=== PATIENT | female | born 1945 | race Caucasian/White ===

== ENCOUNTER → 2016-10-12 | Outpatient (CLI) | payer MEDICARE ==
[2016-10-12 17:04] LABS: Partial Thromboplastin Time 25.3 sec (22.0-30.0); Prothrombin Time 10.6 sec (9.0-12.0)
[2016-10-12 17:14] LABS: Calcium 9.6 mg/dL (8.4-10.2); Potassium 4.6 mmol/L (3.5-5.1); Total Bilirubin 0.5 mg/dL (0.2-1.3); Total Protein 6.7 g/dL (6.3-8.2)
[2016-10-12 17:15] LABS: Basophils % (A) 1 %; CH 30.8; CHCM 32.5; Eosinophils # (A) 0.1 k/uL (0-0.7); Eosinophils % (A) 1 %; HCT 38.8 % (34.0-46.0); HDW 2.81; Luc # (Auto) 0.23; Luc % (Auto) 4; Lymphocytes # (A) 1.1 k/uL (1.0-4.8); Lymphocytes % (A) 19 %; MCH 29.5 pg (25.0-35.0); MCV 95.2 fL (80.0-100.0); Mean Platelet Volume 7.4; Monocytes # (A) 0.3 k/uL (0-1.0); Monocytes % (A) 6 %; Neutrophils # (A) 3.8 k/uL (1.3-7.7); Neutrophils % (A) 69 %; RBC 4.08 m/uL (3.80-5.40); RDW 13.7 % (11.5-15.5); WBC 5.5 k/uL (3.8-10.6)
== END ==
LOC: LABPAT 16:08
PROVIDERS: ATTEND Orthopaedic Surgery
DX: Z01.812 Encounter for preprocedural laboratory examination (principal)
CPT/HCPCS: 80053; 85025; 85610; 85730; 86850; 86900; 86901; 87070

== ENCOUNTER 2016-10-20 09:54 | Inpatient (IN) | payer MEDICARE ==
[2016-10-12 14:06] VITALS: BMI 38.0
[~2016-10-20 09:54] MED LIST: ACETAMINOPHEN TAB 500 MG TAB PO ONE; DEXAMETHASONE SOD PHOSPHATE 10 MG/ML 1 ML VIAL IV ONE; HYDROmorphone 1 MG/ML 1 ML SYRINGE IVP PRN; LIDOCAINE 1% 20 ML VIAL (10MG/ML) FOR IV START INTRADERMA PRN; MELOXICAM 7.5 MG TAB PO ONE; MIDAZOLAM 2 MG/2 ML VIAL IV PRN; ONDANSETRON 4 MG/2 ML VIAL IVP ONE; SCOPOLAMINE 1.5MG/72HR PATCH TRANSDERM ONE; TRANEXAMIC ACID 1,000 MG in SODIUM CHLORIDE 0.9% 100 ML IVPB ONE; ceFAZolin 2 GM in SODIUM CHLORIDE 0.9% 100 ML IVPB ONE
[2016-10-20] MEDS: LACTATED RINGERS 1,000 ML IV SCH (10:39)
[2016-10-20] MEDS ORDERED: LIDOCAINE 1% 20 ML VIAL (10MG/ML) FOR IV START INTRADERMA ONE (10:40)
[2016-10-20] MEDS ORDERED: SODIUM CHLORIDE 0.9% 100 ML BAG ONE (11:51)
[2016-10-20] MEDS ORDERED: HEPARIN SODIUM,PORCINE 10,000 UNIT/ML 1 ML VIAL ONE (11:51)
[2016-10-20] MEDS ORDERED: fentaNYL (PF) 50 MCG/ML 2 ML AMP ONE (11:51)
[2016-10-20] MEDS ORDERED: PROPOFOL 10 MG/ML 20 ML VIAL IV ONE (11:51)
[2016-10-20] MEDS ORDERED: CLINDAMYCIN 1,800 MG in SODIUM CHLORIDE 0.9% IRRIGATIO 3,000 ML IRRIGATION ONE (11:51)
[2016-10-20] MEDS ORDERED: HYDROmorphone (PF) 1 MG/ML ONE (11:51)
[2016-10-20] MEDS ORDERED: SODIUM CHLORIDE 0.9% IRRIG 1,000 ML BTL IRRIGATION ONE (11:51)
[2016-10-20] MEDS ORDERED: GLYCOPYRROLATE 0.2 MG/ML 2 ML VIAL ONE (11:51)
[2016-10-20] MEDS ORDERED: LIDOCAINE 1% INJ 10MG/ML (20 ML MDV) ONE (11:51)
[2016-10-20] MEDS ORDERED: MIDAZOLAM 2 MG/2 ML VIAL ONE (11:51)
[2016-10-20] MEDS ORDERED: ROCURONIUM BROMIDE 10 MG/ML 10 ML VIAL IV ONE (11:51)
[2016-10-20] MEDS ORDERED: NEOSTIGMINE 1 MG/ML 10 ML VIAL ONE (11:51)
[2016-10-20] MEDS ORDERED: SUCCINYLCHOLINE CHLORIDE 100 MG/5 ML SYR IV ONE (11:51)
[2016-10-20] MEDS ORDERED: TRANEXAMIC ACID 1,000 MG/10 ML VIAL ONE (11:51)
[2016-10-20] MEDS: ROPIVACAINE 246.25 MG, EPINEPHrine 0.5 MG, KETOROLAC 30 MG, cloNIDine HCL/PF 80 MCG, WA... MISCELLANE ONE ×10 (12:30→13:15)
[2016-10-20] MEDS ORDERED: LACTATED RINGERS 1,000 ML IV ONE (13:15)
--- NOTE | 2016-10-20 13:48 | FL ---
Fluoroscopy HISTORY: Post hip arthroplasty 45 seconds fluoroscopy time supplied to the referring clinician. 2 intraoperative C-arm images docum ent the procedure. See dictated report from orthopedic surgery.
--- NOTE | 2016-10-20 13:58 | XR ---
Limited right hip HISTORY: Status post hip replacement 2 views of the right hip document the procedure
[2016-10-20] MEDS ORDERED: HYDROmorphone 1 MG/ML 1 ML SYRINGE IVP PRN ×2 (14:06)
[2016-10-20] MEDS ORDERED: DIAZEPAM 5 MG TAB PO PRN ×2 (14:06)
[2016-10-20] MEDS ORDERED: ONDANSETRON 4 MG/2 ML VIAL IVP PRN (14:06)
[2016-10-20] MEDS ORDERED: NALOXONE 0.4 MG/ML 1 ML VIAL IV PRN (14:06)
[2016-10-20] MEDS ORDERED: HYDROcodone/APAP 5-325MG 1 EACH TAB PO PRN (14:06)
[2016-10-20] MEDS ORDERED: MAGNESIUM HYDROXIDE 2,400 MG/10 ML CUP PO PRN (14:06)
--- NOTE | 2016-10-20 14:42 | XR ---
EXAMINATION TYPE: XR Hip Limited RT DATE OF EXAM ORDERED: 10/20/2016 2:37 PM HISTORY: Status post hip surgery, assess surgical alignment. COMPARISON: None. FINDINGS: The right hip arthroplasty has been performed. Prosthetic elements appear in good position . IMPRESSION: STATUS POST RIGHT HIP ARTHROPLASTY.
--- NOTE | 2016-10-20 15:36 | P.OP ---
Date of Procedure: 10/20/16 Preoperative Diagnosis: Severe osteoarthritis right hip Postoperative Diagnosis: Severe osteoarthritis right hip Procedure(s) Performed: Right total hip arthroplasty with a direct anterior approach Implants: Jacinto and nephew Polarstem size 2 standard Jacinto [employer] Nephew R3, 3 hole acetabular shell, 50 mm Jacinto [employer] Nephew reflection 6.5 mm cancellus screw, 20 mm 2 Jacinto [employer] Nephew R3, XLPE 20 acetabular liner Jacinto & Nephew Oxinium femoral head 32 m, +4 All components were press-fit. The articulation is ceramic on polyethylene. Anesthesia: spinal Surgeon: Mk Stoddard Mortising Machine Operator #1: Scarlet Micehlle Estimated Blood Loss (ml): 125 (62 cc returned with cell saver) Pathology: other (Femoral head) Condition: stable Disposition: PACU Indications for Procedure: After failure of conservative treatment we discussed the surgical and nonsurgical treatment options at length. Patient wishes to proceed with a total hip arthroplasty with a direct anterior approach. Complications specific to this procedure were discussed at length, including but not limited to infection, leg length discrepancy, dislocation, and nerve injury. Patient is aware of all these complications and informed consent was obtained Operative Findings: The operative findings are consistent with severe osteoarthritis of the right hip Description of Procedure: Patient was seen and evaluated in the preoperative area, consent was reviewed, and the surgical site was marked with a skin marker. Patient was then brought to the operating room and given prophylactic antibiotics intravenously. 1 g of Tranexamic acid was also given. A spinal anesthetic was administered by the anesthesia department. A Alvarez catheter was then placed by the nursing staff. The patient was then placed on the [place] table with the bony prominences well- padded. The hip area was then prepped and draped in usual sterile fashion. A universal timeout was then performed, which confirmed the patient's name, surgical site, ALLERGIES, and procedure being performed. Next the incision site was located at 1 cm distal and 1 cm lateral to the anterior superior iliac spine. The skin and subcutaneous tissues were sharply incised. Incision was carefully dissected down to the fascia overlying the tensor fascia georgie muscle. This fascia was then incised in line with the incision. Next, using blunt finger dissection, the tensor fascia georgie muscle was dissected off its investing fascia. The muscle was then carefully retracted laterally with a cobra retractor over the lateral neck of the femur. Next, the circumflex vessels were identified and cauterized using the AquaMantis device. The anterior hip capsule was then exposed. The capsule was then opened and an inverted T fashion. Retention sutures were placed in the inferior arms of the capsule. Cobra retractors were then placed intracapsularly. The proximal femur was then visualized. The femoral neck was then osteotomized appropriate level above the lesser trochanter. Small amount of traction was placed with the [place] table. A small wedge of bone was then removed from the remaining femoral head. Next, using a corkscrew femoral head was easily removed from the acetabulum. On gross visual inspection, the femoral head had complete loss of articular cartilage in multiple periarticular osteophytes. Attention was then turned to the acetabulum. the acetabulum was exposed and any remaining labrum was excised. Sequential reaming of the acetabulum was performed using fluoroscopic guidance. When the appropriate size was reached, a trial was then placed. The position and fit of the trial was checked with fluoroscopy. The trial was then removed. Then, using fluoroscopic guidance, the final implant was impacted at 20 of anteversion and 40 of abduction, and fully seated in the acetabulum. 2 screws were then placed in the acetabulum. Again fluoroscopy was used to check position of the screws. Next, the liner was then impacted, with a 20 elevated liner located in the anterior superior quadrant. Component locking was confirmed. Attention was then directed to the femur. With the aid of the [place] table, the femur was externally rotated to approximately 130, extended, and abducted under the opposite leg. A side hook was then placed under the proximal femur, and the side hook elevator was used to elevate the proximal femur. Retractors were then placed. A capsular release was performed, as well as a release of the conjoined tendon, which afforded excellent visualization of the proximal femur. Next, a box osteotome was used to lateralize the proximal femur. A binder stripper hand was then used to locate the femoral canal. Sequential broaching was then performed with appropriate size which afforded excellent fixation in the proximal femur. A trial was then placed with appropriate head and neck, and the hip was gently reduced with the aid of the [place] table. Fluoroscopy was then used to check position of the components, as well as to ensure equal leg lengths. The hip was then gently dislocated and the trials were then removed. Final implants were then impacted and the hip was again reduced. Final fluoroscopic x-rays confirmed that the components were in anatomic position, as well as equal leg lengths. The hip was also taken through range of motion, and found to be stable. The hip was then copiously irrigated with antibiotic solution with pulsatile lavage. The hip was then irrigated with Irrisept solution. The soft tissues were then injected with a ropivacaine solution, which consisted of 246.25 mg of ropivacaine, 0.5 mg of epinephrine, 30 mg of Toradol, 80 g of clonidine, and 48.45 mL of sterile water, for a total of 100 mL of fluid injected. A second dose of 1 g of Tranexamic acid was also given. the fascia was then closed with 2-0 strata fix suture. The subcutaneous tissue was closed with 3-0 Vicryl. The subcuticular tissue was closed with 3-0 strata fix suture. The skin was then closed with Dermabond tape. The patient was then transferred to the recovery room in stable condition. The financial planning assistant HENNA Calderón was required due to the complexity of surgery , and the need for skilled bakery assistant for positioning, draping, exposure , retraction, and closure of the wound.
[2016-10-20] MEDS: SODIUM CHLORIDE 0.9% 1,000 ML IV SCH ×2 (15:39→23:02)
--- NOTE | 2016-10-20 19:43 | P.CONS ---
History of Present Illness - Reason for Consult Consult date: 10/20/16 Medical management Requesting physician: Mk Stoddard - Chief Complaint Right hip arthroplasty - History of Present Illness This is a pleasant 71-year-old lady patient of Dr. Berg. She has underlying history of diabetes mellitus type 2, hypertension, depression, CK D, atrial fibrillation, hyperlipidemia GERD and vitamin D deficiency or shortness 5 this admitted under service of Dr. Stoddard for right hip arthroplasty performed on 10/20/2016. She underwent the right hip arthroplasty without any perioperative complications, Review of Systems Constitutional: Reports as per HPI, Denies anorexia, Denies chills, Denies chronic headaches, Denies chronic pain, Denies daytime sleepiness, Denies fatigue, Denies fever, Denies lethargy, Denies malaise, Denies night sweats, Denies poor appetite, Denies sweats, Denies weakness, Denies weight gain, Denies weight loss Ears, nose, mouth and throat: Reports as per HPI, Denies ant. neck pain, Denies bleeding gums, Denies dental pain, Denies dysphagia, Denies epistaxis, Denies headache, Denies hoarseness, Denies mouth pain, Denies nasal congestion, Denies nasal discharge, Denies neck fullness/pressure, Denies neck lump, Denies nose pain, Denies odynophagia, Denies post-nasal drip, Denies sinus pain, Denies sinus pressure, Denies swelling in mouth, Denies swelling in throat, Denies sore throat, Denies vertigo, Denies voice changes Breasts: Denies as per HPI, Denies breast feeding Cardiovascular: Reports as per HPI, Denies chest pain, Denies claudication, Denies decreased exercise tolerance, Denies dyspnea on exertion, Denies edema, Denies high blood pressure, Denies irregular heart beat, Denies leg edema, Denies lightheadedness, Denies orthopnea, Denies palpitations, Denies paroxysmal nocturnal dyspnea, Denies phlebitis, Denies rapid heart beat, Denies shortness of breath, Denies syncope Respiratory: Reports as per HPI, Denies congestion, Denies cough, Denies cough with sputum, Denies dyspnea, Denies excessive sputum, Denies hemoptysis, Denies home oxygen, Denies pain, Denies pain on inspiration, Denies pleurisy, Denies respiratory infections, Denies sleep apnea, Denies snoring, Denies wheezing Gastrointestinal: Reports as per HPI, Denies abdominal pain, Denies belching, Denies bloating, Denies BRBPR, Denies change in bowel habits, Denies coffee ground emesis, Denies constipation, Denies diarrhea, Denies dyspepsia, Denies early satiety, Denies excessive gas, Denies heartburn, Denies hematemesis, Denies hematochezia, Denies indigestion, Denies jaundice, Denies lactose intolerance, Denies loss of appetite, Denies melena, Denies nausea, Denies vomiting Genitourinary: Reports as per HPI, Denies abnormal vaginal bleeding, Denies decreased libido, Denies difficulty conceiving, Denies difficulty voiding, Denies dysmenorrhea, Denies dyspareunia, Denies dysuria, Denies flank pain, Denies genital sores, Denies hematuria, Denies hot flashes, Denies incomplete emptying, Denies kidney stones, Denies menorrhagia, Denies mixed incontinence, Denies nocturia, Denies pelvic pain, Denies post void dribbling, Denies , Denies prolapse symptoms, Denies stress incontinence, Denies urge incontinence , Denies urgency, Denies urinary frequency, Denies vaginal discharge, Denies vaginal dryness, Denies vaginal itching, Denies vaginal odor Menstruation: Reports as per HPI, Reports postmenopausal, Denies amenorrhea, Denies amenorrhea on BC, Denies currently menstrual, Denies cycle < 21 days, Denies cycle > 35 days, Denies cycle variable, Denies menses 1-7 days, Denies menses 8 or > days, Denies menses variable, Denies period heavy, Denies period light, Denies period normal, Denies period spotting, Denies post hysterectomy, Denies premenarcheal Musculoskeletal: Reports as per HPI, Reports gait dysfunction, Denies arm numbness/tingling, Denies atrophy, Denies fractures, Denies frequent falls, Denies hot joints, Denies leg numbness/tingling, Denies limitation of motion, Denies loss of height, Denies low back pain, Denies morning stiffness, Denies muscle cramps, Denies muscle weakness, Denies myalgias, Denies neck pain, Denies neck stiffness, Denies prior amputations, Denies redness of joints, Denies shooting arm pain, Denies shooting leg pain Integumentary: Reports as per HPI, Denies acne, Denies boils, Denies brittle nails, Denies change in hair/nails, Denies color changes, Denies darkening of skin, Denies depigmentation, Denies dryness, Denies foot/leg ulcers, Denies growths, Denies hirsutism, Denies lesions, Denies onychomycosis, Denies pruritus , Denies rash, Denies sores, Denies striae, Denies unusual bruising, Denies wounds Neurological: Reports as per HPI, Denies aphasia, Denies ataxia, Denies balance difficulties, Denies burning pain, Denies change in mentation, Denies change in smell/taste, Denies change in speech, Denies confusion, Denies convulsions, Denies double vision, Denies gait dysfunction, Denies head injury, Denies headaches, Denies hearing difficulties, Denies lack of coordination, Denies loss of vision, Denies memory loss, Denies migraines, Denies motor disturbance, Denies numbness, Denies paralysis, Denies paresthesias, Denies seizures, Denies sensory deficit, Denies spasticity, Denies syncope, Denies tic, Denies tingling , Denies transient paralysis, Denies tremors, Denies vertigo, Denies weakness, Denies visual changes Psychiatric: Reports as per HPI, Denies anhedonia, Denies anxiety, Denies anxiety attacks, Denies change in appetite, Denies change in libido, Denies change in sleep habits, Denies confusion, Denies depression, Denies difficulty concentrating, Denies disorientation, Denies hallucinations, Denies hopelessness , Denies hypersomnia, Denies insomnia, Denies irritability, Denies memory loss, Denies mood swings, Denies paranoia, Denies sadness/tearfulness, Denies sleep disturbances, Denies suicidal ideation Endocrine: Reports as per HPI, Denies cold intolerance, Denies deepening of the voice, Denies excessive sweating, Denies excessive thirst, Denies fatigue, Denies flushing, Denies heat intolerance, Denies high blood sugars, Denies increase in ring/shoe/hat size, Denies low blood sugars, Denies nocturia, Denies palpitations, Denies polydipsia, Denies polyphagia, Denies polyuria, Denies proptosis, Denies recent glucocorticoid use, Denies thyroid mass, Denies weight change Hematologic/Lymphatic: Reports as per HPI Allergic/Immunologic: Reports as per HPI Past Medical History Past Medical History: Atrial Fibrillation, Cancer, Diabetes Mellitus (Diet- controlled not on any medication), Hypertension, Osteoarthritis (OA), Renal Disease (CK DH3) Additional Past Medical History / Comment(s): hx cervical cancer, hx GOUT, arthritis, "borderline diabetic"-does not watch diet, radiation tx to tonsils as child, has walker and "walking stick" History of Any Multi-Drug Resistant Organisms: None Reported Past Surgical History: Back Surgery, Hysterectomy, Orthopedic Surgery Additional Past Surgical History / Comment(s): APPLE cataracts, rt knee arthroscopy, neck fusion at C4-C5, C5-C6, C6-C7 corpectomy, LEFT CARPAL TUNNEL, cardioversion colonoscopy bilateral tubal ligation Past Anesthesia/Blood Transfusion Reactions: Postoperative Nausea & Vomiting ( PONV) Additional Past Anesthesia/Blood Transfusion Reaction / Comm: "stopped breathing with procedure done by Dr Britton", hard time coming out, told she was "lightweight" Past Psychological History: No Psychological Hx Reported Additional Psychological History / Comment(s): . Smoking Status: Former smoker Past Alcohol Use History: Daily Additional Past Alcohol Use History / Comment(s): STATES Stopped SMOKING 1996, 1PPD SINCE AGE 15 (1960) STATES DRINKS 1-2 BEERS DAILY Past Drug Use History: None Reported - Past Family History Brother(s) Family Medical History: Cancer Additional Family Medical History / Comment(s): colon,lymphoma Father Family Medical History: Pulmonary Embolus Additional Family Medical History / Comment(s): . Mother Family Medical History: Hypertension Daughter(s) Family Medical History: No Reported History Son(s) Family Medical History: No Reported History Medications and Allergies Home Medications Medication Instructions Recorded Confirmed Type Aspirin 81 mg PO DAILY 08/21/14 10/20/16 History Vit A,C & E/Lutein/Minerals 1 tab PO DAILY 08/21/14 10/20/16 History [Ocuvite with Lutein Tablet] Ergocalciferol [Vitamin D2 50,000 unit PO [id number] 09/07/14 10/20/16 History (DRISDOL)] Dexlansoprazole [Dexilant] 60 mg PO DAILY 04/01/16 10/20/16 History Hydrochlorothiazide 25 mg PO DAILY 04/01/16 10/20/16 History [Hydrochlorothiazide] Apixaban [Eliquis] 5 mg PO BID 10/12/16 10/20/16 History Atenolol [Tenormin] 25 mg PO DAILY 10/12/16 10/20/16 History Ibuprofen [Motrin] 400 mg PO Q6HR PRN 10/12/16 10/20/16 History Acetaminophen Tab [Tylenol Tab] 650 mg PO Q6H PRN 10/20/16 10/20/16 History Allergies Allergy/AdvReac Type Severity Reaction Status Date / Time Iodinated Contrast Media - Allergy Rash/Hives Verified 10/12/16 13:49 Oral and [Iodinated Contrast Media - IV Dye] Penicillins Allergy Rash/Hives Verified 10/12/16 13:49 Sulfa (Sulfonamide Allergy Rash/Hives Verified 10/12/16 13:49 Antibiotics) Physical Exam Vitals: Vital Signs Temp Pulse Pulse Pulse Resp BP Pulse Ox 10/20/16 18:00 62 116/70 10/20/16 17:45 65 122/60 10/20/16 17:30 67 123/69 10/20/16 17:15 73 116/69 10/20/16 17:00 56 L 116/69 10/20/16 16:45 62 117/69 10/20/16 16:30 64 117/70 10/20/16 16:15 64 134/74 10/20/16 16:00 97.2 F L 61 64 17 129/72 96 10/20/16 15:30 61 18 129/62 98 10/20/16 15:15 61 18 136/60 97 10/20/16 14:46 69 18 164/72 97 10/20/16 14:30 69 18 169/74 97 10/20/16 14:15 75 18 156/74 96 10/20/16 14:06 98.3 F 89 16 187/79 100 10/20/16 13:00 64 18 151/70 96 10/20/16 10:26 98.3 F 69 18 161/69 99 Intake and Output 10/20/16 10/20/16 10/20/16 06:59 14:59 22:59 Intake Total 1301 800 Output Total 175 50 Balance 1126 750 Intake: IV 1301 800 Output: Urine 50 50 Estimated Blood Loss 125 Other: Voiding Method Indwelling Catheter Weight 88.451 kg Patient Weight 10/21/16 06:59 Weight 88.451 kg - Constitutional General appearance: average body habitus, cooperative, no acute distress - EENT Eyes: anicteric sclerae, PERRLA, dentition normal, normal appearance ENT: hearing grossly normal, NA/AT, normal oropharynx - Neck Neck: no lymphadenopathy, normal ROM, no other, no rigidity, no stridor, no thyromegaly - Respiratory Respiratory: bilateral: CTA, negative: diminished, dullness, rales, rhonchi - Cardiovascular Rhythm: regular Heart sounds: normal: S1, S2 Abnormal Heart Sounds: no systolic murmur, no diastolic murmur, no rub, no S3 Gallop, no S4 Gallop, no click, no other - Gastrointestinal General gastrointestinal: normal bowel sounds, soft - Integumentary Integumentary: normal - Psychiatric Psychiatric: A&O x's 3, appropriate affect, intact judgment & insight Results Labs: Laboratory Results Blood Type A Negative 10/12/16 16:12 Blood Type Recheck No 10/12/16 16:12 Weak D (Du) Positive 10/12/16 16:12 Antibody Screen NEGATIVE 10/12/16 16:12 Spec Expiration Date 10/22/2016 - 231110/12/16 16:12 Assessment and Plan Plan: 1. Right total hip arthroplasty on 10/20/2016, patient would be receiving DVT prophylaxis, incentive spirometry, therapies during this current hospitalization. Patient is currently stable, anticipate discharge to home therapies 2. Diabetes mellitus type 2 not on any oral hypoglycemic agents 3. Benign hypertension, on Tenormin is resumed, hydrochlorothiazide will be restarted in the morning 10/21 4. Vitamin D deficiency on vitamin D to 50,000 units every 2 weeks 5. Paroxysmal atrial fibrillation on Ahlquist 5 mg twice a day this will be restarted on October 21 6. Diabetic polyneuropathy he was started by Dr. Berg on gabapentin during her last visit 09/10/2016 which she did not continue 7. Hyperlipidemia not on any statin 8. CKD III, monitor creat during this admision 8. GERD on maintenance Dexilant 9. DVT prophylaxis on Eliquis which is chronically maintained for her afib Thank you Dr. Stoddard in allowing us to participate in her care. Patient. We are going to follow her with you during this current hospital stay with recommendations on her treatment based on her clinical progress
[2016-10-20] MEDS: HYDROcodone/APAP 5-325MG 1 EACH TAB PO PRN (20:52)
[2016-10-20] MEDS: SENNOSIDES-DOCUSATE SODIUM 1 EACH TAB PO SCH (20:53)
[2016-10-20] MEDS: ceFAZolin 2 GM in SODIUM CHLORIDE 0.9% 100 ML IVPB SCH (20:53)
[2016-10-20] MEDS ORDERED: ENOXAPARIN 30 MG/0.3 ML SYRINGE SQ SCH (21:00)
[2016-10-20] MEDS: HYDROmorphone 1 MG/ML 1 ML SYRINGE IVP PRN (23:15)
[2016-10-21] MEDS: ceFAZolin 2 GM in SODIUM CHLORIDE 0.9% 100 ML IVPB SCH (03:05)
[2016-10-21] MEDS: HYDROmorphone 1 MG/ML 1 ML SYRINGE IVP PRN (05:50)
[2016-10-21] MEDS: LACTATED RINGERS 1,000 ML IV SCH (06:25)
[2016-10-21 07:25] LABS: Calcium 8.5 mg/dL (8.4-10.2); Potassium 4.4 mmol/L (3.5-5.1)
[2016-10-21] MEDS: PANTOPRAZOLE 40 MG TABLET PO SCH (07:27)
[2016-10-21] MEDS: MELOXICAM 7.5 MG TAB PO SCH (07:27)
[2016-10-21 07:40] LABS: Basophils % (A) 0 %; CH 30.4; CHCM 32.2; Eosinophils % (A) 0 %; HCT 32.1 % (34.0-46.0); HDW 2.88; HGB 10.2 gm/dL (11.4-16.0); Hypochromasia Slight; Luc # (Auto) 0.16; Luc % (Auto) 1; Lymphocytes # (A) 0.8 k/uL (1.0-4.8); Lymphocytes % (A) 7 %; MCH 30.2 pg (25.0-35.0); MCHC 31.9 g/dL (31.0-37.0); MCV 94.8 fL (80.0-100.0); Mean Platelet Volume 8.4; Monocytes # (A) 0.6 k/uL (0-1.0); Monocytes % (A) 5 %; Neutrophils # (A) 9.7 k/uL (1.3-7.7); Neutrophils % (A) 86 %; RBC 3.38 m/uL (3.80-5.40); RDW 13.7 % (11.5-15.5); WBC 11.2 k/uL (3.8-10.6); WBC (Perox) 11.47
[2016-10-21] MEDS: APIXABAN 5 MG TAB PO SCH ×2 (08:30→21:34)
[2016-10-21] MEDS: hydrOXYzine PAMOATE 25 MG CAP PO PRN ×3 (08:34→21:35)
[2016-10-21] MEDS: HYDROcodone/APAP 5-325MG 1 EACH TAB PO PRN ×3 (08:34→21:34)
[2016-10-21] MEDS ORDERED: ASPIRIN 81 MG CHEW PO SCH (09:00)
--- NOTE | 2016-10-21 09:23 | P.PN ---
Subjective Principal diagnosis: Status post right total hip arthroplasty This is a 71-year-old female who is status post right total hip arthroplasty. Today's postoperative day #1. The patient is seen and evaluated at bedside with Dr. Mk Stoddard. She felt a pop in her hip this morning. She is really not had any increased pain since that time. Her pain is under fair control. She has no other complaints at this time. Objective - Vital Signs Vital signs: Vital Signs Temp 97.4 F L 10/21/16 07:00 Pulse 61 10/21/16 07:00 Resp 16 10/21/16 07:00 BP 109/53 10/21/16 07:00 Pulse Ox 97 10/21/16 07:00 Intake & Output 10/20/16 10/21/16 10/21/16 18:59 06:59 18:59 Intake Total 2101 1425 Output Total 225 Balance 1876 1425 Weight 88.451 kg Intake: IV 2101 Intake, IV Titration 975 Amount Sodium Chloride 0.9% 1, 875 000 ml @ 70 mls/hr IV . [id number] [facility] Rx#:[id number] ceFAZolin 2 gm In Sodium 100 Chloride 0.9% 100 ml @ 100 mls/hr IVPB Q8H [facility]VIS Rx#:[id number] Oral 450 Output: Urine 100 Estimated Blood Loss 125 Other: Voiding Method Indwelling Catheter Indwelling Catheter - Exam The patient does not appear in acute distress. Alert and orientated 3. Dressing is clean dry and intact. Incision appears fine with no erythema or active drainage. Calf is soft and nontender. Good foot and ankle motion without difficulty. Sensation and circulatory status is intact. - Labs CBC & Chem 7: 10/21/16 06:30 10/21/16 06:30 Labs: Abnormal Lab Results - Last 24 Hours (Table) 10/21/16 10/21/16 Range/Units 06:30 06:30 WBC 11.2 H (3.8-10.6) k/uL RBC 3.38 L (3.80-5.40) m/uL Hgb 10.2 L (11.4-16.0) gm/dL Hct 32.1 L (34.0-46.0) % Neutrophils # 9.7 H (1.3-7.7) k/uL Lymphocytes # 0.8 L (1.0-4.8) k/uL BUN 38 H (7-17) mg/dL Creatinine 1.40 H (0.52-1.04) mg/dL Glucose 118 H (74-99) mg/dL Assessment and Plan (1) Status post right hip replacement Status: Acute (2) Primary osteoarthritis of right hip Status: Acute Plan: Continue with routine postoperative care. Physical therapy and pain control. Anticoagulation as directed by medicine with Chaim. We will obtain an x-ray of her right hip today. Anticipate possible discharge to home with home care tomorrow.
[2016-10-21] MEDS: ATENOLOL 25 MG TAB PO SCH (12:59)
[2016-10-21] MEDS: HYDROCHLOROTHIAZIDE 25 MG TAB PO SCH (12:59)
[2016-10-21] MEDS: VIT A,C & E-LUTEIN-MINERALS 1 EACH TAB PO SCH (13:01)
--- NOTE | 2016-10-21 14:24 | P.PN ---
Subjective This is a pleasant 71-year-old lady patient of Dr. Berg. She has underlying history of diabetes mellitus type 2, hypertension, depression, CK D, atrial fibrillation, hyperlipidemia GERD and vitamin D deficiency or shortness 5 this admitted under service of Dr. Stoddard for right hip arthroplasty performed on 10/20/2016. She underwent the right hip arthroplasty without any perioperative complications, 10/21: Alvarez catheter was removed this morning and patient has not yet voided. Monitor for urinary retention. Pain is currently controlled. She denies any nausea, vomiting, diarrhea. No shortness of breath. Objective - Vital Signs Vital signs: Vital Signs Temp 97.4 F L 10/21/16 07:00 Pulse 62 10/21/16 09:48 Resp 16 10/21/16 08:00 BP 117/54 10/21/16 09:48 Pulse Ox 97 10/21/16 07:00 Intake & Output 10/20/16 10/21/16 10/21/16 18:59 06:59 18:59 Intake Total 2101 1425 240 Output Total 225 350 Balance 1876 1425 -110 Weight 88.451 kg 88.451 kg Intake: IV 2101 Intake, IV Titration 975 Amount Sodium Chloride 0.9% 1, 875 000 ml @ 70 mls/hr IV . [id number] TRAVIS Rx#:[id number] ceFAZolin 2 gm In Sodium 100 Chloride 0.9% 100 ml @ 100 mls/hr IVPB Q8H TRAVIS Rx#:[id number] Oral 450 240 Output: Urine 100 350 Uretheral (Alvarez) 300 Estimated Blood Loss 125 Other: Voiding Method Indwelling Catheter Indwelling Catheter Indwelling Catheter - Exam General appearance: average body habitus, cooperative, no acute distress - EENT Eyes: anicteric sclerae, PERRLA, dentition normal, normal appearance ENT: hearing grossly normal, NA/AT, normal oropharynx - Neck Neck: no lymphadenopathy, normal ROM, no other, no rigidity, no stridor, no thyromegaly - Respiratory Respiratory: bilateral: CTA, negative: diminished, dullness, rales, rhonchi - Cardiovascular Rhythm: regular Heart sounds: normal: S1, S2 Abnormal Heart Sounds: no systolic murmur, no diastolic murmur, no rub, no S3 Gallop, no S4 Gallop, no click, no other - Gastrointestinal General gastrointestinal: normal bowel sounds, soft - Integumentary Integumentary: normal - Psychiatric Psychiatric: A&O x's 3, appropriate affect, intact judgment & insight - Labs CBC & Chem 7: 10/21/16 06:30 10/21/16 06:30 Labs: Abnormal Lab Results - Last 24 Hours (Table) 10/21/16 10/21/16 Range/Units 06:30 06:30 WBC 11.2 H (3.8-10.6) k/uL RBC 3.38 L (3.80-5.40) m/uL Hgb 10.2 L (11.4-16.0) gm/dL Hct 32.1 L (34.0-46.0) % Neutrophils # 9.7 H (1.3-7.7) k/uL Lymphocytes # 0.8 L (1.0-4.8) k/uL BUN 38 H (7-17) mg/dL Creatinine 1.40 H (0.52-1.04) mg/dL Glucose 118 H (74-99) mg/dL Assessment and Plan Plan: 1. Right total hip arthroplasty on 10/20/2016, patient would be receiving DVT prophylaxis, incentive spirometry, therapies during this current hospitalization. Patient is currently stable, anticipate discharge to home therapies. Alvarez discontinued. Monitor for urinary retention. 2. Diabetes mellitus type 2 not on any oral hypoglycemic agents 3. Benign hypertension, on Tenormin is resumed, hydrochlorothiazide will be restarted in the morning 10/21 4. Vitamin D deficiency on vitamin D to 50,000 units every 2 weeks 5. Paroxysmal atrial fibrillation on Ahlquist 5 mg twice a day this will be restarted on October 21 6. Diabetic polyneuropathy he was started by Dr. Berg on gabapentin during her last visit 09/10/2016 which she did not continuebecause she could not tolerate. 7. Hyperlipidemia not on any statin 8. CKD III, monitor creat during this admision 8. GERD on maintenance Dexilant 9. DVT prophylaxis on Eliquis which is chronically maintained for her afib Discharge plan: home with [facility] Impression and plan of care have been directed as dictated by the signing physician. Pamela Hook nurse practitioner acting as scribe for signing physician. Time with Patient: Greater than 30
[2016-10-21 15:35] VITALS: TEMP 97.9
--- NOTE | 2016-10-21 18:09 | XR ---
EXAMINATION TYPE: XR Hip Limited RT DATE OF EXAM: 10/21/2016 5:30 PM COMPARISON: Yesterday HISTORY: Hip replacement TECHNIQUE: 2 views FINDINGS: There is a right total hip prosthesis. Components appear in anatomic position. I see no fra cture. IMPRESSION: Right hip prosthesis without change in position compared to yesterday.
--- NOTE | 2016-10-21 18:50 | PN ---
DATE OF SERVICE: Mrs. Santos is a 71-year-old female who is followed by Dr. Britton. She underwent surgery by Dr. Stoddard yesterday which was right total hip arthroplasty. She is doing well this morning. She denies any symptoms of chest pain. Her breathing has been stable. She denies any dizziness or palpitation. She continues to be at this time on Eliquis 5 mg twice a day, aspirin once a day, Tenormin 25 mg daily, hydrochlorothiazide 25 mg daily. PHYSICAL EXAMINATION: Blood pressure 117/50 with a heart rate in the 60s. LUNGS: Clear. HEART: Regular rate, rhythm. S1, S2. No S3. No rub appreciated. ABDOMEN: Soft, nontender. EXTREMITIES: No edema. IMPRESSION: 1. Status post total hip arthroplasty. 2. Paroxysmal atrial fibrillation; remains in normal sinus rhythm. 3. History of hypertension. RECOMMENDATIONS: From the cardiac standpoint, I will continue on the beta archana. I will obtain an EKG. I will stop her aspirin since she is on the Eliquis.
[2016-10-21] MEDS: SENNOSIDES-DOCUSATE SODIUM 1 EACH TAB PO SCH (21:35)
[2016-10-21] MEDS: SODIUM CHLORIDE 0.9% 1,000 ML IV SCH (21:35)
[2016-10-22 02:28] VITALS: BP 129/60; PULSE 75; RESP 16
[2016-10-22] MEDS: hydrOXYzine PAMOATE 25 MG CAP PO PRN ×2 (04:05→09:41)
[2016-10-22] MEDS: HYDROcodone/APAP 5-325MG 1 EACH TAB PO PRN ×2 (04:05→09:40)
--- NOTE | 2016-10-22 08:44 | P.DS ---
Providers Date of admission: 10/20/16 09:54 Expected date of discharge: 10/22/16 Attending physician: Mk Stoddard Consults: 10/20/16 14:06 Consult Physician Routine Consulting Provider: Roman Berg Reason/Comments: medical management and anticoagulation managment Do you want consulting provider notified?: Yes Primary care physician: Roman Berg - Discharge Diagnosis(es) (1) Primary osteoarthritis of right hip Current Visit: Yes Status: Acute (2) Status post right hip replacement Current Visit: Yes Status: Acute Hospital Course: This is a 71-year-old female with known history of degenerative arthritis of the right hip. The patient presents for evaluation. After discussion and consideration patient elects to proceed with total hip arthroplasty. The patient is seen preoperatively by her primary care physician and cleared for surgery. Patient is admitted to [facility] on for total right hip arthroplasty. The procedures performed without complication or sequelae. The patient is doing well postoperatively. Labs and vital signs are stable on day of discharge. On day of discharge patient's hip incision is healing well. There is minimal erythema. There is no drainage noted at this time. There is minimal soft tissue swelling to the hip and thigh. Patient has full foot and ankle motion without difficulty or pain. Neurovascular status to the right lower extremity is intact. Patient is discharged to home with homecare in good condition. Pertinent Studies: Laboratory Tests 10/21/16 06:30 WBC 11.2 H RBC 3.38 L Hgb 10.2 L Hct 32.1 L Patient Condition at Discharge: Stable Plan - Discharge Summary New Discharge Prescriptions: Hydrocodone/Acetaminophen [Joice 5-325] 1 - 2 each PO Q6HR PRN #90 tab PRN Reason: Pain Sennosides-Docusate Sodium [Senokot-S] 2 tab PO DAILY #60 tablet Discharge Medication List Aspirin 81 mg PO DAILY 08/21/14 [History] Vit A,C & E/Lutein/Minerals [Ocuvite with Lutein Tablet] 1 tab PO DAILY [History] Ergocalciferol [Vitamin D2 (DRISDOL)] 50,000 unit PO [id number] 09/07/14 [History] Dexlansoprazole [Dexilant] 60 mg PO DAILY 04/01/16 [History] Hydrochlorothiazide [Hydrochlorothiazide] 25 mg PO DAILY 04/01/16 [History] Apixaban [Eliquis] 5 mg PO BID 10/12/16 [History] Atenolol [Tenormin] 25 mg PO DAILY 10/12/16 [History] Ibuprofen [Motrin] 400 mg PO Q6HR PRN 10/12/16 [History] Acetaminophen Tab [Tylenol Tab] 650 mg PO Q6H PRN 10/20/16 [History] Hydrocodone/Acetaminophen [Joice 5-325] 1 - 2 each PO Q6HR PRN #90 tab 10/21/16 [Rx] Sennosides-Docusate Sodium [Senokot-S] 2 tab PO DAILY #60 tablet 10/21/16 [Rx] Follow up Appointment(s)/Referral(s): Roman Berg MD [Primary Care Provider] - 1 Week [facility], [NON-STAFF] - 1 Week Mk Stoddard DO [Doctor of Osteopathic Medicine] - 2 Weeks Activity/Diet/Wound Care/Special Instructions: Weightbearing as tolerated with walker Anticoagulation per medicine with Eliquis Daily dressing changes Keep incision clean and dry Call [facility] with questions or concerns [phone] Discharge Disposition: HOME WITH HOME HEALTH SERVICES
[2016-10-22] MEDS: ATENOLOL 25 MG TAB PO SCH (09:42)
[2016-10-22] MEDS: PANTOPRAZOLE 40 MG TABLET PO SCH (09:42)
[2016-10-22] MEDS: MELOXICAM 7.5 MG TAB PO SCH (09:42)
[2016-10-22] MEDS: HYDROCHLOROTHIAZIDE 25 MG TAB PO SCH (09:43)
[2016-10-22] MEDS: VIT A,C & E-LUTEIN-MINERALS 1 EACH TAB PO SCH (09:43)
[2016-10-22] MEDS: APIXABAN 5 MG TAB PO SCH (09:43)
[2016-10-22] MEDS: SODIUM CHLORIDE 0.9% 1,000 ML IV SCH (09:43)
[2016-10-22 10:02] LABS: Calcium 8.7 mg/dL (8.4-10.2); Potassium 4.3 mmol/L (3.5-5.1)
--- NOTE | 2016-10-22 13:29 | PN ---
Ms. Santos is a 71-year-old female who underwent right total hip arthroplasty. No pain. No dizziness. No palpitation. She denies any nausea. She continues to be on Eliquis 5 mg twice a day, Tenormin 25 mg ( ), hydrochlorothiazide 25 mg daily. PHYSICAL EXAMINATION: Blood pressure 129/60 with the heart rate in the 70s. LUNGS: Clear. HEART: Regular rate and rhythm. S1 and S2, no S3, no rub. ABDOMEN: Soft, nontender. EXTREMITIES: No edema. Lab data revealed BUN and creatinine 41 and 1.12. Potassium 4.3. Her EKG revealed sinus mechanism. IMPRESSION: 1. Status post right total hip arthroplasty. 2. Hypertension. 3. Paroxysmal atrial fibrillation, remains in normal sinus rhythm. RECOMMENDATIONS: From the cardiac standpoint, she is stable. I would expect she should be able to be discharged home today and follow up as an outpatient with Dr. Britton as scheduled.
--- NOTE | 2016-10-22 14:01 | P.PN ---
Subjective This is a pleasant 71-year-old lady patient of Dr. Berg. She has underlying history of diabetes mellitus type 2, hypertension, depression, CK D, atrial fibrillation, hyperlipidemia GERD and vitamin D deficiency or shortness 5 this admitted under service of Dr. Stoddard for right hip arthroplasty performed on 10/20/2016. She underwent the right hip arthroplasty without any perioperative complications, 10/21: Alvarez catheter was removed this morning and patient has not yet voided. Monitor for urinary retention. Pain is currently controlled. She denies any nausea, vomiting, diarrhea. No shortness of breath. 10/22: Patient is scheduled for discharge home today. She has no new, occasions. Pain is controlled. Objective - Vital Signs Vital signs: Vital Signs Temp 97.9 F 10/22/16 01:10 Pulse 75 10/22/16 01:10 Resp 16 10/22/16 01:10 BP 129/60 10/22/16 01:10 Pulse Ox 92 L 10/22/16 01:10 Intake & Output 10/21/16 10/22/16 10/22/16 18:59 06:59 18:59 Intake Total 1540 600 Output Total 850 Balance 690 600 Weight 88.451 kg Intake: IV 400 Sodium Chloride 0.9% 1, 300 000 ml @ 70 mls/hr IV . [id number] TRAVIS Rx#:[id number] ceFAZolin 2 gm In Sodium 100 Chloride 0.9% 100 ml @ 100 mls/hr IVPB Q8H TRAVIS Rx#:[id number] Oral 1140 600 Output: Urine 850 Uretheral (Alvarez) 300 Other: Voiding Method Indwelling Catheter Toilet # Voids 1 1 - Exam General appearance: average body habitus, cooperative, no acute distress - EENT Eyes: anicteric sclerae, PERRLA, dentition normal, normal appearance ENT: hearing grossly normal, NA/AT, normal oropharynx - Neck Neck: no lymphadenopathy, normal ROM, no other, no rigidity, no stridor, no thyromegaly - Respiratory Respiratory: bilateral: CTA, negative: diminished, dullness, rales, rhonchi - Cardiovascular Rhythm: regular Heart sounds: normal: S1, S2 Abnormal Heart Sounds: no systolic murmur, no diastolic murmur, no rub, no S3 Gallop, no S4 Gallop, no click, no other - Gastrointestinal General gastrointestinal: normal bowel sounds, soft - Integumentary Integumentary: normal - Psychiatric Psychiatric: A&O x's 3, appropriate affect, intact judgment & insight - Labs CBC & Chem 7: 10/21/16 06:30 10/22/16 07:49 Labs: Abnormal Lab Results - Last 24 Hours (Table) 10/22/16 Range/Units 07:49 BUN 41 H (7-17) mg/dL Creatinine 1.12 H (0.52-1.04) mg/dL Glucose 101 H (74-99) mg/dL Assessment and Plan Plan: 1. Right total hip arthroplasty on 10/20/2016, patient would be receiving DVT prophylaxis, incentive spirometry, therapies during this current hospitalization. Patient is currently stable, anticipate discharge to home therapies. 2. Diabetes mellitus type 2 not on any oral hypoglycemic agents 3. Benign hypertension, on Tenormin is resumed, hydrochlorothiazide will be restarted in the morning 10/21 4. Vitamin D deficiency on vitamin D to 50,000 units every 2 weeks 5. Paroxysmal atrial fibrillation on Ahlquist 5 mg twice a day this will be restarted on October 21 6. Diabetic polyneuropathy he was started by Dr. Berg on gabapentin during her last visit 09/10/2016 which she did not continuebecause she could not tolerate. 7. Hyperlipidemia not on any statin 8. CKD III, monitor creat during this admision 8. GERD on maintenance Dexilant 9. DVT prophylaxis on Eliquis which is chronically maintained for her afib Discharge plan: home with [facility] Impression and plan of care have been directed as dictated by the signing physician. Pamela Hook nurse practitioner acting as scribe for signing physician. Time with Patient: Greater than 30
[2016-10-28] MEDS ORDERED: ERGOCALCIFEROL 50,000 UNIT CAP PO SCH (09:00)
== END 2016-10-22 14:34 | disposition home or self-care (01) | DRG 470 ==
LOC: 2ORMAIN 09:54 → 3SUR 14:42
PROVIDERS: ADMIT Orthopaedic Surgery; ATTEND Orthopaedic Surgery
PROC: 0SR904A Replacement of Right Hip Joint with Ceramic on Polyethylene Synthetic Substitute, Uncemented, Open Approach (ICD-10-PCS; principal; 2016-10-20 11:55)
DX: M16.11 Unilateral primary osteoarthritis, right hip (principal); E11.22 Type 2 diabetes mellitus with diabetic chronic kidney disease; I48.0 Paroxysmal atrial fibrillation; E78.5 Hyperlipidemia, unspecified; I12.9 Hypertensive chronic kidney disease with stage 1 through stage 4 chronic kidney disease, or unspecified chronic kidney disease; E55.9 Vitamin D deficiency, unspecified; K21.9 Gastro-esophageal reflux disease without esophagitis; M10.00 Idiopathic gout, unspecified site; N18.3 Chronic kidney disease, stage 3 (moderate); Z79.01 Long term (current) use of anticoagulants; Z79.82 Long term (current) use of aspirin; Z79.899 Other long term (current) drug therapy; Z82.49 Family history of ischemic heart disease and other diseases of the circulatory system; Z85.41 Personal history of malignant neoplasm of cervix uteri; Z87.891 Personal history of nicotine dependence; Z98.1 Arthrodesis status; Z88.0 Allergy status to penicillin; Z88.2 Allergy status to sulfonamides; Z91.041 Radiographic dye allergy status
CPT/HCPCS: 73501; 80048; 85025; 86850; 86891; 86900; 86901; 88300; 88305; 88311; 93005

== ENCOUNTER 2017-02-10 07:17 | Emergency (ER) | payer MEDICARE ==
[2017-02-10] MEDS ORDERED: SODIUM CHLORIDE 0.9% 1,000 ML IV STA (07:23)
--- NOTE | 2017-02-10 07:29 | ED ---
Arrhythmia/Palpitations HPI - General Chief Complaint: Arrhythmia/Palpitations Stated Complaint: heart racing Time Seen by Provider: 02/10/17 07:22 Source: patient, RN notes reviewed Mode of arrival: wheelchair Limitations: no limitations - History of Present Illness Initial Comments: This is a 71-year-old female with a history of atrial fibrillation hypertension diabetes renal disease cervical cancer no history of thyroid disease how her who states her heart racing all night. She states is been going fast she has been experiencing palpitations no chest pain however no shortness of breath no cough or phlegm production fevers chills or sweats. She states she did just recently see her full service supervisor and had had a heart monitor on but does not know what the data showed. She normally is not in A. fib all the time. He apparently has been controlled with medication. She voices no other complaints this time other than feeling anxious. MD Complaint: rapid heart beat, "heart racing" - Related Data Home Medications Medication Instructions Recorded Confirmed Aspirin 81 mg PO DAILY 08/21/14 02/10/17 Vits A,C,E/Lutein/Minerals 1 tab PO DAILY 08/21/14 02/10/17 [Ocuvite with Lutein Tablet] Ergocalciferol [Vitamin D2 50,000 unit PO [id number] 09/07/14 02/10/17 (DRISDOL)] Dexlansoprazole [Dexilant] 60 mg PO DAILY 04/01/16 02/10/17 Hydrochlorothiazide 25 mg PO DAILY 04/01/16 02/10/17 [Hydrochlorothiazide] Apixaban [Eliquis] 5 mg PO BID 10/12/16 02/10/17 Atenolol [Tenormin] 25 mg PO DAILY 10/12/16 02/10/17 Acetaminophen Tab [Tylenol Tab] 650 mg PO Q6H PRN 10/20/16 02/10/17 Allergies Allergy/AdvReac Type Severity Reaction Status Date / Time Iodinated Contrast Media - Allergy Rash/Hives Verified 02/10/17 07:58 Oral and [Iodinated Contrast Media - IV Dye] Penicillins Allergy Rash/Hives Verified 02/10/17 07:58 Sulfa (Sulfonamide Allergy Rash/Hives Verified 02/10/17 07:58 Antibiotics) Review of Systems ROS Statement: Those systems with pertinent positive or pertinent negative responses have been documented in the HPI. ROS Other: All systems not noted in ROS Statement are negative. Past Medical History Past Medical History: Atrial Fibrillation, Cancer, Diabetes Mellitus, Hypertension, Osteoarthritis (OA), Renal Disease Additional Past Medical History / Comment(s): hx cervical cancer, hx GOUT, arthritis, "borderline diabetic"-does not watch diet, radiation tx to tonsils as child, has walker and "walking stick" History of Any Multi-Drug Resistant Organisms: None Reported Past Surgical History: Back Surgery, Hysterectomy, Orthopedic Surgery Additional Past Surgical History / Comment(s): APPLE cataracts, rt knee arthroscopy, neck fusion at C4-C5, C5-C6, C6-C7 corpectomy, LEFT CARPAL TUNNEL, cardioversion colonoscopy bilateral tubal ligation Past Anesthesia/Blood Transfusion Reactions: Postoperative Nausea & Vomiting ( PONV) Additional Past Anesthesia/Blood Transfusion Reaction / Comment(s): "stopped breathing with procedure done by Dr Britton", hard time coming out, told she was "lightweight" Past Psychological History: No Psychological Hx Reported Smoking Status: Former smoker Past Alcohol Use History: Daily Past Drug Use History: None Reported - Past Family History Brother(s) Family Medical History: Cancer Additional Family Medical History / Comment(s): colon,lymphoma Father Family Medical History: Pulmonary Embolus Additional Family Medical History / Comment(s): . Mother Family Medical History: Hypertension Daughter(s) Family Medical History: No Reported History Son(s) Family Medical History: No Reported History General Exam - General Exam Comments Initial Comments: This is a well-developed well-nourished awake alert oriented 3 female Limitations: no limitations General appearance: alert, anxious Head exam: Present: atraumatic, normocephalic, normal inspection Eye exam: Present: normal appearance, PERRL, EOMI. Absent: scleral icterus, conjunctival injection, periorbital swelling ENT exam: Present: normal exam, mucous membranes moist Neck exam: Present: normal inspection. Absent: tenderness, meningismus, lymphadenopathy Respiratory exam: Present: normal lung sounds bilaterally. Absent: respiratory distress, wheezes, rales, rhonchi, stridor Cardiovascular Exam: Present: regular rate, normal rhythm, normal heart sounds. Absent: systolic murmur, diastolic murmur, rubs, gallop, clicks GI/Abdominal exam: Present: soft, normal bowel sounds. Absent: distended, tenderness, guarding, rebound, rigid Extremities exam: Present: normal inspection, full ROM, normal capillary refill. Absent: tenderness, pedal edema, joint swelling, calf tenderness Back exam: Present: normal inspection Neurological exam: Present: alert, oriented X3, CN II-XII intact Psychiatric exam: Present: normal affect, normal mood Skin exam: Present: warm, dry, intact, normal color. Absent: rash Course Vital Signs 02/10/17 02/10/17 02/10/17 07:19 07:38 08:07 Temperature 98.5 F Pulse Rate 68 61 Pulse Rate [ 65 Customer Account Coordinator ] Respiratory 17 16 Rate Blood Pressure 181/74 119/58 O2 Sat by Pulse 97 96 Oximetry EKG Findings - EKG Results: EKG: interpreted by ANGELA, sinus rhythm (Sinus rhythm a rate of 65. Interval 174 QRS of 88 QT/QTC of 390/[address]-T wave changes are seen.) Medical Decision Making - Medical Decision Making I did discuss findings with the patient and her family. Patient be discharged she's been asymptomatic since her arrival she is to follow-up with Dr. harrell. She does demonstrate evidence of renal insufficiency which is known to her. She will call Dr. Britton's office this afternoon. - Lab Data Result diagrams: 02/10/17 07:35 02/10/17 07:35 Lab Results 02/10/17 02/10/17 02/10/17 Range/Units 07:35 07:35 07:35 WBC 6.3 (3.8-10.6) k/uL RBC 4.10 (3.80-5.40) m/uL Hgb 11.7 (11.4-16.0) gm/dL Hct 34.3 (34.0-46.0) % MCV 83.7 (80.0-100.0) fL MCH 28.4 (25.0-35.0) pg MCHC 34.0 (31.0-37.0) g/dL RDW 15.5 (11.5-15.5) % Plt Count 236 (150-450) k/uL Neutrophils % 65 % Lymphocytes % 22 % Monocytes % 7 % Eosinophils % 2 % Basophils % 1 % Neutrophils # 4.1 (1.3-7.7) k/uL Lymphocytes # 1.4 (1.0-4.8) k/uL Monocytes # 0.4 (0-1.0) k/uL Eosinophils # 0.1 (0-0.7) k/uL Basophils # 0.0 (0-0.2) k/uL PT (9.0-12.0) sec INR (<1.1) APTT (22.0-30.0) sec Sodium 140 (137-145) mmol/L Potassium 4.5 (3.5-5.1) mmol/L Chloride 106 (98-107) mmol/L Carbon Dioxide 24 (22-30) mmol/L Anion Gap 10 mmol/L BUN 37 H (7-17) mg/dL Creatinine 1.19 H (0.52-1.04) mg/dL Est GFR (MDRD) Af Amer 54 (>60 ml/min/1.73 sqM) Est GFR (MDRD) Non-Af 45 (>60 ml/min/1.73 sqM) Glucose 114 H (74-99) mg/dL Calcium 9.2 (8.4-10.2) mg/dL Magnesium 1.9 (1.6-2.3) mg/dL Total Bilirubin 0.4 (0.2-1.3) mg/dL AST 23 (14-36) U/L ALT 27 (9-52) U/L Alkaline Phosphatase 56 (38-126) U/L Total Creatine Kinase 39 (30-135) U/L CK-MB (CK-2) 1.1 (0.0-2.4) ng/mL CK-MB (CK-2) Rel Index 2.8 Troponin I <0.012 (0.000-0.034) ng/mL Total Protein 6.6 (6.3-8.2) g/dL Albumin 3.8 (3.5-5.0) g/dL TSH 2.640 (0.465-4.680) mIU/L 02/10/17 Range/Units 07:35 WBC (3.8-10.6) k/uL RBC (3.80-5.40) m/uL Hgb (11.4-16.0) gm/dL Hct (34.0-46.0) % MCV (80.0-100.0) fL MCH (25.0-35.0) pg MCHC (31.0-37.0) g/dL RDW (11.5-15.5) % Plt Count (150-450) k/uL Neutrophils % % Lymphocytes % % Monocytes % % Eosinophils % % Basophils % % Neutrophils # (1.3-7.7) k/uL Lymphocytes # (1.0-4.8) k/uL Monocytes # (0-1.0) k/uL Eosinophils # (0-0.7) k/uL Basophils # (0-0.2) k/uL PT 10.2 (9.0-12.0) sec INR 1.0 (<1.1) APTT 24.6 (22.0-30.0) sec Sodium (137-145) mmol/L Potassium (3.5-5.1) mmol/L Chloride (98-107) mmol/L Carbon Dioxide (22-30) mmol/L Anion Gap mmol/L BUN (7-17) mg/dL Creatinine (0.52-1.04) mg/dL Est GFR (MDRD) Af Amer (>60 ml/min/1.73 sqM) Est GFR (MDRD) Non-Af (>60 ml/min/1.73 sqM) Glucose (74-99) mg/dL Calcium (8.4-10.2) mg/dL Magnesium (1.6-2.3) mg/dL Total Bilirubin (0.2-1.3) mg/dL AST (14-36) U/L ALT (9-52) U/L Alkaline Phosphatase (38-126) U/L Total Creatine Kinase (30-135) U/L CK-MB (CK-2) (0.0-2.4) ng/mL CK-MB (CK-2) Rel Index Troponin I (0.000-0.034) ng/mL Total Protein (6.3-8.2) g/dL Albumin (3.5-5.0) g/dL TSH (0.465-4.680) mIU/L - Radiology Data Radiology results: report reviewed (I did review the imaging and reports no acute findings.), image reviewed Disposition Clinical Impression: Palpitations, History of atrial fibrillation Disposition: HOME SELF-CARE Condition: Good Instructions: Palpitations (ED) Referrals: Roman Berg MD [Primary Care Provider] - 1-2 days Darien Britton MD [STAFF PHYSICIAN] - 1-2 days
[2017-02-10 07:53] LABS: Basophils % (A) 1 %; CH 27.3; CHCM 32.8; Eosinophils # (A) 0.1 k/uL (0-0.7); Eosinophils % (A) 2 %; HCT 34.3 % (34.0-46.0); HDW 2.83; HGB 11.7 gm/dL (11.4-16.0); Luc # (Auto) 0.22; Luc % (Auto) 3; Lymphocytes # (A) 1.4 k/uL (1.0-4.8); Lymphocytes % (A) 22 %; MCH 28.4 pg (25.0-35.0); MCV 83.7 fL (80.0-100.0); Mean Platelet Volume 7.3; Monocytes # (A) 0.4 k/uL (0-1.0); Monocytes % (A) 7 %; Neutrophils # (A) 4.1 k/uL (1.3-7.7); Neutrophils % (A) 65 %; RDW 15.5 % (11.5-15.5); WBC 6.3 k/uL (3.8-10.6); WBC (Perox) 5.96
[2017-02-10 08:00] LABS: Partial Thromboplastin Time 24.6 sec (22.0-30.0); Prothrombin Time 10.2 sec (9.0-12.0)
[2017-02-10 08:04] LABS: Calcium 9.2 mg/dL (8.4-10.2); Magnesium 1.9 mg/dL (1.6-2.3); Potassium 4.5 mmol/L (3.5-5.1); Total Bilirubin 0.4 mg/dL (0.2-1.3); Total Protein 6.6 g/dL (6.3-8.2)
--- NOTE | 2017-02-10 08:09 | XR ---
EXAMINATION TYPE: XR chest 2V DATE OF EXAM: 02/10/2017 COMPARISON: Prior chest x-ray 09/15/2014 HISTORY: Dysrhythmia TECHNIQUE: Frontal and lateral views of the chest are obtained. FINDINGS: There is no focal air space opacity, pleural effusion, or pneumothorax seen. The cardiac silhouette size is within normal limits. There are overlying cardiac leads. Postop change noted to th e cervical spine. Prominent lung volume may be indicative of underlying COPD. The osseous structures are intact. IMPRESSION: No acute cardiopulmonary process.
[2017-02-10 08:18] LABS: Creatine Kinase 39 U/L (30-135)
[2017-02-10 08:30] LABS: Creatine Kinase MB 1.1 ng/mL (0.0-2.4); Troponin I <0.012 ng/mL (0.000-0.034)
[2017-02-10 08:58] VITALS: BP 126/56; PULSE 60; RESP 18; TEMP 98.3
== END 2017-02-10 08:59 | disposition home or self-care (01) ==
LOC: EC 07:17
DX: R00.2 Palpitations (principal); I48.91 Unspecified atrial fibrillation; I10 Essential (primary) hypertension; M19.90 Unspecified osteoarthritis, unspecified site; M10.9 Gout, unspecified; Z87.891 Personal history of nicotine dependence; Z79.01 Long term (current) use of anticoagulants; Z79.82 Long term (current) use of aspirin; Z79.899 Other long term (current) drug therapy; Z88.0 Allergy status to penicillin; Z88.2 Allergy status to sulfonamides; Z91.041 Radiographic dye allergy status; Z85.41 Personal history of malignant neoplasm of cervix uteri; Z90.710 Acquired absence of both cervix and uterus
CPT/HCPCS: 36415; 71020; 80053; 82550; 82553; 83735; 84443; 84484; 85025; 85610; 85730; 93005; 96360; 99285

== ENCOUNTER 2018-08-05 14:40 | Inpatient (IN) | payer MEDICARE ==
--- NOTE | 2018-08-05 15:14 | ED ---
General Adult HPI - General Chief complaint: Chest Pain Stated complaint: Chest pain, heart racing Time Seen by Provider: 08/05/18 14:45 Source: patient, RN notes reviewed Mode of arrival: wheelchair Limitations: no limitations - History of Present Illness Initial comments: This is a 72-year-old female presents emergency department stating she has a history of atrial fibrillation. Patient states the last day she's been having palpitations and some episodes of chest pain. Patient states yesterday she was walking up the stairs from the basement and she had significant chest pain and shortness of breath per patient states anytime she has a chest pain is associated with shortness of breath and it does seem to radiate into her face. Patient denies any recent fever chills or cough. Patient denies any abdominal pain patient denies nausea vomiting diarrhea. Patient denies any leg swelling or calf tenderness. Patient denies any lightheadedness dizziness or syncopal episode. - Related Data Home Medications Medication Instructions Recorded Confirmed Aspirin 81 mg PO DAILY 08/21/14 08/05/18 Vits A,C,E/Lutein/Minerals 1 tab PO DAILY 08/21/14 08/05/18 [Ocuvite with Lutein Tablet] Ergocalciferol [Vitamin D2 50,000 unit PO [id number] 09/07/14 08/05/18 (DRISDOL)] Dexlansoprazole [Dexilant] 60 mg PO DAILY 04/01/16 08/05/18 Hydrochlorothiazide 25 mg PO DAILY 04/01/16 08/05/18 Apixaban [Eliquis] 5 mg PO BID 10/12/16 08/05/18 Atenolol [Tenormin] 25 mg PO BID 10/12/16 08/05/18 Allergies Allergy/AdvReac Type Severity Reaction Status Date / Time Iodinated Contrast- Oral and Allergy Rash/Hives Verified 08/05/18 16:12 IV Dye [Iodinated Contrast Media - IV Dye] Penicillins Allergy Rash/Hives Verified 08/05/18 16:12 Sulfa (Sulfonamide Allergy Rash/Hives Verified 08/05/18 16:12 Antibiotics) Review of Systems ROS Statement: Those systems with pertinent positive or pertinent negative responses have been documented in the HPI. ROS Other: All systems not noted in ROS Statement are negative. Past Medical History Past Medical History: Atrial Fibrillation, Cancer, Diabetes Mellitus, Hypertension, Osteoarthritis (OA), Renal Disease Additional Past Medical History / Comment(s): hx cervical cancer, hx GOUT, arthritis, "borderline diabetic"-does not watch diet, radiation tx to tonsils as child, has walker and "walking stick", colitis History of Any Multi-Drug Resistant Organisms: None Reported Past Surgical History: Back Surgery, Hysterectomy, Joint Replacement, Orthopedic Surgery Additional Past Surgical History / Comment(s): APPLE cataracts, rt knee arthroscopy, neck fusion at C4-C5, C5-C6, C6-C7 corpectomy, LEFT CARPAL TUNNEL, cardioversion colonoscopy bilateral tubal ligation, right hip replacement Past Anesthesia/Blood Transfusion Reactions: Postoperative Nausea & Vomiting ( PONV) Additional Past Anesthesia/Blood Transfusion Reaction / Comment(s): "stopped breathing with procedure done by Dr Britton", hard time coming out, told she was "lightweight" Past Psychological History: No Psychological Hx Reported Smoking Status: Former smoker Past Alcohol Use History: Daily Past Drug Use History: None Reported - Past Family History Brother(s) Family Medical History: Cancer Additional Family Medical History / Comment(s): colon,lymphoma Father Family Medical History: Pulmonary Embolus Additional Family Medical History / Comment(s): . Mother Family Medical History: Hypertension Daughter(s) Family Medical History: No Reported History Son(s) Family Medical History: No Reported History General Exam - General Exam Comments Initial Comments: GENERAL: Patient is well-developed and well-nourished. Patient is nontoxic and well- hydrated and is in mild distress. ENT: Neck is soft and supple. No significant lymphadenopathy is noted. Oropharynx is clear. Moist mucous membranes. Neck has full range of motion without eliciting any pain. EYES: The sclera were anicteric and conjunctiva were pink and moist. Extraocular movements were intact and pupils were equal round and reactive to light. Eyelids were unremarkable. PULMONARY: Unlabored respirations. Good breath sounds bilaterally. No audible rales rhonchi or wheezing was noted. CARDIOVASCULAR: Patient has no regular rate and rhythm ABDOMEN: Soft and nontender with normal bowel sounds. No palpable organomegaly was noted. There is no palpable pulsatile mass. SKIN: Skin is clear with no lesions or rashes and otherwise unremarkable. NEUROLOGIC: Patient is alert and oriented x3. Cranial nerves II through XII are grossly intact. Motor and sensory are also intact. Normal speech, volume and content. Symmetrical smile. MUSCULOSKELETAL: Normal extremities with adequate strength and full range of motion. No lower extremity swelling or edema. No calf tenderness. LYMPHATICS: No significant lymphadenopathy is noted PSYCHIATRIC: Normal psychiatric evaluation. Limitations: no limitations Course Vital Signs 08/05/18 08/05/18 14:42 15:42 Temperature 97.8 F Pulse Rate 62 90 Respiratory 16 18 Rate Blood Pressure 152/76 141/59 O2 Sat by Pulse 98 98 Oximetry Medical Decision Making - Medical Decision Making EKG shows atrial fibrillation with rapid ventricular response at 102 bpm QRS is 82 QT interval 328 QTC is 427. EKG shows no ST segment elevation or depression Chest x-ray shows no acute abnormality. I spoke with Dr. Badillo he agreed to admit the patient admitted the patient I did not start heparin because the patient's or gallops. Patient will however be diagnosed with unstable angina. I will consult cardiology - Lab Data Result diagrams: 08/05/18 15:25 08/05/18 15:25 Lab Results 08/05/18 08/05/18 08/05/18 Range/Units 15:25 15:25 15:25 WBC 5.2 (3.8-10.6) k/uL RBC 4.58 (3.80-5.40) m/uL Hgb 11.9 (11.4-16.0) gm/dL Hct 38.8 (34.0-46.0) % MCV 84.7 (80.0-100.0) fL MCH 26.0 (25.0-35.0) pg MCHC 30.7 L (31.0-37.0) g/dL RDW 16.1 H (11.5-15.5) % Plt Count 247 (150-450) k/uL PT (9.0-12.0) sec INR (<1.2) APTT (22.0-30.0) sec D-Dimer (<0.60) mg/L FEU Sodium 141 (137-145) mmol/L Potassium 5.0 (3.5-5.1) mmol/L Chloride 106 (98-107) mmol/L Carbon Dioxide 25 (22-30) mmol/L Anion Gap 10 mmol/L BUN 39 H (7-17) mg/dL Creatinine 1.11 H (0.52-1.04) mg/dL Est GFR (CKD-EPI)AfAm 58 (>60 ml/min/1.73 sqM) Est GFR (CKD-EPI)NonAf 50 (>60 ml/min/1.73 sqM) Glucose 142 H (74-99) mg/dL Calcium 9.1 (8.4-10.2) mg/dL Magnesium 2.2 (1.6-2.3) mg/dL Total Bilirubin 0.4 (0.2-1.3) mg/dL AST 27 (14-36) U/L ALT 35 (9-52) U/L Alkaline Phosphatase 40 (38-126) U/L Total Creatine Kinase 44 (30-135) U/L CK-MB (CK-2) 1.0 (0.0-2.4) ng/mL CK-MB (CK-2) Rel Index 2.3 Troponin I <0.012 (0.000-0.034) ng/mL Total Protein 6.5 (6.3-8.2) g/dL Albumin 3.7 (3.5-5.0) g/dL 08/05/18 Range/Units 15:25 WBC (3.8-10.6) k/uL RBC (3.80-5.40) m/uL Hgb (11.4-16.0) gm/dL Hct (34.0-46.0) % MCV (80.0-100.0) fL MCH (25.0-35.0) pg MCHC (31.0-37.0) g/dL RDW (11.5-15.5) % Plt Count (150-450) k/uL PT 10.2 (9.0-12.0) sec INR 0.9 (<1.2) APTT 24.7 (22.0-30.0) sec D-Dimer 0.31 (<0.60) mg/L FEU Sodium (137-145) mmol/L Potassium (3.5-5.1) mmol/L Chloride (98-107) mmol/L Carbon Dioxide (22-30) mmol/L Anion Gap mmol/L BUN (7-17) mg/dL Creatinine (0.52-1.04) mg/dL Est GFR (CKD-EPI)AfAm (>60 ml/min/1.73 sqM) Est GFR (CKD-EPI)NonAf (>60 ml/min/1.73 sqM) Glucose (74-99) mg/dL Calcium (8.4-10.2) mg/dL Magnesium (1.6-2.3) mg/dL Total Bilirubin (0.2-1.3) mg/dL AST (14-36) U/L ALT (9-52) U/L Alkaline Phosphatase (38-126) U/L Total Creatine Kinase (30-135) U/L CK-MB (CK-2) (0.0-2.4) ng/mL CK-MB (CK-2) Rel Index Troponin I (0.000-0.034) ng/mL Total Protein (6.3-8.2) g/dL Albumin (3.5-5.0) g/dL Disposition Clinical Impression: Unstable angina pectoris Disposition: ADMITTED IP TO THIS HOSP Referrals: Roman Berg MD [Primary Care Provider] - 1-2 days Time of Disposition: 16:33
[2018-08-05] MEDS ORDERED: ASPIRIN 81 MG PO STA (15:15)
[2018-08-05] MEDS ORDERED: NITROGLYCERIN OINT 1 INCH/GM PACKET TOPICAL STA (15:15)
--- NOTE | 2018-08-05 16:01 | XR ---
EXAMINATION TYPE: XR chest 2V DATE OF EXAM: 08/05/2018 COMPARISON: 02/10/2017 HISTORY: Shortness of breath TECHNIQUE: Frontal and lateral views of the chest are obtained. FINDINGS: Scattered senescent parenchymal changes noted. Hyperinflation compatible with COPD. No evidence for infiltrate. No evidence for atelectasis. Heart size is stable. Mediastinal structures are stable and grossly unremarkable. No evidence for hilar prominence. Degenerative changes dorsal spine. IMPRESSION: 1. No evidence for acute pulmonary disease.
[2018-08-05 16:05] LABS: D-Dimer 0.31 mg/L FEU (<0.60); INR 0.9 (<1.2); Partial Thromboplastin Time 24.7 sec (22.0-30.0); Prothrombin Time 10.2 sec (9.0-12.0)
[2018-08-05 16:07] LABS: Anisocytosis Slight; HCT 38.8 % (34.0-46.0); HGB 11.9 gm/dL (11.4-16.0); Hypochromasia Moderate; MCHC 30.7 g/dL (31.0-37.0); MCV 84.7 fL (80.0-100.0); Mean Platelet Volume 6.9; Platelet Count 247 k/uL (150-450); RBC 4.58 m/uL (3.80-5.40); RDW 16.1 % (11.5-15.5); WBC 5.2 k/uL (3.8-10.6)
[2018-08-05 16:09] LABS: Albumin 3.7 g/dL (3.5-5.0); Calcium 9.1 mg/dL (8.4-10.2); Magnesium 2.2 mg/dL (1.6-2.3); Total Bilirubin 0.4 mg/dL (0.2-1.3); Total Protein 6.5 g/dL (6.3-8.2)
[2018-08-05 16:13] LABS: Creatine Kinase 44 U/L (30-135)
[2018-08-05 16:29] LABS: Troponin I <0.012 ng/mL (0.000-0.034)
[2018-08-05] MEDS ORDERED: NITROGLYCERIN SL TABS 0.4 MG TAB SUBLINGUAL PRN (16:33)
[2018-08-05 16:46] LABS: Lymphocytes # (M) 1.51 k/uL (1.0-4.8); Monocytes # (M) 0.52 k/uL (0-1.0); Neutrophils # (M) 3.07 k/uL (1.3-7.7); Neutrophils % (M) 59 %; Nucleated Red Blood Cells 0 /100 WBC (0-0); Polychromasia Present; Total Cells Counted 100
[2018-08-05 16:47] LABS: Large Platelets Present
[2018-08-05 17:53] VITALS: RESP 18
[2018-08-05] MEDS: DILTIAZEM 50 MG in SODIUM CHLORIDE 0.9% 40 ML IV SCH (20:41)
[2018-08-05] MEDS: NITROGLYCERIN OINT 1 INCH/GM PACKET TOPICAL SCH ×2 (20:48→22:44)
[2018-08-05] MEDS: ATENOLOL 25 MG TAB PO SCH (20:50)
[2018-08-05] MEDS: APIXABAN 5 MG TAB PO SCH (20:50)
[2018-08-05 22:54] LABS: Creatine Kinase MB 1.2 ng/mL (0.0-2.4); Troponin I 0.014 ng/mL (0.000-0.034)
[2018-08-05 23:25] LABS: Cholesterol 163 mg/dL (<200); HDL Cholesterol 26 mg/dL (40-60); LDL Cholesterol,Calculated 94 mg/dL (0-99); Triglycerides 216 mg/dL (<150)
[2018-08-06 04:37] LABS: Creatine Kinase 49 U/L (30-135)
[2018-08-06 04:50] LABS: Creatine Kinase MB 1.3 ng/mL (0.0-2.4); Troponin I <0.012 ng/mL (0.000-0.034)
[2018-08-06] MEDS: DILTIAZEM 50 MG in SODIUM CHLORIDE 0.9% 40 ML IV SCH (05:31)
[2018-08-06] MEDS: NITROGLYCERIN OINT 1 INCH/GM PACKET TOPICAL SCH ×2 (05:31→08:49)
[2018-08-06] MEDS ORDERED: PANTOPRAZOLE 40 MG TABLET PO SCH (07:30)
--- NOTE | 2018-08-06 08:40 | P.CRDCN ---
History of Present Illness Consult date: 08/06/18 Requesting physician: Kole Badillo Consult reason: atrial fibrillation Chief complaint: Chest discomfort, palpitations History of present illness: This is a 72-year-old female who follows regularly with Dr. Britton in the office. She has a known history of chronic atrial fibrillation, hypertension, hyperlipidemia, chronic kidney disease, history of nicotine dependence in the past. He presents to the hospital on this occasion with symptoms of chest discomfort with associated palpitations. According to the patient, she knows when she goes into atrial fibrillation with rapid rate because she can feel it. Since Wednesday of this week off and on she has noticed herself to go in A. fib and last a little longer than what she normally does. Subsequently, she states that she gets the chest discomfort at that time she is in A. fib however when the rate comes down she does not have any chest discomfort. Patient states that she has recently seen Dr. Britton in the office in May, she had an echo performed at that time. EKG on arrival here shows atrial fibrillation with moderately rapid ventricular response. Chest x- ray does not reveal any evidence for acute pulmonary disease. Blood pressure 136/70 with a heart rate in the 90s, 97% on room air. White blood cell count 5.2, hemoglobin 11.9, platelet count 247. D-dimer 0.31. Sodium 141, potassium 5.0, BUN 39, creatinine 1.1. Troponins are 0.012, 0.014, 0.012. Cholesterol 163, LDL 94, HDL 26 and triglycerides 216. At the time of my examination this morning, patient feels well, she is on a Cardizem drip at 5 mg per hour. Denies any chest discomfort and breathing overall is stable. 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 in am History of Any Multi-Drug Resistant Organisms: None Reported Past Surgical History: Hysterectomy, Joint Replacement, Orthopedic Surgery Additional Past Surgical History / Comment(s): APPLE cataracts, rt knee arthroscopy, neck fusion at C4-C5, C5-C6, C6-C7 corpectomy, apple CARPAL TUNNEL, cardioversion colonoscopy bilateral tubal ligation, right hip replacement, rt hand cyst removed Past Anesthesia/Blood Transfusion Reactions: Postoperative Nausea & Vomiting ( PONV) Additional Past Anesthesia/Blood Transfusion Reaction / Comment(s): "stopped breathing with procedure done by Dr Britton", hard time coming out, told she was "lightweight" Smoking Status: Former smoker - Past Family History Brother(s) Family Medical History: Cancer Additional Family Medical History / Comment(s): colon,lymphoma Father Family Medical History: Pulmonary Embolus Additional Family Medical History / Comment(s): . Mother Family Medical History: Hypertension Daughter(s) Family Medical History: No Reported History Son(s) Family Medical History: No Reported History Medications and Allergies Home Medications Medication Instructions Recorded Confirmed Type Aspirin 81 mg PO DAILY 08/21/14 08/05/18 History Vits A,C,E/Lutein/Minerals 1 tab PO DAILY 08/21/14 08/05/18 History [Ocuvite with Lutein Tablet] Ergocalciferol [Vitamin D2 50,000 unit PO [id number] 09/07/14 08/05/18 History (LUCAS)] Dexlansoprazole [Dexilant] 60 mg PO DAILY 04/01/16 08/05/18 History Hydrochlorothiazide 25 mg PO DAILY 04/01/16 08/05/18 History Apixaban [Eliquis] 5 mg PO BID 10/12/16 08/05/18 History Atenolol [Tenormin] 25 mg PO BID 10/12/16 08/05/18 History Allergies Allergy/AdvReac Type Severity Reaction Status Date / Time Iodinated Contrast- Oral and Allergy Rash/Hives Verified 08/05/18 16:12 IV Dye [Iodinated Contrast Media - IV Dye] Penicillins Allergy Rash/Hives Verified 08/05/18 16:12 Sulfa (Sulfonamide Allergy Rash/Hives Verified 08/05/18 16:12 Antibiotics) Physical Exam Vitals: Vital Signs Temp Pulse Pulse Resp BP BP Pulse Ox 08/06/18 03:50 98 F 95 18 136/75 97 08/05/18 23:08 83 18 132/79 98 08/05/18 17:53 98 08/05/18 17:15 98.2 F 75 18 158/73 98 08/05/18 17:07 98.4 F 86 16 133/54 99 08/05/18 16:40 105 H 16 111/64 100 08/05/18 15:42 90 18 141/59 98 08/05/18 14:42 97.8 F 62 16 152/76 98 Intake and Output 08/05/18 08/06/18 08/06/18 22:59 06:59 14:59 Intake Total 84.167 Balance 84.167 Intake: IV 40 Diltiazem 50 mg In Sodium 40 Chloride 0.9% 40 ml @ 5 MG/HR 5 mls/hr IV .Q10H [facility] Rx#:[id number] Intake, IV Titration 44.167 Amount Diltiazem 50 mg In Sodium 44.167 Chloride 0.9% 40 ml @ 5 MG/HR 5 mls/hr IV .Q10H [facility] Rx#:[id number] Other: Voiding Method Toilet # Voids 1 Weight 87.2 kg 86.6 kg PHYSICAL EXAMINATION: GENERAL: 72-year-old female in no acute distress at the time of my examination HEENT: Head is atraumatic, normocephalic. Pupils equal, round. Sclera anicteric. Conjunctiva are clear. Mucous membranes of the mouth are moist. Neck is supple. There is no elevated jugular venous pressure. No carotid bruit is heard. HEART EXAMINATION: Heart S1 and S2 irregularly irregular CHEST EXAMINATION: Lungs are clear to auscultation and precussion. No chest wall tenderness is noted on palpation or with deep breathing. ABDOMEN: Soft, nontender. Bowel sounds are heard. No organomegaly noted. EXTREMITIES: 2+ peripheral pulses with no evidence of peripheral edema and no calf tenderness noted. NEUROLOGIC patient is awake, alert and oriented 3 . . Results 08/05/18 15:25 08/05/18 15:25 Cardiac Enzymes 08/05/18 08/05/18 08/05/18 Range/Units 15:25 15:25 21:39 AST 27 (14-36) U/L CK-MB (CK-2) 1.0 1.2 (0.0-2.4) ng/mL Troponin I <0.012 0.014 (0.000-0.034) ng/mL 08/06/18 Range/Units 03:35 AST (14-36) U/L CK-MB (CK-2) 1.3 (0.0-2.4) ng/mL Troponin I <0.012 (0.000-0.034) ng/mL Coagulation 08/05/18 Range/Units 15:25 PT 10.2 (9.0-12.0) sec APTT 24.7 (22.0-30.0) sec Lipids 08/05/18 Range/Units 15:25 Triglycerides 216 H (<150) mg/dL Cholesterol 163 (<200) mg/dL HDL Cholesterol 26 L (40-60) mg/dL CBC 08/05/18 Range/Units 15:25 WBC 5.2 (3.8-10.6) k/uL RBC 4.58 (3.80-5.40) m/uL Hgb 11.9 (11.4-16.0) gm/dL Hct 38.8 (34.0-46.0) % Plt Count 247 (150-450) k/uL Comprehensive Metabolic Panel 08/05/18 Range/Units 15:25 Sodium 141 (137-145) mmol/L Potassium 5.0 (3.5-5.1) mmol/L Chloride 106 (98-107) mmol/L Carbon Dioxide 25 (22-30) mmol/L BUN 39 H (7-17) mg/dL Creatinine 1.11 H (0.52-1.04) mg/dL Glucose 142 H (74-99) mg/dL Calcium 9.1 (8.4-10.2) mg/dL AST 27 (14-36) U/L ALT 35 (9-52) U/L Alkaline Phosphatase 40 (38-126) U/L Total Protein 6.5 (6.3-8.2) g/dL Albumin 3.7 (3.5-5.0) g/dL Current Medications Generic Name Dose Route Start Last Admin Trade Name Freq PRN Reason Stop Dose Admin Apixaban 5 mg 08/05/18 21:00 08/05/18 20:50 Eliquis PO 5 mg BID [facility] Administration Aspirin 81 mg 08/06/18 09:00 Aspirin PO DAILY [facility] Atenolol 25 mg 08/05/18 21:00 08/05/18 20:50 Tenormin PO 25 mg BID [facility] Administration Ergocalciferol 50,000 unit 08/15/18 12:00 Vitamin D2 PO [id number] [facility] Hydrochlorothiazide 25 mg 08/06/18 09:00 Hydrodiuril PO DAILY [facility] Diltiazem HCl 50 mg/ Sodium 50 mls @ 5 mls/hr 08/05/18 19:00 08/06/18 05:31 Chloride IV 5 mg/hr .Q10H [facility] 5 mls/hr Administration 5 MG/HR Multivitamins/Minerals 1 each 08/06/18 12:00 Ivite PO 1200 [facility] Nitroglycerin 1 inch 08/05/18 19:00 08/06/18 05:31 Nitro-Bid Oint TOPICAL 1 inch Q6HR [facility] Administration Nitroglycerin 0.4 mg 08/05/18 16:33 Nitrostat SUBLINGUAL Q5M PRN Chest Pain Pantoprazole Sodium 40 mg 08/06/18 07:30 08/06/18 05:31 Protonix PO 40 mg [id number] [facility] Administration Intake and Output 08/05/18 08/06/18 08/06/18 22:59 06:59 14:59 Intake Total 84.167 Balance 84.167 Intake: IV 40 Diltiazem 50 mg In Sodium 40 Chloride 0.9% 40 ml @ 5 MG/HR 5 mls/hr IV .Q10H [facility] Rx#:[id number] Intake, IV Titration 44.167 Amount Diltiazem 50 mg In Sodium 44.167 Chloride 0.9% 40 ml @ 5 MG/HR 5 mls/hr IV .Q10H [facility] Rx#:[id number] Other: Voiding Method Toilet # Voids 1 Weight 87.2 kg 86.6 kg 08/05/18 15:25 08/05/18 15:25 EKG Interpretations (text) EKG shows atrial fibrillation with a moderately rapid ventricular response. Assessment and Plan Plan: Assessment and plan #1 chest discomfort with associated palpitations, evidence of atrial fibrillation with rapid ventricular response. Troponins 0.012, 0.014, 0.012. EKG showed A. fib with moderately rapid ventricular response #2 chronic kidney disease #3 hypertension #4 hyperlipidemia Plan We will obtain the echocardiogram with Doppler study which was performed in the office in May. Continue Eliquis 5 mg twice a day, discontinue Nitropaste, increase atenolol to 50 mg twice a day and discontinue the IV Cardizem drip. Further recommendations to follow. DNP note has been reviewed, I agree with a documented findings and plan of care. Patient was seen and examined.
[2018-08-06 08:49] VITALS: TEMP 98.2
[2018-08-06] MEDS: APIXABAN 5 MG TAB PO SCH (08:50)
[2018-08-06] MEDS: ATENOLOL 25 MG TAB PO SCH (08:50)
[2018-08-06] MEDS ORDERED: ASPIRIN 81 MG PO SCH (09:00)
[2018-08-06] MEDS ORDERED: ASPIRIN 325 MG TAB PO SCH (09:00)
[2018-08-06] MEDS ORDERED: HYDROCHLOROTHIAZIDE 25 MG TAB PO SCH (09:00)
[2018-08-06] MEDS ORDERED: NADOLOL 20 MG TAB PO SCH (09:30)
--- NOTE | 2018-08-06 11:22 | P.HPIM ---
History of Present Illness H&P Date: 08/06/18 Chief Complaint: heart racing HISTORY AND PHYSICAL AND DISCHARGE SUMMARY: This is a 72-year-old female patient of Dr. Berg with a past medical history significant for hypertension and hypertensive cardiovascular disease with left ventricular hypertrophy, chronic atrial fibrillation on eliquis, hyperlipidemia, chronic kidney disease stage II, history of uterine cancer status post total abdominal hysterectomy and bilateral salpingo-oophorectomy in 2009, severe cervical spinal stenosis status post anterior cervical discectomy with interbody fusion at C6 7 and C5 corpectomy. Patient gives history that Wednesday she noticed that her heart was racing and she developed left-sided chest pain that ended up going away. All her symptoms resolved and on she was feeling much better but yesterday the symptoms returned and she wasn't not feeling well at all. On this episode of heart racing she did not feel any chest pain. She had a little shortness of breath. She denies any cold symptoms. She was recently started on metformin which she has stopped taking due to GI symptoms but she denies any other recent medication changes. She did miss a dose of atenolol yesterday evening. Patient came into [facility] emergency center for evaluation reaches found to be in A. fib with RVR and low 100s and was started on Cardizem drip. Pulse ox 98% on room air, blood pressure 152/76. Patient's been afebrile. BUN 39 creatinine 1.11, blood sugar 142. Troponin negative on 3 draws. Triglycerides 216, cholesterol 163, LDL 94, HDL 26. TSH 2.570. Chest x -ray showed no acute pulmonary disease. Patient was admitted to the selective care unit and cardiology consult requested. Patient does relate that she drinks a least a couple beers per day but has not had any since Wednesday. Discussed with patient that alcohol intake is a risk factor for A. fib and she should avoid or cut back alcohol intake. Patient has been seen by cardiology and IV Cardizem drip has been discontinued and Tenormin discontinued and patient changed to nadolol. Patient has been cleared from cardiology for discharge home. Patient will be discharged home today in stable condition. According to cardiology, patient had an echocardiogram done in May that showed normal left ventricular systolic function. Discharge Medication List Aspirin 81 mg PO DAILY 08/21/14 [History] Vits A,C,E/Lutein/Minerals [Ocuvite with Lutein Tablet] 1 tab PO DAILY 08/21/14 [History] Ergocalciferol [Vitamin D2 (DRISDOL)] 50,000 unit PO [id number] 09/07/14 [History] Dexlansoprazole [Dexilant] 60 mg PO DAILY 04/01/16 [History] Hydrochlorothiazide 25 mg PO DAILY 04/01/16 [History] Apixaban [Eliquis] 5 mg PO BID 10/12/16 [History] Nadolol [Corgard] 20 mg PO BID #60 tab 08/06/18 [Rx] Review of Systems All systems: negative Constitutional: Reports fatigue, Denies chills, Denies fever, Denies lethargy, Denies malaise, Denies poor appetite, Denies weakness, Denies weight loss Eyes: denies blurred vision, denies pain Ears, nose, mouth and throat: Denies headache, Denies sore throat, Denies vertigo Cardiovascular: Reports chest pain, Reports dyspnea on exertion, Reports palpitations, Reports rapid heart beat, Reports shortness of breath, Denies edema, Denies leg edema, Denies lightheadedness, Denies paroxysmal nocturnal dyspnea, Denies syncope Respiratory: Denies cough, Denies cough with sputum, Denies dyspnea, Denies excessive sputum, Denies hemoptysis, Denies home oxygen, Denies wheezing Gastrointestinal: Denies abdominal pain, Denies diarrhea, Denies loss of appetite, Denies melena, Denies nausea, Denies vomiting Genitourinary: Denies dysuria, Denies hematuria Musculoskeletal: Denies frequent falls, Denies gait dysfunction, Denies myalgias Integumentary: Denies pruritus, Denies rash, Denies wounds Neurological: Denies balance difficulties, Denies change in mentation, Denies confusion, Denies gait dysfunction, Denies numbness, Denies seizures, Denies weakness Psychiatric: Denies anxiety, Denies depression Endocrine: Denies fatigue, Denies weight change Past Medical History Past Medical History: Atrial Fibrillation, Cancer, Diabetes Mellitus, Hypertension, Osteoarthritis (OA), Renal Disease Additional Past Medical History / Comment(s): hx cervical cancer(sx and radiation), hx GOUT, arthritis, "borderline diabetic"-diet controlled.radiation tx to tonsils as child, has cane when out walking, colitis, macular degeneration both eyes.had a pne vaccine but not sure of date,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 in am History of Any Multi-Drug Resistant Organisms: None Reported Past Surgical History: Hysterectomy, Joint Replacement, Orthopedic Surgery Additional Past Surgical History / Comment(s): APPLE cataracts, rt knee arthroscopy, neck fusion at C4-C5, C5-C6, C6-C7 corpectomy, apple CARPAL TUNNEL, cardioversion colonoscopy bilateral tubal ligation, right hip replacement, rt hand cyst removed Past Anesthesia/Blood Transfusion Reactions: Postoperative Nausea & Vomiting ( PONV) Additional Past Anesthesia/Blood Transfusion Reaction / Comment(s): "stopped breathing with procedure done by Dr Britton", hard time coming out, told she was "lightweight" Smoking Status: Former smoker Additional Past Alcohol Use History / Comment(s): Patient was a smoker started at age 15 for 51 years and quit in 1996 and 1 pack per day. Patient also relates that she drinks a couple beers per day but his had none since Wednesday. - Past Family History Brother(s) Family Medical History: Cancer Additional Family Medical History / Comment(s): Patient has a total of 5 brothers. One from colon cancer, one is alive at age 67 with lymphoma. 3 brothers have no major medical problems. Father Family Medical History: Pulmonary Embolus Additional Family Medical History / Comment(s): Father in his 80s from coronary artery disease with history of pulmonary embolus. Mother Family Medical History: Hypertension Additional Family Medical History / Comment(s): Mother at age 93 from dementia with history of hypertension. Daughter(s) Family Medical History: No Reported History Additional Family Medical History / Comment(s): Patient has one daughter with no major medical problems. Son(s) Family Medical History: No Reported History Additional Family Medical History / Comment(s): Patient has 2 sons and one has history of atrial fibrillation and one has history of stent. Medications and Allergies Home Medications Medication Instructions Recorded Confirmed Type Aspirin 81 mg PO DAILY 08/21/14 08/05/18 History Vits A,C,E/Lutein/Minerals 1 tab PO DAILY 08/21/14 08/05/18 History [Ocuvite with Lutein Tablet] Ergocalciferol [Vitamin D2 50,000 unit PO [id number] 09/07/14 08/05/18 History (DRISDOL)] Dexlansoprazole [Dexilant] 60 mg PO DAILY 04/01/16 08/05/18 History Hydrochlorothiazide 25 mg PO DAILY 04/01/16 08/05/18 History Apixaban [Eliquis] 5 mg PO BID 10/12/16 08/05/18 History Nadolol [Corgard] 20 mg PO BID #60 tab 08/06/18 Rx Allergies Allergy/AdvReac Type Severity Reaction Status Date / Time Iodinated Contrast- Oral and Allergy Rash/Hives Verified 08/05/18 16:12 IV Dye [Iodinated Contrast Media - IV Dye] Penicillins Allergy Rash/Hives Verified 08/05/18 16:12 Sulfa (Sulfonamide Allergy Rash/Hives Verified 08/05/18 16:12 Antibiotics) Physical Exam Vitals: Vital Signs Temp Pulse Pulse Resp BP BP Pulse Ox 08/06/18 03:50 98 F 95 18 136/75 97 08/05/18 23:08 83 18 132/79 98 08/05/18 17:53 98 08/05/18 17:15 98.2 F 75 18 158/73 98 08/05/18 17:07 98.4 F 86 16 133/54 99 08/05/18 16:40 105 H 16 111/64 100 08/05/18 15:42 90 18 141/59 98 08/05/18 14:42 97.8 F 62 16 152/76 98 Intake and Output 08/05/18 08/06/18 08/06/18 22:59 06:59 14:59 Intake Total 84.167 Balance 84.167 Intake: IV 40 Diltiazem 50 mg In Sodium 40 Chloride 0.9% 40 ml @ 5 MG/HR 5 mls/hr IV .Q10H TRAVIS Rx#:[id number] Intake, IV Titration 44.167 Amount Diltiazem 50 mg In Sodium 44.167 Chloride 0.9% 40 ml @ 5 MG/HR 5 mls/hr IV .Q10H TRAVIS Rx#:[id number] Other: Voiding Method Toilet # Voids 1 Weight 87.2 kg 86.6 kg Gen: This is a 72-year-old female. She is sitting up in bed and appears to be comfortable and in no acute distress. HEENT: Head is atraumatic, normocephalic. Pupils equal, round. Sclerae is anicteric. NECK: Supple. No JVD. No lymphadenopathy. No thyromegaly. LUNGS: Clear to auscultation. No wheezes or rhonchi. No intercostal retractions. HEART: Irregularly irregular. No murmur. ABDOMEN: Soft. Bowel sounds are present. No masses. No tenderness. EXTREMITIES: No pedal edema. No calf tenderness. Dorsalis pedis +2 bilaterally. NEUROLOGICAL: Patient is awake, alert and oriented x3. Cranial nerves 2 through 12 are grossly intact. Results CBC & Chem 7: 08/05/18 15:25 08/05/18 15:25 Labs: Abnormal Lab Results - Last 24 Hours (Table) 08/05/18 08/05/18 08/05/18 Range/Units 15:25 15:25 15:25 MCHC 30.7 L (31.0-37.0) g/dL RDW 16.1 H (11.5-15.5) % BUN 39 H (7-17) mg/dL Creatinine 1.11 H (0.52-1.04) mg/dL Glucose 142 H (74-99) mg/dL Triglycerides 216 H (<150) mg/dL HDL Cholesterol 26 L (40-60) mg/dL Thrombosis Risk Factor Assmnt - Choose All That Apply Any of the Below Risk Factors Present?: Yes Each Factor Represents 1 point: Obesity (BMI >25) Other Risk Factors: Yes Each Risk Factor Represents 2 Points: Age 61-74 years Other congenital or acquired thrombophilia - If yes, enter type in comment: No Thrombosis Risk Factor Assessment Total Risk Factor Score: 3 Thrombosis Risk Factor Assessment Level: Moderate Risk Assessment and Plan Plan: 1. Atrial fibrillation with rapid ventricular response. 2. Chronic atrial fibrillation. 3. Hypertension. 4. Hyperlipidemia. 5. Diabetes mellitus type 2. 6. Chronic kidney disease stage II. 7. Vitamin D deficiency. 8. GERD. Patient will be admitted to the hospital for a minimum of 1 night stay. Discharge plan: Home Impression and plan of care have been directed as dictated by the signing physician. Pamela Hook nurse practitioner acting as scribe for signing physician.
[2018-08-06 11:57] VITALS: BP 114/55; PULSE 76
[2018-08-06] MEDS ORDERED: VIT A,C & E-LUTEIN-MINERALS 1 EACH TAB PO SCH (12:00)
[2018-08-15] MEDS ORDERED: ERGOCALCIFEROL 50,000 UNIT CAP PO SCH (12:00)
== END 2018-08-06 15:04 | disposition home or self-care (01) | DRG 310 ==
LOC: EC 14:40 → 1SOBS 16:34 → 3SCARD 20:30 → OBSVTOIN 08-06 08:18
PROVIDERS: ADMIT Internal Medicine; ATTEND Internal Medicine
DX: I48.2 Chronic atrial fibrillation (principal); E11.22 Type 2 diabetes mellitus with diabetic chronic kidney disease; I13.10 Hypertensive heart and chronic kidney disease without heart failure, with stage 1 through stage 4 chronic kidney disease, or unspecified chronic kidney disease; R07.9 Chest pain, unspecified; E55.9 Vitamin D deficiency, unspecified; E78.5 Hyperlipidemia, unspecified; K21.9 Gastro-esophageal reflux disease without esophagitis; N18.2 Chronic kidney disease, stage 2 (mild); M10.9 Gout, unspecified; M19.90 Unspecified osteoarthritis, unspecified site; Z85.41 Personal history of malignant neoplasm of cervix uteri; Z85.42 Personal history of malignant neoplasm of other parts of uterus; Z79.01 Long term (current) use of anticoagulants; Z79.82 Long term (current) use of aspirin; Z79.899 Other long term (current) drug therapy; Z98.1 Arthrodesis status; Z88.0 Allergy status to penicillin; Z88.2 Allergy status to sulfonamides; Z91.041 Radiographic dye allergy status; Z96.641 Presence of right artificial hip joint; Z90.710 Acquired absence of both cervix and uterus; Z87.891 Personal history of nicotine dependence; Z90.79 Acquired absence of other genital organ(s); Z90.722 Acquired absence of ovaries, bilateral; Z98.42 Cataract extraction status, left eye; Z98.41 Cataract extraction status, right eye; Z96.1 Presence of intraocular lens; Z82.49 Family history of ischemic heart disease and other diseases of the circulatory system; Z80.7 Family history of other malignant neoplasms of lymphoid, hematopoietic and related tissues; Z80.0 Family history of malignant neoplasm of digestive organs
CPT/HCPCS: 36415; 71046; 80053; 80061; 82550; 82553; 83735; 84443; 84484; 85025; 85379; 85610; 85730; 93005; 99285

== ENCOUNTER → 2018-10-18 | Outpatient (CLI) | payer MEDICARE ==
[2018-10-18 17:18] LABS: Anion Gap 9.5 mmol/L (4.00-12.00); Calcium 8.9 mg/dL (8.7-10.3); Carbon Dioxide 27.5 mmol/L (21.6-31.8); Potassium 4.3 mmol/L (3.5-5.5)
== END | disposition home or self-care (01) ==
LOC: LABWHC1 08:35
PROVIDERS: ATTEND Internal Medicine Clinical Cardiac Electrophysiology
DX: E87.5 Hyperkalemia (principal); I10 Essential (primary) hypertension
CPT/HCPCS: 36415; 80048

== ENCOUNTER → 2018-11-23 | Outpatient (CLI) | payer MEDICARE ==
[2018-11-23 17:18] LABS: Anisocytosis Slight; HCT 39.6 % (34.0-46.0); HGB 12.2 gm/dL (11.4-16.0); Hypochromasia Marked; MCH 24.8 pg (25.0-35.0); MCHC 30.9 g/dL (31.0-37.0); MCV 80.2 fL (80.0-100.0); Mean Platelet Volume 7.9; Microcytosis Slight; Platelet Count 234 k/uL (150-450); RBC 4.94 m/uL (3.80-5.40); RDW 18.2 % (11.5-15.5); WBC 6.5 k/uL (3.8-10.6)
[2018-11-23 17:22] LABS: Magnesium 1.9 mg/dL (1.6-2.3); Potassium 4.8 mmol/L (3.5-5.1)
== END | disposition home or self-care (01) ==
LOC: LABPAT 16:41
PROVIDERS: ATTEND Internal Medicine Clinical Cardiac Electrophysiology
DX: Z01.812 Encounter for preprocedural laboratory examination (principal); I48.0 Paroxysmal atrial fibrillation; I49.5 Sick sinus syndrome
CPT/HCPCS: 36415; 80051; 82565; 82947; 83735; 84520; 85027

== ENCOUNTER 2018-11-29 12:48 | Inpatient (IN) | payer MEDICARE ==
[2018-11-29] MEDS: SODIUM CHLORIDE 0.9% 1,000 ML IV SCH (13:25)
[2018-11-29] MEDS ORDERED: HEPARIN SODIUM 1,000 UN/ML (10ML VL) ONE (15:28)
[2018-11-29] MEDS ORDERED: HEPARIN SODIUM,PORCINE 10,000 UNIT/ML 1 ML VIAL ONE (16:35)
[2018-11-29] MEDS ORDERED: SUCCINYLCHOLINE CHLORIDE 100 MG/5 ML SYR IV ONE (16:35)
[2018-11-29] MEDS ORDERED: ONDANSETRON 4 MG/2 ML VIAL ONE (16:35)
[2018-11-29] MEDS ORDERED: PHENYLEPHRINE-0.9% NACL SYG 1 MG/10 ML SYRINGE ONE (16:35)
[2018-11-29] MEDS ORDERED: DEXAMETHASONE SOD PHOS (MDV) 100 MG/10 ML VIAL ONE (16:35)
[2018-11-29] MEDS ORDERED: MIDAZOLAM 2 MG/2 ML VIAL ONE (16:35)
[2018-11-29] MEDS ORDERED: PROTAMINE SULFATE 10 MG/ML 5 ML VIAL IV ONE (16:35)
[2018-11-29] MEDS ORDERED: fentaNYL (PF) 50 MCG/ML 2 ML AMP ONE (16:35)
[2018-11-29] MEDS ORDERED: PROPOFOL 10 MG/ML 20 ML VIAL IV ONE (16:35)
[2018-11-29] MEDS ORDERED: LIDOCAINE 1% INJ 10MG/ML (20 ML MDV) ONE ×2 (16:35→16:48)
[2018-11-29] MEDS ORDERED: LIDOCAINE 1% INJ 10MG/ML (20 ML MDV) SQ ONE (17:17)
[2018-11-29] MEDS ORDERED: diphenhydrAMINE 50 MG/ML 1 ML VIAL ONE (17:20)
[2018-11-29] MEDS ORDERED: diphenhydrAMINE 50 MG/ML 1 ML VIAL IVP ONE (17:20)
[2018-11-29] MEDS ORDERED: HEPARIN SOD,PORK IN 0.45% NACL 25,000 UNIT in 0.45% NACL 1 250ML.BAG IV ONE (17:28)
[2018-11-29 18:13] LABS: Glucose,Whole Blood 123 mg/dL (75-99)
[2018-11-29] MEDS ORDERED: IV FLUID CONTINUATION 1,000 ML IV ONE (19:36)
[2018-11-29] MEDS ORDERED: ACETAMINOPHEN TAB 325 MG TAB PO PRN (19:39)
[2018-11-29] MEDS ORDERED: HYDROcodone/APAP 5-325MG 1 EACH TAB PO PRN (19:39)
--- NOTE | 2018-11-29 19:46 | P.PCN ---
Preoperative Diagnosis: Diagnosis Paroxysmal Atrial fibrillation, symptomatic, refractory to therapy Result Successful pulmonary vein isolation of all veins using cryo-ablation Complete entrance block in 3 veins confirmed Antrum of the right inferior pulmonary vein was active post ablation despite excellent balloon occlusion No evidence for phrenic nerve injury Esophageal deflection YES Electrical cardioversion with a synchronized shock across the chest YES Procedure details Patient was brought to the EP lab in a fasting state. Written informed consent was obtained prior to the procedure. Procedure performed under general anesthesia After initial muscle relaxant use, muscle relaxants were not given thereafter in order to assess phrenic nerve during procedure. Patient prepped and draped as per protocol Full cryo-set up with standard preparation of the cryoablation tools done. Femoral Venous access obtained on the right and left groins Venous and arterial Sheaths placed. Diagnostic catheters for the high right atrium, phrenic nerve stimulation and pacing, His bundle, RV and coronary sinus placed Intracardiac echo catheter placed. Long sheath placed in the right atrium Left and right transseptal catheterization performed under intracardiac echo guidance. Intravenous heparin with aCT above 300 Later, catheter positioning and balloon positioning in the left atrium, under intracardiac echo guidance Diagnostic EP study with Coronary sinus recording Baseline measurements Sinus cycle length 117, SD interval 174, QRS 91, QT 425 AH 93, HV 45 Atrial pacing performed from the high right atrium and the coronary sinus RV pacing Transseptal catheterization performed RA pressure 16/11/13 LA pressure 26/7/17 Transseptal catheterization performed with standard sheath. The cryoablation sheath was then placed with an over the wire exchange without any acute complications. All 4 pulmonary veins were isolated in the following sequence: Left superior followed by left inferior followed by right superior followed by right inferior The cryo-ablation balloon was placed at the os of each vein 1.5 mL of IV dye was injected to confirm an occluded vein Goal during cryoablation was to achieve complete occlusion of the pulmonary vein, achieve -30 degrees C at 30 seconds and achieve -40 degrees C at 60 seconds and a time to effect of less than 60-90 seconds, . If not the balloon was repositioned to obtain this result After completion of Cryoblation with durations from 180-240 seconds, entrance block was confirmed with the Attain circular catheter in a roving fashion around the antrum of the pulmonary veins Phrenic nerve pacing was performed from the SVC, right innominate vein area and diaphragm voltage was monitored. Diaphragmatic contractions were also monitored manually for strength of contraction. Parameter goals for each cryo freeze Complete occlusion of the appropriate vein -30 degrees C by 30 seconds -40 degrees C by 60 seconds Minimum between minus 40-55 degrees C Thaw time greater than 10 seconds Balloon visualized by intracardiac echo The esophagus was intubated. Esophageal Temperature monitoring with a CIRCA catheter formed. Esophageal deflection for hypothermia of the esophagus below 30 degrees C Left superior pulmonary vein Complete isolation, entrance block Left inferior pulmonary vein Complete isolation, entrance block Right superior pulmonary vein, during phrenic nerve pacing Complete isolation, entrance block Right inferior pulmonary vein, during phrenic nerve pacing Antrum of the right inferior pulmonary vein was still active despite excellent occlusion 8.5 minutes of Cryoblation At the end of the procedure the Achieve catheter was once again used to check for entrance block Phrenic nerve stimulation was performed to confirm diaphragmatic stimulation the end of the procedure Cine fluoroscopy was performed at the very end of the procedure to confirm movement of both diaphragms with inspiration and expiration 360 J biphasic shock was used to perform electrical cardioversion to sinus rhythm At the end of the procedure the patient was extubated Heparin was reversed Venous sheaths were removed and hemostasis assured Procedures performed (PVI - CRYO Ablation) Diagnostic EP study CS pacing and recording Left and right transseptal catheterization Catheter the mapping of the tachycardia (NOT 3D mapping) Intracardiac echocardiography Pulmonary vein isolation with transseptal and comprehensive EPS, 97602 Electrical cardioversion with a synchronized shock across the chest 16602
--- NOTE | 2018-11-29 19:50 | P.PRLE ---
RE: Amna Santos Dear Imad Mrs. rodriguez underwent pulmonary vein isolation for management of atrial fibrillation, paroxysmal She will continue anticoagulation for now and we will assess the response of pulmonary vein isolation over the next months to year to determine future course of action She will continue anticoagulation lifelong Thank you for entrusting me with the care of the patient Warm regards Sincerely Darien Britton
[2018-11-29] MEDS: ACETAMINOPHEN IV (For NPO) 1,000 MG in EMPTY BAG 1 BAG IVPB ONE ×2 (20:45→21:09)
[2018-11-29] MEDS ORDERED: LOSARTAN 25 MG TAB PO SCH (21:00)
[2018-11-29 21:24] VITALS: BMI 36.6
[2018-11-29] MEDS: APIXABAN 5 MG TAB PO SCH (21:36)
[2018-11-29] MEDS: ATORVASTATIN 20 MG TAB PO SCH (21:36)
[2018-11-29] MEDS: LORazepam 1 MG TAB PO PRN (21:51)
[2018-11-30] MEDS: SODIUM CHLORIDE 0.9% 1,000 ML IV SCH ×2 (06:37→08:40)
[2018-11-30 08:13] LABS: Calcium 8.7 mg/dL (8.4-10.2); Potassium 5.5 mmol/L (3.5-5.1)
[2018-11-30] MEDS ORDERED: SODIUM POLYSTYRENE SULFONATE 15 GM/60 ML BOTTLE PO ONE (08:26)
--- NOTE | 2018-11-30 08:31 | P.PN ---
Subjective Patient is resting comfortably in bed. This morning she went to the bathroom and she had bleeding in the right groin There is no hematoma no swelling at this time No pain She has no chest discomfort She maintains sinus rhythm Twelve-lead ECG shows sinus mechanism with ST T changes No shortness of breath no dizziness lightheadedness Yesterday after the procedure she was nauseous but she has no nausea now On examination Afebrile 97.7F, pulse rate in the 50s, normal respirations Blood pressure 121/73 mmHg Heart sounds S1 and S2 normal no murmurs or gallops or rub Breath sounds are clear no rhonchi no crackles Abdomen soft nontender Extremities warm No hematoma in the groins no bruising Impression Paroxysmal atrial fibrillation Dilated left atrium Hypertension Chronic kidney disease Potassium is high 5.5 BUN 42 and creatinine 1.46, elevated from baseline Suggest Normal saline IV fluids 100 mL an hour for 1 L Kayexalate 1 dose Continue observation for another 24 hours and repeat BMP tomorrow Hold HCTZ Hold losartan Oral fluids ad tahmina. Objective - Vital Signs Vital signs: Vital Signs Temp 97.7 F 11/30/18 07:05 Pulse 80 11/30/18 07:05 Resp 18 11/30/18 07:05 BP 121/73 11/30/18 07:05 Pulse Ox 95 11/30/18 07:05 Intake & Output 11/29/18 11/30/18 11/30/18 18:59 06:59 18:59 Intake Total 86 200 Output Total 200 Balance 86 0 Intake: IV 86 200 Output: Urine 200 Other: Voiding Method Indwelling Catheter # Voids 1 - Labs CBC & Chem 7: 11/30/18 07:30 Labs: Abnormal Lab Results - Last 24 Hours (Table) 11/29/18 11/30/18 Range/Units 18:11 07:30 Potassium 5.5 H (3.5-5.1) mmol/L BUN 42 H (7-17) mg/dL Creatinine 1.46 H (0.52-1.04) mg/dL Glucose 139 H (74-99) mg/dL POC Glucose (mg/dL) 123 H (75-99) mg/dL
[2018-11-30] MEDS: ATENOLOL 50 MG TAB PO SCH (08:54)
[2018-11-30] MEDS: APIXABAN 5 MG TAB PO SCH ×2 (08:54→21:04)
[2018-11-30] MEDS ORDERED: HYDROCHLOROTHIAZIDE 25 MG TAB PO SCH (09:00)
[2018-11-30 11:36] LABS: Glucose,Whole Blood 123 mg/dL (75-99)
[2018-11-30] MEDS: INSULIN ASPART (NovoLOG) 100 UNIT/ML VIAL SQ SCH ×3 (11:53→21:04)
--- NOTE | 2018-11-30 14:50 | P.CONS ---
History of Present Illness - Reason for Consult Consult date: 11/30/18 Diabetic management - History of Present Illness This is a 73-year-old female patient of Dr. Berg with a past medical history significant for hypertension and hypertensive cardiovascular disease with left ventricular hypertrophy, paroxysmal atrial fibrillation on eliquis, hyperlipidemia, diabetes mellitus type 2, chronic kidney disease stage II, history of uterine cancer status post total abdominal hysterectomy and bilateral salpingo-oophorectomy in 2009, severe cervical spinal stenosis status post anterior cervical discectomy with interbody fusion at C6 7 and C5 corpectomy. The patient was last seen in the hospital in August at which time she presented with atrial fibrillation with RVR. The patient has been brought into the hospital by Dr. Britton status post EP study and cardiac ablation for sym ptomatic paroxysmal atrial fibrillation. Patient is noted to have high blood sugar readings since August from 125-142. This morning blood sugar was 139. Patient gives history that she has been told that she had borderline diabetes. She has tried metformin on several occasions but due to GI symptoms she was unable to tolerate it. She also states that she has no insurance coverage which also complicates her treatment. Lab work also shows today that she has a BUN 42 and creatinine 1.46. Patient is receiving hydration with plan for discharge tomorrow. Review Of Systems: Constitutional: No fever, no chills, no night sweats. No weight change. No weakness, fatigue or lethargy. No daytime sleepiness. EENT: No headache. No blurred vision or double vision, no loss of vision. No loss of Hearing, no ringing in the ears, no dizziness. No nasal drainage or congestion. No epistaxis. No sore throat. Lungs: No shortness of breath, cough, no sputum production. No wheezing. Cardiovascular: No chest pain, no lower extremity edema. No palpitations. No paroxysmal nocturnal dyspnea. No orthopnea. No lightheadedness or dizziness. No syncopal episodes. Abdominal: No abdominal pain. No nausea, vomiting. No diarrhea. No constipation. No bloody or tarry stools.. No loss of appetite. Genitourinary: No dysuria, increased frequency, urgency. No urinary retention. Musculoskeletal: No myalgias. No muscle weakness, no gait dysfunction, no frequent falls. No back pain. No neck pain. Integumentary: No wounds, no lesions. No rash or pruritus. No unusual bruising. No change in hair or nails. Neurologic: No aphasia. No facial droop. No change in mentation. No head injury. No headache. No paralysis. No paresthesia. Psychiatric: No depression. No anxiety. No mood swings. Endocrine: abnormal blood sugars. No weight change. No excessive sweating or thirst. No cold intolerance. Past Medical History Past Medical History: Atrial Fibrillation, Cancer, Diabetes Mellitus, Hypertension, Osteoarthritis (OA), Renal Disease Additional Past Medical History / Comment(s): hx cervical cancer(sx and radiation), hx GOUT, arthritis, "borderline diabetic"-diet controlled.radiation tx to tonsils as child, has cane when out walking, colitis, macular degeneration both eyes see Dr Britton's h&p History of Any Multi-Drug Resistant Organisms: None Reported Past Surgical History: Hysterectomy, Joint Replacement, Orthopedic Surgery Additional Past Surgical History / Comment(s): APPLE cataracts, rt knee arthroscopy, neck fusion at C4-C5, C5-C6, C6-C7 corpectomy, apple CARPAL TUNNEL, cardioversion colonoscopy bilateral tubal ligation, right hip replacement, rt hand cyst removed, lt trigger finger Past Anesthesia/Blood Transfusion Reactions: Postoperative Nausea & Vomiting (PONV) Additional Past Anesthesia/Blood Transfusion Reaction / Comm: "stopped breathing with procedure done by Dr Britton", hard time coming out, told she was "lightweight" Smoking Status: Former smoker Additional Past Alcohol Use History / Comment(s): Patient was a smoker started at age 15 for 51 years and quit in 1996 and 1 pack per day. Patient also relates that she drinks a couple beers per day but his had none since Wednesday. - Past Family History Brother(s) Family Medical History: Cancer Additional Family Medical History / Comment(s): Patient has a total of 5 brothers. One from colon cancer, one is alive at age 67 with lymphoma. 3 brothers have no major medical problems. Father Family Medical History: Pulmonary Embolus Additional Family Medical History / Comment(s): Father in his 80s from coronary artery disease with history of pulmonary embolus. Mother Family Medical History: Hypertension Additional Family Medical History / Comment(s): Mother at age 93 from dementia with history of hypertension. Daughter(s) Family Medical History: No Reported History Additional Family Medical History / Comment(s): Patient has one daughter with no major medical problems. Son(s) Family Medical History: No Reported History Additional Family Medical History / Comment(s): Patient has 2 sons and one has history of atrial fibrillation and one has history of stent. Medications and Allergies Home Medications Medication Instructions Recorded Confirmed Type Vits A,C,E/Lutein/Minerals 1 tab PO DAILY 08/21/14 11/29/18 History [Ocuvite with Lutein Tablet] Ergocalciferol [Vitamin D2 50,000 unit PO [id number] 09/07/14 11/29/18 History (DRISDOL)] Dexlansoprazole [Dexilant] 60 mg PO DAILY 04/01/16 11/29/18 History Hydrochlorothiazide 50 mg PO DAILY 04/01/16 11/29/18 History Apixaban [Eliquis] 5 mg PO BID 10/12/16 11/29/18 History Atenolol [Tenormin] 50 mg PO DAILY 11/25/18 11/29/18 History Atorvastatin [Lipitor] 20 mg PO HS 11/25/18 11/29/18 History Losartan [Cozaar] 12.5 mg PO HS 11/25/18 11/29/18 History Glimepiride [Amaryl] 1 mg PO DAILY #30 tab 11/30/18 Rx Allergies Allergy/AdvReac Type Severity Reaction Status Date / Time Iodinated Contrast- Oral and Allergy Rash/Hives Verified 11/25/18 13:19 IV Dye [Iodinated Contrast Media - IV Dye] Penicillins Allergy Rash/Hives Verified 11/25/18 13:19 Sulfa (Sulfonamide Allergy Rash/Hives Verified 11/25/18 13:19 Antibiotics) Physical Exam Vitals: Vital Signs Temp Pulse Pulse Resp BP BP Pulse Ox 11/30/18 07:05 97.7 F 80 18 121/73 95 11/30/18 03:53 97.5 F L 54 L 16 116/67 100 11/30/18 02:39 16 11/29/18 23:20 54 L 16 87/46 98 11/29/18 23:07 16 11/29/18 22:50 55 L 16 88/44 98 11/29/18 22:20 56 L 16 97/50 99 11/29/18 22:05 55 L 16 99/49 100 11/29/18 21:50 56 L 16 111/61 100 11/29/18 21:35 56 L 16 112/55 98 11/29/18 21:20 97.7 F 70 16 122/62 100 11/29/18 20:57 71 16 141/65 100 11/29/18 20:42 72 18 140/65 100 11/29/18 20:27 75 18 144/70 100 11/29/18 20:12 97.0 F L 70 20 140/69 96 11/29/18 20:00 16 11/29/18 13:34 98.4 F 71 18 131/65 98 Intake and Output 11/29/18 11/30/18 11/30/18 22:59 06:59 14:59 Intake Total 236 Output Total 200 Balance 36 Intake: IV 236 Output: Urine 200 Other: Voiding Method Indwelling Catheter Indwelling Catheter Toilet # Voids 1 Gen: This is a 73-year-old female. She is sitting up in bed and appea rs to be comfortable and in no acute distress. HEENT: Head is atraumatic, normocephalic. Pupils equal, round. Sclerae is anicteric. NECK: Supple. No JVD. No lymphadenopathy. No thyromegaly. LUNGS: Clear to auscultation. No wheezes or rhonchi. No intercostal retractions. HEART: Regular rate and rhythm. No murmur. ABDOMEN: Soft. Bowel sounds are present. No masses. No tenderness. EXTREMITIES: No pedal edema. No calf tenderness. Dorsalis pedis +2 bilaterally. NEUROLOGICAL: Patient is awake, alert and oriented x3. Cranial nerves 2 through 12 are grossly intact. Results CBC & Chem 7: 11/30/18 07:30 Labs: Abnormal Lab Results - Last 24 Hours (Table) 11/29/18 11/30/18 Range/Units 18:11 07:30 Potassium 5.5 H (3.5-5.1) mmol/L BUN 42 H (7-17) mg/dL Creatinine 1.46 H (0.52-1.04) mg/dL Glucose 139 H (74-99) mg/dL POC Glucose (mg/dL) 123 H (75-99) mg/dL Assessment and Plan Plan: 1. Paroxysmal atrial fibrillation, symptomatic, status post ablation. 2. Diabetes mellitus type 2. Patient will be started on glimepiride 1 mg daily. Patient has been instructed to not take this if she is not eating. Other options are not available to her due to lack of insurance coverage. 3. Hypertension. Continue atenolol 4. Hyperlipidemia. Continue atorvastatin. 5. Chronic kidney disease stage II. 6. Vitamin D deficiency. 7. GERD. 8. Acute kidney injury secondary to dye. Continue IV fluids 100 mL per hour. Discharge plan: Home tomorrow. Impression and plan of care have been directed as dictated by the signing physician. Pamela Hook nurse practitioner acting as scribe for signing physician.
[2018-11-30 16:32] LABS: Glucose,Whole Blood 159 mg/dL (75-99)
[2018-11-30] MEDS: GLIMEPIRIDE 1 MG TAB PO SCH (17:08)
[2018-11-30 19:55] VITALS: RESP 18
[2018-11-30 20:45] LABS: Glucose,Whole Blood 134 mg/dL (75-99)
[2018-11-30] MEDS: ATORVASTATIN 20 MG TAB PO SCH (21:04)
[2018-12-01] MEDS: LORazepam 1 MG TAB PO PRN (02:22)
[2018-12-01 06:41] LABS: Glucose,Whole Blood 78 mg/dL (75-99)
[2018-12-01] MEDS ORDERED: GLIMEPIRIDE 1 MG TAB PO SCH (07:30)
[2018-12-01] MEDS: INSULIN ASPART (NovoLOG) 100 UNIT/ML VIAL SQ SCH ×2 (07:50→13:22)
[2018-12-01] MEDS: APIXABAN 5 MG TAB PO SCH (07:53)
[2018-12-01] MEDS: ATENOLOL 50 MG TAB PO SCH (07:53)
[2018-12-01] MEDS: GLIMEPIRIDE 1 MG TAB PO SCH (07:57)
[2018-12-01 08:31] LABS: Calcium 8.5 mg/dL (8.4-10.2); Potassium 4.4 mmol/L (3.5-5.1)
[2018-12-01 11:34] VITALS: BP 142/81; PULSE 69; TEMP 97.5
[2018-12-01 11:51] LABS: Glucose,Whole Blood 72 mg/dL (75-99)
--- NOTE | 2018-12-01 11:52 | P.PN ---
Subjective Progress Note Date: 12/01/18 This is a 73-year-old female patient of Dr. Berg with a past medical history significant for hypertension and hypertensive cardiovascular disease with left ventricular hypertrophy, paroxysmal atrial fibrillation on eliquis, hyperlipidemia, diabetes mellitus type 2, chronic kidney disease stage II, history of uterine cancer status post total abdominal hysterectomy and bilateral salpingo-oophorectomy in 2009, severe cervical spinal stenosis status post anterior cervical discectomy with interbody fusion at C6 7 and C5 corpectomy. The patient was last seen in the hospital in August at which time she presented with atrial fibrillation with RVR. The patient has been brought into the [facility] by Dr. Britton status post EP study and cardiac ablation for symptomatic paroxysmal atrial fibrillation. Patient is noted to have high blood sugar readings since August from 125-142. This morning blood sugar was 139. Patient gives history that she has been told that she had borderline diabetes. She has tried metformin on several occasions but due to GI symptoms she was unable to tolerate it. She also states that she has no insurance coverage which also complicates her treatment. Lab work also shows today that she has a BUN 42 and creatinine 1.46. Patient is receiving hydration with plan for discharge tomorrow. 12/01: Repeat lab work this morning shows a BUN 46 and creatinine 1.10. Patient's morning blood sugar was 78 and patient was symptomatic. She did eat some food for breakfast and lunch as planned. We will discontinue the glimepiride and patient will follow-up in the office. Patient may be able to obtain samples in the office for newer agents. Unfortunately she does have a problem that she cannot afford any of these new agents due to lack of insurance coverage. P trevaient will not be placed on any medication new for home and will follow-up in the office. If patient's blood sugar is normalized by this afternoon after lunch, patient is cleared from medicine for discharge home. Review Of Systems: Constitutional: No fever, no chills, no night sweats. No weight change. No weakness, fatigue or lethargy. No daytime sleepiness. EENT: No headache. No blurred vision or double vision, no loss of vision. No loss of Hearing, no ringing in the ears, no dizziness. No nasal drainage or congestion. No epistaxis. No sore throat. Lungs: No shortness of breath, cough, no sputum production. No wheezing. Cardiovascular: No chest pain, no lower extremity edema. No palpitations. No paroxysmal nocturnal dyspnea. No orthopnea. No lightheadedness or dizziness. No syncopal episodes. Abdominal: No abdominal pain. No nausea, vomiting. No diarrhea. No consti pation. No bloody or tarry stools.. No loss of appetite. Genitourinary: No dysuria, increased frequency, urgency. No urinary retention. Musculoskeletal: No myalgias. No muscle weakness, no gait dysfunction, no frequent falls. No back pain. No neck pain. Integumentary: No wounds, no lesions. No rash or pruritus. No unusual bruising. No change in hair or nails. Neurologic: No aphasia. No facial droop. No change in mentation. No head injury. No headache. No paralysis. No paresthesia. Psychiatric: No depression. No anxiety. No mood swings. Endocrine: abnormal blood sugars. No weight change. Objective - Vital Signs Vital signs: Vital Signs Temp 97.7 F 12/01/18 07:05 Pulse 75 12/01/18 07:05 Resp 18 12/01/18 07:05 BP 145/71 12/01/18 07:05 Pulse Ox 97 12/01/18 07:05 Intake & Output 11/30/18 12/01/18 12/01/18 18:59 06:59 18:59 Intake Total 1136 800 Balance 1136 800 Intake: IV 800 Sodium Chloride 0.9% 1, 800 000 ml @ 100 mls/hr IV . Q10H [facility] Rx#:[id number] Oral 836 Other 300 Other: Voiding Method Toilet Toilet Toilet # Voids 2 - Exam Gen: This is a 73-year-old female. She is sitting up in chair and appears to be comfortable and in no acute distress. HEENT: Head is atraumatic, normocephalic. Pupils equal, round. Sclerae is anicteric. NECK: Supple. No JVD. No lymphadenopathy. No thyromegaly. LUNGS: Clear to auscultation. No wheezes or rhonchi. No intercostal r etractions. HEART: Regular rate and rhythm. No murmur. ABDOMEN: Soft. Bowel sounds are present. No masses. No tenderness. EXTREMITIES: No pedal edema. No calf tenderness. Dorsalis pedis +2 bilater ally. NEUROLOGICAL: Patient is awake, alert and oriented x3. Cranial nerves 2 through 12 are grossly intact. - Labs CBC & Chem 7: 12/01/18 07:40 Labs: Abnormal Lab Results - Last 24 Hours (Table) 11/30/18 11/30/18 11/30/18 Range/Units 11:34 16:21 20:44 Chloride (98-107) mmol/L BUN (7-17) mg/dL Creatinine (0.52-1.04) mg/dL POC Glucose (mg/dL) 123 H 159 H 134 H (75-99) mg/dL 12/01/18 Range/Units 07:40 Chloride 108 H (98-107) mmol/L BUN 46 H (7-17) mg/dL Creatinine 1.10 H (0.52-1.04) mg/dL POC Glucose (mg/dL) (75-99) mg/dL Assessment and Plan Plan: 1. Paroxysmal atrial fibrillation, symptomatic, status post ablation. 2. Diabetes mellitus type 2 uncontrolled with labile blood sugars. Glimepiride discontinued. Patient will follow-up in the office. 3. Hypertension. Continue atenolol 4. Hyperlipidemia. Continue atorvastatin. 5. Chronic kidney disease stage II. 6. Vitamin D deficiency. 7. GERD. 8. Acute kidney injury secondary to dye. Discharge plan: Home tomorrow. Impression and plan of care have been directed as dictated by the signing physician. Pamela Hook nurse practitioner acting as scribe for signing physician.
[2018-12-01 12:40] LABS: Glucose,Whole Blood 110 mg/dL (75-99)
--- NOTE | 2018-12-01 14:42 | P.DS ---
Providers Date of admission: 12/01/18 08:37 Attending physician: Darien Britton Consults: 11/30/18 08:31 Consult Physician Routine Consulting Provider: Roman Berg Reason/Comments: Diabetes management, please see today Do you want consulting provider notified?: Yes Primary care physician: Roman Berg [facility] Course: Patient is doing well from a cardiac standpoint. No dizziness lightheadedness chest discomfort no groin problems overnight. She received IV fluids. Blood pressure 130/76 movements of mercury pulse rate in the 70s respirations 16-18 afebrile Breath sounds are clear no rhonchi no crackles Heart sounds S1 and S2 are normal no murmurs or gallops or rub Abdomen soft nontender Extremities are warm no edema Impression Cryoablation of the pulmonary veins for management of paroxysmal atrial fibrillation Chronic kidney disease with mild worsening of renal function postprocedure along with mild hyperkalemia Improvement with IV fluids and Kayexalate 1 dose only Sodium 141 potassium 4.4 chloride 108, bicarb 24 BUN 46 and creatinine 1.1 Diabetes medications were adjusted by her primary care physician Suggest discharge home today on home medications without any changes as well as ELIQUIS for follow-up with Dr. Larson in about 2 weeks Patient Condition at Discharge: Stable Plan - Discharge Summary Discharge Rx Participant: Yes New Discharge Prescriptions: Continue RX: Vits A,C,E/Lutein/Minerals [Ocuvite with Lutein Tablet] 1 tab PO DAILY RX: Ergocalciferol [Vitamin D2 (DRISDOL)] 50,000 unit PO [id number] RX: Hydrochlorothiazide 50 mg PO DAILY RX: Dexlansoprazole [Dexilant] 60 mg PO DAILY RX: Apixaban [Eliquis] 5 mg PO BID RX: Losartan [Cozaar] 12.5 mg PO HS RX: Atorvastatin [Lipitor] 20 mg PO HS RX: Atenolol [Tenormin] 50 mg PO DAILY Discharge Medication List RX: Vits A,C,E/Lutein/Minerals [Ocuvite with Lutein Tablet] 1 tab PO DAILY 08/21/14 [History] RX: Ergocalciferol [Vitamin D2 (DRISDOL)] 50,000 unit PO [id number] 09/07/14 [History] RX: Dexlansoprazole [Dexilant] 60 mg PO DAILY 08/31/16 [History] RX: Hydrochlorothiazide 50 mg PO DAILY 04/01/16 [History] RX: Apixaban [Eliquis] 5 mg PO BID 10/12/16 [History] RX: Atenolol [Tenormin] 50 mg PO DAILY 11/25/18 [History] RX: Atorvastatin [Lipitor] 20 mg PO HS 11/25/18 [History] RX: Losartan [Cozaar] 12.5 mg PO HS 11/25/18 [History] Follow up Appointment(s)/Referral(s): Roman Berg MD [Primary Care Provider] - 1 Week Darien Britton MD [STAFF PHYSICIAN] - 2 Weeks (Dr Britton office will call with appointment date and time for groin check. Follow-up Dr. Larson/Leigh Jacinto within) Patient Instructions/Handouts: A-fib (Atrial Fibrillation) (DC), Cardiac Ablation (DC) Activity/Diet/Wound Care/Special Instructions: Post EP study - Ablation instructions 1. Keep access sites dry for 2 days. 2. No heavy lifting or straining for 2 days. 3. Avoid bending the hips repeatedly for 2 days. 4. You may go up and down stairs slowly Call if the following is noted 1. Bleeding, increasing swelling or pain at the access sites. 2. Increasing chest discomfort, especially upon taking a deep breath. 3. Increasing shortness of breath, at rest or with exertion. 4. Undue cough / phlegm 5. Difficulty or pain while swallowing. 6. Pain or change in color in the extremities. 7. Fever, chills, rigors. 8. Increasing headache or neurologic symptoms. 9. Dizziness, fainting, palpitations Discharge Disposition: HOME SELF-CARE
[2018-12-01 18:44] LABS: Hemoglobin A1C 7.1 % (4.0-6.0)
== END 2018-12-01 14:48 | disposition home or self-care (01) | DRG 982 ==
LOC: CATHEP 12:48 → 1SOBS 19:42 → CATHEP 12-01 08:37 → 1SOBS 12-01 08:37
PROVIDERS: ADMIT Internal Medicine Geriatric Medicine; ATTEND Internal Medicine Clinical Cardiac Electrophysiology
PROC: 4A0234Z Measurement of Cardiac Electrical Activity, Percutaneous Approach (ICD-10-PCS; 2018-11-29)
PROC: 02583ZZ Destruction of Conduction Mechanism, Percutaneous Approach (ICD-10-PCS; principal; 2018-11-29 16:35)
PROC: 02K83ZZ Map Conduction Mechanism, Percutaneous Approach (ICD-10-PCS; 2018-11-29 16:35)
PROC: 4A023FZ Measurement of Cardiac Rhythm, Percutaneous Approach (ICD-10-PCS; 2018-11-29 16:35)
DX: E11.65 Type 2 diabetes mellitus with hyperglycemia (principal); N17.8 Other acute kidney failure; E87.5 Hyperkalemia; E11.22 Type 2 diabetes mellitus with diabetic chronic kidney disease; I48.0 Paroxysmal atrial fibrillation; I49.5 Sick sinus syndrome; I13.10 Hypertensive heart and chronic kidney disease without heart failure, with stage 1 through stage 4 chronic kidney disease, or unspecified chronic kidney disease; N18.3 Chronic kidney disease, stage 3 (moderate); I12.9 Hypertensive chronic kidney disease with stage 1 through stage 4 chronic kidney disease, or unspecified chronic kidney disease; F17.210 Nicotine dependence, cigarettes, uncomplicated; E78.00 Pure hypercholesterolemia, unspecified; E78.5 Hyperlipidemia, unspecified; M19.90 Unspecified osteoarthritis, unspecified site; M10.9 Gout, unspecified; K21.9 Gastro-esophageal reflux disease without esophagitis; E55.9 Vitamin D deficiency, unspecified; Z79.899 Other long term (current) drug therapy; Z90.710 Acquired absence of both cervix and uterus; Z85.42 Personal history of malignant neoplasm of other parts of uterus; Z79.01 Long term (current) use of anticoagulants; Z98.1 Arthrodesis status; Z98.42 Cataract extraction status, left eye; Z98.41 Cataract extraction status, right eye; Z85.41 Personal history of malignant neoplasm of cervix uteri; Z88.0 Allergy status to penicillin; Z88.2 Allergy status to sulfonamides; Z91.041 Radiographic dye allergy status; Z82.49 Family history of ischemic heart disease and other diseases of the circulatory system; Z80.7 Family history of other malignant neoplasms of lymphoid, hematopoietic and related tissues; Z80.0 Family history of malignant neoplasm of digestive organs; Z96.641 Presence of right artificial hip joint
CPT/HCPCS: 80048; 83036; 85347; 93609; 93656; 93662

== ENCOUNTER 2018-12-02 01:14 | Emergency (ER) | payer MEDICARE ==
--- NOTE | 2018-12-02 01:20 | ED ---
SOB HPI - General Stated Complaint: JESSICA Time Seen by Provider: 12/02/18 01:16 - History of Present Illness Initial Comments: Amna is a 73 yo female who presents to the emergency department today for evaluation of shortness breath. Patient was admitted to the hospital on Wednesday and underwent cardiac ablation for treatment of atrial fibrillation. Patient was discharged home earlier today. She reports that she was feeling well upon discharge. She reports that once a home she walked up and down the stairs began to feel short of breath and was unable to catch her breath after this which prompted her to call 911 to return the hospital for reevaluation. Patient denies any chest pain or palpitations she denies any diaphoresis lightheadedness. She does report that she has had a minimally productive cough for a few days. She denies any associated fevers, chills, nausea or vomiting. Patient reports resolution of her symptoms upon arrival to the emergency department after receiving a DuoNeb treatment in route to the hospital by EMS. - Related Data Home Medications Medication Instructions Recorded Confirmed Vits A,C,E/Lutein/Minerals 1 tab PO DAILY 08/21/14 12/01/18 [Ocuvite with Lutein Tablet] Ergocalciferol [Vitamin D2 50,000 unit PO [id number] 09/07/14 12/01/18 (DRISDOL)] Dexlansoprazole [Dexilant] 60 mg PO DAILY 04/01/16 12/01/18 Hydrochlorothiazide 50 mg PO DAILY 04/01/16 12/01/18 Apixaban [Eliquis] 5 mg PO BID 10/12/16 12/01/18 Atenolol [Tenormin] 50 mg PO DAILY 11/25/18 12/01/18 Atorvastatin [Lipitor] 20 mg PO HS 11/25/18 12/01/18 Losartan [Cozaar] 12.5 mg PO HS 11/25/18 12/01/18 Allergies Allergy/AdvReac Type Severity Reaction Status Date / Time Iodinated Contrast- Oral and Allergy Rash/Hives Verified 12/02/18 01:26 IV Dye [Iodinated Contrast Media - IV Dye] Penicillins Allergy Rash/Hives Verified 12/02/18 01:26 Sulfa (Sulfonamide Allergy Rash/Hives Verified 12/02/18 01:26 Antibiotics) Review of Systems ROS Statement: Those systems with pertinent positive or pertinent negative responses have been documented in the HPI. ROS Other: All systems not noted in ROS Statement are negative. Past Medical History Past Medical History: Atrial Fibrillation, Cancer, Diabetes Mellitus, Hypertension, Osteoarthritis (OA), Renal Disease Additional Past Medical History / Comment(s): hx cervical cancer(sx and radiation), hx GOUT, arthritis, "borderline diabetic"-diet controlled.radiation tx to tonsils as child, has cane when out walking, colitis, macular degeneration both eyes.had a pne vaccine but not sure of date History of Any Multi-Drug Resistant Organisms: None Reported Past Surgical History: Hysterectomy, Joint Replacement, Orthopedic Surgery Additional Past Surgical History / Comment(s): APPLE cataracts, rt knee arthroscopy, neck fusion at C4-C5, C5-C6, C6-C7 corpectomy, apple CARPAL TUNNEL, cardioversion colonoscopy bilateral tubal ligation, right hip replacement, rt hand cyst removed Past Anesthesia/Blood Transfusion Reactions: Postoperative Nausea & Vomiting (PONV) Additional Past Anesthesia/Blood Transfusion Reaction / Comment(s): "stopped breathing with procedure done by Dr Britton", hard time coming out, told she was "lightweight" Past Alcohol Use History: Daily - Past Family History Brother(s) Family Medical History: Cancer Additional Family Medical History / Comment(s): Patient has a total of 5 brothers. One from colon cancer, one is alive at age 67 with lymphoma. 3 brothers have no major medical problems. Father Family Medical History: Pulmonary Embolus Additional Family Medical History / Comment(s): Father in his 80s from coronary artery disease with history of pulmonary embolus. Mother Family Medical History: Hypertension Additional Family Medical History / Comment(s): Mother at age 93 from dementia with history of hypertension. Daughter(s) Family Medical History: No Reported History Additional Family Medical History / Comment(s): Patient has one daughter with no major medical problems. Son(s) Family Medical History: No Reported History Additional Family Medical History / Comment(s): Patient has 2 sons and one has history of atrial fibrillation and one has history of stent. General Exam - General Exam Comments Initial Comments: Physical Exam GENERAL: Patient is well-developed and well-nourished elderly female Patient is nontoxic and well-hydrated and is in no distress HENT: Normocephalic, Atraumatic. EYES: EOMI PULMONARY: Unlabored respirations. No audible rales rhonchi or wheezing was noted. CARDIOVASCULAR: RRR ABDOMEN: Soft and nontender with normal bowel sounds. SKIN: Skin is clear with no lesions or rashes and otherwise unremarkable. : Deferred NEUROLOGIC: Patient is alert and oriented x3. Moving all extremities spontaneously MUSCULOSKELETAL: Normal extremities with adequate strength and full range of motion. No lower extremity swelling or edema. No calf tenderness. PSYCHIATRIC: Normal psychiatric evaluation. Limitations: no limitations Course Vital Signs 12/02/18 01:22 Temperature 97.8 F Pulse Rate 86 Respiratory 21 Rate Blood Pressure 122/108 O2 Sat by Pulse 98 Oximetry Medical Decision Making - Medical Decision Making The patient was seen and evaluated history is obtained from the patient and review of medical record This is a pleasant 73-year-old female who had an ablation 2 days prior and after walking up some stairs felt short of breath. All symptoms resolved after breathing treatment. On exam patient is unremarkable however given her age and advanced history Will obtain labs and EKG EKG was obtained at 1:24 AM, rate is 72 rhythm is sinus there is normal axis there are normal intervals, ME 172, curious 86, QTC is 438 there is no acute ST elevations or depressions no evidence of acute ischemia or infarction. Some labs were obtained however due to hemolysis not all labs were obtained at initial evaluation. D-dimer is very mildly elevated at 0.88 patient has had elevated d-dimer in the past, in addition troponin was mildly elevated at 0.9 CMP was otherwise unremarkable I discussed with the patient that based on her elevated d-dimer we'll need to perform a pulmonary embolus him study and she'll need to take medications prior due to her history of iodine ALLERGY however patient will like to decline the study as her symptoms have resolved and she is on anticoagulation and does not feel there is any risk of having a blood clot, patient is agreeable to waiting for the remainder of her labs resulted Phlebotomists arrived at bedside to draw additional labs however patient refused I return to speak with the patient. Patient reports she's been asymptomatic since arrival in the emergency department she just wants to go home. The patient has decided to leave against medical advice because her symptoms have resolved The patient has adequate capacity to make medical decisions. The patient refuses further evaluation or hospital admission and wants to be discharged. The risks have been explained to the patient, including worsening illness, chronic pain, permanent disability and . The benefits of workup/admission have also been explained, including the availability and proximity of nurses, physicians, monitoring, diagnostic testing and treatment The patient was able to understand and state the risks and benefits of further workup and hospital admission. The patient the opportunity to ask questions about their medical condition. The patient was treated to the extent that they would allow and knows that they may return for care at any time. - Lab Data Result diagrams: 12/02/18 03:18 Lab Results 12/02/18 12/02/18 12/02/18 Range/Units 02:36 03:00 03:18 PT 10.4 (9.0-12.0) sec INR 1.0 (<1.2) APTT 19.2 L (22.0-30.0) sec D-Dimer 0.88 H (<0.60) mg/L FEU Sodium 139 (137-145) mmol/L Potassium 4.3 (3.5-5.1) mmol/L Chloride 109 H (98-107) mmol/L Carbon Dioxide 23 (22-30) mmol/L Anion Gap 7 mmol/L BUN 38 H (7-17) mg/dL Creatinine 0.91 (0.52-1.04) mg/dL Est GFR (CKD-EPI)AfAm 72 (>60 ml/min/1.73 sqM) Est GFR (CKD-EPI)NonAf 63 (>60 ml/min/1.73 sqM) Glucose 90 (74-99) mg/dL Calcium 8.9 (8.4-10.2) mg/dL Magnesium 2.1 (1.6-2.3) mg/dL Total Bilirubin 0.5 (0.2-1.3) mg/dL AST 29 (14-36) U/L ALT 33 (9-52) U/L Alkaline Phosphatase 46 (38-126) U/L Troponin I 0.965 H* (0.000-0.034) ng/mL Total Protein 6.3 (6.3-8.2) g/dL Albumin 3.7 (3.5-5.0) g/dL Disposition Clinical Impression: Acute dyspnea Disposition: Left Against Medical Advice Condition: Serious Instructions (If sedation given, give patient instructions): Pleural Effusion (ED) Is patient prescribed a controlled substance at d/c from ED?: No Referrals: Roman Berg MD [Primary Care Provider] - 1-2 days
[2018-12-02 01:26] VITALS: TEMP 97.8
--- NOTE | 2018-12-02 03:05 | XR ---
EXAM: XR Chest, 2 Views CLINICAL HISTORY: ITS.REASON XR Reason: Chest Pain TECHNIQUE: Frontal and lateral views of the chest. COMPARISON: 08/05/18 chest x-ray IMPRESSION: Unchanged heart size. Trace right pleural effusion. No consolidation.
[2018-12-02 03:17] LABS: Prothrombin Time 10.4 sec (9.0-12.0)
[2018-12-02 03:23] LABS: D-Dimer 0.88 mg/L FEU (<0.60); Partial Thromboplastin Time 19.2 sec (22.0-30.0)
[2018-12-02 03:49] LABS: Albumin 3.7 g/dL (3.5-5.0); Calcium 8.9 mg/dL (8.4-10.2); Magnesium 2.1 mg/dL (1.6-2.3); Potassium 4.3 mmol/L (3.5-5.1); Total Bilirubin 0.5 mg/dL (0.2-1.3); Total Protein 6.3 g/dL (6.3-8.2)
[2018-12-02 05:38] VITALS: BP 128/71; PULSE 79; RESP 16
== END 2018-12-02 05:15 | disposition left against medical advice (07) ==
LOC: EC 01:14
DX: R06.00 Dyspnea, unspecified (principal); R06.02 Shortness of breath; R05 Cough; Z91.048 Other nonmedicinal substance allergy status; I48.91 Unspecified atrial fibrillation; I10 Essential (primary) hypertension; E11.9 Type 2 diabetes mellitus without complications; M19.90 Unspecified osteoarthritis, unspecified site; Z79.01 Long term (current) use of anticoagulants; Z79.899 Other long term (current) drug therapy; Z88.0 Allergy status to penicillin; Z88.2 Allergy status to sulfonamides; Z91.041 Radiographic dye allergy status; Z96.641 Presence of right artificial hip joint; Z98.1 Arthrodesis status; Z85.41 Personal history of malignant neoplasm of cervix uteri
CPT/HCPCS: 36415; 71046; 80053; 83735; 84484; 85379; 85610; 85730; 99285

== ENCOUNTER 2019-09-20 09:47 | Day surgery (SDC) | payer MEDICARE ==
[2019-09-18 16:25] VITALS: BMI 37.0
[~2019-09-20 09:47] MED LIST changes: -ACETAMINOPHEN TAB 500 MG TAB PO ONE; -DEXAMETHASONE SOD PHOSPHATE 10 MG/ML 1 ML VIAL IV ONE; -HYDROmorphone 1 MG/ML 1 ML SYRINGE IVP PRN; -LIDOCAINE 1% 20 ML VIAL (10MG/ML) FOR IV START INTRADERMA PRN; -MELOXICAM 7.5 MG TAB PO ONE; -MIDAZOLAM 2 MG/2 ML VIAL IV PRN; -ONDANSETRON 4 MG/2 ML VIAL IVP ONE; -SCOPOLAMINE 1.5MG/72HR PATCH TRANSDERM ONE; +SODIUM CHLORIDE 0.9% 1,000 ML IV SCH; -TRANEXAMIC ACID 1,000 MG in SODIUM CHLORIDE 0.9% 100 ML IVPB ONE; -ceFAZolin 2 GM in SODIUM CHLORIDE 0.9% 100 ML IVPB ONE
[2019-09-20 10:24] LABS: Glucose,Whole Blood 106 mg/dL (75-99)
[2019-09-20 10:32] VITALS: TEMP 97.8
[2019-09-20] MEDS ORDERED: SODIUM CHLORIDE 0.9% 500 ML 500 ML IV ONE (10:32)
[2019-09-20] MEDS ORDERED: LIDOCAINE 1% INJ 10MG/ML (20 ML MDV) ONE (10:58)
[2019-09-20] MEDS ORDERED: ePHEDrine SULFATE/0.9% NACL/PF 50 MG/5 ML SYRINGE IV ONE (10:58)
[2019-09-20] MEDS ORDERED: PROPOFOL 10 MG/ML 20 ML VIAL IV ONE (10:58)
[2019-09-20] MEDS ORDERED: BENZOCAINE SPRAY 1 CAN MUCOUS MEM ONE (11:21)
--- NOTE | 2019-09-20 12:08 | ECHOT ---
TRANSESOPHAGEAL ECHOCARDIOGRAM This transesophageal echocardiogram was performed to assess the severity of mitral regurgitation in sinus rhythm. The patient has a history of atrial fibrillation. She was initially cardioverted by Dr. Britton and subsequently transesophageal echocardiogram was performed. FINDINGS: Left ventricular chamber is normal in size. Overall mildly impaired left ventricular systolic function with ejection fraction of 50% to 55%. The left atrium is moderate to severely enlarged. Right atrium is moderately enlarged. There is a thickening of the mitral leaflets noted with poor coaptation of the anterior and posterior mitral leaflet. However, there is no definite evidence of any significant mitral wall prolapse or flail mitral leaflet. There is no evidence of any thrombus or vegetations. Color Doppler study shows evidence of severe mitral regurgitation. The pulmonary diastolic flow is greater than the systolic flow with suggestion of reversal of flow. There is a moderate degree of tricuspid regurgitation noted. Aortic valve morphology is normal. Interatrial septum is intact. There is no evidence of any PFO. FINAL IMPRESSION: 1. There is thickening of the mitral leaflets with poor coaptation of the anterior and posterior mitral leaflet and evidence of severe mitral regurgitation. The jet is predominantly central. There is a second jet between the medial and middle cusp of the scallop of the posterior mitral leaflet. 2. Pulmonary vein flow shows evidence of diastolic flow greater than systolic flow with suggestion of possible reversal of flow. 3. There is a moderate degree of tricuspid regurgitation. 4. Biatrial enlargement is noted. 5. Interatrial septum is intact. 6. There is no evidence of any patent foramen ovale. RECOMMENDATIONS: Consider mitral valve repair. MMODL / IJN: [id number] /
[2019-09-20 12:30] VITALS: RESP 16
--- NOTE | 2019-09-20 12:43 | CE ---
CARDIAC ELECTROPHYSIOLOGY REPORT A 74-year-old female with symptomatic atrial fibrillation and mitral regurgitation brought in for electrical cardioversion and LINDA to evaluate the mitral valve structure and function. Under conscious sedation, successful electrical cardioversion was performed with 360 joule shock. The patient converted to sinus rhythm. Thereafter, Dr. Landis performed a LINDA which showed severe mitral regurgitation which is central with poor coaptation of the leaflets. There are two jets. There was reversal of flow in the left atrial appendage. PLAN: 1. Continue anticoagulation. 2. Consideration for percutaneous mitral valve therapy when intervention. Discussed with the patient's brother. MMODL / IJN: [id number] /
[2019-09-20 12:51] VITALS: BP 112/64
[2019-09-20 13:06] VITALS: PULSE 65
[2019-09-20 13:22] LABS: Potassium 5.5 mmol/L (3.5-5.1)
== END 2019-09-20 13:06 | disposition home or self-care (01) ==
LOC: CATHCVL 09:47
PROVIDERS: ATTEND Internal Medicine Clinical Cardiac Electrophysiology
DX: I08.1 Rheumatic disorders of both mitral and tricuspid valves (principal); I48.19 Other persistent atrial fibrillation; I49.5 Sick sinus syndrome; I12.9 Hypertensive chronic kidney disease with stage 1 through stage 4 chronic kidney disease, or unspecified chronic kidney disease; E11.22 Type 2 diabetes mellitus with diabetic chronic kidney disease; N18.3 Chronic kidney disease, stage 3 (moderate); E78.5 Hyperlipidemia, unspecified; E78.00 Pure hypercholesterolemia, unspecified; K21.9 Gastro-esophageal reflux disease without esophagitis; Z79.01 Long term (current) use of anticoagulants; Z79.899 Other long term (current) drug therapy; Z88.2 Allergy status to sulfonamides; Z88.0 Allergy status to penicillin; Z91.041 Radiographic dye allergy status; Z72.0 Tobacco use; Z82.49 Family history of ischemic heart disease and other diseases of the circulatory system; Z90.710 Acquired absence of both cervix and uterus; Z98.41 Cataract extraction status, right eye; Z98.42 Cataract extraction status, left eye; Z96.641 Presence of right artificial hip joint
CPT/HCPCS: 93312; 93320; 93325; 92960; 80048; 84443; J2001; J2704

== ENCOUNTER → 2019-09-29 | Outpatient (CLI) | payer MEDICARE ==
[2019-09-29 12:34] LABS: Anisocytosis Slight; HCT 41.7 % (34.0-46.0); HGB 12.5 gm/dL (11.4-16.0); Hypochromasia Marked; MCH 25.1 pg (25.0-35.0); MCHC 29.9 g/dL (31.0-37.0); Platelet Count 210 k/uL (150-450); RBC 4.97 m/uL (3.80-5.40); RDW 17.1 % (11.5-15.5); WBC 7.5 k/uL (3.8-10.6)
[2019-09-29 12:43] LABS: Partial Thromboplastin Time 25.3 sec (22.0-30.0); Prothrombin Time 10.4 sec (9.0-12.0)
[2019-09-29 18:25] LABS: African American GFR (CKD) 51.6 (60.0-200.0); Albumin 4.3 g/dL (3.80-4.90); Albumin/Globulin Ratio 2.05 (1.60-3.17); Anion Gap 11.5 mmol/L (4.00-12.00); Calcium 9.3 mg/dL (8.7-10.3); Carbon Dioxide 27.5 mmol/L (21.6-31.8); Globulin 2.1 g/dL (1.6-3.3); Non-African American GFR(CKD) 44.5 (60.0-200.0); Potassium 5.1 mmol/L (3.5-5.5); Total Bilirubin 0.5 mg/dL (0.2-1.2); Total Protein 6.4 g/dL (6.2-8.2)
== END | disposition home or self-care (01) ==
LOC: LABWHC1 11:31
PROVIDERS: ATTEND Student in an Organized Health Care Education/Training Program
DX: R06.02 Shortness of breath (principal)
CPT/HCPCS: 36415; 80053; 83880; 85027; 85610; 85730

== ENCOUNTER → 2020-01-05 | Outpatient (CLI) | payer MEDICARE ==
[2020-01-05 13:55] LABS: Anisocytosis Slight; HCT 39.5 % (34.0-46.0); HGB 12.1 gm/dL (11.4-16.0); Hypochromasia Marked; MCH 26.3 pg (25.0-35.0); MCHC 30.7 g/dL (31.0-37.0); MCV 85.6 fL (80.0-100.0); Mean Platelet Volume 7.9; Platelet Count 164 k/uL (150-450); RBC 4.61 m/uL (3.80-5.40); RDW 17.4 % (11.5-15.5); WBC 4.8 k/uL (3.8-10.6)
[2020-01-05 14:08] LABS: Potassium 4.6 mmol/L (3.5-5.1)
== END | disposition home or self-care (01) ==
LOC: LABWHC1 12:06
PROVIDERS: ATTEND Internal Medicine Cardiovascular Disease
DX: Z01.818 Encounter for other preprocedural examination (principal); I34.0 Nonrheumatic mitral (valve) insufficiency
CPT/HCPCS: 80051; 82565; 84520; 85027; 36415; U0003

== ENCOUNTER 2020-01-09 06:28 | Day surgery (SDC) | payer MEDICARE ==
[2020-01-08 10:21] VITALS: BMI 37.0
[~2020-01-09 06:28] MED LIST changes: +ALPRAZolam 0.25 MG TAB PO PRN; +ALPRAZolam 0.5 MG TAB PO PRN; +ASPIRIN 325 MG TAB PO STA; +ATORVASTATIN 80 MG TAB PO STA; +NITROGLYCERIN SL TABS 0.4 MG TAB SUBLINGUAL PRN; -SODIUM CHLORIDE 0.9% 1,000 ML IV SCH; +SODIUM CHLORIDE 0.9% 1,000 ML in EMPTY BAG 1 BAG IV ONE
[2020-01-09 07:21] LABS: Glucose,Whole Blood 191 mg/dL (75-99)
[2020-01-09] MEDS ORDERED: LIDOCAINE 1% INJ 10MG/ML (20 ML MDV) ONE (11:22)
[2020-01-09] MEDS ORDERED: SODIUM CHLORIDE 0.9% 1,000 ML IV ONE (11:25)
[2020-01-09] MEDS ORDERED: fentaNYL (PF) 50 MCG/ML 2 ML AMP ONE (11:48)
[2020-01-09] MEDS ORDERED: ONDANSETRON 4 MG/2 ML VIAL ONE (11:51)
[2020-01-09] MEDS ORDERED: LIDOCAINE 1% INJ 10MG/ML (20 ML MDV) SQ ONE (11:55)
[2020-01-09] MEDS ORDERED: ONDANSETRON 4 MG/2 ML VIAL IVP ONE (11:55)
[2020-01-09] MEDS ORDERED: MIDAZOLAM 2 MG/2 ML VIAL IV ONE (11:56)
[2020-01-09] MEDS ORDERED: fentaNYL (PF) 50 MCG/ML 2 ML AMP IV ONE (11:56)
[2020-01-09] MEDS ORDERED: IOPAMIDOL-370 125ML BTL INJ ONE (12:22)
[2020-01-09 12:33] LABS: O2 Sat Blood Gas 98.4 %
[2020-01-09 12:34] LABS: O2 Sat Blood Gas 68.4 %
[2020-01-09] MEDS ORDERED: RX INFO: IV CONTRAST WAS GIVEN 1 EACH MISC MISCELLANE PRN (12:36)
[2020-01-09] MEDS ORDERED: SODIUM CHLORIDE 0.9% 1,000 ML IV SCH (12:45)
[2020-01-09 13:59] VITALS: TEMP 97.7
--- NOTE | 2020-01-09 15:25 | LTR ---
DATE OF SERVICE: 01/09/2020 RE: Amna Santos Dear Dr. Berg; I performed right and left heart catheterization on Amna Santos as part of her evaluation for mitral valve repair. Patient has [id number] LAD stenosis. She will need mitral valve repair. Thank you for letting me participate in the care of the pleasant lady. Sincerely, MD SANTO Vicente / SEAN: [phone] /
--- NOTE | 2020-01-09 15:25 | CC ---
CARDIAC CATHETERIZATION REPORT INDICATION: Severe mitral regurgitation. PROCEDURE NOTE: After obtaining informed consent, right and left heart catheterization were performed via the right femoral vein and right femoral artery using standard catheters. Patient tolerated the procedure well without any obvious immediate complications. Patient received moderate conscious sedation. Total sedation time was 31 minutes. A femoral angiogram was performed at the end of the procedure and decision was made for manual hemostasis. FINDINGS: 1. RIGHT HEART CATHETERIZATION: Right heart catheterization was performed via the right femoral vein using a [place] Waylon catheter that was floated into the right heart under fluoroscopic guidance. Pressures, O2 saturations and cardiac output were obtained. The right atrial systolic pressure was 14 mm, mean pressure was 12 mm. RV systolic pressure was 38, diastolic was 2, mean pressure was 9. PA systolic was 41, diastolic was 25 with a mean PA pressure of 28 mm. Pulmonary capillary wedge pressure was 20 by thermodilution technique. The cardiac output was 3.9 L. At the time of this dictation, the saturation run and the cardiac output by Debora method were pending.. 2. LEFT HEART CATHETERIZATION FINDINGS: 3. HEMODYNAMICS: Left ventricular end-diastolic pressure is 12-14 mm, there is no significant gradient across the aortic valve. 4. LEFT VENTRICULOGRAM: Left ventriculogram is not performed #3. 5. ANGIOGRAPHIC DATA: LEFT MAIN CORONARY ARTERY: Left main coronary artery is a normal-sized vessel and is free of stenosis. Divides into left anterior descending coronary artery and circumflex coronary artery. LAD shows a moderate area of stenosis in the midportion. Diagonal branches are free of significant disease. Circumflex coronary artery and its branches are free of significant disease. Right coronary artery is a large dominant vessel that shows mild nonobstructive disease. CONCLUSION: 1. Moderate stenosis involving the LAD. 2. Right heart catheterization consistent above. PLAN: Patient will need mitral valve repair. Dr. Britton will refer the patient to a cardiothoracic surgeon. MMODL / IJN: [id number] /
--- NOTE | 2020-01-09 16:08 | CC ---
CARDIAC CATHETERIZATION REPORT ADDENDUM NOTE TO THE CARDIAC CATHETERIZATION: The cardiac output by Debora method was 4.37. The saturation run showed a femoral arterial saturation of 98%, PA saturation of 68% and right atrial saturation of 69%. MMODL / IJN: [id number] /
[2020-01-09 16:58] LABS: Glucose,Whole Blood 142 mg/dL (75-99)
[2020-01-09 17:03] VITALS: RESP 14
[2020-01-09 17:07] VITALS: BP 111/67; PULSE 82
== END 2020-01-09 19:00 | disposition home or self-care (01) ==
LOC: CATHCVL 06:28 → 1SOBS 13:24 → CATHCVL 19:00
PROVIDERS: ATTEND Internal Medicine Cardiovascular Disease
DX: I25.10 Atherosclerotic heart disease of native coronary artery without angina pectoris (principal); I10 Essential (primary) hypertension; Z72.0 Tobacco use; I34.0 Nonrheumatic mitral (valve) insufficiency; I49.5 Sick sinus syndrome; E13.22 Other specified diabetes mellitus with diabetic chronic kidney disease; I12.9 Hypertensive chronic kidney disease with stage 1 through stage 4 chronic kidney disease, or unspecified chronic kidney disease; N18.9 Chronic kidney disease, unspecified; E78.5 Hyperlipidemia, unspecified; I47.1 Supraventricular tachycardia; I48.0 Paroxysmal atrial fibrillation; Z82.49 Family history of ischemic heart disease and other diseases of the circulatory system; Z79.01 Long term (current) use of anticoagulants; Z79.899 Other long term (current) drug therapy; Z88.0 Allergy status to penicillin; Z88.2 Allergy status to sulfonamides; Z91.048 Other nonmedicinal substance allergy status
CPT/HCPCS: 93460; 85018; 82810; C1769 ×2; C1894 ×2; J2250; J2405; J2001; J3010; Q9967

== ENCOUNTER → 2020-01-12 | Outpatient (CLI) | payer MEDICARE | END | disposition home or self-care (01) | LOC: CPPFTMAIN 10:25 | PROVIDERS: ATTEND Internal Medicine Clinical Cardiac Electrophysiology | DX: J44.9 Chronic obstructive pulmonary disease, unspecified (principal) | CPT/HCPCS: 94060; 94726; 94729 ==

== ENCOUNTER → 2020-12-10 | Outpatient (CLI) | payer MEDICARE ==
[2020-12-10 16:01] LABS: Basophils # (A) 0.02 X 10*3/uL (0.00-0.10); Basophils % (A) 0.3 %; Eosinophils # (A) 0.13 X 10*3/uL (0.04-0.35); HCT 30.2 % (37.2-46.3); HGB 8.5 g/dL (12.0-15.0); Lymphocytes # (A) 0.79 X 10*3/uL (0.90-5.00); Lymphocytes % (A) 12.2 %; MCH 24.3 pg (27.0-32.0); MCHC 28.1 g/dL (32.0-37.0); MCV 86.3 fL (80.0-97.0); Mean Platelet Volume 10.3 fL (9.5-12.2); Monocytes # (A) 0.65 X 10*3/uL (0.20-1.00); Neutrophils # (A) 4.86 X 10*3/uL (1.80-7.70); Neutrophils % (A) 75.2 %; Platelet Count 206 X 10*3/uL (140-440); RDW 20.7 % (11.5-14.5); WBC 6.47 X 10*3/uL (4.50-10.00)
[2020-12-10 19:55] LABS: African American GFR (CKD) 42.5 (60.0-200.0); Albumin/Globulin Ratio 1.74 (1.60-3.17); Anion Gap 8.5 mmol/L (4.00-12.00); BUN/Creat Ratio 28.57 Ratio (12.00-20.00); Calcium 8.7 mg/dL (8.7-10.3); Carbon Dioxide 25.5 mmol/L (21.6-31.8); Globulin 2.3 g/dL (1.6-3.3); Non-African American GFR(CKD) 36.7 (60.0-200.0); Total Bilirubin 0.4 mg/dL (0.3-1.2); Total Protein 6.3 g/dL (6.2-8.2)
== END | disposition home or self-care (01) ==
LOC: LABWHC1 10:14
PROVIDERS: ATTEND Nurse Practitioner Gerontology
DX: I50.22 Chronic systolic (congestive) heart failure (principal)
CPT/HCPCS: 36415; 80053; 85025

== ENCOUNTER 2023-03-26 11:20 | Observation (INO) | payer MEDICARE ==
[2023-03-26 12:29] LABS: Anisocytosis Slight; Basophils % (A) 0 %; Eosinophils # (A) 0.1 k/uL (0-0.7); Eosinophils % (A) 2 %; HCT 50.9 % (34.0-46.0); Hypochromasia Slight; Lymphocytes # (A) 0.4 k/uL (1.0-4.8); Lymphocytes % (A) 11 %; MCH 26.9 pg (25.0-35.0); MCHC 31.4 g/dL (31.0-37.0); MCV 85.5 fL (80.0-100.0); Mean Platelet Volume 7.9; Monocytes # (A) 0.3 k/uL (0-1.0); Monocytes % (A) 9 %; Neutrophils # (A) 2.4 k/uL (1.3-7.7); Neutrophils % (A) 75 %; RBC 5.96 m/uL (3.80-5.40); RDW 17.6 % (11.5-15.5); WBC 3.2 k/uL (3.8-10.6)
--- NOTE | 2023-03-26 12:33 | ED ---
General Adult HPI - General Chief complaint: Arrhythmia/Palpitations Stated complaint: HEART RATE LOW VNA SENT Time Seen by Provider: 03/26/23 11:43 Source: patient Mode of arrival: ambulatory Limitations: no limitations - History of Present Illness Initial comments: Dictation was produced using [employer] dictation software. please excuse any grammatical, word or spelling errors. Chief Complaint: 77-year-old female presents emergency department for low heart rate History of Present Illness: 77-year-old female she was recently admitted at outside hospital for similar issue. She spent a few days at [facility] for weakness bradycardia and electrolyte derangement. Patient was discharged. She's been home for a few days. She had a home health care visiting nurse evaluated patient and found to have heart rate in the low 40s. Patient states she was really dizzy this morning. The ROS documented in this emergency department record has been reviewed and confirmed by me. Those systems with pertinent positive or negative responses have been documented in the HPI. All other systems are other negative and/or noncontributory. - Related Data Home Medications Medication Instructions Recorded Confirmed Vits A,C,E/Lutein/Minerals 1 tab PO DAILY 08/21/14 01/09/20 [Ocuvite with Lutein Tablet] Dexlansoprazole [Dexilant] 60 mg PO DAILY 04/01/16 01/09/20 Apixaban [Eliquis] 5 mg PO BID 10/12/16 01/09/20 Atorvastatin [Lipitor] 20 mg PO HS 11/25/18 01/09/20 Losartan [Cozaar] 12.5 mg PO HS 11/25/18 01/09/20 atenoloL [Tenormin] 50 mg PO AC-[id number] 11/25/18 01/09/20 atenoloL 25 mg PO HS 09/18/19 01/09/20 metFORMIN HCL [Glucophage] 500 mg PO BID 09/18/19 01/08/20 Aspirin 81 mg PO MOWEFR 01/08/20 01/09/20 Furosemide [Lasix] 20 mg PO 1400 01/08/20 01/09/20 Loratadine 10 mg PO DAILY 01/08/20 01/09/20 Spironolactone [Aldactone] 12.5 mg PO 1400 01/08/20 01/09/20 Allergies Allergy/AdvReac Type Severity Reaction Status Date / Time Iodinated Contrast Media Allergy Rash/Hives Verified 03/26/23 11:28 [Iodinated Contrast Media - IV Dye] Penicillins Allergy Rash/Hives Verified 03/26/23 11:28 Sulfa (Sulfonamide Allergy Rash/Hives Verified 03/26/23 11:28 Antibiotics) Review of Systems ROS Statement: Those systems with pertinent positive or pertinent negative responses have been documented in the HPI. ROS Other: All systems not noted in ROS Statement are negative. Past Medical History Past Medical History: Cancer, Diabetes Mellitus, Eye Disorder, Hypertension, Osteoarthritis (OA), Renal Disease Additional Past Medical History / Comment(s): hx cervical cancer(sx and radiation), hx GOUT,controlled, colitis, macular degeneration both eyes.SEE DR BRITTON'S HISTORY AND PHYSICAL FOR CARDIAC HISTORY, RENAL DISEASE-STAGE 3 History of Any Multi-Drug Resistant Organisms: None Reported Past Surgical History: Hysterectomy, Joint Replacement, Orthopedic Surgery Additional Past Surgical History / Comment(s): APPLE cataracts, rt knee arthroscopy, neck fusion at C4-C5, C5-C6, C6-C7 corpectomy, apple CARPAL TUNNEL, cardioversion ,colonoscopy ,bilateral tubal ligation, right hip replacement, rt hand cyst removed Past Anesthesia/Blood Transfusion Reactions: Previous Problems w/ Anesthesia, Postoperative Nausea & Vomiting (PONV) Additional Past Anesthesia/Blood Transfusion Reaction / Comment(s): "stopped breathing with procedure done by Dr Britton", hard time coming out, told she was "lightweight" Past Psychological History: No Psychological Hx Reported Smoking Status: Never smoker Past Alcohol Use History: None Reported Past Drug Use History: None Reported - Past Family History Brother(s) Family Medical History: Cancer Additional Family Medical History / Comment(s): Patient has a total of 5 brothers. one survivor of colon cancer, one is alive at age 67 with lymphoma. 3 brothers have no major medical problems. Father Family Medical History: Pulmonary Embolus Additional Family Medical History / Comment(s): Father in his 80s from coronary artery disease with history of pulmonary embolus. Mother Family Medical History: Hypertension Additional Family Medical History / Comment(s): Mother at age 93 from dementia with history of hypertension. Daughter(s) Family Medical History: No Reported History Additional Family Medical History / Comment(s): Patient has one daughter with no major medical problems. Son(s) Family Medical History: No Reported History Additional Family Medical History / Comment(s): Patient has 2 sons and one has history of atrial fibrillation and one has history of stent. General Exam - General Exam Comments Initial Comments: PHYSICAL EXAM: General Impression: Alert and oriented x3, not in acute distress HEENT: Normocephalic atraumatic, extra-ocular movements intact, pupils equal and reactive to light bilaterally, mucous membranes moist. Cardiovascular: Heart regular rate and rhythm Chest: Able to complete full sentences, no retractions, no tachypnea Abdomen: abdomen soft, non-tender, non-distended, no organomegaly Musculoskeletal: Pulses present and equal in all extremities, no peripheral edema Motor: no focal deficits noted Neurological: CN II-XII grossly intact, no focal motor or sensory deficits noted Skin: Intact with no visualized rashes Psych: Normal affect and mood Limitations: no limitations Course Vital Signs 03/26/23 11:24 Temperature 98 F Pulse Rate 52 L Respiratory 18 Rate Blood Pressure 138/51 O2 Sat by Pulse 100 Oximetry EKG Findings - EKG Comments: EKG Findings:: My EKG interpretation: Ventricular rate 52, sinus bradycardia,. Interval 102, QRS 90, QTC 399. No W[place] prolongation, no QTC prolongation, no ST or T-wave changes noted. Overall, this EKG is unremarkable Medical Decision Making - Medical Decision Making Was pt. sent in by a medical professional or institution ([facility], [facility], urgent care, hospital, or care home...) When possible be specific @ -No Did you speak to anyone other than the patient for history (EMS, parent, family, police, friend...)? What history was obtained from this source @ -No Did you review nursing and triage notes (agree or disagree)? Why? @ -I reviewed and agree with nursing and triage notes Were old charts reviewed (outside hosp., previous admission, EMS record, old EKG, old radiological studies, urgent care reports/EKG's, care home records)? Report findings @ -No old charts were reviewed Differential Diagnosis (chest pain, altered mental status, abdominal pain women, abdominal pain men, vaginal bleeding, musculoskeletal, weakness, fever, dyspnea, syncope, headache, dizziness, GI bleed, back pain, seizure, CVA, palpatations, mental health)? @ -Differential Dizziness: Benign paroxysmal positional Vertigo, Menieres disease, otitis media, acoustic neuroma, vertebrobasilar insufficiency, cerebellar stroke, encephalitis, hypovolemic, arrhythmia, coronary artery syndrome, anemia, this is not meant to be an all-inclusive list EKG interpreted by me (3pts min.). @ -See above X-rays interpreted by me (1pt min.). @ -None done CT interpreted by me (1pt min.). @ -None done U/S interpreted by me (1pt. min.). @ -None done What testing was considered but not performed or refused? (CT, X-rays, U/S, labs)? Why? @ -None What meds were considered but not given or refused? Why? @ -None Did you discuss the management of the patient with other professionals (professionals i.e. , PA, [facility], lab, RT, psych nurse, case management social worker, layboy tender, teacher, airconditioning drafting officer, community case manager)? Give summary @ -No Was smoking cessation discussed for >3mins.? @ -No Was critical care preformed (if so, how long)? @ -No Were there social determinants of health that impacted care today? How? (Homelessness, low income, unemployed, alcoholism, drug addiction, transportation, low edu. Level, literacy, decrease access to med. care, alf, rehab)? @ -No Was there de-escalation of care discussed even if they declined (Discuss DNR or withdrawal of care, Hospice)? DNR status @ -No What co-morbidities impacted this encounter? (DM, HTN, Smoking, COPD, CAD, Cancer, CVA, ARF, Chemo, Hep., AIDS, mental health diagnosis, sleep apnea, morbid obesity)? @ -None Was patient admitted / discharged? Hospital course, mention meds given and route, prescriptions, significant lab abnormalities, going to OR and other pertinent info. @ -77-year-old female presents emergency department for bradycardia. She did have significant symptoms this morning. She was sent here by home health care nurse for further evaluation. Vital signs shows bradycardia. She is well- appearing at rest. Laboratory evaluation obtained. Labs are within acceptable limits. Disposition options were discussed. Patient still continues to be bradycardic in the 40s. Medications were reviewed. Suspect patient's bradycardia secondary to drug adverse effect. Patient prefers to be admitted. Patient admitted observational consultation cardiology Undiagnosed new problem with uncertain prognosis? @ -No Drug Therapy requiring intensive monitoring for toxicity (Heparin, Nitro, Insulin, Cardizem)? @ -No Were any procedures done? @ -No Diagnosis/symptom? Acute, or Chronic, or Acute on Chronic? Uncomplicated (without systemic symptoms) or Complicated (systemic symptoms)? @ -. Symptomatic bradycardia Side effects of treatment? @ -No Exacerbation, Progression, or Severe Exacerbation? @ -No Poses a threat to life or bodily function? How? (Chest pain, USA, NH, pneumonia, PE, COPD, DKA, ARF, appy, cholecystitis, CVA, Diverticulitis, Homicidal, Suicidal, threat to staff... and all critical care pts) @ -yes - Lab Data Result diagrams: 03/26/23 11:57 03/26/23 11:57 Lab Results 03/26/23 03/26/23 03/26/23 Range/Units 11:57 11:57 11:57 WBC 3.2 L (3.8-10.6) k/uL RBC 5.96 H (3.80-5.40) m/uL Hgb 16.0 (11.4-16.0) gm/dL Hct 50.9 H (34.0-46.0) % MCV 85.5 (80.0-100.0) fL MCH 26.9 (25.0-35.0) pg MCHC 31.4 (31.0-37.0) g/dL RDW 17.6 H (11.5-15.5) % Plt Count 90 L (150-450) k/uL MPV 7.9 Neutrophils % 75 % Lymphocytes % 11 % Monocytes % 9 % Eosinophils % 2 % Basophils % 0 % Neutrophils # 2.4 (1.3-7.7) k/uL Lymphocytes # 0.4 L (1.0-4.8) k/uL Monocytes # 0.3 (0-1.0) k/uL Eosinophils # 0.1 (0-0.7) k/uL Basophils # 0.0 (0-0.2) k/uL Manual Slide Review Performed Hypochromasia Slight Anisocytosis Slight PT (9.0-12.0) sec INR (<1.2) APTT (22.0-30.0) sec Sodium 129 L (137-145) mmol/L Potassium 4.6 (3.5-5.1) mmol/L Chloride 98 (98-107) mmol/L Carbon Dioxide 19 L (22-30) mmol/L Anion Gap 12 mmol/L BUN 55 H (7-17) mg/dL Creatinine 1.57 H (0.52-1.04) mg/dL Est GFR (CKD-EPI)AfAm 36 (>60 ml/min/1.73 sqM) Est GFR (CKD-EPI)NonAf 32 (>60 ml/min/1.73 sqM) Glucose 112 H (74-99) mg/dL Calcium 8.8 (8.4-10.2) mg/dL Magnesium 1.9 (1.6-2.3) mg/dL Total Bilirubin 0.4 (0.2-1.3) mg/dL AST 31 (14-36) U/L ALT 19 (4-34) U/L Alkaline Phosphatase 54 (38-126) U/L Troponin I <0.012 (0.000-0.034) ng/mL Total Protein 6.5 (6.3-8.2) g/dL Albumin 3.7 (3.5-5.0) g/dL 03/26/23 Range/Units 13:15 WBC (3.8-10.6) k/uL RBC (3.80-5.40) m/uL Hgb (11.4-16.0) gm/dL Hct (34.0-46.0) % MCV (80.0-100.0) fL MCH (25.0-35.0) pg MCHC (31.0-37.0) g/dL RDW (11.5-15.5) % Plt Count (150-450) k/uL MPV Neutrophils % % Lymphocytes % % Monocytes % % Eosinophils % % Basophils % % Neutrophils # (1.3-7.7) k/uL Lymphocytes # (1.0-4.8) k/uL Monocytes # (0-1.0) k/uL Eosinophils # (0-0.7) k/uL Basophils # (0-0.2) k/uL Manual Slide Review Hypochromasia Anisocytosis PT 10.8 (9.0-12.0) sec INR 1.0 (<1.2) APTT 27.6 (22.0-30.0) sec Sodium (137-145) mmol/L Potassium (3.5-5.1) mmol/L Chloride (98-107) mmol/L Carbon Dioxide (22-30) mmol/L Anion Gap mmol/L BUN (7-17) mg/dL Creatinine (0.52-1.04) mg/dL Est GFR (CKD-EPI)AfAm (>60 ml/min/1.73 sqM) Est GFR (CKD-EPI)NonAf (>60 ml/min/1.73 sqM) Glucose (74-99) mg/dL Calcium (8.4-10.2) mg/dL Magnesium (1.6-2.3) mg/dL Total Bilirubin (0.2-1.3) mg/dL AST (14-36) U/L ALT (4-34) U/L Alkaline Phosphatase (38-126) U/L Troponin I (0.000-0.034) ng/mL Total Protein (6.3-8.2) g/dL Albumin (3.5-5.0) g/dL Disposition Clinical Impression: Bradycardia Disposition: ADMITTED IP TO THIS [facility] Condition: Fair Referrals: Roman Berg MD [Primary Care Provider] - 1-2 days Decision Time: 14:27
--- NOTE | 2023-03-26 12:37 | XR ---
EXAMINATION TYPE: XR chest 2V DATE OF EXAM: 03/26/2023 COMPARISON: 12/02/2018 HISTORY: 77-year-old female with dysrhythmia TECHNIQUE: AP and lateral views FINDINGS: Median sternotomy wires are present with cardiac annuloplasty ring. Heart mildly enlarged. Hazy densi ties likely relating to large patient body habitus and technique. No consolidation or pleural effusio n. Heart mildly enlarged. IMPRESSION: Mild cardiomegaly. Otherwise, no definite acute process.
[2023-03-26 13:07] LABS: ALT 19 U/L (4-34); AST 31 U/L (14-36); African American GFR (CKD) 36 (>60 ml/min/1.73 sqM); Albumin 3.7 g/dL (3.5-5.0); Alkaline Phosphatase 54 U/L (38-126); Anion Gap 12 mmol/L; Blood Urea Nitrogen 55 mg/dL (7-17); Calcium 8.8 mg/dL (8.4-10.2); Carbon Dioxide 19 mmol/L (22-30); Chloride 98 mmol/L (98-107); Glucose 112 mg/dL (74-99); Magnesium 1.9 mg/dL (1.6-2.3); Non-African American GFR(CKD) 32 (>60 ml/min/1.73 sqM); Potassium 4.6 mmol/L (3.5-5.1); Sodium 129 mmol/L (137-145); Total Bilirubin 0.4 mg/dL (0.2-1.3); Total Protein 6.5 g/dL (6.3-8.2)
[2023-03-26 13:16] LABS: Platelet Count 90 k/uL (150-450)
[2023-03-26 13:50] LABS: Partial Thromboplastin Time 27.6 sec (22.0-30.0); Prothrombin Time 10.8 sec (9.0-12.0)
[2023-03-26] MEDS ORDERED: NALOXONE 0.4 MG/ML 1 ML VIAL IV PRN (14:19)
[2023-03-26] MEDS ORDERED: SODIUM CHLORIDE 0.9% 1,000 ML IV SCH ×2 (14:30→21:00)
--- NOTE | 2023-03-26 21:06 | P.HPIM ---
History of Present Illness This is a pleasant 77 years old female with multiple medical problems as below including Diabetes Mellitus, Hypertension, Osteoarthritis , hx cervical cancer(sx and radiation), hx GOUT,controlled, colitis, macular degeneration both eyes.chronic RENAL DISEASE-STAGE 3. When we asked the patient why she is on Eliquis she says she has history of A. fib Information were obtained with the help of the daughter at bedside. Patient recently was admitted to [facility] for bradycardia with heart rate was in the 40s, she was discharge home At home she was taking a shower today when she felt dizzy thereafter, she had a visiting nurse came to check her heart rate and noticed to be in 4 days so she referred her to the emergency room oriented Also patient complaining of leg swelling, currently she is on Lasix Patient denies chest pain dyspnea. She is sitting in chair looks comfortable. Follow commands and answer questions appropriately. Denies any other new symptoms. She is nonsmoker, no alcohol or illicit tracts Movable Bulkhead Installer is Dr. Larson PCP is Dr. Padilla Heart rate 52, other vitals are stable She has mild leukopenia and mild thrombocytopenia. Hemoglobin is within the reference range. Chest x-ray: No acute process EKG: Sinus bradycardia at [address]-T changes Review of Systems Review of systems CONSTITUTIONAL: No fever, no malaise, no fatigue. HEENT: No recent visual problems or hearing problems. Denied any sore throat. CARDIOVASCULAR: No orthopnea, PND, no palpitations, no syncope. PULMONARY: No shortness of breath, no cough, no hemoptysis. GASTROINTESTINAL: No diarrhea, no nausea, no vomiting, no abdominal pain. Normoactive bowel sounds. NEUROLOGICAL: No headaches, no weakness, no numbness. HEMATOLOGICAL: Denies any bleeding or petechiae. GENITOURINARY: Denies any burning micturition, frequency, or urgency. MUSCULOSKELETAL/RHEUMATOLOGICAL: Denies any joint pain, swelling, or any muscle pain. ENDOCRINE: Denies any polyuria or polydipsia. Past Medical History Past Medical History: Cancer, Diabetes Mellitus, Eye Disorder, Hypertension, Osteoarthritis (OA), Renal Disease Additional Past Medical History / Comment(s): hx cervical cancer(sx and radiation), hx GOUT,controlled, colitis, macular degeneration both eyes.SEE DR BRITTON'S HISTORY AND PHYSICAL FOR CARDIAC HISTORY, RENAL DISEASE-STAGE 3 History of Any Multi-Drug Resistant Organisms: None Reported Past Surgical History: Hysterectomy, Joint Replacement, Orthopedic Surgery Additional Past Surgical History / Comment(s): APPLE cataracts, rt knee arthroscopy, neck fusion at C4-C5, C5-C6, C6-C7 corpectomy, apple CARPAL TUNNEL, cardioversion ,colonoscopy ,bilateral tubal ligation, right hip replacement, rt hand cyst removed Past Anesthesia/Blood Transfusion Reactions: Previous Problems w/ Anesthesia, Postoperative Nausea & Vomiting (PONV) Additional Past Anesthesia/Blood Transfusion Reaction / Comment(s): "stopped breathing with procedure done by Dr Britton", hard time coming out, told she was "lightweight" Past Psychological History: No Psychological Hx Reported Smoking Status: Never smoker Past Alcohol Use History: None Reported Past Drug Use History: None Reported - Past Family History Brother(s) Family Medical History: Cancer Additional Family Medical History / Comment(s): Patient has a total of 5 brothers. one survivor of colon cancer, one is alive at age 67 with lymphoma. 3 brothers have no major medical problems. Father Family Medical History: Pulmonary Embolus Additional Family Medical History / Comment(s): Father in his 80s from coronary artery disease with history of pulmonary embolus. Mother Family Medical History: Hypertension Additional Family Medical History / Comment(s): Mother at age 93 from dementia with history of hypertension. Daughter(s) Family Medical History: No Reported History Additional Family Medical History / Comment(s): Patient has one daughter with no major medical problems. Son(s) Family Medical History: No Reported History Additional Family Medical History / Comment(s): Patient has 2 sons and one has history of atrial fibrillation and one has history of stent. Medications and Allergies Home Medications Medication Instructions Recorded Confirmed Type RX: Dexlansoprazole [Dexilant] 60 mg PO DAILY 04/01/16 03/26/23 History RX: Apixaban [Eliquis] 5 mg PO BID 10/12/16 03/26/23 History RX: Atorvastatin [Lipitor] 20 mg PO HS 11/25/18 03/26/23 History RX: atenoloL 25 mg PO BID 09/18/19 03/26/23 History Furosemide [Lasix] 40 mg PO DAILY 03/26/23 03/26/23 History Levothyroxine Sodium [Synthroid] 50 mcg PO DAILY 03/26/23 03/26/23 History Vit C/E/Zn/Coppr/Lutein/Zeaxan 1 cap PO BID 03/26/23 03/26/23 History [Preservision Areds 2 Softgel] allopurinoL [Zyloprim] 300 mg PO Q48H 03/26/23 03/26/23 History sitaGLIPtin [Januvia] 100 mg PO DAILY 03/26/23 03/26/23 History Allergies Allergy/AdvReac Type Severity Reaction Status Date / Time Iodinated Contrast Media Allergy Rash/Hives Verified 03/26/23 15:58 [Iodinated Contrast Media - IV Dye] Penicillins Allergy Rash/Hives Verified 03/26/23 15:58 Sulfa (Sulfonamide Allergy Rash/Hives Verified 03/26/23 15:58 Antibiotics) Physical Exam Vitals: Vital Signs Temp Pulse Resp BP Pulse Ox 03/26/23 11:24 98 F 52 L 18 138/51 100 Intake and Output 03/25/23 03/26/23 03/26/23 22:59 06:59 14:59 Other: Weight 83.461 kg GENERAL: The patient is alert and oriented x3, not in any acute distress. Well developed, well nourished. HEENT: Pupils are round and equally reacting to light. EOMI. No scleral icterus. No conjunctival pallor. Normocephalic, atraumatic. No pharyngeal erythema. No thyromegaly. CARDIOVASCULAR: S1 and S2 present. No murmurs, rubs, or gallops. PULMONARY: Chest is clear to auscultation, no wheezing , no crackles. ABDOMEN: Soft, nontender, nondistended, normoactive bowel sounds. No palpable organomegaly. MUSCULOSKELETAL: No joint swelling or deformity. EXTREMITIES: No cyanosis, clubbing, or pedal edema. NEUROLOGICAL: Gross neurological examination did not reveal any focal deficits. SKIN: No rashes. no petechiae. Results CBC & Chem 7: 03/26/23 11:57 03/26/23 11:57 Labs: Abnormal Lab Results - Last 24 Hours (Table) 03/26/23 03/26/23 Range/Units 11:57 11:57 WBC 3.2 L (3.8-10.6) k/uL RBC 5.96 H (3.80-5.40) m/uL Hct 50.9 H (34.0-46.0) % RDW 17.6 H (11.5-15.5) % Plt Count 90 L (150-450) k/uL Lymphocytes # 0.4 L (1.0-4.8) k/uL Sodium 129 L (137-145) mmol/L Carbon Dioxide 19 L (22-30) mmol/L BUN 55 H (7-17) mg/dL Creatinine 1.57 H (0.52-1.04) mg/dL Glucose 112 H (74-99) mg/dL Assessment and Plan Assessment: Symptomatic bradycardia, while on atenolol Mild bicytopenia, leukopenia and thrombocytopenia Hyponatremia Diabetes mellitus Hypertension Hyperlipidemia History of osteoarthritis Chronic kidney disease stage III History of cervical cancer, status post radiotherapy History of gout Plan: Telemetry monitoring Ovoid beta archana, hold atenolol with close monitoring with telemetry. Cardiology consult Start gentle hydration normal saline 75 ml/hr Monitor sodium and creatinine and input and output Labs and medication were reviewed.. Continue same treatment. Continue with symptomatic treatment. Resume home medication. Monitor lytes and vitals. DVT and GI prophylaxis. Further recommendations depends on the clinical course of the patient DVT prophylaxis: Eliquis GI Prophylaxis: Pepcid PT/OT: Deferred Prognosis is guarded
[2023-03-26] MEDS ORDERED: ATORVASTATIN 20 MG TAB PO SCH (21:15)
[2023-03-26] MEDS: APIXABAN 5 MG TAB PO SCH (21:47)
[2023-03-27] MEDS ORDERED: LEVOTHYROXINE 50 MCG TAB PO SCH (06:30)
[2023-03-27 07:12] LABS: African American GFR (CKD) 42 (>60 ml/min/1.73 sqM); Anion Gap 10 mmol/L; Blood Urea Nitrogen 47 mg/dL (7-17); Calcium 8.9 mg/dL (8.4-10.2); Carbon Dioxide 21 mmol/L (22-30); Chloride 102 mmol/L (98-107); Glucose 89 mg/dL (74-99); Non-African American GFR(CKD) 36 (>60 ml/min/1.73 sqM); Potassium 4.5 mmol/L (3.5-5.1); Sodium 133 mmol/L (137-145)
[2023-03-27 07:39] VITALS: BP 171/54; RESP 16; TEMP 98
[2023-03-27] MEDS ORDERED: NIFEdipine XL 30 MG TAB.ER.24 PO SCH (09:00)
[2023-03-27] MEDS ORDERED: BUMETANIDE 1 MG TAB PO SCH (09:00)
[2023-03-27] MEDS ORDERED: FAMOTIDINE 20 MG/2 ML VIAL IV SCH (09:00)
[2023-03-27] MEDS ORDERED: DAPAGLIFLOZIN PROPANEDIOL 10 MG TABLET PO SCH (09:00)
[2023-03-27] MEDS: APIXABAN 5 MG TAB PO SCH (09:09)
[2023-03-27] MEDS ORDERED: ACETAMINOPHEN TAB 325 MG TAB PO STA (09:11)
[2023-03-27] MEDS ORDERED: LIDOCAINE 5% PATCH TOPICAL SCH (09:15)
--- NOTE | 2023-03-27 09:22 | P.CRDCN ---
History of Present Illness Consult date: 03/27/23 History of present illness: HISTORY OF PRESENTING ILLNESS This is a pleasant 77-year-old with past medical history significant for mitral valve repair for severe mitral regurgitation and CAD. She also has history of atrial fibrillation. She follows in the office with Dr. britton Patient was noticed to be bradycardic with low heart rate by her home care visiting nurse who recommended her to come to the hospital. Patient was recently admitted to [facility] with similar complaints of fatigue, low heart rate. Patient also denies having any chest pain chest pressure or shortness of breath. She denies having any lightheadedness or dizziness. She denies having any syncopal episodes. She does report having generalized weakness. On admission her blood pressure is moderately elevated with 147/61, heart rate 52 beats a minute. EKG shows sinus bradycardia with non specific ST changes. Labs show createnine of 1.57 and repeat 1.4, Hb 16, no TSH available. trops normal. CXR mild congestion. REVIEW OF SYSTEMS 14 point review of system is negative except what is mentioned above in HPI. PHYSICAL EXAMINATION Vital signs reviewed. Head: Normocephalic. Eyes: Sclerae nonicteric. Neck: Brisk carotid upstroke, no jugular venous distention. Lungs: Clear to auscultation. Heart: Regular rate and rhythm, S1-S2, no S3, no murmur or rub. Abdomen: Soft nontender, positive bowel sounds no organomegaly. Extremities: No edema, intact distal pulses. ASSESSMENT Sinus bradycardia while being on atenolol Severe MR s/p open repair in 2019 Moderate CAD in LAD cath from 2020 Mild Essential hypertension CKD stage III Type II DM Obesity PLAN Stop atenolol completely Stop fluids Make patient walk on treadmill to check chronotropic competence Order TSH Start proxardia XL 30mg for BP. Increase if needed Stop Lasix and start Bumex 1 mg PO daily instead Start Farxiga for CHF and CKD Continue Eliquis 5mg BD. Past Medical History Past Medical History: Cancer, Diabetes Mellitus, Eye Disorder, Hypertension, Osteoarthritis (OA), Renal Disease Additional Past Medical History / Comment(s): hx cervical cancer(sx and radiation), hx GOUT,controlled, colitis, macular degeneration both eyes.SEE DR BRITTON'S HISTORY AND PHYSICAL FOR CARDIAC HISTORY, RENAL DISEASE-STAGE 3 History of Any Multi-Drug Resistant Organisms: None Reported Past Surgical History: Hysterectomy, Joint Replacement, Orthopedic Surgery Additional Past Surgical History / Comment(s): APPLE cataracts, rt knee arthroscopy, neck fusion at C4-C5, C5-C6, C6-C7 corpectomy, apple CARPAL TUNNEL, cardioversion ,colonoscopy ,bilateral tubal ligation, right hip replacement, rt hand cyst removed Past Anesthesia/Blood Transfusion Reactions: Previous Problems w/ Anesthesia, Postoperative Nausea & Vomiting (PONV) Additional Past Anesthesia/Blood Transfusion Reaction / Comment(s): "stopped breathing with procedure done by Dr Britton", hard time coming out, told she was "lightweight" Past Psychological History: No Psychological Hx Reported Smoking Status: Never smoker Past Alcohol Use History: None Reported Past Drug Use History: None Reported - Past Family History Brother(s) Family Medical History: Cancer Additional Family Medical History / Comment(s): Patient has a total of 5 brothers. one survivor of colon cancer, one is alive at age 67 with lymphoma. 3 brothers have no major medical problems. Father Family Medical History: Pulmonary Embolus Additional Family Medical History / Comment(s): Father in his 80s from coronary artery disease with history of pulmonary embolus. Mother Family Medical History: Hypertension Additional Family Medical History / Comment(s): Mother at age 93 from dementia with history of hypertension. Daughter(s) Family Medical History: No Reported History Additional Family Medical History / Comment(s): Patient has one daughter with no major medical problems. Son(s) Family Medical History: No Reported History Additional Family Medical History / Comment(s): Patient has 2 sons and one has history of atrial fibrillation and one has history of stent. Medications and Allergies Home Medications Medication Instructions Recorded Confirmed Type Dexlansoprazole [Dexilant] 60 mg PO DAILY 04/01/16 03/26/23 History Apixaban [Eliquis] 5 mg PO BID 10/12/16 03/26/23 History Atorvastatin [Lipitor] 20 mg PO HS 11/25/18 03/26/23 History atenoloL 25 mg PO BID 09/18/19 03/26/23 History Furosemide [Lasix] 40 mg PO DAILY 03/26/23 03/26/23 History Levothyroxine Sodium [Synthroid] 50 mcg PO DAILY 03/26/23 03/26/23 History Vit C/E/Zn/Coppr/Lutein/Zeaxan 1 cap PO BID 03/26/23 03/26/23 History [Preservision Areds 2 Softgel] allopurinoL [Zyloprim] 300 mg PO Q48H 03/26/23 03/26/23 History sitaGLIPtin [Januvia] 100 mg PO DAILY 03/26/23 03/26/23 History Allergies Allergy/AdvReac Type Severity Reaction Status Date / Time Iodinated Contrast Media Allergy Rash/Hives Verified 03/26/23 15:58 [Iodinated Contrast Media - IV Dye] Penicillins Allergy Rash/Hives Verified 03/26/23 15:58 Sulfa (Sulfonamide Allergy Rash/Hives Verified 03/26/23 15:58 Antibiotics) Physical Exam Vitals: Vital Signs Temp Pulse Pulse Resp BP BP Pulse Ox 03/27/23 07:00 98.0 F 65 16 171/54 98 03/27/23 02:09 97.8 F 55 L 15 136/72 95 03/26/23 19:06 98.2 F 68 15 133/82 94 L 03/26/23 16:45 97.6 F 52 L 18 147/61 99 03/26/23 11:24 98 F 52 L 18 138/51 100 Intake and Output 03/26/23 03/27/23 03/27/23 22:59 06:59 14:59 Intake Total 118 Balance 118 Intake: Oral 118 Other: # Voids 1 6 Weight 83.461 kg Results 03/26/23 11:57 03/27/23 06:39 Cardiac Enzymes 03/26/23 03/26/23 Range/Units 11:57 11:57 AST 31 (14-36) U/L Troponin I <0.012 (0.000-0.034) ng/mL Coagulation 03/26/23 Range/Units 13:15 PT 10.8 (9.0-12.0) sec APTT 27.6 (22.0-30.0) sec CBC 03/26/23 Range/Units 11:57 WBC 3.2 L (3.8-10.6) k/uL RBC 5.96 H (3.80-5.40) m/uL Hgb 16.0 (11.4-16.0) gm/dL Hct 50.9 H (34.0-46.0) % Plt Count 90 L (150-450) k/uL Comprehensive Metabolic Panel 03/26/23 03/27/23 Range/Units 11:57 06:39 Sodium 129 L 133 L (137-145) mmol/L Potassium 4.6 4.5 (3.5-5.1) mmol/L Chloride 98 102 (98-107) mmol/L Carbon Dioxide 19 L 21 L (22-30) mmol/L BUN 55 H 47 H (7-17) mg/dL Creatinine 1.57 H 1.41 H (0.52-1.04) mg/dL Glucose 112 H 89 (74-99) mg/dL Calcium 8.8 8.9 (8.4-10.2) mg/dL AST 31 (14-36) U/L ALT 19 (4-34) U/L Alkaline Phosphatase 54 (38-126) U/L Total Protein 6.5 (6.3-8.2) g/dL Albumin 3.7 (3.5-5.0) g/dL Current Medications Generic Name Dose Route Start Last Admin Trade Name Freq PRN Reason Stop Dose Admin Allopurinol 300 mg 03/28/23 09:00 Allopurinol 300 Mg Tab PO Q48H TRAVIS Apixaban 5 mg 03/26/23 21:15 03/27/23 09:09 Apixaban 5 Mg Tab PO 5 mg BID TRAVIS Administration Protocol Atorvastatin Calcium 20 mg 03/26/23 21:15 03/26/23 21:47 Atorvastatin 20 Mg Tab PO 20 mg HS TRAVIS Administration Bumetanide 1 mg 03/27/23 09:00 03/27/23 09:09 Bumetanide 1 Mg Tab PO 1 mg DAILY TRAVIS Administration Dapagliflozin 10 mg 03/27/23 09:00 03/27/23 09:09 Dapagliflozin Propanediol 10 Mg Tablet PO 10 mg DAILY TRAVIS Administration Famotidine 20 mg 03/27/23 09:00 03/27/23 09:09 Famotidine 20 Mg/2 Ml Vial IV 20 mg Q12HR TRAVIS Administration Sodium Chloride 1,000 mls @ 20 mls/hr 03/26/23 14:30 03/26/23 23:58 Saline 0.9% IV Not Given .Q24H TRAVIS Levothyroxine Sodium 50 mcg 03/27/23 06:30 03/27/23 05:41 Levothyroxine 50 Mcg Tab PO 50 mcg DAILY@0630 TRAVIS Administration Lidocaine 1 patch 03/27/23 09:15 Lidocaine 5% Patch TOPICAL 03/28/23 07:00 DAILY TRAVIS Protocol Naloxone HCl 0.2 mg 03/26/23 14:19 Naloxone 0.4 Mg/Ml 1 Ml Vial IV Q2M PRN Opioid Reversal Nifedipine 30 mg 03/27/23 09:00 03/27/23 09:09 Nifedipine Xl 30 Mg Tab.Er.24 PO 30 mg DAILY TRAVIS Administration Intake and Output 03/26/23 03/27/23 03/27/23 22:59 06:59 14:59 Intake Total 118 Balance 118 Intake: Oral 118 Other: # Voids 1 6 Weight 83.461 kg 03/26/23 11:57 03/27/23 06:39
--- NOTE | 2023-03-27 10:10 | P.CRDCN ---
History of Present Illness Consult date: 03/27/23 History of present illness: HISTORY OF PRESENTING ILLNESS 77-year-old with past medical history of coronary artery disease status post PCI , peripheral arterial disease, CKD stage III, type 2 diabetes, obesity, ischemic cardiomyopathy with EF 35-40%, previous diabetic foot ulcer in left ankle, left foot amputation, tobacco abuse in past, difficulty hearing. He is known to Dr. Castaneda. This time he presented to the hospital when his found him unresponsive with white froth in the mouth. When EMS arrived they noticed that his blood glucose was 40. He was thereafter brought to the hospital and now has blood glucose are in the range of 300s. His more awake and alert but difficult to obtain history due to hearing impairment. He history was obtained from the patient's over phone. She reports that she has been feeling at his baseline lately. She denies that he has been feeling more short of breath than his usual. From the assessment and history it seems like he is at and Magic class III stage. Patient denies having any new worsening left lower extremity pain. EKG shows sinus rhythm with LVH Chest x-ray shows mild bilateral pulmonary congestion Hemoglobin 16.6, BUN 29, creatinine 1.6. Baseline creatinine around 1.5. Documented home meds Aspirin, atorvastatin, Coreg 12.5 mg, Plavix 75 mg, Lasix 40 mg, lisinopril 20 mg, REVIEW OF SYSTEMS 14 point review of system is negative except what is mentioned above in HPI. PHYSICAL EXAMINATION Vital signs reviewed. Head: Normocephalic. Eyes: Sclerae nonicteric. Neck: Brisk carotid upstroke, no jugular venous distention. Lungs: Clear to auscultation. Heart: Regular rate and rhythm, S1-S2, no S3, no murmur or rub. Abdomen: Soft nontender, positive bowel sounds no organomegaly. Extremities: No edema, intact distal pulses. ASSESSMENT Unresponsive due to hypoglycemia, now resolved Moderate HFpEF exacerbation. 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 No concerns of bleeding hemoglobin is stable. Consider starting him on low-dose Xarelto for peripheral arterial disease based on Compass trial Increase atorvastatin 40 mg daily Increase Coreg to 25 mg twice a day Continue IV Lasix 40 mg twice a day. Monitor renal function On discharge transition his diuretic to Bumex instead of Lasix Obtain Echocardiogram Continue Lisinopril. He would benefit from transitioning lisinopril to Entresto which should be done outpatient Once his renal function stabilizes if his creatinine is more than 30 and glucose is better, he would benefit from Farxiga Past Medical History Past Medical History: Cancer, Diabetes Mellitus, Eye Disorder, Hypertension, Osteoarthritis (OA), Renal Disease Additional Past Medical History / Comment(s): hx cervical cancer(sx and radiation), hx GOUT,controlled, colitis, macular degeneration both eyes.SEE DR BECKHAM'S HISTORY AND PHYSICAL FOR CARDIAC HISTORY, RENAL DISEASE-STAGE 3 History of Any Multi-Drug Resistant Organisms: None Reported Past Surgical History: Hysterectomy, Joint Replacement, Orthopedic Surgery Additional Past Surgical History / Comment(s): APPLE cataracts, rt knee a rthroscopy, neck fusion at C4-C5, C5-C6, C6-C7 corpectomy, apple CARPAL TUNNEL, cardioversion ,colonoscopy ,bilateral tubal ligation, right hip replacement, rt hand cyst removed Past Anesthesia/Blood Transfusion Reactions: Previous Problems w/ Anesthesia, Postoperative Nausea & Vomiting (PONV) Additional Past Anesthesia/Blood Transfusion Reaction / Comment(s): "stopped breathing with procedure done by Dr Beckham", hard time coming out, told she was "lightweight" Past Psychological History: No Psychological Hx Reported Smoking Status: Never smoker Past Alcohol Use History: None Reported Past Drug Use History: None Reported - Past Family History Brother(s) Family Medical History: Cancer Additional Family Medical History / Comment(s): Patient has a total of 5 brot hers. one survivor of colon cancer, one is alive at age 67 with lymphoma. 3 brothers have no major medical problems. Father Family Medical History: Pulmonary Embolus Additional Family Medical History / Comment(s): Father in his 80s from coronary artery disease with history of pulmonary embolus. Mother Family Medical History: Hypertension Additional Family Medical History / Comment(s): Mother at age 93 from dementia with history of hypertension. Daughter(s) Family Medical History: No Reported History Additional Family Medical History / Comment(s): Patient has one daughter with no major medical problems. Son(s) Family Medical History: No Reported History Additional Family Medical History / Comment(s): Patient has 2 sons and one has history of atrial fibrillation and one has history of stent. Medications and Allergies Home Medications Medication Instructions Recorded Confirmed Type Dexlansoprazole [Dexilant] 60 mg PO DAILY 04/01/16 03/26/23 History Apixaban [Eliquis] 5 mg PO BID 10/12/16 03/26/23 History Atorvastatin [Lipitor] 20 mg PO HS 11/25/18 03/26/23 History atenoloL 25 mg PO BID 09/18/19 03/26/23 History Furosemide [Lasix] 40 mg PO DAILY 03/26/23 03/26/23 History Levothyroxine Sodium [Synthroid] 50 mcg PO DAILY 03/26/23 03/26/23 History Vit C/E/Zn/Coppr/Lutein/Zeaxan 1 cap PO BID 03/26/23 03/26/23 History [Preservision Areds 2 Softgel] allopurinoL [Zyloprim] 300 mg PO Q48H 03/26/23 03/26/23 History sitaGLIPtin [Januvia] 100 mg PO DAILY 03/26/23 03/26/23 History Allergies Allergy/AdvReac Type Severity Reaction Status Date / Time Iodinated Contrast Media Allergy Rash/Hives Verified 03/26/23 15:58 [Iodinated Contrast Media - IV Dye] Penicillins Allergy Rash/Hives Verified 03/26/23 15:58 Sulfa (Sulfonamide Allergy Rash/Hives Verified 03/26/23 15:58 Antibiotics) Physical Exam Vitals: Vital Signs Temp Pulse Pulse Resp BP BP Pulse Ox 03/27/23 07:00 98.0 F 65 16 171/54 98 03/27/23 02:09 97.8 F 55 L 15 136/72 95 03/26/23 19:06 98.2 F 68 15 133/82 94 L 03/26/23 16:45 97.6 F 52 L 18 147/61 99 03/26/23 11:24 98 F 52 L 18 138/51 100 Intake and Output 03/26/23 03/27/23 03/27/23 22:59 06:59 14:59 Intake Total 118 Balance 118 Intake: Oral 118 Other: # Voids 1 6 Weight 83.461 kg Results 03/26/23 11:57 03/27/23 06:39 Cardiac Enzymes 03/26/23 03/26/23 Range/Units 11:57 11:57 AST 31 (14-36) U/L Troponin I <0.012 (0.000-0.034) ng/mL Coagulation 03/26/23 Range/Units 13:15 PT 10.8 (9.0-12.0) sec APTT 27.6 (22.0-30.0) sec CBC 03/26/23 Range/Units 11:57 WBC 3.2 L (3.8-10.6) k/uL RBC 5.96 H (3.80-5.40) m/uL Hgb 16.0 (11.4-16.0) gm/dL Hct 50.9 H (34.0-46.0) % Plt Count 90 L (150-450) k/uL Comprehensive Metabolic Panel 03/26/23 03/27/23 Range/Units 11:57 06:39 Sodium 129 L 133 L (137-145) mmol/L Potassium 4.6 4.5 (3.5-5.1) mmol/L Chloride 98 102 (98-107) mmol/L Carbon Dioxide 19 L 21 L (22-30) mmol/L BUN 55 H 47 H (7-17) mg/dL Creatinine 1.57 H 1.41 H (0.52-1.04) mg/dL Glucose 112 H 89 (74-99) mg/dL Calcium 8.8 8.9 (8.4-10.2) mg/dL AST 31 (14-36) U/L ALT 19 (4-34) U/L Alkaline Phosphatase 54 (38-126) U/L Total Protein 6.5 (6.3-8.2) g/dL Albumin 3.7 (3.5-5.0) g/dL Current Medications Generic Name Dose Route Start Last Admin Trade Name Freq PRN Reason Stop Dose Admin Allopurinol 300 mg 03/28/23 09:00 Allopurinol 300 Mg Tab PO Q48H [facility] Apixaban 5 mg 03/26/23 21:15 03/27/23 09:09 Apixaban 5 Mg Tab PO 5 mg BID [facility] Administration Protocol Atorvastatin Calcium 20 mg 03/26/23 21:15 03/26/23 21:47 Atorvastatin 20 Mg Tab PO 20 mg HS TRAVIS Administration Bumetanide 1 mg 03/27/23 09:00 03/27/23 09:09 Bumetanide 1 Mg Tab PO 1 mg DAILY TRAVIS Administration Dapagliflozin 10 mg 03/27/23 09:00 03/27/23 09:09 Dapagliflozin Propanediol 10 Mg Tablet PO 10 mg DAILY TRAVIS Administration Famotidine 20 mg 03/27/23 09:00 03/27/23 09:09 Famotidine 20 Mg/2 Ml Vial IV 20 mg Q12HR TRAVIS Administration Sodium Chloride 1,000 mls @ 20 mls/hr 03/26/23 14:30 03/26/23 23:58 Saline 0.9% IV Not Given .Q24H TRAVIS Levothyroxine Sodium 50 mcg 03/27/23 06:30 03/27/23 05:41 Levothyroxine 50 Mcg Tab PO 50 mcg DAILY@0630 TRAVIS Administration Lidocaine 1 patch 03/27/23 09:15 Lidocaine 5% Patch TOPICAL 03/28/23 07:00 DAILY [facility] Protocol Naloxone HCl 0.2 mg 03/26/23 14:19 Naloxone 0.4 Mg/Ml 1 Ml Vial IV Q2M PRN Opioid Reversal Nifedipine 30 mg 03/27/23 09:00 03/27/23 09:09 Nifedipine Xl 30 Mg Tab.Er.24 PO 30 mg DAILY TRAVIS Administration Intake and Output 03/26/23 03/27/23 03/27/23 22:59 06:59 14:59 Intake Total 118 Balance 118 Intake: Oral 118 Other: # Voids 1 6 Weight 83.461 kg 03/26/23 11:57 03/27/23 06:39
[2023-03-27 11:31] LABS: Anisocytosis Slight; Basophils % (A) 0 %; Eosinophils # (A) 0.1 k/uL (0-0.7); Eosinophils % (A) 2 %; HCT 32.1 % (34.0-46.0); Hypochromasia Slight; Lymphocytes # (A) 0.6 k/uL (1.0-4.8); Lymphocytes % (A) 11 %; MCH 27.4 pg (25.0-35.0); MCHC 31.8 g/dL (31.0-37.0); Mean Platelet Volume 8.4; Monocytes # (A) 0.5 k/uL (0-1.0); Monocytes % (A) 8 %; Neutrophils # (A) 4.6 k/uL (1.3-7.7); Neutrophils % (A) 76 %; RBC 3.73 m/uL (3.80-5.40); RDW 17.7 % (11.5-15.5); WBC 6.1 k/uL (3.8-10.6)
[2023-03-27 11:43] LABS: African American GFR (CKD) 39 (>60 ml/min/1.73 sqM); Anion Gap 9 mmol/L; Blood Urea Nitrogen 47 mg/dL (7-17); Calcium 8.8 mg/dL (8.4-10.2); Carbon Dioxide 24 mmol/L (22-30); Chloride 102 mmol/L (98-107); Glucose 154 mg/dL (74-99); Non-African American GFR(CKD) 34 (>60 ml/min/1.73 sqM); Potassium 4.3 mmol/L (3.5-5.1); Sodium 135 mmol/L (137-145)
[2023-03-27 11:44] LABS: HGB 10.2 gm/dL (11.4-16.0); Platelet Count 187 k/uL (150-450)
[2023-03-27 12:14] VITALS: PULSE 64
--- NOTE | 2023-03-28 06:15 | P.DS ---
Providers Date of admission: 03/26/23 14:20 Attending physician: Neil Koo Consults: 03/26/23 14:17 Consult Physician Routine Consulting Provider: Darien Britton Consult Reason/Comments: symptomatic bradycardia Do you want consulting provider notified?: Yes Primary care physician: Roman Berg Hospital Course: Diagnoses: Symptomatic bradycardia, while on atenolol. Beta archana/atenolol was disconti nued and patient was placed on nifedipine for blood pressure control in assisted Hypovolemic hyponatremia secondary to Lasix which was discontinued and switched to Bumex upon discharge Mild bicytopenia, leukopenia and thrombocytopenia. Chronic and stable Hyponatremia Diabetes mellitus Hypertension Hyperlipidemia History of osteoarthritis Chronic kidney disease stage III History of cervical cancer, status post radiotherapy History of gout Hospital course: This is a pleasant 77 years old female with multiple medical problems as below including Diabetes Mellitus, Hypertension, Osteoarthritis , hx cervical cancer(sx and radiation), hx GOUT,controlled, colitis, macular degeneration both eyes.chronic RENAL DISEASE-STAGE 3. When we asked the patient why she is on Eliquis she says she has history of A. fib Patient recently was admitted to [facility] for bradycardia with heart rate was in the 40s, she was discharge home At home she was taking a shower today when she felt dizzy thereafter,in ER patient was bradycardic. Patient was taken atenolol 50 mg daily which was discontinued per the evaporator supervisor recommendation as well evaluated the patient. Instead evaporator supervisor but her on nifedipine 30 mg daily. Patient walked in the hallway and her heart rate went up after that cartilage cleared her for discharge Also patient with evidence of bilateral leg swelling but she looks dehydrated while she was on Lasix 40 mg daily, sodium 129, improved with IV fluids up to 133. IV fluid was discontinued and patient was started on a Bumex while Lasix was discontinued and patient informed and she is agreeable. Patient denies any other new symptoms and wants to go home today. Problems and management plan were discussed with the patient and he verbalized understanding and acceptance Patient was found stable and can be discharged home in guarded prognosis however he needs follow-up as an outpatient. Patient was instructed to follow up with PCP Dr. Owens within one week and patient agrees Patient was instructed to follow up with evaporator supervisor Dr. Larson in one week and she is agreeable Physical exam Gen: patient is a AAOx3, no distress CVS: S1-S2, RRR, no murmur Lungs: B/L CTA, no wheezing Abdomen: soft, no distention, no tenderness, positive bowel sounds Extremity: 2+ Bilateral pitting leg edema, no induration Time spent more than 35 minutes Patient Condition at Discharge: Fair Plan - Discharge Summary Discharge Rx Participant: Yes New Discharge Prescriptions: New Bumetanide [BUMEX] 1 mg PO DAILY #30 tab Dapagliflozin Propanediol [Farxiga] 10 mg PO DAILY #30 tab NIFEdipine XL [Procardia XL] 30 mg PO DAILY #30 tab Continue Dexlansoprazole [Dexilant] 60 mg PO DAILY Apixaban [Eliquis] 5 mg PO BID Atorvastatin [Lipitor] 20 mg PO HS allopurinoL [Zyloprim] 300 mg PO Q48H Vit C/E/Zn/Coppr/Lutein/Zeaxan [Preservision Areds 2 Softgel] 1 cap PO BID Levothyroxine Sodium [Synthroid] 50 mcg PO DAILY Discontinued atenoloL 25 mg PO BID sitaGLIPtin [Januvia] 100 mg PO DAILY Furosemide [Lasix] 40 mg PO DAILY Discharge Medication List Dexlansoprazole [Dexilant] 60 mg PO DAILY 04/01/16 [History] Apixaban [Eliquis] 5 mg PO BID 10/12/16 [History] Atorvastatin [Lipitor] 20 mg PO HS 11/25/18 [History] Levothyroxine Sodium [Synthroid] 50 mcg PO DAILY 03/26/23 [History] Vit C/E/Zn/Coppr/Lutein/Zeaxan [Preservision Areds 2 Softgel] 1 cap PO BID 03/26/23 [History] allopurinoL [Zyloprim] 300 mg PO Q48H 03/26/23 [History] Bumetanide [BUMEX] 1 mg PO DAILY #30 tab 03/27/23 [Rx] Dapagliflozin Propanediol [Farxiga] 10 mg PO DAILY #30 tab 03/27/23 [Rx] NIFEdipine XL [Procardia XL] 30 mg PO DAILY #30 tab 03/27/23 [Rx] Follow up Appointment(s)/Referral(s): Darien Britton MD [STAFF PHYSICIAN] - 1 Week Roman Berg MD [Primary Care Provider] - 1-2 days Patient Instructions/Handouts: Bradycardia (DC) Activity/Diet/Wound Care/Special Instructions: heart healthy diet activity is restricted till you see your doctor we recommend to check your glucose 4 times per day, before each meal and at bed time, keep the results in a log book and bring it to your doctor on your appointment date if your glucose is less than 70 or more than 400 then call 911 and come to emergency room Discharge Disposition: HOME SELF-CARE
[2023-03-28] MEDS ORDERED: allopurinoL 300 MG TAB PO SCH (09:00)
[2023-03-28] MEDS ORDERED: FAMOTIDINE 20 MG/2 ML VIAL IV SCH (09:00)
== END 2023-03-27 14:27 | disposition home or self-care (01) ==
LOC: EC 11:20 → 6NMEDSUR 14:20
PROVIDERS: ADMIT Hospitalist; ATTEND Hospitalist
DX: R00.1 Bradycardia, unspecified (principal); E86.1 Hypovolemia; E87.1 Hypo-osmolality and hyponatremia; T50.1X5A Adverse effect of loop [high-ceiling] diuretics, initial encounter; D69.6 Thrombocytopenia, unspecified; D72.819 Decreased white blood cell count, unspecified; I13.0 Hypertensive heart and chronic kidney disease with heart failure and stage 1 through stage 4 chronic kidney disease, or unspecified chronic kidney disease; N18.32 Chronic kidney disease, stage 3b; I50.32 Chronic diastolic (congestive) heart failure; I48.91 Unspecified atrial fibrillation; E11.22 Type 2 diabetes mellitus with diabetic chronic kidney disease; E11.51 Type 2 diabetes mellitus with diabetic peripheral angiopathy without gangrene; E78.5 Hyperlipidemia, unspecified; M19.90 Unspecified osteoarthritis, unspecified site; M10.9 Gout, unspecified; E86.0 Dehydration; E66.9 Obesity, unspecified; Z68.38 Body mass index [BMI] 38.0-38.9, adult; I25.10 Atherosclerotic heart disease of native coronary artery without angina pectoris; Z87.891 Personal history of nicotine dependence; I25.5 Ischemic cardiomyopathy; L97.509 Non-pressure chronic ulcer of other part of unspecified foot with unspecified severity; I73.9 Peripheral vascular disease, unspecified; H91.90 Unspecified hearing loss, unspecified ear; R09.89 Other specified symptoms and signs involving the circulatory and respiratory systems; I50.30 Unspecified diastolic (congestive) heart failure; Z79.01 Long term (current) use of anticoagulants; Z79.899 Other long term (current) drug therapy; Z85.41 Personal history of malignant neoplasm of cervix uteri; Z92.3 Personal history of irradiation; Z79.890 Hormone replacement therapy; Z79.84 Long term (current) use of oral hypoglycemic drugs; Z88.0 Allergy status to penicillin; Z88.2 Allergy status to sulfonamides; Z88.8 Allergy status to other drugs, medicaments and biological substances; Z98.1 Arthrodesis status; Z96.641 Presence of right artificial hip joint; I34.0 Nonrheumatic mitral (valve) insufficiency; Z98.61 Coronary angioplasty status; Z89.422 Acquired absence of other left toe(s); Z90.710 Acquired absence of both cervix and uterus; Z80.0 Family history of malignant neoplasm of digestive organs; Z80.7 Family history of other malignant neoplasms of lymphoid, hematopoietic and related tissues; Z82.49 Family history of ischemic heart disease and other diseases of the circulatory system; Z81.8 Family history of other mental and behavioral disorders
CPT/HCPCS: 96361 ×2; 96374; 99285; 36415; 93005; 80053; 80048; 84443; 83735; 84484; 85025 ×2; 85610; 85730; 71046; G0378 ×2; J3490

== ENCOUNTER 2023-03-31 15:00 | Inpatient (IN) | payer MEDICARE ==
--- NOTE | 2023-03-31 16:39 | ED ---
General Adult HPI - General Chief complaint: Dizziness Stated complaint: DIZZINESS FAINTING Time Seen by Provider: 03/31/23 15:54 Source: patient, family Mode of arrival: wheelchair Limitations: physical limitation - History of Present Illness Initial comments: This patient is 77-year-old woman here to have evaluation for episodic headaches and dizziness that she has been getting going back up to a couple of weeks now. The patient states that she also notes that her blood pressure seems to fluctuate when these episodes come on. She had been seen at [facility] for one of these episodes but did not receive diagnosis there. The arina ent has also noticed some occasional tinnitus and states that noise makes the headaches worse. She states that they are very severe but can be at the same time very brief. She states the pain can last just a couple of minutes at a time. She has not noted changes in vision. No strokelike symptoms. She has not noted fever or chills. No neck pain or stiffness. The patient notes that some medications were changed at her last admission and thinks these may have contributed to the headaches getting worse but does note that the headaches had started occurring prior to the medication change. Onset/Timin -: week(s) Location: head Radiation: non-radiation Quality: sharp Consistency: intermittent, now resolved Improves with: none Worsens with: other (Noise) Associated Symptoms: nausea/vomiting Treatments Prior to Arrival: none - Related Data Home Medications Medication Instructions Recorded Confirmed Dexlansoprazole [Dexilant] 60 mg PO DAILY 04/01/16 03/31/23 Apixaban [Eliquis] 5 mg PO BID 10/12/16 03/31/23 Atorvastatin [Lipitor] 20 mg PO HS 11/25/18 03/31/23 Levothyroxine Sodium [Synthroid] 50 mcg PO DAILY 03/26/23 03/31/23 Vit C/E/Zn/Coppr/Lutein/Zeaxan 1 cap PO BID 03/26/23 03/31/23 [Preservision Areds 2 Softgel] allopurinoL [Zyloprim] 300 mg PO Q48H 03/26/23 03/31/23 Previous Rx's Medication Instructions Recorded Bumetanide [BUMEX] 1 mg PO DAILY #30 tab 03/27/23 Dapagliflozin Propanediol [Farxiga] 10 mg PO DAILY #30 tab 03/27/23 NIFEdipine XL [Procardia XL] 30 mg PO DAILY #30 tab 03/27/23 Allergies Allergy/AdvReac Type Severity Reaction Status Date / Time Iodinated Contrast Media Allergy Rash/Hives Verified 03/31/23 20:44 [Iodinated Contrast Media - IV Dye] Penicillins Allergy Rash/Hives Verified 03/31/23 20:44 Sulfa (Sulfonamide Allergy Rash/Hives Verified 03/31/23 20:44 Antibiotics) Review of Systems ROS Statement: Those systems with pertinent positive or pertinent negative responses have been documented in the HPI. ROS Other: All systems not noted in ROS Statement are negative. Constitutional: Reports: weakness. Denies: fever, chills Eyes: Denies: eye pain, vision change ENT: Denies: ear pain, hearing loss Respiratory: Denies: cough, dyspnea Cardiovascular: Reports: edema. Denies: chest pain, palpitations, syncope Gastrointestinal: Reports: nausea. Denies: abdominal pain, vomiting, diarrhea Genitourinary: Denies: dysuria, hematuria Musculoskeletal: Denies: back pain Skin: Denies: rash Neurological: Reports: headache, vertigo. Denies: weakness, numbness Past Medical History Past Medical History: Cancer, Diabetes Mellitus, Eye Disorder, Hypertension, Osteoarthritis (OA), Renal Disease Additional Past Medical History / Comment(s): hx cervical cancer(sx and rad iation), hx GOUT,controlled, colitis, macular degeneration both eyes.SEE DR BRITTON'S HISTORY AND PHYSICAL FOR CARDIAC HISTORY, RENAL DISEASE-STAGE 3 History of Any Multi-Drug Resistant Organisms: None Reported Past Surgical History: Hysterectomy, Joint Replacement, Orthopedic Surgery Additional Past Surgical History / Comment(s): APPLE cataracts, rt knee arthroscopy, neck fusion at C4-C5, C5-C6, C6-C7 corpectomy, apple CARPAL TUNNEL, cardioversion ,colonoscopy ,bilateral tubal ligation, right hip replacement, rt hand cyst removed Past Anesthesia/Blood Transfusion Reactions: Previous Problems w/ Anesthesia, Postoperative Nausea & Vomiting (PONV) Additional Past Anesthesia/Blood Transfusion Reaction / Comment(s): "stopped breathing with procedure done by Dr Britton", hard time coming out, told she was "lightweight" Past Psychological History: No Psychological Hx Reported Smoking Status: Never smoker Past Alcohol Use History: None Reported Past Drug Use History: None Reported - Past Family History Brother(s) Family Medical History: Cancer Additional Family Medical History / Comment(s): Patient has a total of 5 brothers. one survivor of colon cancer, one is alive at age 67 with lymphoma. 3 brothers have no major medical problems. Father Family Medical History: Pulmonary Embolus Additional Family Medical History / Comment(s): Father in his 80s from coronary artery disease with history of pulmonary embolus. Mother Family Medical History: Hypertension Additional Family Medical History / Comment(s): Mother at age 93 from dementia with history of hypertension. Daughter(s) Family Medical History: No Reported History Additional Family Medical History / Comment(s): Patient has one daughter with no major medical problems. Son(s) Family Medical History: No Reported History Additional Family Medical History / Comment(s): Patient has 2 sons and one has history of atrial fibrillation and one has history of stent. General Exam Limitations: physical limitation General appearance: alert, in no apparent distress Head exam: Present: atraumatic, normocephalic Eye exam: Present: normal appearance, PERRL, EOMI. Absent: scleral icterus, conjunctival injection, nystagmus ENT exam: Present: normal oropharynx Neck exam: Present: normal inspection, full ROM. Absent: meningismus Respiratory exam: Present: normal lung sounds bilaterally. Absent: respiratory distress, wheezes, rales, rhonchi, stridor Cardiovascular Exam: Present: irregular rhythm, normal heart sounds. Absent: systolic murmur, diastolic murmur, rubs, gallop GI/Abdominal exam: Present: soft. Absent: distended, tenderness, guarding, rebound, mass, pulsatile mass Extremities exam: Present: normal inspection, normal capillary refill, pedal edema (Patient has chronic edema bilaterally and weeping ulcer left leg). Absent: calf tenderness Back exam: Present: normal inspection. Absent: CVA tenderness (R), CVA tenderness (L) Neurological exam: Present: alert Skin exam: Present: warm, dry, intact, normal color. Absent: rash Course Vital Signs 03/31/23 03/31/23 03/31/23 15:11 17:00 18:20 Temperature Pulse Rate 85 75 78 Respiratory 16 18 20 Rate Blood Pressure 120/66 148/76 118/68 O2 Sat by Pulse 99 98 99 Oximetry 03/31/23 03/31/2323 18:45 20:00 20:24 Temperature 97.6 F Pulse Rate 73 80 Respiratory 17 18 Rate Blood Pressure 133/67 127/80 O2 Sat by Pulse 97 99 Oximetry 03/31/23 21:00 Temperature Pulse Rate 86 Respiratory 18 Rate Blood Pressure 127/80 O2 Sat by Pulse 99 Oximetry EKG Findings - EKG Results: EKG: interpreted by ERMD, sinus rhythm (Rate 90 bpm), normal axis - Blocks, [place], Hypertrophy, ST Abn: QRS axis and voltage: low voltage (<0.5 MV total QRS and <1.0 MV in each preco rdial lead) Repolarization changes or abnormalities: nonspecific abnormality, ST segment, and/or T wave Medical Decision Making - Medical Decision Making Patient is 77-year-old woman having some episodic headaches and diz ziness/vertiginous symptoms. The vertigo does not seem to be inducible. Patient able to turn her head and sit up without onset of symptoms. The workup does reveal that she is moderately hyponatremic. In light of this will admit and attempt to normalize sodium, as well as have neurology consultation related to headache and dizziness. Was pt. sent in by a medical professional or institution (, PA, LAST TURNER, urgent care, hospital, or halfway...) When possible be specific @ -[No] Did you speak to anyone other than the patient for history (EMS, parent, family, police, friend...)? What history was obtained from this source @ -[No] Did you review nursing and triage notes (agree or disagree)? Why? @ -[I reviewed and agree with nursing and triage notes] Were old charts reviewed (outside hosp., previous admission, EMS record, old EKG, old radiological studies, urgent care reports/EKG's, halfway records)? Report findings @ -[No old charts were reviewed] Differential Diagnosis (chest pain, altered mental status, abdominal pain women, abdominal pain men, vaginal bleeding, weakness, fever, dyspnea, syncope, hea dache, dizziness, GI bleed, back pain, seizure, CVA, palpatations, mental health, musculoskeletal)? @ -[Differential Headache: Migraine, tension, cluster, carbon monoxide, central venous thrombosis, pension karma temporal arteritis, acute closure glaucoma, intercranial hemorrhage, mastoiditis, sinusitis, head injury, this is not meant to be an all-inclusive list. EKG interpreted by me (3pts min.). @ -[As above] X-rays interpreted by me (1pt min.). @ -[None done] CT interpreted by me (1pt min.). @ -[None done] U/S interpreted by me (1pt. min.). @ -[None done] What testing was considered but not performed or refused? (CT, X-rays, U/S, labs)? Why? @ -[None] What meds were considered but not given or refused? Why? @ -[None] Did you discuss the management of the patient with other professionals (professionals i.e. , PA, LAST TURNER, lab, RT, psych nurse, criminal justice social worker, appraiser oil and water, teacher, aerospace engineer officer armament, porter sample case)? Give summary @ -[Case discussed with admitting physician Was smoking cessation discussed for >3mins.? @ -[No] Was critical care preformed (if so, how long)? @ -[No] Were there social determinants of health that impacted care today? How? (Homelessness, low income, unemployed, alcoholism, drug addiction, transportation, low edu. Level, literacy, decrease access to med. care, intermediate, rehab)? @ -[No] Was there de-escalation of care discussed even if they declined (Discuss DNR or withdrawal of care, Hospice)? DNR status @ -[No] What co-morbidities impacted this encounter? (DM, HTN, Smoking, COPD, CAD, Cancer, CVA, ARF, Chemo, Hep., AIDS, mental health diagnosis, sleep apnea, morbid obesity)? @ -[None] Was patient admitted / discharged? Hospital course, mention meds given and route, prescriptions, significant lab abnormalities, going to OR and other pertinent info. @ -[Patient admitted to have further workup including neurology consultation Undiagnosed new problem with uncertain prognosis? @ -[No] Drug Therapy requiring intensive monitoring for toxicity (Heparin, Nitro, Insulin, Cardizem)? @ -[No] Were any procedures done? @ -[No] Diagnosis/symptom? @ -[Acute headache Acute vertigo Acute, or Chronic, or Acute on Chronic? @ -[Acute Uncomplicated (without systemic symptoms) or Complicated (systemic symptoms)? @ -[Uncomplicated Side effects of treatment? @ -[No] Exacerbation, Progression, or Severe Exacerbation? @ -[No] Poses a threat to life or bodily function? How? (Chest pain, USA, NM, pneumonia, PE, COPD, DKA, ARF, appy, cholecystitis, CVA, Diverticulitis, Homicidal, Suicidal, threat to staff... and all critical care pts) @ -[Undetermined at this point will require further consultation - Lab Data Result diagrams: 04/09/23 04:52 04/09/23 04:52 Lab Results 03/31/23 03/31/23 03/31/23 Range/Units 16:31 16:31 16:31 WBC 6.1 (3.8-10.6) k/uL RBC 3.62 L (3.80-5.40) m/uL Hgb 9.9 L (11.4-16.0) gm/dL Hct 30.2 L (34.0-46.0) % MCV 83.5 (80.0-100.0) fL MCH 27.4 (25.0-35.0) pg MCHC 32.8 (31.0-37.0) g/dL RDW 18.0 H (11.5-15.5) % Plt Count 190 (150-450) k/uL MPV 8.7 Neutrophils % 67 % Lymphocytes % 17 % Monocytes % 10 % Eosinophils % 2 % Basophils % 0 % Neutrophils # 4.1 (1.3-7.7) k/uL Lymphocytes # 1.0 (1.0-4.8) k/uL Monocytes # 0.6 (0-1.0) k/uL Eosinophils # 0.1 (0-0.7) k/uL Basophils # 0.0 (0-0.2) k/uL Hypochromasia Anisocytosis Slight Sodium 125 L (137-145) mmol/L Potassium 5.2 H (3.5-5.1) mmol/L Chloride 93 L (98-107) mmol/L Carbon Dioxide 22 (22-30) mmol/L Anion Gap 10 mmol/L BUN 36 H (7-17) mg/dL Creatinine 1.51 H (0.52-1.04) mg/dL Est GFR (CKD-EPI)AfAm 38 (>60 ml/min/1.73 sqM) Est GFR (CKD-EPI)NonAf 33 (>60 ml/min/1.73 sqM) Glucose 81 (74-99) mg/dL Plasma Lactic Acid Sudeep 1.1 (0.7-2.0) mmol/L Calcium 8.6 (8.4-10.2) mg/dL Total Bilirubin 0.7 (0.2-1.3) mg/dL AST 33 (14-36) U/L ALT 16 (4-34) U/L Alkaline Phosphatase 60 (38-126) U/L Troponin I (0.000-0.034) ng/mL NT-Pro-B Natriuret Pep pg/mL Total Protein 6.7 (6.3-8.2) g/dL Albumin 3.6 (3.5-5.0) g/dL Vitamin B12 (200.0-944.0) pg/mL RBC Folate (280 - 791) ng/mL TSH (0.465-4.680) mIU/L 03/31/23 04/01/23 04/01/23 Range/Units 16:31 09:57 09:57 WBC 5.2 (3.8-10.6) k/uL RBC 3.61 L (3.80-5.40) m/uL Hgb 9.9 L (11.4-16.0) gm/dL Hct 30.9 L (34.0-46.0) % MCV 85.7 (80.0-100.0) fL MCH 27.5 (25.0-35.0) pg MCHC 32.1 (31.0-37.0) g/dL RDW 17.9 H (11.5-15.5) % Plt Count 184 (150-450) k/uL MPV 8.0 Neutrophils % 72 % Lymphocytes % 14 % Monocytes % 9 % Eosinophils % 2 % Basophils % 0 % Neutrophils # 3.7 (1.3-7.7) k/uL Lymphocytes # 0.7 L (1.0-4.8) k/uL Monocytes # 0.5 (0-1.0) k/uL Eosinophils # 0.1 (0-0.7) k/uL Basophils # 0.0 (0-0.2) k/uL Hypochromasia Slight Anisocytosis Slight Sodium 127 L (137-145) mmol/L Potassium 4.9 (3.5-5.1) mmol/L Chloride 97 L (98-107) mmol/L Carbon Dioxide 20 L (22-30) mmol/L Anion Gap 10 mmol/L BUN 34 H (7-17) mg/dL Creatinine 1.45 H (0.52-1.04) mg/dL Est GFR (CKD-EPI)AfAm 40 (>60 ml/min/1.73 sqM) Est GFR (CKD-EPI)NonAf 35 (>60 ml/min/1.73 sqM) Glucose 97 (74-99) mg/dL Plasma Lactic Acid Sudeep (0.7-2.0) mmol/L Calcium 8.6 (8.4-10.2) mg/dL Total Bilirubin (0.2-1.3) mg/dL AST (14-36) U/L ALT (4-34) U/L Alkaline Phosphatase (38-126) U/L Troponin I <0.012 (0.000-0.034) ng/mL NT-Pro-B Natriuret Pep pg/mL Total Protein (6.3-8.2) g/dL Albumin (3.5-5.0) g/dL Vitamin B12 1175.0 H (200.0-944.0) pg/mL RBC Folate (280 - 791) ng/mL TSH 3.030 (0.465-4.680) mIU/L 04/01/23 04/01/23 Range/Units 09:57 09:57 WBC (3.8-10.6) k/uL RBC (3.80-5.40) m/uL Hgb (11.4-16.0) gm/dL Hct (34.0-46.0) % MCV (80.0-100.0) fL MCH (25.0-35.0) pg MCHC (31.0-37.0) g/dL RDW (11.5-15.5) % Plt Count (150-450) k/uL MPV Neutrophils % % Lymphocytes % % Monocytes % % Eosinophils % % Basophils % % Neutrophils # (1.3-7.7) k/uL Lymphocytes # (1.0-4.8) k/uL Monocytes # (0-1.0) k/uL Eosinophils # (0-0.7) k/uL Basophils # (0-0.2) k/uL Hypochromasia Anisocytosis Sodium (137-145) mmol/L Potassium (3.5-5.1) mmol/L Chloride (98-107) mmol/L Carbon Dioxide (22-30) mmol/L Anion Gap mmol/L BUN (7-17) mg/dL Creatinine (0.52-1.04) mg/dL Est GFR (CKD-EPI)AfAm (>60 ml/min/1.73 sqM) Est GFR (CKD-EPI)NonAf (>60 ml/min/1.73 sqM) Glucose (74-99) mg/dL Plasma Lactic Acid Sudeep (0.7-2.0) mmol/L Calcium (8.4-10.2) mg/dL Total Bilirubin (0.2-1.3) mg/dL AST (14-36) U/L ALT (4-34) U/L Alkaline Phosphatase (38-126) U/L Troponin I (0.000-0.034) ng/mL NT-Pro-B Natriuret Pep 1760 pg/mL Total Protein (6.3-8.2) g/dL Albumin (3.5-5.0) g/dL Vitamin B12 (200.0-944.0) pg/mL RBC Folate 994 H (280 - 791) ng/mL TSH (0.465-4.680) mIU/L Disposition Clinical Impression: Headache, Dizziness, Hyponatremia, Leg edema Disposition: ADMITTED IP TO THIS HOSP Condition: Fair Is patient prescribed a controlled substance at d/c from ED?: No
[2023-03-31 16:48] LABS: Anisocytosis Slight; Basophils % (A) 0 %; Eosinophils # (A) 0.1 k/uL (0-0.7); Eosinophils % (A) 2 %; HCT 30.2 % (34.0-46.0); HGB 9.9 gm/dL (11.4-16.0); Lymphocytes % (A) 17 %; MCH 27.4 pg (25.0-35.0); MCHC 32.8 g/dL (31.0-37.0); MCV 83.5 fL (80.0-100.0); Mean Platelet Volume 8.7; Monocytes # (A) 0.6 k/uL (0-1.0); Monocytes % (A) 10 %; Neutrophils # (A) 4.1 k/uL (1.3-7.7); Neutrophils % (A) 67 %; Platelet Count 190 k/uL (150-450); RBC 3.62 m/uL (3.80-5.40); WBC 6.1 k/uL (3.8-10.6)
[2023-03-31 17:12] LABS: ALT 16 U/L (4-34); African American GFR (CKD) 38 (>60 ml/min/1.73 sqM); Albumin 3.6 g/dL (3.5-5.0); Anion Gap 10 mmol/L; Blood Urea Nitrogen 36 mg/dL (7-17); Calcium 8.6 mg/dL (8.4-10.2); Carbon Dioxide 22 mmol/L (22-30); Chloride 93 mmol/L (98-107); Glucose 81 mg/dL (74-99); Non-African American GFR(CKD) 33 (>60 ml/min/1.73 sqM); Sodium 125 mmol/L (137-145); Total Bilirubin 0.7 mg/dL (0.2-1.3); Total Protein 6.7 g/dL (6.3-8.2)
--- NOTE | 2023-03-31 17:18 | CT ---
EXAMINATION TYPE: CT brain wo con DATE OF EXAM: 03/31/2023 COMPARISON: None HISTORY: 77-year-old female headache, dizziness TECHNIQUE: Examination was done in axial plane without intravenous contrast. Coronal and sagittal r econstructions performed. CT DLP: 1138.3 mGycm Automated exposure control for dose reduction was used. FINDINGS: There is no evidence of acute intracranial hemorrhage, acute ischemic changes, mass, mass-effect, or extra-axial fluid collection. There is no effacement of cerebral sulci or basal subarachnoid cister ns. There is no hydrocephalus. There is no midline shift. Curtis-white matter distinction is preserv ed. Partially empty sella. Opacification posterior right ethmoid air cell. Mastoid air cells well pneumatized. Orbits and globes are intact. IMPRESSION: No acute intracranial abnormality seen.
[2023-03-31 17:20] LABS: AST 33 U/L (14-36); Alkaline Phosphatase 60 U/L (38-126); Potassium 5.2 mmol/L (3.5-5.1)
[2023-03-31] MEDS ORDERED: SODIUM CHLORIDE 0.9% 500 ML 500 ML IV STA (17:39)
[2023-03-31] MEDS ORDERED: ACETAMINOPHEN TAB 325 MG TAB PO STA (18:43)
[2023-03-31] MEDS ORDERED: ONDANSETRON 4 MG/2 ML VIAL IVP PRN ×2 (19:19→19:35)
[2023-03-31] MEDS ORDERED: NALOXONE 0.4 MG/ML 1 ML VIAL IV PRN (19:19)
[2023-03-31] MEDS: ATORVASTATIN 20 MG TAB PO SCH (20:23)
[2023-03-31] MEDS: APIXABAN 5 MG TAB PO SCH (20:24)
[2023-03-31] MEDS: ACETAMINOPHEN TAB 325 MG TAB PO PRN (22:14)
[2023-04-01] MEDS: ACETAMINOPHEN TAB 325 MG TAB PO PRN ×3 (02:54→22:50)
[2023-04-01] MEDS: LEVOTHYROXINE 50 MCG TAB PO SCH (06:07)
[2023-04-01] MEDS: APIXABAN 5 MG TAB PO SCH ×2 (09:13→20:18)
[2023-04-01] MEDS: PANTOPRAZOLE 40 MG TABLET PO SCH (09:13)
[2023-04-01] MEDS: DAPAGLIFLOZIN PROPANEDIOL 10 MG TABLET PO SCH (09:13)
[2023-04-01] MEDS: NIFEdipine XL 30 MG TAB.ER.24 PO SCH (09:13)
[2023-04-01 10:59] LABS: Anisocytosis Slight; Basophils % (A) 0 %; Eosinophils # (A) 0.1 k/uL (0-0.7); Eosinophils % (A) 2 %; HCT 30.9 % (34.0-46.0); HGB 9.9 gm/dL (11.4-16.0); Hypochromasia Slight; Lymphocytes # (A) 0.7 k/uL (1.0-4.8); Lymphocytes % (A) 14 %; MCH 27.5 pg (25.0-35.0); MCHC 32.1 g/dL (31.0-37.0); MCV 85.7 fL (80.0-100.0); Monocytes # (A) 0.5 k/uL (0-1.0); Monocytes % (A) 9 %; Neutrophils # (A) 3.7 k/uL (1.3-7.7); Neutrophils % (A) 72 %; Platelet Count 184 k/uL (150-450); RBC 3.61 m/uL (3.80-5.40); RDW 17.9 % (11.5-15.5); WBC 5.2 k/uL (3.8-10.6)
[2023-04-01 11:21] LABS: African American GFR (CKD) 40 (>60 ml/min/1.73 sqM); Anion Gap 10 mmol/L; Blood Urea Nitrogen 34 mg/dL (7-17); Calcium 8.6 mg/dL (8.4-10.2); Carbon Dioxide 20 mmol/L (22-30); Chloride 97 mmol/L (98-107); Glucose 97 mg/dL (74-99); Non-African American GFR(CKD) 35 (>60 ml/min/1.73 sqM); Potassium 4.9 mmol/L (3.5-5.1); Sodium 127 mmol/L (137-145)
[2023-04-01 11:52] LABS: Glucose,Whole Blood 114 mg/dL (70-110)
[2023-04-01] MEDS: FLUTICASONE 50MCG/SPRAY NASAL 16GM EA NOSTRIL SCH (13:23)
[2023-04-01] MEDS: LORATADINE 10 MG TAB PO SCH (13:23)
--- NOTE | 2023-04-01 13:42 | P.CNNES ---
History of Present Illness Consult date: 04/01/23 Requesting physician: Mendoza Biswas Reason for Consult: headache/vertigo History of Present Illness: This is a 77-year-old woman with history of a-fib s/p ablation in 2020 on eliquis, diabetes, diabetic neuropathy and uses walker, chronic tinnitus and hearing loss who presents to the emergency department because of new onset headache. She is accompanied with her daughter. It seems patient is having intermittent headache that short lasting over the billateral frontal region and denies any radiation. When has headache it is 10/10 and could describe. The headache usually last 1 minute then resolves and yesterday had multiple times. She denies photophobia, phonophobia. She has chronic tinnitus of both ears. D enies any focal weakness, numbness, difficulty swallowing. She had a fall this past Wednesday since felt light-headache but did not pass out or have any head trauma. Feel left ear hurts more than right and she was evaluated by ENT as outpatient and was told she needed hearing aids but has not had. Denies any recent fevers. Denies any headache like this. There is no aggrevation or alleviation of headache. Currently feels doing well. Some of the work-up during this hospital visit consisted of: afebrile. Wbc normal TSH: 3.030 CT head is reported as no acute intracranial abnormality seen. Review of Systems 10 point system is reviewed and the pertinent positive and negative as per HPI Past Medical History Past Medical History: Cancer, Diabetes Mellitus, Eye Disorder, Hypertension, Osteoarthritis (OA), Renal Disease Additional Past Medical History / Comment(s): hx cervical cancer(sx and radiatio n), hx GOUT,controlled, colitis, macular degeneration both eyes.SEE DR BRITTON'S HISTORY AND PHYSICAL FOR CARDIAC HISTORY, RENAL DISEASE-STAGE 3 History of Any Multi-Drug Resistant Organisms: None Reported Past Surgical History: Hysterectomy, Joint Replacement, Orthopedic Surgery Additional Past Surgical History / Comment(s): APPLE cataracts, rt knee arthroscopy, neck fusion at C4-C5, C5-C6, C6-C7 corpectomy, apple CARPAL TUNNEL, cardioversion ,colonoscopy ,bilateral tubal ligation, right hip replacement, rt hand cyst removed Past Anesthesia/Blood Transfusion Reactions: Previous Problems w/ Anesthesia, Postoperative Nausea & Vomiting (PONV) Additional Past Anesthesia/Blood Transfusion Reaction / Comment(s): "stopped breathing with procedure done by Dr Britton", hard time coming out, told she was "lightweight" Past Psychological History: No Psychological Hx Reported Smoking Status: Never smoker Past Alcohol Use History: None Reported Past Drug Use History: None Reported - Past Family History Brother(s) Family Medical History: Cancer Additional Family Medical History / Comment(s): Patient has a total of 5 brothers. one survivor of colon cancer, one is alive at age 67 with lymphoma. 3 brothers have no major medical problems. Father Family Medical History: Pulmonary Embolus Additional Family Medical History / Comment(s): Father in his 80s from coronary artery disease with history of pulmonary embolus. Mother Family Medical History: Hypertension Additional Family Medical History / Comment(s): Mother at age 93 from dementia with history of hypertension. Daughter(s) Family Medical History: No Reported History Additional Family Medical History / Comment(s): Patient has one daughter with no major medical problems. Son(s) Family Medical History: No Reported History Additional Family Medical History / Comment(s): Patient has 2 sons and one has history of atrial fibrillation and one has history of stent. Medications and Allergies Home Medications Medication Instructions Recorded Confirmed Type Dexlansoprazole [Dexilant] 60 mg PO DAILY 04/01/16 03/31/23 History Apixaban [Eliquis] 5 mg PO BID 10/12/16 03/31/23 History Atorvastatin [Lipitor] 20 mg PO HS 11/25/18 03/31/23 History Levothyroxine Sodium [Synthroid] 50 mcg PO DAILY 03/26/23 03/31/23 History Vit C/E/Zn/Coppr/Lutein/Zeaxan 1 cap PO BID 03/26/23 03/31/23 History [Preservision Areds 2 Softgel] allopurinoL [Zyloprim] 300 mg PO Q48H 03/26/23 03/31/23 History Bumetanide [BUMEX] 1 mg PO DAILY #30 tab 03/27/23 03/31/23 Rx Dapagliflozin Propanediol [Farxiga] 10 mg PO DAILY #30 tab 03/27/23 03/31/23 Rx NIFEdipine XL [Procardia XL] 30 mg PO DAILY #30 tab 03/27/23 03/31/23 Rx Allergies Allergy/AdvReac Type Severity Reaction Status Date / Time Iodinated Contrast Media Allergy Rash/Hives Verified 03/31/23 20:44 [Iodinated Contrast Media - IV Dye] Penicillins Allergy Rash/Hives Verified 03/31/23 20:44 Sulfa (Sulfonamide Allergy Rash/Hives Verified 03/31/23 20:44 Antibiotics) Physical Examination - Vital Signs Vital Signs: Vital Signs Temp Pulse Pulse Pulse Pulse Pulse Resp 04/01/23 10:03 86 87 97 86 16 04/01/23 07:00 97.9 F 80 16 04/01/23 00:32 97.9 F 105 H 16 03/31/23 21:55 97.8 F 89 16 03/31/23 21:00 86 18 03/31/23 20:24 80 18 03/31/23 20:00 73 17 03/31/23 18:45 97.6 F 03/31/23 18:20 78 20 03/31/23 17:00 75 18 03/31/23 15:11 85 16 BP BP BP BP BP Pulse Ox 04/01/23 10:03 157/73 125/75 162/66 97 04/01/23 07:00 124/69 99 04/01/23 00:32 148/59 97 03/31/23 21:55 131/71 99 03/31/23 21:00 127/80 99 03/31/23 20:24 127/80 99 03/31/23 20:00 133/67 97 03/31/23 18:45 03/31/23 18:20 118/68 99 03/31/23 17:00 148/76 98 03/31/23 15:11 120/66 99 Intake and Output 03/31/23 04/01/23 04/01/23 22:59 06:59 14:59 Intake Total 118 Balance 118 Intake: Oral 118 Other: Voiding Method Toilet Toilet # Voids 1 5 1 # Bowel Movements 2 Weight 83.461 kg General: Sitting in a recliner chair and is not in acute distress. Neuro: The patient is awake,alert, oriented to self, place and time. Is following simple commands and no aphasia or neglect. Pupils are round, equal and reactive to light (pupils are 3mm). VFF to confrontation. EOM in intact and no nystagmus. Normal facial sensation. No facial weakness. No dysarthria. Severely hard of hearing bilaterally to hand rub. Tongue is midline and moves side to side without difficulty. Motor: Gait is using her walker and not swaying towards right or left. Stregnth: 5/5 throughout. Has moderate to significant edema in lowers ext remities. Normal tone. Sensation: Normal to touch throughout. Reflex: 1+ throughout. Plantars are mute bilaterally. Results - Laboratory Findings CBC and BMP: 04/01/23 09:57 04/01/23 09:57 Abnormal Lab Findings: Abnormal Labs 03/31/23 03/31/23 04/01/23 16:31 16:31 09:57 RBC 3.62 L 3.61 L Hgb 9.9 L 9.9 L Hct 30.2 L 30.9 L RDW 18.0 H 17.9 H Lymphocytes # 0.7 L Sodium 125 L Potassium 5.2 H Chloride 93 L Carbon Dioxide BUN 36 H Creatinine 1.51 H POC Glucose (mg/dL) 04/01/23 04/01/23 09:57 11:51 RBC Hgb Hct RDW Lymphocytes # Sodium 127 L Potassium Chloride 97 L Carbon Dioxide 20 L BUN 34 H Creatinine 1.45 H POC Glucose (mg/dL) 114 H Assessment and Plan Assessment: This is a 77 y/o woman with new onset headache that is recurrent and is short lasting a minute or less, with chronic tinnintus, hearing loss. Also feel light headed with standing up. New Cephalgia for the past 3-4 weeks: Unsure exact etiology Chronic tinnitus with severe hearing loss: Pending hearing aids. History of atrial fibrillation s/p ablation in 2019 and is on eliquis DM Diabetic neuropathy Plan: I ordered MRI Brain, MRA head and neck. Ordered ESR, CRP. Primary team ordered orthostatic, Vitamin B12, folate level. Continue neuro checks. Will defer the rest of medical management to primary team. The plan is discussed with patient, her daughter who is at bedside and primary team N.P. Thank you for the consultation. Time with Patient: Greater than 30
[2023-04-01] MEDS ORDERED: FUROSEMIDE 10 MG/ML 2 ML VIAL IV STA (14:46)
--- NOTE | 2023-04-01 14:58 | P.HPIM ---
History of Present Illness H&P Date: 04/01/23 This is a 77-year-old female who follows with Dr. Berg outpatient. Patient has a history of diabetes mellitus, hypothyroidism, Hypertension, cervical cancer with surgery and radiation, chronic kidney disease stage III, paroxysmal atrial fibrillation with prior cardiac ablation followed by Dr. Beckham. Patient reports to the hospital with complaints of 3 to 4 week history oheadache and dizziness. Headache is described as sharp behind the eyes and intermittent she has increased dizziness during episodes. She has also had tinnitus going on and muffled hearing. Has seen ENT outpatient and needs hearing aids bilaterally. Patient denies any history of migraine, no vision changes, no vertigo, no chest pain, no shortness of breath, no palpitations. No focal weakness. Patient has no prior history of stroke. She is also noting an elevation in her blood pressure during these episodes. She fell on Wednesday due to "lightheadedness" did not lose consciousness or hit her head. She states she got up from sitting and felt faint while walking and went to the floor. She was recently evaluated at [facility] and underwent more of a cardiac work up. She was also discharged from this hospital 1 week ago, she was treated for symptomatic bradycardia was taken off her betablocker and transitioned from lasix to bumex. EKG on admission shows sinus rhythm with occasional supraventricular premature complexes, rate of 90. Brain CT on admission shows no acute intracranial abnormality. Initial blo od work shows a creatinine of 1.51, sodium level 125 potassium elevated at 5.2 and hemoglobin of 9.9. Blood pressure has been controlled this admission with a pressure of 120/66 on admission. Patient is maintained on eliquis 5 mg twice a day. Has peripheral edema with weeping and bullae that have opened up. Dressings to the lower extremity are saturated with serous drainage and she remains with pitting edema. Patient is admitted to the hospital under medicine with a consult placed to neurology. REVIEW OF SYSTEMS: CONSTITUTIONAL: No fever, no malaise, no fatigue. Reports lightheadeness. HEENT: No recent visual problems. Denied any sore throat. Reports tinnitus and muffled hearing. CARDIOVASCULAR: No chest pain, orthopnea, PND, no palpitations, no syncope. PULMONARY: No shortness of breath, no cough, no hemoptysis. GASTROINTESTINAL: No diarrhea, no nausea, no vomiting, no abdominal pain. NEUROLOGICAL: No headaches, no weakness, no numbness. Reports sharp 10/10 intermittent headache frontal and behind eyes. HEMATOLOGICAL: Denies any bleeding or petechiae. GENITOURINARY: Denies any burning micturition, frequency, or urgency. MUSCULOSKELETAL/RHEUMATOLOGICAL: Denies any joint pain, or any muscle pain. Reports lower extremity edema. ENDOCRINE: Denies any polyuria or polydipsia. The rest of the 14-point review of systems is negative. PHYSICAL EXAMINATION: GENERAL: The patient is alert and oriented x3, not in any acute distress. Well developed, well nourished. HEENT: Pupils are round and equally reacting to light. EOMI. No scleral icterus. No conjunctival pallor. Normocephalic, atraumatic. No pharyngeal erythema. No thyromegaly. CARDIOVASCULAR: S1 and S2 present. No murmurs, rubs, or gallops. PULMONARY: Chest is clear to auscultation, no wheezing or crackles. ABDOMEN: Soft, nontender, nondistended, normoactive bowel sounds. No palpable organomegaly. MUSCULOSKELETAL: No joint swelling or deformity. EXTREMITIES: No cyanosis, clubbing, Bilateral pedal and lower extremity edema +2 NEUROLOGICAL: Gross neurological examination did not reveal any focal deficits. Generalized weakness. SKIN: Inside of left browne has bullae that has opened up. Right leg has is weeping. Assessment Headache, new onset under investigation Dizziness/lightheadedness with fall on Wednesday likely due to orthostatic hypotension Peripheral edema and weeping ulcerations likely from the edema. Hyponatremia Recent admission for symptomatic bradycardia patient was taken off betablocker. History of atrial fibrillation with prior cardiac ablation anticoagulated with eliquis Chronic tinnitus and hearing loss seeing ENT outpatient Hypothyroidism Anemia Hx hypertension currently rate controlled Diabetes Mellitus type 2 Chronic kidney disease stage 3 Hx cervical cancer with surgery and radiation GI prophylaxis DVT prophylaxis Full Code Plan IV lasix x 1, cardiology consultation Check orthostatics Qshift Woundcare consultation for the lower extremity edema can continue with abd pad kerlex and jeny wrap for compression pending further recommendations Neurology following and recommending MRI and MRA head and neck this is pending B12, folate pending PT/OT consultation for possible rehab on discharge Recommend to repeat labs in the AM The impression and plan of care has been dictated by Mary Jo Cantrell, Nurse Practitioner as directed. Dr. Sai MD I have performed a history and physical examination and medical decision making of this patient, discussed the same with the dictator, and agree with the dictators assessment and plan as written, documented as a scribe. Based on total visit time, I have performed more than 50% of this visit. Past Medical History Past Medical History: Cancer, Diabetes Mellitus, Eye Disorder, Hypertension, Osteoarthritis (OA), Renal Disease Additional Past Medical History / Comment(s): hx cervical cancer(sx and radiation), hx GOUT,controlled, colitis, macular degeneration both eyes.SEE DR BECKHAM'S HISTORY AND PHYSICAL FOR CARDIAC HISTORY, RENAL DISEASE-STAGE 3 History of Any Multi-Drug Resistant Organisms: None Reported Past Surgical History: Hysterectomy, Joint Replacement, Orthopedic Surgery Additional Past Surgical History / Comment(s): APPLE cataracts, rt knee arthroscopy, neck fusion at C4-C5, C5-C6, C6-C7 corpectomy, apple CARPAL TUNNEL, cardioversion ,colonoscopy ,bilateral tubal ligation, right hip replacement, rt hand cyst removed Past Anesthesia/Blood Transfusion Reactions: Previous Problems w/ Anesthesia, Postoperative Nausea & Vomiting (PONV) Additional Past Anesthesia/Blood Transfusion Reaction / Comment(s): "stopped breathing with procedure done by Dr Beckham", hard time coming out, told she was "lightweight" Past Psychological History: No Psychological Hx Reported Smoking Status: Never smoker Past Alcohol Use History: None Reported Past Drug Use History: None Reported - Past Family History Brother(s) Family Medical History: Cancer Additional Family Medical History / Comment(s): Patient has a total of 5 brothers. one survivor of colon cancer, one is alive at age 67 with lymphoma. 3 brothers have no major medical problems. Father Family Medical History: Pulmonary Embolus Additional Family Medical History / Comment(s): Father in his 80s from coronary artery disease with history of pulmonary embolus. Mother Family Medical History: Hypertension Additional Family Medical History / Comment(s): Mother at age 93 from dementia with history of hypertension. Daughter(s) Family Medical History: No Reported History Additional Family Medical History / Comment(s): Patient has one daughter with no major medical problems. Son(s) Family Medical History: No Reported History Additional Family Medical History / Comment(s): Patient has 2 sons and one has history of atrial fibrillation and one has history of stent. Medications and Allergies Home Medications Medication Instructions Recorded Confirmed Type Dexlansoprazole [Dexilant] 60 mg PO DAILY 04/01/16 03/31/23 History Apixaban [Eliquis] 5 mg PO BID 10/12/16 03/31/23 History Atorvastatin [Lipitor] 20 mg PO HS 11/25/18 03/31/23 History Levothyroxine Sodium [Synthroid] 50 mcg PO DAILY 03/26/23 03/31/23 History Vit C/E/Zn/Coppr/Lutein/Zeaxan 1 cap PO BID 03/26/23 03/31/23 History [Preservision Areds 2 Softgel] allopurinoL [Zyloprim] 300 mg PO Q48H 03/26/23 03/31/23 History Bumetanide [BUMEX] 1 mg PO DAILY #30 tab 03/27/23 03/31/23 Rx Dapagliflozin Propanediol [Farxiga] 10 mg PO DAILY #30 tab 03/27/23 03/31/23 Rx NIFEdipine XL [Procardia XL] 30 mg PO DAILY #30 tab 03/27/23 03/31/23 Rx Allergies Allergy/AdvReac Type Severity Reaction Status Date / Time Iodinated Contrast Media Allergy Rash/Hives Verified 03/31/23 20:44 [Iodinated Contrast Media - IV Dye] Penicillins Allergy Rash/Hives Verified 03/31/23 20:44 Sulfa (Sulfonamide Allergy Rash/Hives Verified 03/31/23 20:44 Antibiotics) Physical Exam Vitals: Vital Signs Temp Pulse Pulse Resp BP BP Pulse Ox 04/01/23 07:00 97.9 F 80 16 124/69 99 04/01/23 00:32 97.9 F 105 H 16 148/59 97 03/31/23 21:55 97.8 F 89 16 131/71 99 03/31/23 21:00 86 18 127/80 99 03/31/23 20:24 80 18 127/80 99 03/31/23 20:00 73 17 133/67 97 03/31/23 18:45 97.6 F 03/31/23 18:20 78 20 118/68 99 03/31/23 17:00 75 18 148/76 98 03/31/23 15:11 85 16 120/66 99 Intake and Output 03/31/23 04/01/23 04/01/23 22:59 06:59 14:59 Intake Total 118 Balance 118 Intake: Oral 118 Other: Voiding Method Toilet # Voids 1 5 Weight 83.461 kg Results CBC & Chem 7: 04/01/23 09:57 04/01/23 09:57 Labs: Abnormal Lab Results - Last 24 Hours (Table) 03/31/23 03/31/23 Range/Units 16:31 16:31 RBC 3.62 L (3.80-5.40) m/uL Hgb 9.9 L (11.4-16.0) gm/dL Hct 30.2 L (34.0-46.0) % RDW 18.0 H (11.5-15.5) % Sodium 125 L (137-145) mmol/L Potassium 5.2 H (3.5-5.1) mmol/L Chloride 93 L (98-107) mmol/L BUN 36 H (7-17) mg/dL Creatinine 1.51 H (0.52-1.04) mg/dL Assessment and Plan Time with Patient: Greater than 30
--- NOTE | 2023-04-01 17:22 | XR ---
EXAMINATION TYPE: XR chest 2V DATE OF EXAM: 04/01/2023 5:16 PM COMPARISON: Chest radiographs from TECHNIQUE: XR chest 2V Frontal and lateral views of the chest. CLINICAL INDICATION:Female, 77 years old with history of CHF; FINDINGS: Lungs/Pleura: There is no evidence of pleural effusion, focal consolidation, or pneumothorax. Pulmonary vascularity: Unremarkable. Heart/mediastinum: Cardiomediastinal silhouette is enlarged and stable. Cardiac valvular prosthesis. Left atrial appendage occlusion device. Musculoskeletal: Multiple level degenerative disc disease changes seen throughout the spine. Midline sternotomy wires are noted and stable. Cervical fusion hardware. IMPRESSION: Cardiomegaly without evidence for acute process.
[2023-04-01] MEDS: ATORVASTATIN 20 MG TAB PO SCH (20:18)
[2023-04-02] MEDS: ACETAMINOPHEN TAB 325 MG TAB PO PRN ×4 (05:55→20:37)
[2023-04-02] MEDS: LEVOTHYROXINE 50 MCG TAB PO SCH (05:56)
[2023-04-02] MEDS: PANTOPRAZOLE 40 MG TABLET PO SCH (08:33)
[2023-04-02] MEDS: FLUTICASONE 50MCG/SPRAY NASAL 16GM EA NOSTRIL SCH (08:33)
[2023-04-02] MEDS: DAPAGLIFLOZIN PROPANEDIOL 10 MG TABLET PO SCH (08:33)
[2023-04-02] MEDS: LORATADINE 10 MG TAB PO SCH (08:34)
[2023-04-02] MEDS: APIXABAN 5 MG TAB PO SCH ×2 (08:34→20:37)
[2023-04-02] MEDS: NIFEdipine XL 30 MG TAB.ER.24 PO SCH (08:34)
[2023-04-02] MEDS ORDERED: FUROSEMIDE 40 MG TAB PO SCH (09:00)
--- NOTE | 2023-04-02 09:27 | P.CRDCN ---
History of Present Illness History of present illness: c/o of headache this morning HISTORY OF PRESENT ILLNESS: This is a 77-year-old female with a past medical history significant for coronary artery disease with previous PCI, peripheral arterial disease, chronic kidney disease, diabetes, ischemic cardiomyopathy, and former nicotine dependence. Patient follows in the office with Dr. Castaneda. We have been asked to see the patient in consultation for orthostatic hypotension. Patient examined at the bedside. Patient states she presented to the hospital secondary to having headaches at home. She reports mild dizziness. She denies any syncopal episodes. Patient was found to have positive orthostatic blood pressures. Patient was recently admitted to the hospital secondary to an unresponsive episode secondary to hypoglycemia with a blood glucose in the 30s. At that time she was changed from Lasix to Bumex. The patient states that she feels that the Lasix was more beneficial and she felt better when she was taking the Lasix versus taking Bumex. * EKG reveals sinus mechanism with no signs of acute ischemia * Chest xray cardiomegaly without evidence for acute process * Laboratory data: WBC 5.2. Hemoglobin 9.9. Platelet count 184. Sodium 127. Potassium 4.9. BUN 34. Creatinine 1.45. Troponin negative 1. ProBNP 1760. TSH 3.030. * Current home cardiac medications include Bumex 1 mg daily, Procardia 30mg daily, atorvastatin 20 mg at night, and Eliquis 5mg BID REVIEW OF SYSTEMS: At the time of my exam: CONSTITUTIONAL: Denies fever or chills. HEENT: Denies blurred vision, vision changes, or eye pain. Denies hemoptysis CARDIOVASCULAR: Denies chest pain. Denies orthopnea. Denies PND. Denies palpitations RESPIRATORY: Denies shortness of breath. GASTROINTESTINAL: Denies abdominal pain. Denies nausea or vomiting. HEMATOLOGIC: Denies bleeding disorders. GENITOURINARY: Denies any blood in urine. SKIN: Denies pruitis. Denies rash. PHYSICAL EXAM: VITAL SIGNS: Reviewed. GENERAL: Well-developed in no acute distress. HEENT: Head is normocephalic. Pupils are equal, round. Sclerae anicteric. Mucous membranes of the mouth are moist. Neck supple. No JVD or thyromegaly LUNGS: Respirations even and unlabored. Lungs essentially clear to auscultation bilaterally. HEART: Regular rate and rhythm. S1 and S2 heard. ABDOMEN: Soft. Nondistended. Nontender. EXTREMITIES: Normal range of motion. No clubbing or cyanosis. Peripheral pulses intact. No lower extremity edema NEUROLOGIC: Awake and alert. Oriented x 3. ASSESSMENT: Headaches Orthostatic hypotension Coronary artery disease with previous PCI Ischemic cardiomyopathy, ejection fraction 35-40% Peripheral arterial disease Chronic kidney disease Diabetes mellitus former nicotine dependence Recent bradycardia, beta blockers discontinued PLAN: Discontinue Bumex. Resume oral Lasix 40 mg daily Continue Procardia Patient may be discharged home today from a cardiac standpoint and follow-up outpatient with Dr. Castaneda Nurse practitioner note has been reviewed by physician. Signing provider agrees with the documented findings, assessment, and plan of care. Past Medical History Past Medical History: Cancer, Diabetes Mellitus, Eye Disorder, Hypertension, Osteoarthritis (OA), Renal Disease Additional Past Medical History / Comment(s): hx cervical cancer(sx and radiation), hx GOUT,controlled, colitis, macular degeneration both eyes.SEE DR Earnest RANGEL'S HISTORY AND PHYSICAL FOR CARDIAC HISTORY, RENAL DISEASE-STAGE 3 History of Any Multi-Drug Resistant Organisms: None Reported Past Surgical History: Hysterectomy, Joint Replacement, Orthopedic Surgery Additional Past Surgical History / Comment(s): APPLE cataracts, rt knee arthroscopy, neck fusion at C4-C5, C5-C6, C6-C7 corpectomy, apple CARPAL TUNNEL, cardioversion ,colonoscopy ,bilateral tubal ligation, right hip replacement, rt hand cyst removed Past Anesthesia/Blood Transfusion Reactions: Previous Problems w/ Anesthesia, Postoperative Nausea & Vomiting (PONV) Additional Past Anesthesia/Blood Transfusion Reaction / Comment(s): "stopped breathing with procedure done by Dr Britton", hard time coming out, told she was "lightweight" Past Psychological History: No Psychological Hx Reported Smoking Status: Never smoker Past Alcohol Use History: None Reported Past Drug Use History: None Reported - Past Family History Brother(s) Family Medical History: Cancer Additional Family Medical History / Comment(s): Patient has a total of 5 brothers. one survivor of colon cancer, one is alive at age 67 with lymphoma. 3 brothers have no major medical problems. Father Family Medical History: Pulmonary Embolus Additional Family Medical History / Comment(s): Father in his 80s from coronary artery disease with history of pulmonary embolus. Mother Family Medical History: Hypertension Additional Family Medical History / Comment(s): Mother at age 93 from dementia with history of hypertension. Daughter(s) Family Medical History: No Reported History Additional Family Medical History / Comment(s): Patient has one daughter with no major medical problems. Son(s) Family Medical History: No Reported History Additional Family Medical History / Comment(s): Patient has 2 sons and one has history of atrial fibrillation and one has history of stent. Medications and Allergies Home Medications Medication Instructions Recorded Confirmed Type Dexlansoprazole [Dexilant] 60 mg PO DAILY 04/01/16 03/31/23 History Apixaban [Eliquis] 5 mg PO BID 10/12/16 03/31/23 History Atorvastatin [Lipitor] 20 mg PO HS 11/25/18 03/31/23 History Levothyroxine Sodium [Synthroid] 50 mcg PO DAILY 03/26/23 03/31/23 History Vit C/E/Zn/Coppr/Lutein/Zeaxan 1 cap PO BID 03/26/23 03/31/23 History [Preservision Areds 2 Softgel] allopurinoL [Zyloprim] 300 mg PO Q48H 03/26/23 03/31/23 History Bumetanide [BUMEX] 1 mg PO DAILY #30 tab 03/27/23 03/31/23 Rx Dapagliflozin Propanediol [Farxiga] 10 mg PO DAILY #30 tab 03/27/23 03/31/23 Rx NIFEdipine XL [Procardia XL] 30 mg PO DAILY #30 tab 03/27/23 03/31/23 Rx Allergies Allergy/AdvReac Type Severity Reaction Status Date / Time Iodinated Contrast Media Allergy Rash/Hives Verified 03/31/23 20:44 [Iodinated Contrast Media - IV Dye] Penicillins Allergy Rash/Hives Verified 03/31/23 20:44 Sulfa (Sulfonamide Allergy Rash/Hives Verified 03/31/23 20:44 Antibiotics) Physical Exam Vitals: Vital Signs Temp Pulse Pulse Pulse Pulse Resp BP 04/02/23 00:53 98.3 F 112 H 16 04/01/23 19:16 98.1 F 101 H 16 04/01/23 14:21 97.8 F 88 16 04/01/23 10:03 86 87 97 86 16 157/73 BP BP BP Pulse Ox 04/02/23 00:53 116/52 95 04/01/23 19:16 157/52 97 04/01/23 14:21 145/74 98 04/01/23 10:03 125/75 162/66 97 Intake and Output 04/01/23 04/02/23 04/02/23 22:59 06:59 14:59 Intake Total 618 Balance 618 Intake: Oral 618 Other: Voiding Method Toilet # Voids 3 1 Results 04/01/23 09:57 04/01/23 09:57 CBC 04/01/23 Range/Units 09:57 WBC 5.2 (3.8-10.6) k/uL RBC 3.61 L (3.80-5.40) m/uL Hgb 9.9 L (11.4-16.0) gm/dL Hct 30.9 L (34.0-46.0) % Plt Count 184 (150-450) k/uL Comprehensive Metabolic Panel 04/01/23 Range/Units 09:57 Sodium 127 L (137-145) mmol/L Potassium 4.9 (3.5-5.1) mmol/L Chloride 97 L (98-107) mmol/L Carbon Dioxide 20 L (22-30) mmol/L BUN 34 H (7-17) mg/dL Creatinine 1.45 H (0.52-1.04) mg/dL Glucose 97 (74-99) mg/dL Calcium 8.6 (8.4-10.2) mg/dL Current Medications Generic Name Dose Route Start Last Admin Trade Name Freq PRN Reason Stop Dose Admin Acetaminophen 650 mg 03/31/23 19:34 04/02/23 05:55 Acetaminophen Tab 325 Mg Tab PO 650 mg Q4H PRN Administration Headache Apixaban 5 mg 03/31/23 21:00 04/01/23 20:18 Apixaban 5 Mg Tab PO 5 mg BID TRAVIS Administration Protocol Atorvastatin Calcium 20 mg 03/31/23 21:00 04/01/23 20:18 Atorvastatin 20 Mg Tab PO 20 mg HS TRAVIS Administration Dapagliflozin 10 mg 04/01/23 09:00 04/01/23 09:13 Dapagliflozin Propanediol 10 Mg Tablet PO 10 mg DAILY TRAVIS Administration Fluticasone Propionate 2 spray 04/01/23 12:15 04/01/23 13:23 Fluticasone 50mcg/Wilson Nasal 16gm EA NOSTRIL 2 spray DAILY TRAVIS Administration Levothyroxine Sodium 50 mcg 04/01/23 06:30 04/02/23 05:56 Levothyroxine 50 Mcg Tab PO 50 mcg 0630 TRAVIS Administration Loratadine 5 mg 04/01/23 12:15 04/01/23 13:23 Loratadine 10 Mg Tab PO 5 mg DAILY TRAVIS Administration Naloxone HCl 0.2 mg 03/31/23 19:19 Naloxone 0.4 Mg/Ml 1 Ml Vial IV Q2M PRN Opioid Reversal Nifedipine 30 mg 04/01/23 09:00 04/01/23 09:13 Nifedipine Xl 30 Mg Tab.Er.24 PO 30 mg DAILY TRAVIS Administration Ondansetron HCl 4 mg 03/31/23 19:35 Ondansetron 4 Mg/2 Ml Vial IVP Q8H PRN Nausea Pantoprazole Sodium 40 mg 04/01/23 09:00 04/01/23 09:13 Pantoprazole 40 Mg Tablet PO 40 mg DAILY TRAVIS Administration Intake and Output 04/01/23 04/02/23 04/02/23 22:59 06:59 14:59 Intake Total 618 Balance 618 Intake: Oral 618 Other: Voiding Method Toilet # Voids 3 1 04/01/23 09:57 04/01/23 09:57
[2023-04-02 09:36] LABS: BUN/Creat Ratio 16.05 Ratio (12.00-20.00); Blood Urea Nitrogen 32.1 mg/dL (9.0-27.0); Calcium 8.9 mg/dL (8.7-10.3); Carbon Dioxide 23.4 mmol/L (21.6-31.8); Chloride 96 mmol/L (96-109); Glucose 100 mg/dL (70-110); Potassium 4.7 mmol/L (3.5-5.5); Sodium 130 mmol/L (135-145)
--- NOTE | 2023-04-02 11:37 | P.PN ---
Subjective Progress Note Date: 04/02/23 I am following-up seeing the patient and feels her headache are much better compared to her initial presentation. Feel they are mild today. Denies of any new neurological issues. Objective - Vital Signs Vital signs: Vital Signs Temp 98.6 F 04/02/23 08:05 Pulse 100 04/02/23 08:05 Resp 16 04/02/23 08:05 BP 112/68 04/02/23 08:05 Pulse Ox 94 L 04/02/23 08:47 FiO2 21 04/02/23 08:47 Intake & Output 04/01/23 04/02/23 04/02/23 18:59 06:59 18:59 Intake Total 354 500 240 Balance 354 500 240 Intake: Oral 354 500 240 Other: Voiding Method Toilet Toilet # Voids 3 1 # Bowel Movements 2 - Exam General: Sitting in a recliner chair and is not in acute distress. Neuro: The patient is awake,alert, oriented to self, place and time. Is following simple commands and no aphasia or neglect. Pupils are round, equal and reactive to light (pupils are 3mm). VFF to confrontation. EOM in intact and no nystagmus. Normal facial sensation. No facial weakness. No dysarthria. Severely hard of hearing bilaterally to hand rub. Tongue is midline and moves side to side without difficulty. Motor: Gait is using her walker and not swaying towards right or left. Stregnth: 5/5 throughout. Has moderate to significant edema in lowers extremities. Normal tone. Sensation: Normal to touch throughout. Reflex: 1+ throughout. Plantars are mute bilaterally. Some of the work-up during this hospital visit consisted of: Orthostatic vitals: Supine blood pressure is 162/66 with a heart rate of 86, sitting is 157/73 with a heart rate of 87 and standing is 125/75 with a heart rate of 97. afebrile. ESR: 74, CRP 1.0 Wbc normal twice. TSH: 3.030 Rbc folate: 994 CT head is reported as no acute intracranial abnormality seen. - Labs CBC & Chem 7: 04/01/23 09:57 04/02/23 03:58 Labs: Abnormal Lab Results - Last 24 Hours (Table) 04/01/23 04/01/23 04/02/23 Range/Units 09:57 11:51 03:58 ESR 74 H (0-30) mm/Hr Sodium (135-145) mmol/L BUN (9.0-27.0) mg/dL Creatinine (0.6-1.5) mg/dL Est GFR (CKD-EPI) (>=60) POC Glucose (mg/dL) 114 H (70-110) mg/dL C-Reactive Protein (0.00-0.80) mg/dL RBC Folate 994 H (280 - 791) ng/mL 04/02/23 Range/Units 03:58 ESR (0-30) mm/Hr Sodium 130 L (135-145) mmol/L BUN 32.1 H (9.0-27.0) mg/dL Creatinine 2.0 H (0.6-1.5) mg/dL Est GFR (CKD-EPI) 25 L (>=60) POC Glucose (mg/dL) (70-110) mg/dL C-Reactive Protein 1.00 H (0.00-0.80) mg/dL RBC Folate (280 - 791) ng/mL Assessment and Plan Assessment: This is a 77 y/o woman with new onset headache that is recurrent and is short lasting a minute or less, with chronic tinnintus, hearing loss. Also feel light headed with standing up. New Cephalgia for the past 3-4 weeks with elevated ESR (74): Unsure exact etiology. Unsure if ESR is related with headache and patient has underlying vasculitis leading to headache. Positive orthostatic hypotension and that is likely giving her light-headedness Chronic tinnitus with severe hearing loss: Pending hearing aids. History of atrial fibrillation s/p ablation in 2020 and is on eliquis DM Diabetic neuropathy Plan: MRI Brain, MRA head and neck are pending. Will wait for the imaging above. Rule out other infection process leading to elevated ESR. I ordered DALILA, HSV1/2 PCR, ANCA, HIV, VZV, Lyme testing, Hepatitis panel and syphilis EIA. I will consider starting steroids and consider vessel biopsy (such as temporal artery) depending on imaging above. Will defer the management of orthostatic vitals to the primary team. Pending Vitamin B12. Continue neuro checks. Will defer the rest of medical management to primary team. The plan is discussed with patient and primary team N.P. Time with Patient: Less than 30
--- NOTE | 2023-04-02 14:26 | MR ---
EXAMINATION TYPE: MR angio head wo con DATE OF EXAM: 04/02/2023 1:29 PM CLINICAL INDICATION:Female, 77 years old with history of headache, dizzy; Headache, dizziness. COMPARISON: 03/31/2023 Technical: 3-D [id number] Axial with MIP reconstruction created on a separate workstation.. IV Contrast: None Findings: Vertebral arteries: The vertebral arteries are patent. Vertebral arteries are: Codominant. Basilar artery: The basilar artery is intact. The basilar artery bifurcation is normal. Internal Carotid arteries: The cervical, petrous, cavernous and supraclinoid segments are normal. ALDO: Patent with no evidence of aneurysm. ACOM: Present without evidence of aneurysm. MCA: Patent with no evidence of aneurysm. MINING CONSULTANT: Patent with no evidence of aneurysm. PCOM: Hypoplastic bilaterally. A vessel is seen entering the internal auditory canals bilaterally Type III vascular loop on the righ t an type II on the left. IMPRESSION: 1. No evidence of aneurysm or significant stenosis. 2. Type III vascular loop on the right an type II on the left.
--- NOTE | 2023-04-02 14:26 | MR ---
EXAMINATION TYPE: MR brain wo/w mra neck wo/wcon DATE OF EXAM: 04/02/2023 1:29 PM CLINICAL INDICATION:Female, 77 years old with history of dizzy, headache; Headache, dizziness. COMPARISON: CT 03/31/2023. Technical: MRA brain: 2D and 3-D [id number] Axial with MIP and 3-D reconstruction. Performed on a separate w orkstation. MRA neck: Multiplanar, multi-sequence imaging as well as [id number] and phase was performed extra cranial vasculature of the neck. 3-D reformatted images and maximum intensity projection reformatted images were submitted for evaluation, these are performed on a separate workstation. IV Contrast: 8.5 cc Gadavist Findings: Multiple falx lipomas are noted. The corpus callosum appears well-formed. The nieto-white junctions, ventricular system, and cisterns appear unremarkable. Scattered foci of hi gh T2 signal intensity are seen within the periventricular white matter. Midline structures show no a bnormality. Diffusion-weighted imaging shows no evidence of restricted diffusion. Susceptibility delma fact in the right caudate nucleus as well as the right temporal lobe compatible with microhemorrhage. Blooming artifact is seen within the sulci of the cerebral hemispheres as well as the bilateral cere bellar hemispheres. Right temporal lobe developmental venous anomaly. The bone marrow signal is within normal limits. Paranasal sinuses and mastoid air cells: Mild right posterior ethmoid air cells mucosal thickening. Visualized orbits: Bilaterally aphakia. RIGHT CAROTID SYSTEM: The common carotid artery is patent. The carotid bifurcations demonstrates no e vidence for hemodynamically significant stenosis. The internal carotid artery is patent. LEFT CAROTID SYSTEM: The common carotid artery is patent. The carotid bifurcations demonstrates no e vidence for hemodynamically significant stenosis. The internal carotid artery is patent. The origins of the great vessels and vertebral arteries appear unremarkable. The vertebral arteries a re codominant. IMPRESSION: 1. No evidence of intracranial aneurysm or significant stenosis. 2. 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 3. No evidence of significant stenosis at the carotid bifurcations. The carotid and vertebral arteri es are patent. 4. No evidence aneurysm. 5. No evidence of intracranial mass or acute/subacute infarct. 6. Nonspecific white matter changes, likely secondary to small vessel ischemic disease.
[2023-04-02 17:00] LABS: Appearance,Urine Clear (Clear); Bilirubin,Urine Negative (Negative); Blood,Urine Negative (Negative); Glucose,Urine (UA) 3+ (Negative); Ketones,Urine Negative (Negative); Leukocyte Esterase,Urine Negative (Negative); Nitrite,Urine Negative (Negative); Protein,Urine Negative (Negative); Specific Gravity,Urine 1.017 (1.001-1.035); Urobilinogen,Urine <2.0 mg/dL (<2.0)
[2023-04-02 17:21] LABS: Color,Urine Yellow
[2023-04-02] MEDS: ATORVASTATIN 20 MG TAB PO SCH (20:37)
--- NOTE | 2023-04-02 21:40 | P.CONS ---
History of Present Illness - Reason for Consult Consult date: 04/02/23 - History of Present Illness Patient is 77-year-old female with a past medical history pain for diabetes mellitus hypertension osteoarthritis renal disease presented to the hospital 2 days ago for evaluation of headache and dizziness symptom has been going on for the last few days to weeks patient complaining of mostly headache to the frontal area describing it to be throbbing and sharp in intensity can be almost out of 10 somewhat relieved with the pain medication denies having any visual disturbance patient denies having any nausea no vomiting no abdominal pain or any diarrhea no burning or frequency urine patient also have bilateral lower extremity ulcers currently in the outpatient setting noticed to have increasing swelling redness especially to the right lower extremity patient reports additional hospital was afebrile and no fever has been recorded subsequently patient was not tachycardic hypotensive or hypoxic did have a normal white count of 5.2 BUN/creatinine has been mildly elevated liver enzymes are normal CRP is 1.0 sed rate was 74 that has prompted this infectious disease consultation possible UTI however UA has been negative patient did have a CT of the brain that was negative for any bleed chest x-ray cardiomegaly without evidence for acute process, also have a MRI of the brain no evidence of intracranial aneurysm no intracranial mass acute or subacute infarct Past Medical History Past Medical History: Cancer, Diabetes Mellitus, Eye Disorder, Hypertension, Osteoarthritis (OA), Renal Disease Additional Past Medical History / Comment(s): hx cervical cancer(sx and radiation), hx GOUT,controlled, colitis, macular degeneration both eyes.SEE DR BRITTON'S HISTORY AND PHYSICAL FOR CARDIAC HISTORY, RENAL DISEASE-STAGE 3 History of Any Multi-Drug Resistant Organisms: None Reported Past Surgical History: Hysterectomy, Joint Replacement, Orthopedic Surgery Additional Past Surgical History / Comment(s): APPLE cataracts, rt knee arthroscopy, neck fusion at C4-C5, C5-C6, C6-C7 corpectomy, apple CARPAL TUNNEL, cardioversion ,colonoscopy ,bilateral tubal ligation, right hip replacement, rt hand cyst removed Past Anesthesia/Blood Transfusion Reactions: Previous Problems w/ Anesthesia, Postoperative Nausea & Vomiting (PONV) Additional Past Anesthesia/Blood Transfusion Reaction / Comm: "stopped breathing with procedure done by Dr Britton", hard time coming out, told she was "lightweight" Past Psychological History: No Psychological Hx Reported Smoking Status: Never smoker Past Alcohol Use History: None Reported Past Drug Use History: None Reported - Past Family History Brother(s) Family Medical History: Cancer Additional Family Medical History / Comment(s): Patient has a total of 5 brothers. one survivor of colon cancer, one is alive at age 67 with lymphoma. 3 brothers have no major medical problems. Father Family Medical History: Pulmonary Embolus Additional Family Medical History / Comment(s): Father in his 80s from coronary artery disease with history of pulmonary embolus. Mother Family Medical History: Hypertension Additional Family Medical History / Comment(s): Mother at age 93 from dementia with history of hypertension. Daughter(s) Family Medical History: No Reported History Additional Family Medical History / Comment(s): Patient has one daughter with no major medical problems. Son(s) Family Medical History: No Reported History Additional Family Medical History / Comment(s): Patient has 2 sons and one has history of atrial fibrillation and one has history of stent. Medications and Allergies Home Medications Medication Instructions Recorded Confirmed Type Dexlansoprazole [Dexilant] 60 mg PO DAILY 04/01/16 03/31/23 History Apixaban [Eliquis] 5 mg PO BID 10/12/16 03/31/23 History Atorvastatin [Lipitor] 20 mg PO HS 11/25/18 03/31/23 History Levothyroxine Sodium [Synthroid] 50 mcg PO DAILY 03/26/23 03/31/23 History Vit C/E/Zn/Coppr/Lutein/Zeaxan 1 cap PO BID 03/26/23 03/31/23 History [Preservision Areds 2 Softgel] allopurinoL [Zyloprim] 300 mg PO Q48H 03/26/23 03/31/23 History Bumetanide [BUMEX] 1 mg PO DAILY #30 tab 03/27/23 03/31/23 Rx Dapagliflozin Propanediol [Farxiga] 10 mg PO DAILY #30 tab 03/27/23 03/31/23 Rx NIFEdipine XL [Procardia XL] 30 mg PO DAILY #30 tab 03/27/23 03/31/23 Rx Allergies Allergy/AdvReac Type Severity Reaction Status Date / Time Iodinated Contrast Media Allergy Rash/Hives Verified 03/31/23 20:44 [Iodinated Contrast Media - IV Dye] Penicillins Allergy Rash/Hives Verified 03/31/23 20:44 Sulfa (Sulfonamide Allergy Rash/Hives Verified 03/31/23 20:44 Antibiotics) Physical Exam Vitals: Vital Signs Temp Pulse Resp BP Pulse Ox FiO2 04/02/23 08:47 94 L 21 04/02/23 08:05 98.6 F 100 16 112/68 97 04/02/23 00:53 98.3 F 112 H 16 116/52 95 04/01/23 19:16 98.1 F 101 H 16 157/52 97 Intake and Output 04/01/23 04/02/23 04/02/23 22:59 06:59 14:59 Intake Total 618 240 Balance 618 240 Intake: Oral 618 240 Other: Voiding Method Toilet Toilet # Voids 3 1 Results CBC & Chem 7: 04/01/23 09:57 04/02/23 03:58 Labs: Abnormal Lab Results - Last 24 Hours (Table) 04/01/23 04/02/23 04/02/23 Range/Units 09:57 03:58 03:58 ESR 74 H (0-30) mm/Hr Sodium 130 L (135-145) mmol/L BUN 32.1 H (9.0-27.0) mg/dL Creatinine 2.0 H (0.6-1.5) mg/dL Est GFR (CKD-EPI) 25 L (>=60) C-Reactive Protein 1.00 H (0.00-0.80) mg/dL RBC Folate 994 H (280 - 791) ng/mL Assessment and Plan Plan: 1-patient did have elevated sed rate which is likely nonspecific concerning for predominant symptom of headache underlying temporal arteritis need to be considered and may benefit from temporal artery biopsy this was discussed with the neurologist. 2patient also have a bilateral lower extremity venous results are concerning for mild cellulitis likely from gram-positive skin khadijah 3patient with multiple antibiotic allergies that would limit the number of antibiotics safe to use 4local wound care with a dry Aquacel silver dressing followed by Maurilio wrap from just about through to be of the knee change every 48 hours discussed with the nursing staff 5we will empirically start patient on cefazolin 2 g every 8 hours We will follow on clinical condition and cultures to further adjust medication if needed Thank you for this consultation we will follow the patient along with you Dictation was produced using dragon dictation software. please excuse any grammatical, word or spelling errors. Time with Patient: Greater than 30
[2023-04-03] MEDS: ACETAMINOPHEN TAB 325 MG TAB PO PRN ×3 (01:44→20:59)
[2023-04-03] MEDS: LEVOTHYROXINE 50 MCG TAB PO SCH (06:17)
[2023-04-03] MEDS: APIXABAN 5 MG TAB PO SCH ×2 (10:37→20:59)
[2023-04-03] MEDS: PANTOPRAZOLE 40 MG TABLET PO SCH (10:37)
[2023-04-03] MEDS: NIFEdipine XL 30 MG TAB.ER.24 PO SCH (10:37)
[2023-04-03] MEDS: LORATADINE 10 MG TAB PO SCH (10:38)
--- NOTE | 2023-04-03 11:01 | P.NPCON ---
History of Present Illness - Reason for Consult acute renal failure, chronic renal failure - History of Present Illness Reason for consultation: Acute kidney injury on chronic kidney disease History of present illness: Patient is a 77-year-old female seen in consultation for acute kidney injury on chronic kidney disease. Patient has chronic kidney disease stage IIIB with baseline creatinine near 1.5. Creatinine was up to 2.0 yesterday. Patient came to the hospital on 03/31/2023 due to intermittent headaches. Patient describes the headache as pressure-like and mostly in the frontal area. She denies syncopal episodes area she admits to occasional dizziness. Patient states there is no pattern a for headaches. She's being followed by neurology. She underwent MRI of the brain which showed no evidence of intracranial aneurysm or stenosis. No acute mass or infarcts noted. Temporal artery biopsy is being considered. Patient does have edema in the lower extremities. Lower extremity is wrapped. Her ejection fraction is 35-40%. She is also on antibiotics for lower extremity cellulitis. No vomiting or diarrhea. Oral intake is good. Admits to good urine output. No gross hematuria. No chest pain or shortness of breath. She does have history of diabetes. Also has history of mitral valve replacement. Denies use of nonsteroidals. Vital signs are stable. General: The patient appeared well nourished and normally developed. HEENT: Head exam is unremarkable. LUNGS: No audible rhonchi or wheezes. HEART: Rate and Rhythm are regular. ABDOMEN: Nontender, obese. EXTREMITITES: Lower extremities wrapped. 1+ edema. Past Medical History Past Medical History: Cancer, Diabetes Mellitus, Eye Disorder, Hypertension, Osteoarthritis (OA), Renal Disease Additional Past Medical History / Comment(s): hx cervical cancer(sx and radiation), hx GOUT,controlled, colitis, macular degeneration both eyes.SEE DR BRITTON'S HISTORY AND PHYSICAL FOR CARDIAC HISTORY, RENAL DISEASE-STAGE 3 History of Any Multi-Drug Resistant Organisms: None Reported Past Surgical History: Hysterectomy, Joint Replacement, Orthopedic Surgery Additional Past Surgical History / Comment(s): APPLE cataracts, rt knee arthroscopy, neck fusion at C4-C5, C5-C6, C6-C7 corpectomy, apple CARPAL TUNNEL, cardioversion ,colonoscopy ,bilateral tubal ligation, right hip replacement, rt hand cyst removed Past Anesthesia/Blood Transfusion Reactions: Previous Problems w/ Anesthesia, Postoperative Nausea & Vomiting (PONV) Additional Past Anesthesia/Blood Transfusion Reaction / Comment(s): "stopped breathing with procedure done by Dr Britton", hard time coming out, told she was "lightweight" Past Psychological History: No Psychological Hx Reported Smoking Status: Never smoker Past Alcohol Use History: None Reported Past Drug Use History: None Reported - Past Family History Brother(s) Family Medical History: Cancer Additional Family Medical History / Comment(s): Patient has a total of 5 brothers. one survivor of colon cancer, one is alive at age 67 with lymphoma. 3 brothers have no major medical problems. Father Family Medical History: Pulmonary Embolus Additional Family Medical History / Comment(s): Father in his 80s from coronary artery disease with history of pulmonary embolus. Mother Family Medical History: Hypertension Additional Family Medical History / Comment(s): Mother at age 93 from dementia with history of hypertension. Daughter(s) Family Medical History: No Reported History Additional Family Medical History / Comment(s): Patient has one daughter with no major medical problems. Son(s) Family Medical History: No Reported History Additional Family Medical History / Comment(s): Patient has 2 sons and one has history of atrial fibrillation and one has history of stent. Medications and Allergies Home Medications Medication Instructions Recorded Confirmed Type Dexlansoprazole [Dexilant] 60 mg PO DAILY 04/01/16 03/31/23 History Apixaban [Eliquis] 5 mg PO BID 10/12/16 03/31/23 History Atorvastatin [Lipitor] 20 mg PO HS 11/25/18 03/31/23 History Levothyroxine Sodium [Synthroid] 50 mcg PO DAILY 03/26/23 03/31/23 History Vit C/E/Zn/Coppr/Lutein/Zeaxan 1 cap PO BID 03/26/23 03/31/23 History [Preservision Areds 2 Softgel] allopurinoL [Zyloprim] 300 mg PO Q48H 03/26/23 03/31/23 History Bumetanide [BUMEX] 1 mg PO DAILY #30 tab 03/27/23 03/31/23 Rx Dapagliflozin Propanediol [Farxiga] 10 mg PO DAILY #30 tab 03/27/23 03/31/23 Rx NIFEdipine XL [Procardia XL] 30 mg PO DAILY #30 tab 03/27/23 03/31/23 Rx Allergies Allergy/AdvReac Type Severity Reaction Status Date / Time Iodinated Contrast Media Allergy Rash/Hives Verified 03/31/23 20:44 [Iodinated Contrast Media - IV Dye] Penicillins Allergy Rash/Hives Verified 03/31/23 20:44 Sulfa (Sulfonamide Allergy Rash/Hives Verified 03/31/23 20:44 Antibiotics) Physical Exam Vitals: Vital Signs Temp Pulse Resp BP BP Pulse Ox 04/03/23 07:30 97.5 F L 95 16 131/57 98 04/03/23 01:52 97.5 F L 97 16 160/71 97 04/02/23 20:00 16 04/02/23 19:20 97.6 F 87 16 124/64 98 04/02/23 15:30 98.2 F 91 16 132/71 99 Intake and Output 04/02/23 04/03/23 04/03/23 22:59 06:59 14:59 Intake Total 240 Balance 240 Intake: Oral 240 Other: Voiding Method Toilet # Voids 3 3 Results - Lab Results Most recent lab results Calcium 8.9 mg/dL (8.7-10.3) 04/02/23 03:58 04/01/23 09:57 04/02/23 03:58 Assessment and Plan Plan: Assessment: 1. Acute kidney injury secondary to vasomotor nephropathy from diuresis and slgt2i. Creatinine up to 2.0 yesterday. UA benign. 2. Chronic kidney disease stage IIIB with baseline creatinine near 1.5 secondary to nephrosclerosis. 3. Hypervolemic hyponatremia improved with diuresis. 4. Lower extremity cellulitis on antibiotics. 5. Acute on chronic systolic CHF with ejection fraction of 35-40%. 6. Diabetes mellitus. 7. Hypertension with chronic kidney disease. Standing blood pressures stable. 8. Anemia of chronic kidney disease. Rule out iron deficiency. 9. Episodic headaches. Being followed by neurology. 10. Lower extremity edema. Plan: Maintain farxiga. Hold Lasix. Low-salt diet and 1500 mL fluid restriction. Check iron studies. Avoid nephrotoxins. Continue to monitor renal function and urine output. Check plasma metanephrines. Thank you for the consultation. I will continue to follow the patient with you during her hospital stay.
[2023-04-03] MEDS: FLUTICASONE 50MCG/SPRAY NASAL 16GM EA NOSTRIL SCH (11:05)
[2023-04-03] MEDS: DAPAGLIFLOZIN PROPANEDIOL 10 MG TABLET PO SCH (11:26)
--- NOTE | 2023-04-03 11:26 | P.PN ---
Subjective Progress Note Date: 04/03/23 I am following-up seeing the patient and she is accompanied with her daughter who is at bedside. Per patient her headache are very mild and feel sharp, over the bilateral fronto/temporal and maxillary sinus region and sometime occipital region. Currently it is 2/10. Denies photophobia, phonophobia, nausea or vomiting. Denies visual disturbance, jaw pain or pain with chewing. Yesterday had brief episode of severe sharp pain 05/11. Denies any new neurological issues. Objective - Vital Signs Vital signs: Vital Signs Temp 97.5 F L 04/03/23 07:30 Pulse 95 04/03/23 07:30 Resp 16 04/03/23 07:30 BP 131/57 04/03/23 07:30 Pulse Ox 98 04/03/23 07:30 FiO2 21 04/02/23 08:47 Intake & Output 04/02/23 04/03/23 04/03/23 18:59 06:59 18:59 Intake Total 240 240 Balance 240 240 Intake: Oral 240 240 Other: Voiding Method Toilet Toilet # Voids 3 3 - Exam General: Sitting in a recliner chair and is not in acute distress. Neuro: The patient is awake,alert, oriented to self, place and time. Is following simple commands and no aphasia or neglect. Pupils are round, equal and reactive to light (pupils are 3mm). VFF to confrontation. EOM in intact and no nystagmus. Normal facial sensation. No facial weakness. No dysarthria. Severely hard of hearing bilaterally to hand rub. Tongue is midline and moves side to side without difficulty. Motor: Gait is using her walker and not swaying towards right or left. Stregnth: 5/5 throughout. Has moderate to significant edema in lowers extremities. Normal tone. Sensation: Normal to touch throughout. Reflex: 1+ throughout. Plantars are mute bilaterally. Some of the work-up during this hospital visit consisted of: Orthostatic vitals: Supine blood pressure is 162/66 with a heart rate of 86, sitting is 157/73 with a heart rate of 87 and standing is 125/75 with a heart rate of 97. afebrile. ESR: 74, CRP 1.0 Wbc normal twice. TSH: 3.030 Rbc folate: 994 B12: 1175 CT head is reported as no acute intracranial abnormality seen. MRI Brain and MRA neck: It is reported as no evidence of intracranial aneurysm or significant stenosis. 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 No evidence of significant stenosis at the carotid bifurcations. The carotid and vertebral arteries are patent. No evidence aneurysm. No evidence of intracranial mass or acute/subacute infarct. Nonspecific white ma tter changes, likely secondary to small vessel ischemic disease. MRA head: No evidence of aneurysm or significant stenosis. Type III vascular loop on the right an type II on the left. - Labs CBC & Chem 7: 04/01/23 09:57 04/02/23 03:58 Labs: Abnormal Lab Results - Last 24 Hours (Table) 04/01/23 04/02/23 Range/Units 09:57 16:27 Vitamin B12 1175.0 H (200.0-944.0) pg/mL Urine Glucose (UA) 3+ H (Negative) Assessment and Plan Assessment: This is a 77 y/o woman with new onset headache that is recurrent and is short lasting a minute or less, with chronic tinnintus, hearing loss. Her headaches are over the bilateral fronto,temporal and maxillary sinus that are short lasting, 1 minute, severe (10/10) and is sharp pain. Denies any visual disturbance or pain with jaw or chewing. Also feel light headed with standing up. New Cephalgia for the past 3-4 weeks with elevated ESR (74): Unsure exact etiology. Possible ?vasculitis leading to headache and unsure if primary BAIT TIER vasculitis or due to other condition. Patient denies any visual disturbance or jaw pain and I doubt this is giant cell arteritis. Positive orthostatic hypotension and that is likely giving her light-headedness Chronic tinnitus with severe hearing loss: Pending hearing aids. History of atrial fibrillation s/p ablation in 2020 and is on eliquis DM Diabetic neuropathy Plan: * MRI Brain and MRA neck: It is reported as no evidence of intracranial aneurysm or significant stenosis. 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 No evidence of significant stenosis at the carotid bifurcations. The carotid and vertebral arteries are patent. No evidence aneurysm. No evidence of intracranial mass or acute/subacute infarct. Nonspecific white matter changes, likely secondary to small vessel ischemic disease. * MRA head: No evidence of aneurysm or significant stenosis. Type III vascular loop on the right an type II on the left. * Rule out other infection process leading to elevated ESR. * Pending DALILA, HSV1/2 PCR, ANCA, HIV, VZV, Lyme testing, Hepatitis panel and syphilis EIA. * Consulted vascular surgery team for temporal artery biopsy. * Consider lumbar puncture down the line. * Patient wants to hold off steroid use for now since headache currently is 2/10 and wants to wait for lab testing result. * Will defer the management of orthostatic vitals to the primary team. * Continue neuro checks. * I.D. is on board. * Will defer the rest of medical management to primary team. The plan is discussed with patient, her daughter who is at bedside and her nurse. Dr. Roy will start neurology service tomorrow A.M. (04/04/2023) Time with Patient: Less than 30
[2023-04-03 11:44] LABS: African American GFR (CKD) 41 (>60 ml/min/1.73 sqM); Anion Gap 11 mmol/L; Blood Urea Nitrogen 39 mg/dL (7-17); Calcium 8.7 mg/dL (8.4-10.2); Carbon Dioxide 19 mmol/L (22-30); Chloride 100 mmol/L (98-107); Glucose 92 mg/dL (74-99); Non-African American GFR(CKD) 36 (>60 ml/min/1.73 sqM); Sodium 130 mmol/L (137-145)
--- NOTE | 2023-04-03 12:50 | P.GSCN ---
History of Present Illness Consult date: 04/03/23 History of present illness: Patient is a 77-year-old female with new onset of recent headaches for the past month or so. She describes them as in her front of her forehead and usually are relatively brief. He denies any visual changes, jaw pain or pain with chewing. She denies any nausea or vomiting. She denies anything like this previously. Past Medical History Past Medical History: Cancer, Diabetes Mellitus, Eye Disorder, Hypertension, Osteoarthritis (OA), Renal Disease Additional Past Medical History / Comment(s): hx cervical cancer(sx and radiation), hx GOUT,controlled, colitis, macular degeneration both eyes.SEE DR BRITTON'S HISTORY AND PHYSICAL FOR CARDIAC HISTORY, RENAL DISEASE-STAGE 3 History of Any Multi-Drug Resistant Organisms: None Reported Past Surgical History: Hysterectomy, Joint Replacement, Orthopedic Surgery Additional Past Surgical History / Comment(s): APPLE cataracts, rt knee arthroscopy, neck fusion at C4-C5, C5-C6, C6-C7 corpectomy, apple CARPAL TUNNEL, cardioversion ,colonoscopy ,bilateral tubal ligation, right hip replacement, rt hand cyst removed Past Anesthesia/Blood Transfusion Reactions: Previous Problems w/ Anesthesia, Postoperative Nausea & Vomiting (PONV) Additional Past Anesthesia/Blood Transfusion Reaction / Comm: "stopped breathing with procedure done by Dr Britton", hard time coming out, told she was "lightweight" Past Psychological History: No Psychological Hx Reported Smoking Status: Never smoker Past Alcohol Use History: None Reported Past Drug Use History: None Reported - Past Family History Brother(s) Family Medical History: Cancer Additional Family Medical History / Comment(s): Patient has a total of 5 brothers. one survivor of colon cancer, one is alive at age 67 with lymphoma. 3 brothers have no major medical problems. Father Family Medical History: Pulmonary Embolus Additional Family Medical History / Comment(s): Father in his 80s from coronary artery disease with history of pulmonary embolus. Mother Family Medical History: Hypertension Additional Family Medical History / Comment(s): Mother at age 93 from dementia with history of hypertension. Daughter(s) Family Medical History: No Reported History Additional Family Medical History / Comment(s): Patient has one daughter with no major medical problems. Son(s) Family Medical History: No Reported History Additional Family Medical History / Comment(s): Patient has 2 sons and one has history of atrial fibrillation and one has history of stent. Medications and Allergies Home Medications Medication Instructions Recorded Confirmed Type Dexlansoprazole [Dexilant] 60 mg PO DAILY 04/01/16 03/31/23 History Apixaban [Eliquis] 5 mg PO BID 10/12/16 03/31/23 History Atorvastatin [Lipitor] 20 mg PO HS 11/25/18 03/31/23 History Levothyroxine Sodium [Synthroid] 50 mcg PO DAILY 03/26/23 03/31/23 History Vit C/E/Zn/Coppr/Lutein/Zeaxan 1 cap PO BID 03/26/23 03/31/23 History [Preservision Areds 2 Softgel] allopurinoL [Zyloprim] 300 mg PO Q48H 03/26/23 03/31/23 History Bumetanide [BUMEX] 1 mg PO DAILY #30 tab 03/27/23 03/31/23 Rx Dapagliflozin Propanediol [Farxiga] 10 mg PO DAILY #30 tab 03/27/23 03/31/23 Rx NIFEdipine XL [Procardia XL] 30 mg PO DAILY #30 tab 03/27/23 03/31/23 Rx Allergies Allergy/AdvReac Type Severity Reaction Status Date / Time Iodinated Contrast Media Allergy Rash/Hives Verified 03/31/23 20:44 [Iodinated Contrast Media - IV Dye] Penicillins Allergy Rash/Hives Verified 03/31/23 20:44 Sulfa (Sulfonamide Allergy Rash/Hives Verified 03/31/23 20:44 Antibiotics) Surgical - Exam Vital Signs Pulse Resp BP Pulse Ox 85 16 120/66 99 03/31/23 15:11 03/31/23 15:11 03/31/23 15:11 03/31/23 15:11 Gen. is a pleasant cooperative female sitting in a chair in no acute distress. Lungs diminished but clear. Abdomen is soft. Extremities with bilateral lower extremity dressings in place. Cranial nerves II through XII grossly intact Results Elevated sed rate of 74, CRP 1.0. Imaging is reviewed, no significant abnormality on CT of the head. No carotid disease - Labs 04/01/23 09:57 04/03/23 10:57 Abnormal Lab Results - Last 24 Hours (Table) 04/01/23 04/02/23 04/03/23 Range/Units 09:57 16:27 10:57 Sodium 130 L (137-145) mmol/L Carbon Dioxide 19 L (22-30) mmol/L BUN 39 H (7-17) mg/dL Creatinine 1.42 H (0.52-1.04) mg/dL Vitamin B12 1175.0 H (200.0-944.0) pg/mL Urine Glucose (UA) 3+ H (Negative) Diabetes panel 04/03/23 Range/Units 10:57 Sodium 130 L (137-145) mmol/L Potassium 5.0 (3.5-5.1) mmol/L Chloride 100 (98-107) mmol/L Carbon Dioxide 19 L (22-30) mmol/L BUN 39 H (7-17) mg/dL Creatinine 1.42 H (0.52-1.04) mg/dL Glucose 92 (74-99) mg/dL Calcium 8.7 (8.4-10.2) mg/dL Calcium panel 04/03/23 Range/Units 10:57 Calcium 8.7 (8.4-10.2) mg/dL Pituitary panel 04/03/23 Range/Units 10:57 Sodium 130 L (137-145) mmol/L Potassium 5.0 (3.5-5.1) mmol/L Chloride 100 (98-107) mmol/L Carbon Dioxide 19 L (22-30) mmol/L BUN 39 H (7-17) mg/dL Creatinine 1.42 H (0.52-1.04) mg/dL Glucose 92 (74-99) mg/dL Calcium 8.7 (8.4-10.2) mg/dL Adrenal panel 04/03/23 Range/Units 10:57 Sodium 130 L (137-145) mmol/L Potassium 5.0 (3.5-5.1) mmol/L Chloride 100 (98-107) mmol/L Carbon Dioxide 19 L (22-30) mmol/L BUN 39 H (7-17) mg/dL Creatinine 1.42 H (0.52-1.04) mg/dL Glucose 92 (74-99) mg/dL Calcium 8.7 (8.4-10.2) mg/dL Assessment and Plan Assessment: Headache History of atrial fibrillation status post ablation Diabetes Diabetic neuropathy Elevated sed rate Plan: Long discussion had with the patient regarding the role of possible temporal artery biopsy. Discussed that at this point we'll hold off and wait for further neurologic workup and evaluation she does not have typical clinical presentation signs. We will plan for early in the week and continue with neurologic evaluation to see if other diagnostic can provide further information. This is discussed with neurology who is in agreement. Patient just one since to get done and over association get out of the hospital, discussed with her that this is the best course of action due to ruling out need for ongoing steroids. Hold anticoagulation Wednesday in anticipation of possible biopsy on Wednesday
[2023-04-03] MEDS: ATORVASTATIN 20 MG TAB PO SCH (20:59)
--- NOTE | 2023-04-03 21:16 | P.PN ---
Subjective Progress Note Date: 04/03/23 Principal diagnosis: Bilateral leg ulcer and cellulitis Patient is 77-year-old female with a past medical history pain for diabetes mellitus hypertension osteoarthritis renal disease presented to the hospital for evaluation of headache and dizziness, during work-up she was noted to have elevated sed rate patient also have a bilateral lower extremity ulcer and cellulitis. On today's evaluation that is 04/03/2023, the patient denies having any fever or any chills the patient is breathing comfortably still complaining of headache denies any nausea vomiting abdominal pain overall pain to the lower extremity has decreased intensity no drainage on the dressing. Patient did have a creatinine of 1.42 no CBC was done today UA is negative Objective - Vital Signs Vital signs: Vital Signs Temp 97.5 F L 04/03/23 07:30 Pulse 95 04/03/23 07:30 Resp 16 04/03/23 07:30 BP 131/57 04/03/23 07:30 Pulse Ox 98 04/03/23 07:30 FiO2 21 04/02/23 08:47 Intake & Output 04/02/23 04/03/23 04/03/23 18:59 06:59 18:59 Intake Total 240 240 Balance 240 240 Intake: Oral 240 240 Other: Voiding Method Toilet Toilet # Voids 3 3 - Exam GENERAL DESCRIPTION: Elderly female up in the chair in no distress RESPIRATORY SYSTEM: Unlabored breathing , decreased breath sounds at bases HEART: S1 S2 regular rate and rhythm ,no loud murmurs ABDOMEN: Soft , no tenderness EXTREMITIES: Bilateral lower extremity currently covered with Maurilio wrap no drainage on the dressing - Labs CBC & Chem 7: 04/01/23 09:57 04/03/23 10:57 Labs: Abnormal Lab Results - Last 24 Hours (Table) 04/01/23 04/02/23 Range/Units 09:57 16:27 Vitamin B12 1175.0 H (200.0-944.0) pg/mL Urine Glucose (UA) 3+ H (Negative) Assessment and Plan (1) Bilateral leg ulcer Current Visit: Yes Status: Acute Code(s): L97.919 - NON-PRS CHRONIC ULC UNSP PRT OF R LOW LEG W UNSP SEVERITY; L97.929 - NON-PRS CHRONIC ULC UNSP PRT OF L LOW LEG W UNSP SEVERITY SNOMED Code(s): 64327026 (2) Bilateral lower leg cellulitis Current Visit: Yes Status: Acute Code(s): L03.116 - CELLULITIS OF LEFT LOWER LIMB; L03.115 - CELLULITIS OF RIGHT LOWER LIMB SNOMED Code(s): 032111023 Plan: 1-patient did have elevated sed rate which is likely nonspecific concerning for predominant symptom of headache underlying temporal arteritis need to be considered and may benefit from temporal artery biopsy this was discussed with the neurologist. 2patient also have a bilateral lower extremity venous results are concerning for mild cellulitis likely from gram-positive skin khadijah 3patient with multiple antibiotic allergies that would limit the number of antibiotics safe to use 4local wound care with a dry Aquacel silver dressing followed by Maurilio wrap from just about through to be of the knee change every 48 hours discussed with the nursing staff 55patient to continue with cefazolin 2 g every 8 hours and monitor clinical course closely Dictation was produced using [employer] dictation software. please excuse any grammatical, word or spelling errors.
[2023-04-03] MEDS: SENNOSIDES 8.6 MG TAB PO SCH (21:25)
[2023-04-04] MEDS: ACETAMINOPHEN TAB 325 MG TAB PO PRN ×3 (00:45→20:57)
[2023-04-04] MEDS: LEVOTHYROXINE 50 MCG TAB PO SCH (05:25)
--- NOTE | 2023-04-04 08:13 | P.PN ---
Subjective Progress Note Date: 04/02/23 77-year-old female who follows with Dr. Berg outpatient. Patient has a history of diabetes mellitus, hypothyroidism, Hypertension, cervical cancer with surgery and radiation, chronic kidney disease stage III, paroxysmal atrial fibrillation with prior cardiac ablation followed by Dr. Britton. Patient reports to the hospital with complaints of 3 to 4 week history oheadache and dizziness. Headache is described as sharp behind the eyes and intermittent she has increased dizziness during episodes. She has also had tinnitus going on and muffled hearing. Has seen ENT outpatient and needs hearing aids bilaterally. Patient denies any history of migraine, no vision changes, no vertigo, no chest pain, no shortness of breath, no palpitations. No focal weakness. Patient has no prior history of stroke. She is also noting an elevation in her blood pressure during these episodes. She fell on Wednesday due to "lightheadedness" did not lose consciousness or hit her head. She states she got up from sitting and felt faint while walking and went to the floor. She was recently evaluated at [facility] and underwent more of a cardiac work up. She was also discharged from this hospital 1 week ago, she was treated for symptomatic bradycardia was taken off her betablocker and transitioned from lasix to bumex. EKG on admission shows sinus rhythm with occasional supraventricular premature complexes, rate of 90. Brain CT on admission shows no acute intracranial abnormality. Initial blood work shows a creatinine of 1.51, sodium level 125 potassium elevated at 5.2 and hemoglobin of 9.9. Blood pressure has been controlled this admission with a pressure of 120/66 on admission. Patient is maintained on eliquis 5 mg twice a day. Has peripheral edema with weeping and bullae that have opened up. Dressings to the lower extremity are saturated with serous drainage and she remains with pitting edema. Patient is admitted to the hospital under medicine with a consult placed to neurology. Objective - Vital Signs Vital signs: Vital Signs Temp 97.5 F L 04/03/23 07:30 Pulse 95 04/03/23 07:30 Resp 16 04/03/23 07:30 BP 131/57 04/03/23 07:30 Pulse Ox 98 04/03/23 07:30 FiO2 21 04/02/23 08:47 Intake & Output 04/02/23 04/03/23 04/03/23 18:59 06:59 18:59 Intake Total 240 240 Balance 240 240 Intake: Oral 240 240 Other: Voiding Method Toilet Toilet # Voids 3 3 - Exam GENERAL: The patient is alert and oriented x3, not in any acute distress. Well developed, well nourished. HEENT: Pupils are round and equally reacting to light. EOMI. No scleral icterus. No conjunctival pallor. Normocephalic, atraumatic. No pharyngeal erythema. No thyromegaly. CARDIOVASCULAR: S1 and S2 present. No murmurs, rubs, or gallops. PULMONARY: Chest is clear to auscultation, no wheezing or crackles. ABDOMEN: Soft, nontender, nondistended, normoactive bowel sounds. No palpable organomegaly. MUSCULOSKELETAL: No joint swelling or deformity. EXTREMITIES: No cyanosis, clubbing, Bilateral pedal and lower extremity edema +2 NEUROLOGICAL: Gross neurological examination did not reveal any focal deficits. Generalized weakness. SKIN: Inside of left browne has bullae that has opened up. Right leg has is weeping. - Labs CBC & Chem 7: 04/01/23 09:57 04/03/23 10:57 Labs: Abnormal Lab Results - Last 24 Hours (Table) 04/01/23 04/02/23 04/03/23 Range/Units 09:57 16:27 10:57 Sodium 130 L (137-145) mmol/L Carbon Dioxide 19 L (22-30) mmol/L BUN 39 H (7-17) mg/dL Creatinine 1.42 H (0.52-1.04) mg/dL Vitamin B12 1175.0 H (200.0-944.0) pg/mL Urine Glucose (UA) 3+ H (Negative) Assessment and Plan Assessment: Headache, new onset under investigation Dizziness/lightheadedness with fall on Wednesday likely due to orthostatic hypotension Peripheral edema and weeping ulcerations likely from the edema. Hyponatremia Recent admission for symptomatic bradycardia patient was taken off betablocker. History of atrial fibrillation with prior cardiac ablation anticoagulated with eliquis Chronic tinnitus and hearing loss seeing ENT outpatient Hypothyroidism Anemia Hx hypertension currently rate controlled Diabetes Mellitus type 2 Chronic kidney disease stage 3 Hx cervical cancer with surgery and radiation GI prophylaxis DVT prophylaxis Full Code Plan IV lasix x 1, cardiology consultation Check orthostatics Qshift Woundcare consultation for the lower extremity edema can continue with abd pad kerlex and jeny wrap for compression pending further recommendations Neurology following and recommending MRI and MRA head and neck this is pending B12, folate pending PT/OT consultation for possible rehab on discharge Recommend to repeat labs in the AM
--- NOTE | 2023-04-04 08:18 | P.PN ---
Subjective Progress Note Date: 04/03/23 77-year-old female who follows with Dr. Berg outpatient. Patient has a history of diabetes mellitus, hypothyroidism, Hypertension, cervical cancer with surgery and radiation, chronic kidney disease stage III, paroxysmal atrial fibrillation with prior cardiac ablation followed by Dr. Britton. Patient reports to the hospital with complaints of 3 to 4 week history oheadache and dizziness. Headache is described as sharp behind the eyes and intermittent she has increased dizziness during episodes. She has also had tinnitus going on and muffled hearing. Has seen ENT outpatient and needs hearing aids bilaterally. Patient denies any history of migraine, no vision changes, no vertigo, no chest pain, no shortness of breath, no palpitations. No focal weakness. Patient has no prior history of stroke. She is also noting an elevation in her blood pressure during these episodes. She fell on Wednesday due to "lightheadedness" did not lose consciousness or hit her head. She states she got up from sitting and felt faint while walking and went to the floor. She was recently evaluated at [facility] and underwent more of a cardiac work up. She was also discharged from this hospital 1 week ago, she was treated for symptomatic bradycardia was taken off her betablocker and transitioned from lasix to bumex. EKG on admission shows sinus rhythm with occasional supraventricular premature complexes, rate of 90. Brain CT on admission shows no acute intracranial abnormality. Initial blood work shows a creatinine of 1.51, sodium level 125 potassium elevated at 5.2 and hemoglobin of 9.9. Blood pressure has been controlled this admission with a pressure of 120/66 on admission. Patient is maintained on eliquis 5 mg twice a day. Has peripheral edema with weeping and bullae that have opened up. Dressings to the lower extremity are saturated with serous drainage and she remains with pitting edema. Patient is admitted to the hospital under medicine with a consult placed to neurology. 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 No evidence aneurysm. No evidence of intracranial mass or acute/subacute infarct. Nonspecific white matter changes, likely secondary to small vessel ischemic disease. Neurology on board; Rule out other infection process leading to elevated ESR. Pending DALILA, HSV1/2 PCR, ANCA, HIV, VZV, Lyme testing, Hepatitis panel and syphilis EIA. Consulted vascular surgery team for temporal artery biopsy. Consider lumbar puncture down the line. Patient wants to hold off steroid use for now Objective - Vital Signs Vital signs: Vital Signs Temp 97.5 F L 04/03/23 07:30 Pulse 95 04/03/23 07:30 Resp 16 04/03/23 07:30 BP 131/57 04/03/23 07:30 Pulse Ox 98 04/03/23 07:30 FiO2 21 04/02/23 08:47 Intake & Output 04/02/23 04/03/23 04/03/23 18:59 06:59 18:59 Intake Total 240 240 Balance 240 240 Intake: Oral 240 240 Other: Voiding Method Toilet Toilet # Voids 3 3 - Labs CBC & Chem 7: 04/01/23 09:57 04/03/23 10:57 Labs: Abnormal Lab Results - Last 24 Hours (Table) 04/01/23 04/02/23 04/03/23 Range/Units 09:57 16:27 10:57 Sodium 130 L (137-145) mmol/L Carbon Dioxide 19 L (22-30) mmol/L BUN 39 H (7-17) mg/dL Creatinine 1.42 H (0.52-1.04) mg/dL Vitamin B12 1175.0 H (200.0-944.0) pg/mL Urine Glucose (UA) 3+ H (Negative)
[2023-04-04 08:58] LABS: % Iron Saturation 5.88 (12.00-45.00); Ferritin 52.3 ng/mL (10.0-291.0)
[2023-04-04 08:59] LABS: Hepatitis A Antibody IgM Nonreactive; Hepatitis B Core IgM Nonreactive; Hepatitis B Surface Antigen Nonreactive; Hepatitis C IgG Antibody Nonreactive
[2023-04-04] MEDS: APIXABAN 5 MG TAB PO SCH ×2 (09:32→20:56)
[2023-04-04] MEDS: LORATADINE 10 MG TAB PO SCH (09:33)
[2023-04-04] MEDS: DAPAGLIFLOZIN PROPANEDIOL 10 MG TABLET PO SCH (09:33)
[2023-04-04] MEDS: SENNOSIDES 8.6 MG TAB PO SCH ×2 (09:33→20:57)
[2023-04-04] MEDS: PANTOPRAZOLE 40 MG TABLET PO SCH (09:33)
[2023-04-04] MEDS: NIFEdipine XL 30 MG TAB.ER.24 PO SCH (09:33)
[2023-04-04 10:11] LABS: BUN/Creat Ratio 19.25 Ratio (12.00-20.00); Blood Urea Nitrogen 30.8 mg/dL (9.0-27.0); Calcium 9.1 mg/dL (8.7-10.3); Carbon Dioxide 22.4 mmol/L (21.6-31.8); Chloride 99 mmol/L (96-109); Glucose 99 mg/dL (70-110); Potassium 4.7 mmol/L (3.5-5.5); Sodium 134 mmol/L (135-145)
[2023-04-04] MEDS: FLUTICASONE 50MCG/SPRAY NASAL 16GM EA NOSTRIL SCH (11:12)
--- NOTE | 2023-04-04 11:56 | P.PN ---
Subjective Patient is seen in follow-up for acute kidney injury on chronic kidney disease. Renal function stable. Good urine output. Hemodynamically stable. No vomiting or diarrhea. Vital signs are stable. General: No acute distress. HEENT: Head exam is unremarkable. LUNGS: No audible rhonchi or wheezes. HEART: Rate and Rhythm are regular. ABDOMEN: Nontender, obese. EXTREMITITES: 1+ edema. Lower exam it is wrapped. Objective - Vital Signs Vital signs: Vital Signs Temp 97.6 F 04/04/23 08:00 Pulse 89 04/04/23 08:00 Resp 18 04/04/23 08:00 BP 108/57 04/04/23 08:00 Pulse Ox 99 04/04/23 08:00 FiO2 21 04/02/23 08:47 Intake & Output 04/03/23 04/04/23 04/04/23 18:59 06:59 18:59 Intake Total 1311 50 480 Balance 1311 50 480 Intake: Intake, IV Titration 50 Amount ceFAZolin 2 gm In Sodium 50 Chloride 0.9% 50 ml @ 100 mls/hr IVPB Q12HR [facility] Rx #:[id number] Oral 1311 480 Other: Voiding Method Toilet # Voids 4 3 - Labs CBC & Chem 7: 04/01/23 09:57 04/04/23 06:58 Labs: Abnormal Lab Results - Last 24 Hours (Table) 04/03/23 04/04/23 Range/Units 17:20 06:58 Sodium 134 L (135-145) mmol/L Anion Gap 12.60 H (4.00-12.00) mmol/L BUN 30.8 H (9.0-27.0) mg/dL Creatinine 1.6 H (0.6-1.5) mg/dL Est GFR (CKD-EPI) 33 L (>=60) Iron 20 L (50-170) UG/DL % Saturation 5.88 L (12.00-45.00) Assessment and Plan Plan: Assessment: 1. Acute kidney injury secondary to vasomotor nephropathy from diuresis and slgt2i. Creatinine peaked at 2.0 this admission - 1.6 today. UA benign. 2. Chronic kidney disease stage IIIB with baseline creatinine near 1.5 secondary to nephrosclerosis. 3. Hypervolemic hyponatremia improved with diuresis. 4. Lower extremity cellulitis on antibiotics. 5. Acute on chronic systolic CHF with ejection fraction of 35-40%. 6. Diabetes mellitus. 7. Hypertension with chronic kidney disease. Controlled. 8. Anemia of chronic kidney disease. Iron deficiency noted. 9. Episodic headaches. Being followed by neurology. Improved. 10. Lower extremity edema. Plan: Resume Bumex at dose of 0.5 mg daily. Add IV iron. Low-salt diet and 1500 mL fluid restriction. Avoid nephrotoxins. Continue to monitor renal function and urine output. Follow-up plasma metanephrines.
[2023-04-04] MEDS: SODIUM FERRIC GLUCONAT-SUCROSE 125 MG in SODIUM CHLORIDE 0.9% 100 ML IVPB SCH (12:15)
--- NOTE | 2023-04-04 16:07 | P.PN ---
Subjective Progress Note Date: 04/04/23 Principal diagnosis: Bilateral leg ulcer and cellulitis Patient is 77-year-old female with a past medical history pain for diabetes mellitus hypertension osteoarthritis renal disease presented to the hospital for evaluation of headache and dizziness, during work-up she was noted to have elevated sed rate patient also have a bilateral lower extremity ulcer and cellulitis. On today's evaluation that is 04/04/2023, the patient remains to be, the patient is breathing comfortably on room air, the patient denies any nausea vomiting abdominal pain overall pain to the lower extremity has decreased intensity no drainage on the dressing. Patient did have a creatinine of 1.6 no CBC was done today UA is negative Objective - Vital Signs Vital signs: Vital Signs Temp 97.9 F 04/04/23 14:00 Pulse 95 04/04/23 14:00 Resp 16 04/04/23 14:00 BP 127/65 04/04/23 14:00 Pulse Ox 99 04/04/23 14:00 FiO2 21 04/02/23 08:47 Intake & Output 04/03/23 04/04/23 04/04/23 18:59 06:59 18:59 Intake Total 1311 50 598 Balance 1311 50 598 Intake: Intake, IV Titration 50 Amount ceFAZolin 2 gm In Sodium 50 Chloride 0.9% 50 ml @ 100 mls/hr IVPB Q12HR [facility] Rx #:[id number] Oral 1311 598 Other: Voiding Method Toilet # Voids 4 3 3 # Bowel Movements 1 - Exam GENERAL DESCRIPTION: Elderly female up in the chair in no distress RESPIRATORY SYSTEM: Unlabored breathing , decreased breath sounds at bases HEART: S1 S2 regular rate and rhythm ,no loud murmurs ABDOMEN: Soft , no tenderness EXTREMITIES: Bilateral lower extremity currently covered with Maurilio wrap no drainage on the dressing - Labs CBC & Chem 7: 04/01/23 09:57 04/04/23 06:58 Labs: Abnormal Lab Results - Last 24 Hours (Table) 04/03/23 04/04/23 Range/Units 17:20 06:58 Sodium 134 L (135-145) mmol/L Anion Gap 12.60 H (4.00-12.00) mmol/L BUN 30.8 H (9.0-27.0) mg/dL Creatinine 1.6 H (0.6-1.5) mg/dL Est GFR (CKD-EPI) 33 L (>=60) Iron 20 L (50-170) UG/DL % Saturation 5.88 L (12.00-45.00) Assessment and Plan (1) Bilateral leg ulcer Current Visit: Yes Status: Acute Code(s): L97.919 - NON-PRS CHRONIC ULC UNSP PRT OF R LOW LEG W UNSP SEVERITY; L97.929 - NON-PRS CHRONIC ULC UNSP PRT OF L LOW LEG W UNSP SEVERITY SNOMED Code(s): 34813063 (2) Bilateral lower leg cellulitis Current Visit: Yes Status: Acute Code(s): L03.116 - CELLULITIS OF LEFT LOWER LIMB; L03.115 - CELLULITIS OF RIGHT LOWER LIMB SNOMED Code(s): 960966170 Plan: 1-patient did have elevated sed rate which is likely nonspecific concerning for predominant symptom of headache underlying temporal arteritis need to be considered and may benefit from temporal artery biopsy this was discussed with the neurologist. 2patient also have a bilateral lower extremity venous results are concerning for mild cellulitis likely from gram-positive skin khadijah 3patient with multiple antibiotic allergies that would limit the number of antibiotics safe to use 4local wound care with a dry Aquacel silver dressing followed by Maurilio wrap from just about through to be of the knee change every 48 hours 5patient will continue with cefazolin 2 g every 8 hours and transition to oral Keflex on discharge Dictation was produced using [employer] dictation software. please excuse any grammatical, word or spelling errors. Time with Patient: Less than 30
--- NOTE | 2023-04-04 18:33 | P.PN ---
Subjective Progress Note Date: 04/04/23 77-year-old female who follows with Dr. Berg outpatient. Patient has a history of diabetes mellitus, hypothyroidism, Hypertension, cervical cancer with surgery and radiation, chronic kidney disease stage III, paroxysmal atrial fibrillation with prior cardiac ablation followed by Dr. Britton. Patient reports to the hospital with complaints of 3 to 4 week history oheadache and dizziness. Headache is described as sharp behind the eyes and intermittent she has increased dizziness during episodes. She has also had tinnitus going on and muffled hearing. Has seen ENT outpatient and needs hearing aids bilaterally. Patient denies any history of migraine, no vision changes, no vertigo, no chest pain, no shortness of breath, no palpitations. No focal weakness. Patient has no prior history of stroke. She is also noting an elevation in her blood pressure during these episodes. She fell on Wednesday due to "lightheadedness" did not lose consciousness or hit her head. She states she got up from sitting and felt faint while walking and went to the floor. She was recently evaluated at [facility] and underwent more of a cardiac work up. She was also discharged from this hospital 1 week ago, she was treated for symptomatic bradycardia was taken off her betablocker and transitioned from lasix to bumex. EKG on admission shows sinus rhythm with occasional supraventricular premature complexes, rate of 90. Brain CT on admission shows no acute intracranial abnormality. Initial blood work shows a creatinine of 1.51, sodium level 125 potassium elevated at 5.2 and hemoglobin of 9.9. Blood pressure has been controlled this admission with a pressure of 120/66 on admission. Patient is maintained on eliquis 5 mg twice a day. Has peripheral edema with weeping and bullae that have opened up. Dressings to the lower extremity are saturated with serous drainage and she remains with pitting edema. Patient is admitted to the hospital under medicine with a consult placed to neurology. 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 No evidence aneurysm. No evidence of intracranial mass or acute/subacute infarct. Nonspecific white matter changes, likely secondary to small vessel ischemic disease. Neurology on board; Rule out other infection process leading to elevated ESR. Pending DALILA, HSV1/2 PCR, ANCA, HIV, VZV, Lyme testing, Hepatitis panel and syphilis EIA. Consulted vascular surgery team for temporal artery biopsy. Consider lumbar puncture down the line. Patient wants to hold off steroid use for now 04/04/2023 Patient is seen sitting up in a bedside chair; continues to report headache at 02/08 We will signs are reviewed and remained stable Nephrology following for acute renal injury and recommending to continue Bumex at a dose of 0.5 mg daily; creatinine is improved to 1.6 this morning; low-salt and fluid restricted diet is in place - Nephrology adding IV iron supplement Neurology following for persistent headache; patient is scheduled for temporal artery biopsy on Wednesday Objective - Vital Signs Vital signs: Vital Signs Temp 97.3 F L 04/04/23 03:59 Pulse 87 04/04/23 03:59 Resp 16 04/04/23 03:59 BP 131/73 04/04/23 03:59 Pulse Ox 98 04/04/23 03:59 FiO2 21 04/02/23 08:47 Intake & Output 04/03/23 04/04/23 04/04/23 18:59 06:59 18:59 Intake Total 1311 50 Balance 1311 50 Intake: Intake, IV Titration 50 Amount ceFAZolin 2 gm In Sodium 50 Chloride 0.9% 50 ml @ 100 mls/hr IVPB Q12HR [facility] Rx #:[id number] Oral 1311 Other: Voiding Method Toilet # Voids 4 3 - Exam GENERAL: The patient is alert and oriented x3, not in any acute distress. Well developed, well nourished. HEENT: Pupils are round and equally reacting to light. EOMI. No scleral icterus. No conjunctival pallor. Normocephalic, atraumatic. No pharyngeal erythema. No thyromegaly. CARDIOVASCULAR: S1 and S2 present. No murmurs, rubs, or gallops. PULMONARY: Chest is clear to auscultation, no wheezing or crackles. ABDOMEN: Soft, nontender, nondistended, normoactive bowel sounds. No palpable organomegaly. MUSCULOSKELETAL: No joint swelling or deformity. EXTREMITIES: No cyanosis, clubbing, Bilateral pedal and lower extremity edema +2 NEUROLOGICAL: Gross neurological examination did not reveal any focal deficits. Generalized weakness. SKIN: Inside of left browne has bullae that has opened up. Right leg has is weeping. - Labs CBC & Chem 7: 04/01/23 09:57 04/04/23 06:58 Labs: Abnormal Lab Results - Last 24 Hours (Table) 04/03/23 Range/Units 10:57 Sodium 130 L (137-145) mmol/L Carbon Dioxide 19 L (22-30) mmol/L BUN 39 H (7-17) mg/dL Creatinine 1.42 H (0.52-1.04) mg/dL Assessment and Plan Assessment: Headache, new onset under investigation Dizziness/lightheadedness with fall on Wednesday likely due to orthostatic hypotension Peripheral edema and weeping ulcerations likely from the edema. Hyponatremia Recent admission for symptomatic bradycardia patient was taken off betablocker. History of atrial fibrillation with prior cardiac ablation anticoagulated with eliquis Chronic tinnitus and hearing loss seeing ENT outpatient Hypothyroidism Anemia Hx hypertension currently rate controlled Diabetes Mellitus type 2 Chronic kidney disease stage 3 Hx cervical cancer with surgery and radiation GI prophylaxis DVT prophylaxis Full Code Plan IV lasix x 1, cardiology consultation Check orthostatics Qshift Woundcare consultation for the lower extremity edema can continue with abd pad kerlex and jeny wrap for compression pending further recommendations Neurology following and recommending MRI and MRA head and neck this is pending B12, folate pending PT/OT consultation for possible rehab on discharge Recommend to repeat labs in the AM
[2023-04-04] MEDS: ATORVASTATIN 20 MG TAB PO SCH (20:56)
[2023-04-05] MEDS: ACETAMINOPHEN TAB 325 MG TAB PO PRN ×6 (01:19→21:57)
[2023-04-05 02:09] LABS: Glucose,Whole Blood 110 mg/dL (70-110)
[2023-04-05] MEDS: LEVOTHYROXINE 50 MCG TAB PO SCH (06:15)
[2023-04-05] MEDS: PANTOPRAZOLE 40 MG TABLET PO SCH (09:37)
[2023-04-05] MEDS: LORATADINE 10 MG TAB PO SCH (09:37)
[2023-04-05] MEDS: SENNOSIDES 8.6 MG TAB PO SCH ×2 (09:37→21:19)
[2023-04-05] MEDS: DAPAGLIFLOZIN PROPANEDIOL 10 MG TABLET PO SCH (09:37)
[2023-04-05] MEDS: BUMETANIDE 1 MG TAB PO SCH (09:37)
[2023-04-05] MEDS: NIFEdipine XL 30 MG TAB.ER.24 PO SCH (09:37)
[2023-04-05] MEDS: FLUTICASONE 50MCG/SPRAY NASAL 16GM EA NOSTRIL SCH (09:38)
[2023-04-05] MEDS: APIXABAN 5 MG TAB PO SCH ×2 (09:46→21:19)
[2023-04-05] MEDS: SODIUM FERRIC GLUCONAT-SUCROSE 125 MG in SODIUM CHLORIDE 0.9% 100 ML IVPB SCH (10:39)
--- NOTE | 2023-04-05 11:18 | P.PN ---
Subjective Progress Note Date: 04/04/23 Patient was initially seen by Dr. Josesito Rendon. Please refer to his note for details. Patient has presented with a couple week history of new onset headaches. The headache was occurring about couple times a day, would come and go lasting for an hour sometimes half an hour. Patient states the headaches are becoming more frequent, and lasting longer. Patient denies any light or noise sensitivity although she does feel nauseous but no vomiting. Patient denies any neck stiffness or neck pain. Patient has history of neck surgery in 2015 or 2016. Patient at present compatible is of headaches 7/10, involving bifrontal, by maxillary region and not in the eyes. She believes it is coming more frequen t. Patient could not tell how long the headache lasted today, but she thinks that it was off and on for around 8 hours, "maybe more", but she was not sure. Patient says that she does not have chronic headaches, is not a headache person. She denies any jaw claudication, any weight loss, fever or sweating. Patient states that this pain is going in the jaw and left ear occasionally. Patient is a 77-year-old female with new onset episodic headache for past 3-4 weeks, frontal temporal and maxillary sinus. ESR is elevated 74. Patient is scheduled for temporal artery biopsy. Objective - Vital Signs Vital signs: Vital Signs Temp 97.6 F 04/04/23 08:00 Pulse 89 04/04/23 08:00 Resp 18 04/04/23 08:00 BP 108/57 04/04/23 08:00 Pulse Ox 99 04/04/23 08:00 FiO2 21 04/02/23 08:47 Intake & Output 04/03/23 04/04/23 04/04/23 18:59 06:59 18:59 Intake Total 1311 50 480 Balance 1311 50 480 Intake: Intake, IV Titration 50 Amount ceFAZolin 2 gm In Sodium 50 Chloride 0.9% 50 ml @ 100 mls/hr IVPB Q12HR [facility] Rx #:[id number] Oral 1311 480 Other: Voiding Method Toilet # Voids 4 3 - Exam Patient is an elderly female, sitting in the recliner, and appears to be in no obvious distress. She does appear slightly flushed. Speech and language functions are normal. Patient is oriented 3. Pupils are equal, round and reactive to light, visual rosa are full on confrontation. Extraocular muscles are intact and no nystagmus. Facial sensation normal. No facial weakness, no dysarthria. Patient is hard of hearing bilaterally to hand rub. Muscle strength appears normal. Patient has moderate edema of bilateral lower extremities. Sensations are equal. - Labs CBC & Chem 7: 04/01/23 09:57 04/04/23 06:58 Labs: Abnormal Lab Results - Last 24 Hours (Table) 04/03/23 04/04/23 Range/Units 17:20 06:58 Sodium 134 L (135-145) mmol/L Anion Gap 12.60 H (4.00-12.00) mmol/L BUN 30.8 H (9.0-27.0) mg/dL Creatinine 1.6 H (0.6-1.5) mg/dL Est GFR (CKD-EPI) 33 L (>=60) Iron 20 L (50-170) UG/DL % Saturation 5.88 L (12.00-45.00) Assessment and Plan Assessment: This is a 77 y/o woman with new onset headache that is recurrent and is short lasting a minute or less, with chronic tinnintus, hearing loss. Her headaches are over the bilateral fronto,temporal and maxillary sinus that are short lasting, 1 minute, severe (10/10) and is sharp pain. Denies any visual disturbance or pain with jaw or chewing. Also feel light headed with standing up. Headache seems to be getting more frequent and longer duration, lasting up to 3 0-60 minutes now. New Cephalgia for the past 3-4 weeks with elevated ESR (74): Unsure exact etiology. Possible ?vasculitis leading to headache and unsure if primary GAME PROD[employer]ER vasculitis or due to other condition. Patient denies any visual disturbance or jaw pain and I doubt this is giant cell arteritis. Positive orthostatic hypotension and that is likely giving her light-headedness Chronic tinnitus with severe hearing loss: Pending hearing aids. History of atrial fibrillation s/p ablation in 2019 and is on eliquis DM Diabetic neuropathy Plan: * MRI Brain and MRA neck: It is reported as no evidence of intracranial aneurysm or significant stenosis. 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 No evidence of significant stenosis at the carotid bifurcations. The carotid and vertebral arteries are patent. No evidence aneurysm. No evidence of intracranial mass or acute/subacute infarct. Nonspecific white matter changes, likely secondary to small vessel ischemic disease. * MRA head: No evidence of aneurysm or significant stenosis. Type III vascular loop on the right an type II on the left. * Rheumatoid factor <15, RPR negative, hepatitis panel negative. Pending DALILA, HSV1/2 PCR, ANCA, HIV, VZV, Lyme testing, initially ESR 74, repeat ESR pending. CRP borderline 1.0, B12 1175, RBC folate 994 normal, TSH normal. * Consulted vascular surgery team for temporal artery biopsy. * Repeat ESR and CRP in the morning. * Consider lumbar puncture down the line. However patient is on Eliquis at this time. Infectious diseases on board, for bilateral lower extremity venous stasis concerning for mild cellulitis. Patient currently on cefazolin 2 g every 8 hours. * We will consider starting steroids, if repeat ESR is elevated. * Will defer the management of orthostatic vitals to the primary team. * Continue neuro checks. * Will defer the rest of medical management to primary team.
--- NOTE | 2023-04-05 11:22 | P.PN ---
Subjective Patient is seen in follow-up for acute kidney injury on chronic kidney disease. Renal function stable as of yesterday. Good urine output. Hemodynamically stable. No vomiting or diarrhea. Still getting intermittent headaches. Vital signs are stable. General: No acute distress. HEENT: Head exam is unremarkable. LUNGS: No audible rhonchi or wheezes. HEART: Rate and Rhythm are regular. ABDOMEN: Nontender, obese. EXTREMITITES: 1+ edema. Lower exam it is wrapped. Objective - Vital Signs Vital signs: Vital Signs Temp 97.6 F 04/05/23 07:45 Pulse 56 L 04/05/23 07:45 Resp 16 04/05/23 07:45 BP 137/55 04/05/23 07:45 Pulse Ox 95 04/05/23 07:45 FiO2 21 04/02/23 08:47 Intake & Output 04/04/23 04/05/23 04/05/23 18:59 06:59 18:59 Intake Total 838 118 Balance 838 118 Intake: Oral 838 118 Other: Voiding Method Toilet # Voids 3 2 # Bowel Movements 1 - Labs CBC & Chem 7: 04/01/23 09:57 04/04/23 06:58 Labs: Abnormal Lab Results - Last 24 Hours (Table) 04/04/23 Range/Units 06:58 ESR 74 H (0-30) mm/Hr Assessment and Plan Plan: Assessment: 1. Acute kidney injury secondary to vasomotor nephropathy from diuresis and slgt2i. Creatinine peaked at 2.0 this admission - 1.6 yesterday. UA benign. 2. Chronic kidney disease stage IIIB with baseline creatinine near 1.5 second slava to nephrosclerosis. 3. Hypervolemic hyponatremia improved with diuresis. 4. Lower extremity cellulitis on antibiotics. 5. Acute on chronic systolic CHF with ejection fraction of 35-40%. 6. Diabetes mellitus. 7. Hypertension with chronic kidney disease. Controlled. 8. Anemia of chronic kidney disease. Iron deficiency noted. 9. Episodic headaches. Being followed by neurology. Improved. 10. Lower extremity edema. Improved with diuresis. Plan: Maintain Bumex. Maintain IV iron. Low-salt diet and 1500 mL fluid restriction. Avoid nephrotoxins. Continue to monitor renal function and urine output. Follow-up plasma metanephrines. Temporal artery biopsy pending.
[2023-04-05 12:01] LABS: Glucose,Whole Blood 130 mg/dL (70-110)
--- NOTE | 2023-04-05 14:36 | P.PN ---
Subjective Progress Note Date: 04/05/23 04/05/2023: Patient was seen for a follow-up. Patient continues to have headaches, has it about 6 times since this morning, lasting for about 5 minutes. She rates her headache 8/10, pointing to above eyebrow bilaterally, on her cheek/zygomatic bone and sometimes extends to the jaw. She states yesterday she had about 20 times a headache. It is bilateral, therefore doubt trigeminal neuralgia. Patient states that it bothers her enough, that she feels like punching someone. No fever or chills. 04/04/2023: Patient was initially seen by Dr. Josesito Rendon. Please refer to his note for details. Patient has presented with a couple week history of new onset headaches. The headache was occurring about couple times a day, would come and go lasting for an hour sometimes half an hour. Patient states the headaches are becoming more frequent, and lasting longer. Patient denies any light or noise sensitivity although she does feel nauseous but no vomiting. Patient denies any neck stiffness or neck pain. Patient has history of neck surgery in 2015 or 2016. Patient at present compatible is of headaches 7/10, involving bifrontal, by maxillary region and not in the eyes. She believes it is coming more frequent. Patient could not tell how long the headache lasted today, but she thinks that it was off and on for around 8 hours, "maybe more", but she was not sure. Patient says that she does not have chronic headaches, is not a headache person. She denies any jaw claudication, any weight loss, fever or sweating. Patient states that this pain is going in the jaw and left ear occasionally. Patient is a 77-year-old female with new onset episodic headache for past 3-4 weeks, frontal temporal and maxillary sinus. ESR is elevated 74. Patient is scheduled for temporal artery biopsy. Objective - Vital Signs Vital signs: Vital Signs Temp 98.2 F 04/05/23 13:47 Pulse 98 04/05/23 13:47 Resp 16 04/05/23 13:47 BP 128/74 04/05/23 13:47 Pulse Ox 98 04/05/23 13:47 FiO2 21 04/02/23 08:47 Intake & Output 04/04/23 04/05/23 04/05/23 18:59 06:59 18:59 Intake Total 838 118 Balance 838 118 Intake: Oral 838 118 Other: Voiding Method Toilet # Voids 3 2 # Bowel Movements 1 - Exam Patient is an elderly female, sitting in the recliner, and appears to be in no obvious distress. She does appear slightly flushed. Speech and language functions are normal. Patient is oriented 3. Pupils are equal, round and reactive to light, visual rosa are full on confrontation. Extraocular muscles are intact and no nystagmus. Facial sensation normal. No facial weakness, no dysarthria. Patient is hard of hearing bilaterally to hand rub. Muscle strength appears normal. Patient has moderate edema of bilateral lower extremities. Sensations are equal. Patient is getting dressing for her wounds in her legs. - Labs CBC & Chem 7: 04/01/23 09:57 04/04/23 06:58 Labs: Abnormal Lab Results - Last 24 Hours (Table) 04/04/23 04/05/23 Range/Units 06:58 12:00 ESR 74 H (0-30) mm/Hr POC Glucose (mg/dL) 130 H (70-110) mg/dL Assessment and Plan Assessment: This is a 77 y/o woman with new onset headache that is recurrent and is short lasting a minute or less, with chronic tinnintus, hearing loss. Her headaches are over the bilateral fronto,temporal and maxillary sinus that are short lasting, 1 minute, severe (10/10) and is sharp pain. Denies any visual di sturbance or pain with jaw or chewing. Also feel light headed with standing up. Headache seems to be getting more frequent and longer duration, lasting up to 30-60 minutes now. New Cephalgia for the past 3-4 weeks with elevated ESR (74): Unsure exact etiology. 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 Patient denies any visual disturbance or jaw pain and I doubt this is giant cell arteritis. Positive orthostatic hypotension and that is likely giving her light-headedness Chronic tinnitus with severe hearing loss: Pending hearing aids. History of atrial fibrillation s/p ablation in 2019 and is on eliquis DM Diabetic neuropathy Plan: * MRI Brain and MRA neck: It is reported as no evidence of intracranial aneurysm or significant stenosis. 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 No evidence of significant stenosis at the carotid bifurcations. The carotid and vertebral arteries are patent. No evidence aneurysm. No evidence of intracranial mass or acute/subacute infarct. Nonspecific white matter changes, likely secondary to small vessel ischemic disease. * MRA head: No evidence of aneurysm or significant stenosis. Type III vascular loop on the right an type II on the left. * Rheumatoid factor <15, RPR negative, hepatitis panel negative. Pending DALILA, HSV1/2 PCR, ANCA, HIV, VZV, Lyme testing, initially ESR 74, repeat ESR pending. CRP borderline 1.0, B12 1175, RBC folate 994 normal, TSH normal. * Consulted vascular surgery team for temporal artery biopsy. * Repeat ESR is again 74 and CRP is pending. We will discuss with infectious disease to get clearance for starting steroids. * As the headache is not continuous(occurring intermittently), therefore do not believe signs of intracranial infection. Patient cannot have lumbar puncture also because of being on Eliquis. Infectious diseases on board, for bilateral lower extremity venous stasis concerning for mild cellulitis. Patient currently on cefazolin 2 g every 8 hours. * Will defer the management of orthostatic vitals to the primary team. * Will defer the rest of medical management to primary team. * Discussed with ID, and cleared for prednisone 60 mg daily. Will d/w PCP.
--- NOTE | 2023-04-05 16:50 | P.PN ---
Subjective Progress Note Date: 04/05/23 Patient seen and examined. Still having intermittent headaches Objective - Vital Signs Vital signs: Vital Signs Temp 98.2 F 04/05/23 13:47 Pulse 98 04/05/23 13:47 Resp 16 04/05/23 13:47 BP 128/74 04/05/23 13:47 Pulse Ox 98 04/05/23 13:47 FiO2 21 04/02/23 08:47 Intake & Output 04/04/23 04/05/23 04/05/23 18:59 06:59 18:59 Intake Total 838 118 Balance 838 118 Intake: Oral 838 118 Other: Voiding Method Toilet # Voids 3 2 # Bowel Movements 1 - Exam No acute distress in chair comfortably with legs elevated. HEENT is normocephalic, atraumatic. Heart appears irregular at this time. Lungs are clear. Abdomen soft. Bilateral lower extremities with mild edema and venous stasis ulcers appear clean based - Labs CBC & Chem 7: 04/01/23 09:57 04/04/23 06:58 Labs: Abnormal Lab Results - Last 24 Hours (Table) 04/04/23 04/05/23 Range/Units 06:58 12:00 ESR 74 H (0-30) mm/Hr POC Glucose (mg/dL) 130 H (70-110) mg/dL Assessment and Plan Assessment: Headache History of atrial fibrillation status post ablation Diabetes Diabetic neuropathy Elevated sed rate Plan: Continue workup and evaluation showing no significant findings are causation of headaches. Plan for temporal artery biopsy scheduled for Wednesday. Likely need to start steroids. Continue to hold anticoagulation.
[2023-04-05 17:09] LABS: Glucose,Whole Blood 132 mg/dL (70-110)
[2023-04-05] MEDS: ATORVASTATIN 20 MG TAB PO SCH (21:18)
[2023-04-05] MEDS ORDERED: DEXTROSE 50% SYRINGE 50 ML IVP PRN ×2 (22:50)
[2023-04-05] MEDS ORDERED: predniSONE 10 MG TAB PO SCH (23:00)
[2023-04-05] MEDS: predniSONE 20 MG TAB PO SCH (23:06)
[2023-04-06] MEDS: ACETAMINOPHEN TAB 325 MG TAB PO PRN ×4 (03:33→21:49)
[2023-04-06] MEDS: LEVOTHYROXINE 50 MCG TAB PO SCH (06:00)
[2023-04-06 06:03] LABS: Glucose,Whole Blood 161 mg/dL (70-110)
[2023-04-06] MEDS: INSULIN ASPART (NovoLOG) 100 UNIT/ML VIAL SQ SCH ×5 (06:06→21:38)
--- NOTE | 2023-04-06 06:23 | P.PN ---
Subjective Progress Note Date: 04/05/23 77-year-old female who follows with Dr. Berg outpatient. Patient has a history of diabetes mellitus, hypothyroidism, Hypertension, cervical cancer with surgery and radiation, chronic kidney disease stage III, paroxysmal atrial fibrillation with prior cardiac ablation followed by Dr. Britton. Patient reports to the hospital with complaints of 3 to 4 week history oheadache and dizziness. Headache is described as sharp behind the eyes and intermittent she has increased dizziness during episodes. She has also had tinnitus going on and muffled hearing. Has seen ENT outpatient and needs hearing aids bilaterally. Patient denies any history of migraine, no vision changes, no vertigo, no chest pain, no shortness of breath, no palpitations. No focal weakness. Patient has no prior history of stroke. She is also noting an elevation in her blood pressure during these episodes. She fell on Wednesday due to "lightheadedness" did not lose consciousness or hit her head. She states she got up from sitting and felt faint while walking and went to the floor. She was recently evaluated at [facility] and underwent more of a cardiac work up. She was also discharged from this hospital 1 week ago, she was treated for symptomatic bradycardia was taken off her betablocker and transitioned from lasix to bumex. EKG on admission shows sinus rhythm with occasional supraventricular premature complexes, rate of 90. Brain CT on admission shows no acute intracranial abnormality. Initial blood work shows a creatinine of 1.51, sodium level 125 potassium elevated at 5.2 and hemoglobin of 9.9. Blood pressure has been controlled this admission with a pressure of 120/66 on admission. Patient is maintained on eliquis 5 mg twice a day. Has peripheral edema with weeping and bullae that have opened up. Dressings to the lower extremity are saturated with serous drainage and she remains with pitting edema. Patient is admitted to the hospital under medicine with a consult placed to neurology. 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 No evidence aneurysm. No evidence of intracranial mass or acute/subacute infarct. Nonspecific white matter changes, likely secondary to small vessel ischemic disease. Neurology on board; Rule out other infection process leading to elevated ESR. Pending DALILA, HSV1/2 PCR, ANCA, HIV, VZV, Lyme testing, Hepatitis panel and syphilis EIA. Consulted vascular surgery team for temporal artery biopsy. Consider lumbar puncture down the line. Patient wants to hold off steroid use for now 04/04/2023 Patient is seen sitting up in a bedside chair; continues to report headache at 7/10 We will signs are reviewed and remained stable Nephrology following for acute renal injury and recommending to continue Bumex at a dose of 0.5 mg daily; creatinine is improved to 1.6 this morning; low-salt and fluid restricted diet is in place - Nephrology adding IV iron supplement Neurology following for persistent headache; patient is scheduled for temporal artery biopsy on Wednesday04/05/2023 Patient is seen and evaluated in follow-up today on full medical consultations following. Patient is continued on antibiotics with infectious disease following along with neurology and vascular surgery. Patient continues to have headaches and anticoagulation is on hold for tentatively scheduled temporal artery biopsy with vascular on Wednesday. Patient being started on oral prednisone after clearance of infectious disease. Patient is afebrile with no reports of chest pain or shortness of breath. Patient denies nausea or vomiting and is tolerating diet. Daughter at the bedside with questions and concerns were answered to the best of our ability., Reports intermittent headache multiple times throughout the day Review of systems: Constitutional: No reports of fatigue, fever, or chills, reporting continued headache Cardiovascular: No reports of chest pain or palpitations Respiratory: No reports of shortness of breath or cough GI: No reports of nausea, vomiting, or diarrhea : No reports of dysuria or retention Neurovascular: No reports of weakness or numbness All medications have been reviewed Physical exam: GENERAL: The patient is alert and oriented x3, obese. Well developed, well nourished. HEENT: Pupils are round and equally reacting to light. EOMI. No scleral icterus. No conjunctival pallor. Normocephalic, atraumatic. No pharyngeal erythema. No thyromegaly. CARDIOVASCULAR: S1 and S2 present. No murmurs, rubs, or gallops. PULMONARY: Breath sounds diminished bilaterally with no wheezing or crackles. ABDOMEN: Soft, nontender, nondistended, normoactive bowel sounds. No palpable organomegaly. MUSCULOSKELETAL: No joint swelling or deformity. EXTREMITIES: No cyanosis, clubbing, Bilateral pedal and lower extremity edema +2 NEUROLOGICAL: Gross neurological examination did not reveal any focal deficits. Generalized weakness. SKIN: Inside of left browne has bullae that has opened up. Right leg has is weeping. Assessment: Headache, new onset under investigation Dizziness/lightheadedness with fall on Wednesday likely due to orthostatic h ypotension Peripheral edema and weeping ulcerations likely from the edema. Hyponatremia Recent admission for symptomatic bradycardia patient was taken off betablocker. History of atrial fibrillation with prior cardiac ablation anticoagulated with eliquis Chronic tinnitus and hearing loss seeing ENT outpatient Hypothyroidism Anemia Hx hypertension Diabetes Mellitus type 2 Chronic kidney disease stage 3 Hx cervical cancer with surgery and radiation GI prophylaxis DVT prophylaxis Full Code Plan: Multiple medical consultations including cardiology, infectious disease, vascular surgery, neurology following undergoing workup with plans for temporal artery biopsy with vascular surgery Oral anticoagulant on hold Per vascular surgery and neurology recommendations patient being started on 60 mg of oral prednisone daily Check orthostatics Qshift Continue Woundcare for the lower extremity edema can continue with abd pad, kerlex and jeny wrap for compression pending further recommendations. Patient is continued on IV cefazolin with infectious disease following Will have PT/OT evaluate the patient for possible rehab on discharge Recommend to repeat labs in the AM The impression and plan of care has been dictated by Lisset Walters, Nurse Practitioner as directed. Dr. Gaby MD I have performed a history and examination and MDM of this patient, discussed the same with the dictator, and agree with the dictator's assessment and plan as written ,documented as a scribe. Based on total visit time, I have performed more than 50% of the visit. Objective - Vital Signs Vital signs: Vital Signs Temp 97.6 F 04/05/23 07:45 Pulse 56 L 04/05/23 07:45 Resp 16 04/05/23 07:45 BP 137/55 04/05/23 07:45 Pulse Ox 95 04/05/23 07:45 FiO2 21 04/02/23 08:47 Intake & Output 04/04/23 04/05/23 04/05/23 18:59 06:59 18:59 Intake Total 838 118 Balance 838 118 Intake: Oral 838 118 Other: Voiding Method Toilet # Voids 3 2 # Bowel Movements 1 - Labs CBC & Chem 7: 04/01/23 09:57 04/04/23 06:58 Labs: Abnormal Lab Results - Last 24 Hours (Table) 04/04/23 Range/Units 06:58 ESR 74 H (0-30) mm/Hr
--- NOTE | 2023-04-06 08:29 | P.PN ---
Subjective Progress Note Date: 04/06/23 Principal diagnosis: headache Patient seen and examined. Doing better today. Started on steroids yesterday. No other complaints. Objective - Vital Signs Vital signs: Vital Signs Temp 98.2 F 04/06/23 07:57 Pulse 115 H 04/06/23 07:57 Resp 20 04/06/23 07:57 BP 154/61 04/06/23 07:57 Pulse Ox 95 04/06/23 07:57 FiO2 21 04/02/23 08:47 Intake & Output 04/05/23 04/06/23 04/06/23 18:59 06:59 18:59 Intake Total 118 Balance 118 Intake: Oral 118 Other: Voiding Method Toilet # Voids 1 1 # Bowel Movements 2 - Exam NAD, A&Ox3 No tenderness at the scalp CTA Bilateral lower extremities with mild edema Venous stasis ulcers clean - Labs CBC & Chem 7: 04/01/23 09:57 04/04/23 06:58 Labs: Abnormal Lab Results - Last 24 Hours (Table) 04/04/23 04/05/23 04/05/23 Range/Units 06:58 12:00 17:07 ESR 74 H (0-30) mm/Hr POC Glucose (mg/dL) 130 H 132 H (70-110) mg/dL 04/06/23 Range/Units 06:02 ESR (0-30) mm/Hr POC Glucose (mg/dL) 161 H (70-110) mg/dL Assessment and Plan Assessment: Headache Possible Giant Cell Arteritis Diabetes History of Afib Plan: To OR tomorrow for temporal artery biopsy
[2023-04-06 08:43] LABS: HCT 28.7 % (37.2-46.3); HGB 8.6 d/dL (12.0-15.0); MCH 26.1 pg (27.0-32.0); Mean Platelet Volume 10.1 FL (9.5-12.2); NRBC Per 100 WBC 0 X 10*3/uL (0.00-0.01); Platelet Count 211 X 10*3/uL (140-440); RDW 19.4 % (11.5-14.5)
[2023-04-06 08:44] LABS: Basophils # (A) 0.01 X 10*3/uL (0.00-0.10); Basophils % (A) 0.1 %; Eosinophils # (A) 0.01 X 10*3/uL (0.04-0.35); Eosinophils % (A) 0.1 %; Lymphocytes # (A) 0.52 X 10*3/uL (0.90-5.00); Lymphocytes % (A) 7.5 %; Monocytes # (A) 0.08 X 10*3/uL (0.20-1.00); Monocytes % (A) 1.2 %; Neutrophils # (A) 6.25 X 10*3/uL (1.80-7.70); Neutrophils % (A) 90.7 %
[2023-04-06 08:48] LABS: Magnesium 2.2 mg/dL (1.5-2.4)
[2023-04-06 08:56] LABS: BUN/Creat Ratio 18.69 Ratio (12.00-20.00); Blood Urea Nitrogen 29.9 mg/dL (9.0-27.0); Calcium 9.1 mg/dL (8.7-10.3); Carbon Dioxide 22.3 mmol/L (21.6-31.8); Chloride 101 mmol/L (96-109); Glucose 157 mg/dL (70-110); Sodium 135 mmol/L (135-145)
[2023-04-06] MEDS: PANTOPRAZOLE 40 MG TABLET PO SCH (09:20)
[2023-04-06] MEDS: SENNOSIDES 8.6 MG TAB PO SCH ×2 (09:20→21:38)
[2023-04-06] MEDS: DAPAGLIFLOZIN PROPANEDIOL 10 MG TABLET PO SCH (09:20)
[2023-04-06] MEDS: predniSONE 20 MG TAB PO SCH (09:21)
[2023-04-06] MEDS: LORATADINE 10 MG TAB PO SCH (09:21)
[2023-04-06] MEDS: NIFEdipine XL 30 MG TAB.ER.24 PO SCH (09:21)
[2023-04-06] MEDS: BUMETANIDE 1 MG TAB PO SCH (09:21)
[2023-04-06] MEDS: FLUTICASONE 50MCG/SPRAY NASAL 16GM EA NOSTRIL SCH (09:21)
[2023-04-06] MEDS: SODIUM FERRIC GLUCONAT-SUCROSE 125 MG in SODIUM CHLORIDE 0.9% 100 ML IVPB SCH (10:17)
--- NOTE | 2023-04-06 10:19 | P.PN ---
Subjective Patient is seen in follow-up for acute kidney injury on chronic kidney disease. Renal function stable. Good urine output. Hemodynamically stable. No vomiting or diarrhea. Scheduled for temporal artery biopsy tomorrow. Vital signs are stable. General: No acute distress. HEENT: Head exam is unremarkable. LUNGS: No audible rhonchi or wheezes. HEART: Rate and Rhythm are regular. ABDOMEN: Nontender, obese. EXTREMITITES: 1+ edema. Objective - Vital Signs Vital signs: Vital Signs Temp 98.2 F 04/06/23 07:57 Pulse 115 H 04/06/23 07:57 Resp 20 04/06/23 07:57 BP 154/61 04/06/23 07:57 Pulse Ox 95 04/06/23 07:57 FiO2 21 04/02/23 08:47 Intake & Output 04/05/23 04/06/23 04/06/23 18:59 06:59 18:59 Intake Total 118 Balance 118 Intake: Oral 118 Other: Voiding Method Toilet # Voids 1 1 # Bowel Movements 2 - Labs CBC & Chem 7: 04/06/23 05:46 04/06/23 05:46 Labs: Abnormal Lab Results - Last 24 Hours (Table) 04/05/23 04/05/23 04/06/23 Range/Units 12:00 17:07 05:46 RBC (4.10-5.20) X 10*6/uL Hgb (12.0-15.0) d/dL Hct (37.2-46.3) % MCH (27.0-32.0) pg MCHC (32.0-37.0) d/dL RDW (11.5-14.5) % Lymphocytes # (0.90-5.00) X 10*3/uL Monocytes # (0.20-1.00) X 10*3/uL Eosinophils # (0.04-0.35) X 10*3/uL BUN 29.9 H (9.0-27.0) mg/dL Creatinine 1.6 H (0.6-1.5) mg/dL Est GFR (CKD-EPI) 33 L (>=60) Glucose 157 H (70-110) mg/dL POC Glucose (mg/dL) 130 H 132 H (70-110) mg/dL Hemoglobin A1c (<=6.0) % 04/06/23 04/06/23 04/06/23 Range/Units 05:46 05:46 06:02 RBC 3.30 L (4.10-5.20) X 10*6/uL Hgb 8.6 L (12.0-15.0) d/dL Hct 28.7 L (37.2-46.3) % MCH 26.1 L (27.0-32.0) pg MCHC 30.0 L (32.0-37.0) d/dL RDW 19.4 H (11.5-14.5) % Lymphocytes # 0.52 L (0.90-5.00) X 10*3/uL Monocytes # 0.08 L (0.20-1.00) X 10*3/uL Eosinophils # 0.01 L (0.04-0.35) X 10*3/uL BUN (9.0-27.0) mg/dL Creatinine (0.6-1.5) mg/dL Est GFR (CKD-EPI) (>=60) Glucose (70-110) mg/dL POC Glucose (mg/dL) 161 H (70-110) mg/dL Hemoglobin A1c 6.4 H (<=6.0) % Assessment and Plan Plan: Assessment: 1. Acute kidney injury secondary to vasomotor nephropathy from diuresis and slgt2i. Creatinine peaked at 2.0 this admission - stable at 1.6 today. UA benign. 2. Chronic kidney disease stage IIIB with baseline creatinine near 1.5 secondary to nephrosclerosis. 3. Hypervolemic hyponatremia improved with diuresis. 4. Lower extremity cellulitis on antibiotics. 5. Acute on chronic systolic CHF with ejection fraction of 35-40%. 6. Diabetes mellitus. 7. Hypertension with chronic kidney disease. 8. Anemia of chronic kidney disease. Iron deficiency noted. 9. Episodic headaches. Being followed by neurology. Temporal artery biopsy tomorrow. 10. Lower extremity edema. Improved with diuresis. Plan: Maintain Bumex. Maintain IV iron. Low-salt diet and 1500 mL fluid restriction. Avoid nephrotoxins. Continue to monitor renal function and urine output. Follow-up plasma metanephrines. Temporal artery biopsy pending.
[2023-04-06] MEDS ORDERED: NYSTAT-TRIAMCIN 100,000-0.1 UNIT/GM-% CREAM 30 GM TUBE TOPICAL SCH (11:45)
[2023-04-06 12:01] LABS: Glucose,Whole Blood 173 mg/dL (70-110)
[2023-04-06] MEDS: NYSTATIN 100,000UNIT/GM CREAM 30 GM TUBE TOPICAL SCH ×2 (12:29→21:38)
[2023-04-06] MEDS: TRIAMCINOLONE 0.1% CREAM 80 GM TUBE TOPICAL SCH ×2 (12:29→21:39)
--- NOTE | 2023-04-06 14:15 | P.PN ---
Subjective Progress Note Date: 04/06/23 04/06/2023: Patient was seen for a follow-up. Patient states she was started on steroids last night, and her headache has much improved. She had one episode last night at 10 PM. She received prednisone 60 mg after that. She slept well overnight. This morning she had a very brief headache, at present is 1/10. She feels over all her headache has much improved. Denies any side effect of prednisone. 04/05/2023: Patient was seen for a follow-up. Patient continues to have h eadaches, has it about 6 times since this morning, lasting for about 5 minutes. She rates her headache 8/10, pointing to above eyebrow bilaterally, on her cheek/zygomatic bone and sometimes extends to the jaw. She states yesterday she had about 20 times a headache. It is bilateral, therefore doubt trigeminal neuralgia. Patient states that it bothers her enough, that she feels like punching someone. No fever or chills. 04/04/2023: Patient was initially seen by Dr. Josesito Rendon. Please refer to his note for details. Patient has presented with a couple week history of new onset headaches. The headache was occurring about couple times a day, would come and go lasting for an hour sometimes half an hour. Patient states the headaches are becoming more frequent, and lasting longer. Patient denies any light or noise sensitivity although she does feel nauseous but no vomiting. Patient denies any neck stiffness or neck pain. Patient has history of neck surgery in 2015 or 2016. Patient at present compatible is of headaches 7/10, involving bifrontal, by maxillary region and not in the eyes. She believes it is coming more frequent. Patient could not tell how long the headache lasted today, but she thinks that it was off and on for around 8 hours, "maybe more", but she was not sure. Patient says that she does not have chronic headaches, is not a headache person. She denies any jaw claudication, any weight loss, fever or sweating. Patient states that this pain is going in the jaw and left ear occasionally. Patient is a 77-year-old female with new onset episodic headache for past 3-4 weeks, frontal temporal and maxillary sinus. ESR is elevated 74. Patient is scheduled for temporal artery biopsy. Objective - Vital Signs Vital signs: Vital Signs Temp 98.2 F 04/06/23 07:57 Pulse 115 H 04/06/23 07:57 Resp 20 04/06/23 07:57 BP 154/61 04/06/23 07:57 Pulse Ox 95 04/06/23 07:57 FiO2 21 04/02/23 08:47 Intake & Output 04/05/23 04/06/23 04/06/23 18:59 06:59 18:59 Intake Total 118 240 Balance 118 240 Intake: Oral 118 240 Other: Voiding Method Toilet # Voids 1 1 # Bowel Movements 2 - Exam Patient is an elderly female, sitting in the recliner, and appears to be in no obvious distress. She does appear slightly flushed. Speech and language functions are normal. Patient is oriented 3. Pupils are equal, round and reactive to light, visual rosa are full on confrontation. Extraocular muscles are intact and no nystagmus. Facial sensation normal. No facial weakness, no dysarthria. Patient is hard of hearing bilaterally to hand rub. Muscle strength appears normal. Patient has moderate edema of bilateral lower extremities. Sensations are equal. Patient is getting dressing for her wounds in her legs. - Labs CBC & Chem 7: 04/06/23 05:46 04/06/23 05:46 Labs: Abnormal Lab Results - Last 24 Hours (Table) 04/05/23 04/06/23 04/06/23 Range/Units 17:07 05:46 05:46 RBC 3.30 L (4.10-5.20) X 10*6/uL Hgb 8.6 L (12.0-15.0) d/dL Hct 28.7 L (37.2-46.3) % MCH 26.1 L (27.0-32.0) pg MCHC 30.0 L (32.0-37.0) d/dL RDW 19.4 H (11.5-14.5) % Lymphocytes # 0.52 L (0.90-5.00) X 10*3/uL Monocytes # 0.08 L (0.20-1.00) X 10*3/uL Eosinophils # 0.01 L (0.04-0.35) X 10*3/uL BUN 29.9 H (9.0-27.0) mg/dL Creatinine 1.6 H (0.6-1.5) mg/dL Est GFR (CKD-EPI) 33 L (>=60) Glucose 157 H (70-110) mg/dL POC Glucose (mg/dL) 132 H (70-110) mg/dL Hemoglobin A1c (<=6.0) % 04/06/23 04/06/23 04/06/23 Range/Units 05:46 06:02 11:49 RBC (4.10-5.20) X 10*6/uL Hgb (12.0-15.0) d/dL Hct (37.2-46.3) % MCH (27.0-32.0) pg MCHC (32.0-37.0) d/dL RDW (11.5-14.5) % Lymphocytes # (0.90-5.00) X 10*3/uL Monocytes # (0.20-1.00) X 10*3/uL Eosinophils # (0.04-0.35) X 10*3/uL BUN (9.0-27.0) mg/dL Creatinine (0.6-1.5) mg/dL Est GFR (CKD-EPI) (>=60) Glucose (70-110) mg/dL POC Glucose (mg/dL) 161 H 173 H (70-110) mg/dL Hemoglobin A1c 6.4 H (<=6.0) % Assessment and Plan Assessment: This is a 77 y/o woman with new onset headache that is recurrent and is short lasting a minute or less, with chronic tinnintus, hearing loss. Her headaches are over the bilateral fronto,temporal and maxillary sinus that are short lasting, 1 minute, severe (10/10) and is sharp pain. Denies any visual disturbance or pain with jaw or chewing. Also feel light headed with standing up. Headache seems to be getting more frequent and longer duration, lasting up to 30-60 minutes now. New Cephalgia for the past 3-4 weeks with elevated ESR (74): Unsure exact etiology. Possible ?vasculitis leading to headache and unsure if primary [employer] vasculitis or due to other condition. Patient denies any visual disturbance or jaw pain and I doubt this is giant cell arteritis. Positive orthostatic hypotension and that is likely giving her light-headedness Chronic tinnitus with severe hearing loss: Pending hearing aids. History of atrial fibrillation s/p ablation in 2019 and is on eliquis DM Diabetic neuropathy Plan: * Patient's headache has improved since she was started on prednisone 60 mg daily from last night. * Await temporal artery biopsy. Vascular surgery on board. * Hemoglobin A1c 6.4. Patient was informed that steroids can make her blood sugars worse. She would need to watch her blood sugars. * MRI Brain and MRA neck: It is reported as no evidence of intracranial aneurysm or significant stenosis. 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 No evidence of significant stenosis at the carotid bifurcations. The carotid and vertebral arteries are patent. No evidence aneurysm. No evidence of intracranial mass or acute/subacute infarct. Nonspecific white matter changes, likely secondary to small vessel ischemic disease. * MRA head: No evidence of aneurysm or significant stenosis. Type III vascular loop on the right an type II on the left. * Rheumatoid factor <15, RPR negative, hepatitis panel negative. Pending DALILA, HSV1/2 PCR, ANCA, HIV, VZV PCR not detected, HSV 1 and HSV II PCR both negative. Lyme titer negative. Her initial ESR was 74, repeat ESR also came back 74. CRP borderline 1.0, B12 1175, RBC folate 994 normal, TSH normal. * Repeat ESR is again 74 and CRP is pending. We will discuss with infectious disease to get clearance for starting steroids. * As the headache is not continuous(occurring intermittently), therefore do not believe signs of intracranial infection. Patient cannot have lumbar puncture also because of being on Eliquis. Infectious diseases on board, for b ilateral lower extremity venous stasis concerning for mild cellulitis. Patient currently on cefazolin 2 g every 8 hours. * Will defer the management of orthostatic vitals to the primary team. * Will defer the rest of medical management to primary team.
[2023-04-06 14:29] LABS: C-ANCA <1:20 Titer (<1:20)
[2023-04-06 17:04] LABS: Glucose,Whole Blood 221 mg/dL (70-110)
[2023-04-06 18:30] LABS: HIV 2 AB Non-Reactive (Non-Reactive); HIV AB P24 Non-Reactive (Non-Reactive); HIV P24 AG Non-Reactive (Non-Reactive)
[2023-04-06 21:16] LABS: Glucose,Whole Blood 236 mg/dL (70-110)
[2023-04-06] MEDS: ATORVASTATIN 20 MG TAB PO SCH (21:38)
--- NOTE | 2023-04-06 22:40 | P.PN ---
Subjective Progress Note Date: 04/05/23 Principal diagnosis: Bilateral leg ulcer and cellulitis Patient is 77-year-old female with a past medical history pain for diabetes mellitus hypertension osteoarthritis renal disease presented to the hospital for evaluation of headache and dizziness, during work-up she was noted to have elevated sed rate patient also have a bilateral lower extremity ulcer and cellulitis. On today's evaluation that is 04/05/2023, the patient remains to be afebrile, the patient is breathing comfortably complaining of some headache no chest pain shortness of breath or cough no abdominal pain no diarrhea did have some pain to the left lower extremity. Patient did not have any blood draw today. Objective - Vital Signs Vital signs: Vital Signs Temp 98.2 F 04/05/23 13:47 Pulse 98 04/05/23 13:47 Resp 16 04/05/23 13:47 BP 128/74 04/05/23 13:47 Pulse Ox 98 04/05/23 13:47 FiO2 21 04/02/23 08:47 Intake & Output 04/04/23 04/05/23 04/05/23 18:59 06:59 18:59 Intake Total 838 118 Balance 838 118 Intake: Oral 838 118 Other: Voiding Method Toilet # Voids 3 2 # Bowel Movements 1 - Exam GENERAL DESCRIPTION: Elderly female up in the chair in no distress RESPIRATORY SYSTEM: Unlabored breathing , decreased breath sounds at bases HEART: S1 S2 regular rate and rhythm ,no loud murmurs ABDOMEN: Soft , no tenderness EXTREMITIES: Bilateral lower extremity currently covered with Maurilio wrap no drainage on the dressing - Labs CBC & Chem 7: 04/06/23 05:46 04/06/23 05:46 Labs: Abnormal Lab Results - Last 24 Hours (Table) 04/04/23 04/05/23 04/05/23 Range/Units 06:58 12:00 17:07 ESR 74 H (0-30) mm/Hr POC Glucose (mg/dL) 130 H 132 H (70-110) mg/dL Assessment and Plan (1) Bilateral leg ulcer Current Visit: Yes Status: Acute Code(s): L97.919 - NON-PRS CHRONIC ULC UNSP PRT OF R LOW LEG W UNSP SEVERITY; L97.929 - NON-PRS CHRONIC ULC UNSP PRT OF L LOW LEG W UNSP SEVERITY SNOMED Code(s): 74950394 (2) Bilateral lower leg cellulitis Current Visit: Yes Status: Acute Code(s): L03.116 - CELLULITIS OF LEFT LOWER LIMB; L03.115 - CELLULITIS OF RIGHT LOWER LIMB SNOMED Code(s): 127820935 Plan: 1-patient did have elevated sed rate which is likely nonspecific concerning for predominant symptom of headache underlying temporal arteritis need to be considered and may benefit from temporal artery biopsy this was discussed with the neurologist. 2patient also have a bilateral lower extremity venous results are concerning for mild cellulitis likely from gram-positive skin khadijah 3patient with multiple antibiotic allergies that would limit the number of antibiotics safe to use 4local wound care with a dry Aquacel silver dressing followed by Maurilio wrap from just about through to be of the knee change every 48 hours 5patient seem to show some clinical improvement as far as cellulitis to lower extremity continue with the cefazolin and monitor clinical course closely Dictation was produced using [employer] dictation software. please excuse any grammatical, word or spelling errors. Time with Patient: Less than 30
--- NOTE | 2023-04-06 22:43 | P.PN ---
Subjective Progress Note Date: 04/06/23 Principal diagnosis: Bilateral leg ulcer and cellulitis Patient is 77-year-old female with a past medical history pain for diabetes mellitus hypertension osteoarthritis renal disease presented to the hospital for evaluation of headache and dizziness, during work-up she was noted to have elevated sed rate patient also have a bilateral lower extremity ulcer and cellulitis. On today's evaluation that is 04/06/2023 the patient denies having any fever or chills breathing comfortably on room air no chest pain shortness of breath or cough no abdominal pain has been complaining of pain to the left lower extremity with Aquacel dressing and has been refusing it per the nursing staff. Patient did have a white count of 6.90 creatinine is 1.6 no cultures. Objective - Vital Signs Vital signs: Vital Signs Temp 98.2 F 04/06/23 07:57 Pulse 115 H 04/06/23 07:57 Resp 20 04/06/23 07:57 BP 154/61 04/06/23 07:57 Pulse Ox 95 04/06/23 07:57 FiO2 21 04/02/23 08:47 Intake & Output 04/05/23 04/06/23 04/06/23 18:59 06:59 18:59 Intake Total 118 120 Balance 118 120 Intake: Oral 118 120 Other: Voiding Method Toilet # Voids 1 1 # Bowel Movements 2 - Exam GENERAL DESCRIPTION: Elderly female up in the chair in no distress RESPIRATORY SYSTEM: Unlabored breathing , decreased breath sounds at bases HEART: S1 S2 regular rate and rhythm ,no loud murmurs ABDOMEN: Soft , no tenderness EXTREMITIES: Bilateral lower extremity currently covered with Maurilio wrap no drainage on the dressing - Labs CBC & Chem 7: 04/06/23 05:46 04/06/23 05:46 Labs: Abnormal Lab Results - Last 24 Hours (Table) 04/05/23 04/05/23 04/06/23 Range/Units 12:00 17:07 05:46 RBC (4.10-5.20) X 10*6/uL Hgb (12.0-15.0) d/dL Hct (37.2-46.3) % MCH (27.0-32.0) pg MCHC (32.0-37.0) d/dL RDW (11.5-14.5) % Lymphocytes # (0.90-5.00) X 10*3/uL Monocytes # (0.20-1.00) X 10*3/uL Eosinophils # (0.04-0.35) X 10*3/uL BUN 29.9 H (9.0-27.0) mg/dL Creatinine 1.6 H (0.6-1.5) mg/dL Est GFR (CKD-EPI) 33 L (>=60) Glucose 157 H (70-110) mg/dL POC Glucose (mg/dL) 130 H 132 H (70-110) mg/dL Hemoglobin A1c (<=6.0) % 04/06/23 04/06/23 04/06/23 Range/Units 05:46 05:46 06:02 RBC 3.30 L (4.10-5.20) X 10*6/uL Hgb 8.6 L (12.0-15.0) d/dL Hct 28.7 L (37.2-46.3) % MCH 26.1 L (27.0-32.0) pg MCHC 30.0 L (32.0-37.0) d/dL RDW 19.4 H (11.5-14.5) % Lymphocytes # 0.52 L (0.90-5.00) X 10*3/uL Monocytes # 0.08 L (0.20-1.00) X 10*3/uL Eosinophils # 0.01 L (0.04-0.35) X 10*3/uL BUN (9.0-27.0) mg/dL Creatinine (0.6-1.5) mg/dL Est GFR (CKD-EPI) (>=60) Glucose (70-110) mg/dL POC Glucose (mg/dL) 161 H (70-110) mg/dL Hemoglobin A1c 6.4 H (<=6.0) % Assessment and Plan (1) Bilateral leg ulcer Current Visit: Yes Status: Acute Code(s): L97.919 - NON-PRS CHRONIC ULC UNSP PRT OF R LOW LEG W UNSP SEVERITY; L97.929 - NON-PRS CHRONIC ULC UNSP PRT OF L LOW LEG W UNSP SEVERITY SNOMED Code(s): 26773417 (2) Bilateral lower leg cellulitis Current Visit: Yes Status: Acute Code(s): L03.116 - CELLULITIS OF LEFT LOWER LIMB; L03.115 - CELLULITIS OF RIGHT LOWER LIMB SNOMED Code(s): 335838854 Plan: 1-patient did have elevated sed rate which is likely nonspecific concerning for predominant symptom of headache underlying temporal arteritis need to be considered and may benefit from temporal artery biopsy this was discussed with the neurologist. 2patient also have a bilateral lower extremity venous results are concerning for mild cellulitis likely from gram-positive skin khadijah 3patient with multiple antibiotic allergies that would limit the number of antibiotics safe to use 3-we will switch local wound care to the left lower extremity with the Mycolog cream apply twice a day and continue with the Maurilio wrap to the right lower extremity. 4patient to continue with IV cefazolin while inpatient and will finish therapy with oral Keflex Dictation was produced using [email or web address] dictation software. please excuse any grammatical, word or spelling errors. Time with Patient: Less than 30
[2023-04-07] MEDS: ACETAMINOPHEN TAB 325 MG TAB PO PRN ×3 (02:40→23:48)
[2023-04-07 06:19] LABS: Glucose,Whole Blood 120 mg/dL (70-110)
[2023-04-07] MEDS: INSULIN ASPART (NovoLOG) 100 UNIT/ML VIAL SQ SCH ×4 (06:20→21:15)
[2023-04-07] MEDS: LEVOTHYROXINE 50 MCG TAB PO SCH (06:24)
--- NOTE | 2023-04-07 06:25 | P.PN ---
Subjective Progress Note Date: 04/06/23 77-year-old female who follows with Dr. Berg outpatient. Patient has a history of diabetes mellitus, hypothyroidism, Hypertension, cervical cancer with surgery and radiation, chronic kidney disease stage III, paroxysmal atrial fibrillation with prior cardiac ablation followed by Dr. Britton. Patient reports to the hospital with complaints of 3 to 4 week history oheadache and dizziness. Headache is described as sharp behind the eyes and intermittent she has increased dizziness during episodes. She has also had tinnitus going on and muffled hearing. Has seen ENT outpatient and needs hearing aids bilaterally. Patient denies any history of migraine, no vision changes, no vertigo, no chest pain, no shortness of breath, no palpitations. No focal weakness. Patient has no prior history of stroke. She is also noting an elevation in her blood pressure during these episodes. She fell on Wednesday due to "lightheadedness" did not lose consciousness or hit her head. She states she got up from sitting and felt faint while walking and went to the floor. She was recently evaluated at [facility] and underwent more of a cardiac work up. She was also discharged from this hospital 1 week ago, she was treated for symptomatic bradycardia was taken off her betablocker and transitioned from lasix to bumex. EKG on admission shows sinus rhythm with occasional supraventricular premature complexes, rate of 90. Brain CT on admission shows no acute intracranial abnormality. Initial blood work shows a creatinine of 1.51, sodium level 125 potassium elevated at 5.2 and hemoglobin of 9.9. Blood pressure has been controlled this admission with a pressure of 120/66 on admission. Patient is maintained on eliquis 5 mg twice a day. Has peripheral edema with weeping and bullae that have opened up. Dressings to the lower extremity are saturated with serous drainage and she remains with pitting edema. Patient is admitted to the hospital under medicine with a consult placed to neurology. 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 No evidence aneurysm. No evidence of intracranial mass or acute/subacute infarct. Nonspecific white matter changes, likely secondary to small vessel ischemic disease. Neurology on board; Rule out other infection process leading to elevated ESR. Pending DALILA, HSV1/2 PCR, ANCA, HIV, VZV, Lyme testing, Hepatitis panel and syphilis EIA. Consulted vascular surgery team for temporal artery biopsy. Consider lumbar puncture down the line. Patient wants to hold off steroid use for now 04/04/2023 Patient is seen sitting up in a bedside chair; continues to report headache at 7/10 We will signs are reviewed and remained stable Nephrology following for acute renal injury and recommending to continue Bumex at a dose of 0.5 mg daily; creatinine is improved to 1.6 this morning; low-salt and fluid restricted diet is in place - Nephrology adding IV iron supplement Neurology following for persistent headache; patient is scheduled for temporal artery biopsy on Wednesday04/05/2023 Patient is seen and evaluated in follow-up today on full medical consultations following. Patient is continued on antibiotics with infectious disease following along with neurology and vascular surgery. Patient continues to have headaches and anticoagulation is on hold for tentatively scheduled temporal artery biopsy with vascular on Wednesday. Patient being started on oral prednisone after clearance of infectious disease. Patient is afebrile with no reports of chest pain or shortness of breath. Patient denies nausea or vomiting and is tolerating diet. Daughter at the bedside with questions and concerns were answered to the best of our ability., Reports intermittent headache multiple times throughout the day 04/06/2023 Patient is seen in follow-up today continues to be sitting in the chair with multiple medical consultations following. Anticoagulation remains on hold as patient is scheduled with vascular surgery to undergo temporal artery biopsy on 04/07/2023. Patient continues to report headache and overall generalized weakness. She reports improvement in headache since starting oral steroids. Patient is scheduled to be nothing by mouth at midnight and will have biopsy done and will discuss further with vascular surgery about resuming anticoa gulant. Patient is afebrile with no reported chest pain or shortness of breath noted. Patient reports the tolerating diet with no reported nausea or vomiting Review of systems: Constitutional: No reports of fatigue, fever, or chills, reporting continued headache although improved from yesterday Cardiovascular: No reports of chest pain or palpitations Respiratory: No reports of shortness of breath or cough GI: No reports of nausea, vomiting, or diarrhea : No reports of dysuria or retention Neurovascular: reports of generalized weakness All medications have been reviewed Physical exam: GENERAL: The patient is alert and oriented x3, obese. Well developed, well nourished. HEENT: Pupils are round and equally reacting to light. EOMI. No scleral icterus. No conjunctival pallor. Normocephalic, atraumatic. No pharyngeal erythema. No thyromegaly. CARDIOVASCULAR: S1 and S2 present. No murmurs, rubs, or gallops. PULMONARY: Breath sounds diminished bilaterally with no wheezing or crackles. ABDOMEN: Soft, nontender, nondistended, normoactive bowel sounds. No palpable organomegaly. MUSCULOSKELETAL: No joint swelling or deformity. EXTREMITIES: No cyanosis, clubbing, Bilateral pedal and lower extremity edema +2 with Maurilio wraps noted bilaterally NEUROLOGICAL: Gross neurological examination did not reveal any focal deficits. Generalized weakness. SKIN: Inside of left browne has bullae that has opened up. Right leg has is weeping. Assessment: Headache, new onset under investigation, rule out trigeminal neuralgia Dizziness/lightheadedness with fall on Wednesday likely due to orthostatic hypotension Peripheral edema and weeping ulcerations likely from the edema. Hyponatremia Recent admission for symptomatic bradycardia patient was taken off betablocker. History of atrial fibrillation with prior cardiac ablation anticoagulated with eliquis Chronic tinnitus and hearing loss seeing ENT outpatient Hypothyroidism Anemia Hx hypertension Diabetes Mellitus type 2 Chronic kidney disease stage 3 Hx cervical cancer with surgery and radiation GI prophylaxis DVT prophylaxis, oral anticoagulant currently on hold for temporal biopsy Full Code Plan: Multiple medical consultations including cardiology, infectious disease, vascular surgery, neurology following undergoing workup with plans for temporal artery biopsy with vascular surgery on 04/07/2023 Oral anticoagulant on hold and will discuss with vascular surgery about resuming post biopsy Per vascular surgery and neurology recommendations patient being started on 60 mg of oral prednisone daily and in headache intensity since starting prednisone Check orthostatics Qshift Continue Woundcare for the lower extremity edema can continue with abd pad, kerlex and maurilio wrap for compression pending further recommendations. Patient is continued on IV cefazolin with infectious disease following PT/OT evaluated the patient and will likely be going to [facility] for continued strength and mobility Will await and discuss with vascular surgery along with infectious disease and social work discharge planning post biopsy Due to multiple complex medical issues, prognosis is guarded The impression and plan of care has been dictated by Lisset Walters, Nurse Practitioner as directed. Dr. Hayes MD I have performed a history and examination and MDM of this patient, discussed the same with the dictator, and agree with the dictator's assessment and plan as written ,documented as a scribe. Based on total visit time, I have performed more than 50% of the visit. Objective - Vital Signs Vital signs: Vital Signs Temp 98 F 04/06/23 14:00 Pulse 103 H 04/06/23 14:00 Resp 18 04/06/23 14:00 BP 136/68 04/06/23 14:00 Pulse Ox 98 04/06/23 14:00 FiO2 21 04/02/23 08:47 Intake & Output 04/05/23 04/06/23 04/06/23 18:59 06:59 18:59 Intake Total 118 240 Balance 118 240 Intake: Oral 118 240 Other: Voiding Method Toilet # Voids 1 1 1 # Bowel Movements 2 - Labs CBC & Chem 7: 04/06/23 05:46 04/06/23 05:46 Labs: Abnormal Lab Results - Last 24 Hours (Table) 04/04/23 04/06/23 04/06/23 Range/Units 06:58 05:46 05:46 RBC 3.30 L (4.10-5.20) X 10*6/uL Hgb 8.6 L (12.0-15.0) d/dL Hct 28.7 L (37.2-46.3) % MCH 26.1 L (27.0-32.0) pg MCHC 30.0 L (32.0-37.0) d/dL RDW 19.4 H (11.5-14.5) % Lymphocytes # 0.52 L (0.90-5.00) X 10*3/uL Monocytes # 0.08 L (0.20-1.00) X 10*3/uL Eosinophils # 0.01 L (0.04-0.35) X 10*3/uL BUN 29.9 H (9.0-27.0) mg/dL Creatinine 1.6 H (0.6-1.5) mg/dL Est GFR (CKD-EPI) 33 L (>=60) Glucose 157 H (70-110) mg/dL POC Glucose (mg/dL) (70-110) mg/dL Hemoglobin A1c (<=6.0) % C-Reactive Protein 1.60 H (0.00-0.80) mg/dL 04/06/23 04/06/23 04/06/23 Range/Units 05:46 06:02 11:49 RBC (4.10-5.20) X 10*6/uL Hgb (12.0-15.0) d/dL Hct (37.2-46.3) % MCH (27.0-32.0) pg MCHC (32.0-37.0) d/dL RDW (11.5-14.5) % Lymphocytes # (0.90-5.00) X 10*3/uL Monocytes # (0.20-1.00) X 10*3/uL Eosinophils # (0.04-0.35) X 10*3/uL BUN (9.0-27.0) mg/dL Creatinine (0.6-1.5) mg/dL Est GFR (CKD-EPI) (>=60) Glucose (70-110) mg/dL POC Glucose (mg/dL) 161 H 173 H (70-110) mg/dL Hemoglobin A1c 6.4 H (<=6.0) % C-Reactive Protein (0.00-0.80) mg/dL 04/06/23 Range/Units 17:03 RBC (4.10-5.20) X 10*6/uL Hgb (12.0-15.0) d/dL Hct (37.2-46.3) % MCH (27.0-32.0) pg MCHC (32.0-37.0) d/dL RDW (11.5-14.5) % Lymphocytes # (0.90-5.00) X 10*3/uL Monocytes # (0.20-1.00) X 10*3/uL Eosinophils # (0.04-0.35) X 10*3/uL BUN (9.0-27.0) mg/dL Creatinine (0.6-1.5) mg/dL Est GFR (CKD-EPI) (>=60) Glucose (70-110) mg/dL POC Glucose (mg/dL) 221 H (70-110) mg/dL Hemoglobin A1c (<=6.0) % C-Reactive Protein (0.00-0.80) mg/dL
[2023-04-07] MEDS ORDERED: MIDAZOLAM 2 MG/2 ML VIAL IV PRN (07:02)
[2023-04-07] MEDS ORDERED: LIDOCAINE 1% (10MG/ML) FOR IV START INTRADERMA PRN (07:02)
[2023-04-07] MEDS ORDERED: ONDANSETRON 4 MG/2 ML VIAL IVP ONE ×2 (07:02→13:59)
[2023-04-07] MEDS ORDERED: HYDROmorphone 0.5 MG/0.5 ML SYRINGE IVP PRN (07:02)
[2023-04-07] MEDS: predniSONE 20 MG TAB PO SCH (08:31)
[2023-04-07] MEDS: SENNOSIDES 8.6 MG TAB PO SCH ×2 (08:32→20:32)
[2023-04-07] MEDS: PANTOPRAZOLE 40 MG TABLET PO SCH (08:32)
[2023-04-07] MEDS: LORATADINE 10 MG TAB PO SCH (08:32)
[2023-04-07] MEDS: BUMETANIDE 1 MG TAB PO SCH (08:33)
[2023-04-07] MEDS: FLUTICASONE 50MCG/SPRAY NASAL 16GM EA NOSTRIL SCH (08:34)
[2023-04-07] MEDS: DAPAGLIFLOZIN PROPANEDIOL 10 MG TABLET PO SCH (08:34)
[2023-04-07] MEDS: NIFEdipine XL 30 MG TAB.ER.24 PO SCH (08:34)
[2023-04-07] MEDS: TRIAMCINOLONE 0.1% CREAM 80 GM TUBE TOPICAL SCH ×2 (08:37→20:32)
[2023-04-07] MEDS: NYSTATIN 100,000UNIT/GM CREAM 30 GM TUBE TOPICAL SCH ×2 (08:37→20:33)
[2023-04-07 10:06] LABS: Magnesium 2.2 mg/dL (1.5-2.4)
[2023-04-07 10:11] LABS: Blood Urea Nitrogen 39.6 mg/dL (9.0-27.0); Calcium 9.2 mg/dL (8.7-10.3); Carbon Dioxide 19.5 mmol/L (21.6-31.8); Chloride 104 mmol/L (96-109); Glucose 116 mg/dL (70-110); Sodium 136 mmol/L (135-145)
[2023-04-07 10:26] LABS: Anisocytosis (M) 2+; Basophils # (A) 0.01 X 10*3/uL (0.00-0.10); Basophils % (A) 0.1 %; Elliptocytes 2+; Eosinophils # (A) 0.03 X 10*3/uL (0.04-0.35); Eosinophils % (A) 0.4 %; HCT 26.4 % (37.2-46.3); HGB 8.1 d/dL (12.0-15.0); Lymphocytes # (A) 0.79 X 10*3/uL (0.90-5.00); Lymphocytes % (A) 11.1 %; MCH 26.9 pg (27.0-32.0); MCHC 30.7 d/dL (32.0-37.0); MCV 87.7 FL (80.0-97.0); Mean Platelet Volume 10.8 FL (9.5-12.2); Microcytosis (M) 2+; Monocytes # (A) 0.49 X 10*3/uL (0.20-1.00); Monocytes % (A) 6.9 %; NRBC Per 100 WBC 0 X 10*3/uL (0.00-0.01); Neutrophils # (A) 5.74 X 10*3/uL (1.80-7.70); Neutrophils % (A) 80.5 %; Platelet Count 125 X 10*3/uL (140-440); RBC 3.01 X 10*6/uL (4.10-5.20); RDW 20.1 % (11.5-14.5); WBC 7.13 X 10*3/uL (4.50-10.00)
[2023-04-07 11:47] LABS: Glucose,Whole Blood 127 mg/dL (70-110)
[2023-04-07] MEDS: OXcarbazepine 150 MG TAB PO SCH ×2 (12:14→20:32)
[2023-04-07] MEDS: SODIUM FERRIC GLUCONAT-SUCROSE 125 MG in SODIUM CHLORIDE 0.9% 100 ML IVPB SCH (12:14)
--- NOTE | 2023-04-07 12:29 | P.PN ---
Subjective Patient is seen in follow-up for acute kidney injury on chronic kidney disease. Renal function stable. Good urine output. Hemodynamically stable. No vomiting or diarrhea. Scheduled for temporal artery biopsy today. Vital signs are stable. General: No acute distress. HEENT: Head exam is unremarkable. LUNGS: No audible rhonchi or wheezes. HEART: Rate and Rhythm are regular. ABDOMEN: Nontender, obese. EXTREMITITES: 1+ edema. Objective - Vital Signs Vital signs: Vital Signs Temp 98.6 F 04/07/23 08:00 Pulse 95 04/07/23 08:00 Resp 17 04/07/23 08:00 BP 132/69 04/07/23 08:00 Pulse Ox 97 04/07/23 08:00 FiO2 21 04/02/23 08:47 Intake & Output 04/06/23 04/07/23 04/07/23 18:59 06:59 18:59 Intake Total 240 Balance 240 Intake: Oral 240 Other: Voiding Method Toilet # Voids 1 2 - Labs CBC & Chem 7: 04/07/23 05:42 04/07/23 05:42 Labs: Abnormal Lab Results - Last 24 Hours (Table) 04/04/23 04/06/23 04/06/23 Range/Units 06:58 17:03 21:15 RBC (4.10-5.20) X 10*6/uL Hgb (12.0-15.0) d/dL Hct (37.2-46.3) % MCH (27.0-32.0) pg MCHC (32.0-37.0) d/dL RDW (11.5-14.5) % Plt Count (140-440) X 10*3/uL Lymphocytes # (0.90-5.00) X 10*3/uL Eosinophils # (0.04-0.35) X 10*3/uL Anisocytosis (manual) Microcytosis (manual) Elliptocytes Carbon Dioxide (21.6-31.8) mmol/L Anion Gap (4.00-12.00) mmol/L BUN (9.0-27.0) mg/dL Est GFR (CKD-EPI) (>=60) BUN/Creatinine Ratio (12.00-20.00) Ratio Glucose (70-110) mg/dL POC Glucose (mg/dL) 221 H 236 H (70-110) mg/dL C-Reactive Protein 1.60 H (0.00-0.80) mg/dL 04/07/23 04/07/23 04/07/23 Range/Units 05:42 05:42 06:18 RBC 3.01 L (4.10-5.20) X 10*6/uL Hgb 8.1 L (12.0-15.0) d/dL Hct 26.4 L (37.2-46.3) % MCH 26.9 L (27.0-32.0) pg MCHC 30.7 L (32.0-37.0) d/dL RDW 20.1 H (11.5-14.5) % Plt Count 125 L (140-440) X 10*3/uL Lymphocytes # 0.79 L (0.90-5.00) X 10*3/uL Eosinophils # 0.03 L (0.04-0.35) X 10*3/uL Anisocytosis (manual) 2+ A Microcytosis (manual) 2+ A Elliptocytes 2+ A Carbon Dioxide 19.5 L (21.6-31.8) mmol/L Anion Gap 12.50 H (4.00-12.00) mmol/L BUN 39.6 H (9.0-27.0) mg/dL Est GFR (CKD-EPI) 36 L (>=60) BUN/Creatinine Ratio 26.40 H (12.00-20.00) Ratio Glucose 116 H (70-110) mg/dL POC Glucose (mg/dL) 120 H (70-110) mg/dL C-Reactive Protein (0.00-0.80) mg/dL 04/07/23 Range/Units 11:43 RBC (4.10-5.20) X 10*6/uL Hgb (12.0-15.0) d/dL Hct (37.2-46.3) % MCH (27.0-32.0) pg MCHC (32.0-37.0) d/dL RDW (11.5-14.5) % Plt Count (140-440) X 10*3/uL Lymphocytes # (0.90-5.00) X 10*3/uL Eosinophils # (0.04-0.35) X 10*3/uL Anisocytosis (manual) Microcytosis (manual) Elliptocytes Carbon Dioxide (21.6-31.8) mmol/L Anion Gap (4.00-12.00) mmol/L BUN (9.0-27.0) mg/dL Est GFR (CKD-EPI) (>=60) BUN/Creatinine Ratio (12.00-20.00) Ratio Glucose (70-110) mg/dL POC Glucose (mg/dL) 127 H (70-110) mg/dL C-Reactive Protein (0.00-0.80) mg/dL Assessment and Plan Plan: Assessment: 1. Acute kidney injury secondary to vasomotor nephropathy from diuresis and slgt2i. Creatinine peaked at 2.0 this admission - stable at 1.5 today. UA benign. 2. Chronic kidney disease stage IIIB with baseline creatinine near 1.5 secondary to nephrosclerosis. 3. Hypervolemic hyponatremia improved with diuresis. 4. Lower extremity cellulitis on antibiotics. 5. Acute on chronic systolic CHF with ejection fraction of 35-40%. 6. Diabetes mellitus. 7. Hypertension with chronic kidney disease. Controlled. 8. Anemia of chronic kidney disease. Iron deficiency noted - status post IV iron. 9. Episodic headaches. Being followed by neurology. Temporal artery biopsy today. 10. Lower extremity edema. Improved with diuresis. 11. Metabolic acidosis secondary to chronic kidney disease. Plan: Maintain Bumex. Low-salt diet and 1500 mL fluid restriction. Avoid nephrotoxins. Continue to monitor renal function and urine output. Follow-up plasma metanephrines. Add Aranesp. Add oral bicarbonate. Patient states Procardia may be contributing to her not feeling well and diuretics. Change to coreg.
--- NOTE | 2023-04-07 12:42 | P.PN ---
Subjective Progress Note Date: 04/07/23 Principal diagnosis: Bilateral leg ulcer and cellulitis Patient is 77-year-old female with a past medical history pain for diabetes mellitus hypertension osteoarthritis renal disease presented to the hospital for evaluation of headache and dizziness, during work-up she was noted to have elevated sed rate patient also have a bilateral lower extremity ulcer and cellulitis. On today's evaluation that is 04/07/2023 the patient continues to be afebrile, the patient is breathing comfortably on room air , patient denies chest pain shortness of breath or cough no abdominal pain , the patient bilaterally extremity swelling and redness has improved no drainage Patient did have a white count of 7.13 creatinine is 1.5 no cultures. Objective - Vital Signs Vital signs: Vital Signs Temp 98.3 F 04/07/23 01:45 Pulse 86 04/07/23 01:45 Resp 14 04/07/23 01:45 BP 129/71 04/07/23 01:45 Pulse Ox 94 L 04/07/23 01:45 FiO2 21 04/02/23 08:47 Intake & Output 04/06/23 04/07/23 04/07/23 18:59 06:59 18:59 Intake Total 240 Balance 240 Intake: Oral 240 Other: Voiding Method Toilet # Voids 1 2 - Exam GENERAL DESCRIPTION: Elderly female up in the chair in no distress RESPIRATORY SYSTEM: Unlabored breathing , decreased breath sounds at bases HEART: S1 S2 regular rate and rhythm ,no loud murmurs ABDOMEN: Soft , no tenderness EXTREMITIES: Left lower extremity swelling redness has improved redness has improved no drainage - Labs CBC & Chem 7: 04/07/23 05:42 04/07/23 05:42 Labs: Abnormal Lab Results - Last 24 Hours (Table) 04/04/23 04/06/23 04/06/23 Range/Units 06:58 11:49 17:03 RBC (4.10-5.20) X 10*6/uL Hgb (12.0-15.0) d/dL Hct (37.2-46.3) % MCH (27.0-32.0) pg MCHC (32.0-37.0) d/dL RDW (11.5-14.5) % Plt Count (140-440) X 10*3/uL Lymphocytes # (0.90-5.00) X 10*3/uL Eosinophils # (0.04-0.35) X 10*3/uL Anisocytosis (manual) Microcytosis (manual) Elliptocytes Carbon Dioxide (21.6-31.8) mmol/L Anion Gap (4.00-12.00) mmol/L BUN (9.0-27.0) mg/dL Est GFR (CKD-EPI) (>=60) BUN/Creatinine Ratio (12.00-20.00) Ratio Glucose (70-110) mg/dL POC Glucose (mg/dL) 173 H 221 H (70-110) mg/dL C-Reactive Protein 1.60 H (0.00-0.80) mg/dL 04/06/23 04/07/23 04/07/23 Range/Units 21:15 05:42 05:42 RBC 3.01 L (4.10-5.20) X 10*6/uL Hgb 8.1 L (12.0-15.0) d/dL Hct 26.4 L (37.2-46.3) % MCH 26.9 L (27.0-32.0) pg MCHC 30.7 L (32.0-37.0) d/dL RDW 20.1 H (11.5-14.5) % Plt Count 125 L (140-440) X 10*3/uL Lymphocytes # 0.79 L (0.90-5.00) X 10*3/uL Eosinophils # 0.03 L (0.04-0.35) X 10*3/uL Anisocytosis (manual) 2+ A Microcytosis (manual) 2+ A Elliptocytes 2+ A Carbon Dioxide 19.5 L (21.6-31.8) mmol/L Anion Gap 12.50 H (4.00-12.00) mmol/L BUN 39.6 H (9.0-27.0) mg/dL Est GFR (CKD-EPI) 36 L (>=60) BUN/Creatinine Ratio 26.40 H (12.00-20.00) Ratio Glucose 116 H (70-110) mg/dL POC Glucose (mg/dL) 236 H (70-110) mg/dL C-Reactive Protein (0.00-0.80) mg/dL 09/06/23 Range/Units 06:18 RBC (4.10-5.20) X 10*6/uL Hgb (12.0-15.0) d/dL Hct (37.2-46.3) % MCH (27.0-32.0) pg MCHC (32.0-37.0) d/dL RDW (11.5-14.5) % Plt Count (140-440) X 10*3/uL Lymphocytes # (0.90-5.00) X 10*3/uL Eosinophils # (0.04-0.35) X 10*3/uL Anisocytosis (manual) Microcytosis (manual) Elliptocytes Carbon Dioxide (21.6-31.8) mmol/L Anion Gap (4.00-12.00) mmol/L BUN (9.0-27.0) mg/dL Est GFR (CKD-EPI) (>=60) BUN/Creatinine Ratio (12.00-20.00) Ratio Glucose (70-110) mg/dL POC Glucose (mg/dL) 120 H (70-110) mg/dL C-Reactive Protein (0.00-0.80) mg/dL Assessment and Plan (1) Bilateral leg ulcer Current Visit: Yes Status: Acute Code(s): L97.919 - NON-PRS CHRONIC ULC UNSP PRT OF R LOW LEG W UNSP SEVERITY; L97.929 - NON-PRS CHRONIC ULC UNSP PRT OF L LOW LEG W UNSP SEVERITY SNOMED Code(s): 93822947 (2) Bilateral lower leg cellulitis Current Visit: Yes Status: Acute Code(s): L03.116 - CELLULITIS OF LEFT LOWER LIMB; L03.115 - CELLULITIS OF RIGHT LOWER LIMB SNOMED Code(s): 105941979 Plan: 1-patient did have elevated sed rate which is likely nonspecific concerning for predominant symptom of headache underlying temporal arteritis need to be considered and may benefit from temporal artery biopsy this was discussed with the neurologist. 2patient also have a bilateral lower extremity venous ulcers and concerning for mild cellulitis likely from gram-positive skin khadijah 3patient with multiple antibiotic allergies that would limit the number of antibiotics safe to use 3-patient to continue local wound care to the left lower extremity with the Mycolog cream apply twice a day and continue with the Maurilio wrap to the right lower extremity. 4we'll discontinue cefazolin. Start the patient on oral Keflex Dictation was produced using [employer] dictation software. please excuse any gr ammatical, word or spelling errors.
[2023-04-07] MEDS ORDERED: DEXTROSE 50% SYRINGE 50 ML IVP PRN ×2 (12:45)
--- NOTE | 2023-04-07 13:36 | PN ---
PROGRESS NOTE DATE OF SERVICE: 04/07/2023 SUBJECTIVE: This is a 77-year-old woman who was admitted with intractable headache, also had elevated sedimentation rate. The patient is scheduled for temporal artery biopsy today. Multiple consultants are following the patient including Nephrology as well as Neurology. The patient was started on high-dose steroids. MRI was unremarkable. PAST MEDICAL HISTORY: Reviewed. REVIEW OF SYSTEMS: A 14-point review is negative except as mentioned earlier. OBJECTIVE: VITAL SIGNS: Pulse is 86, blood pressure 129/70, respirations 14. CHEST: Few scattered rhonchi. ABDOMEN: Soft. NERVOUS SYSTEM: No focal deficits. SKIN: No ulcer, rash, bleeding. LABORATORY DATA: Reviewed. ASSESSMENT: 1. Headache, new onset, rule out temporal arteritis. 2. Dizziness, lightheadedness. 3. Peripheral edema and weeping ulceration. 4. Hyponatremia. 5. Symptomatic bradycardia. 6. Chronic tendinitis. 7. Hypothyroidism. 8. Anemia. 9. Diabetes mellitus, type 2. 10.Multiple complex medical issues. RECOMMENDATIONS: Recommended to continue current management, continue symptomatic treatment, otherwise at this time I recommend to continue the steroids and repeat labs, prognosis guarded. Further recommendations to follow. MMODL / IJN: [id number] /
[2023-04-07] MEDS: LACTATED RINGERS 1,000 ML IV SCH (13:58)
[2023-04-07] MEDS ORDERED: DARBEPOETIN ALFA 40 MCG/0.4 ML SYRINGE SQ SCH (14:00)
[2023-04-07] MEDS ORDERED: MIDAZOLAM 2 MG/2 ML VIAL ONE (14:04)
[2023-04-07] MEDS ORDERED: LIDOCAINE 2% INJ 20 MG/ML (2 ML VIAL) ONE (14:04)
[2023-04-07] MEDS ORDERED: PROPOFOL 10 MG/ML 20 ML VIAL IV ONE (14:04)
[2023-04-07] MEDS ORDERED: fentaNYL (PF) 50 MCG/ML 2 ML AMP ONE (14:04)
[2023-04-07] MEDS ORDERED: LIDOCAINE 1% INJ 10MG/ML (20 ML MDV) SQ ONE (14:47)
[2023-04-07] MEDS ORDERED: BACITRACIN OINT 1 EACH PACKET TOPICAL ONE (14:48)
--- NOTE | 2023-04-07 15:12 | P.OP ---
Date of Procedure: 04/07/23 Description of Procedure: Preoperative diagnosis: Headaches, rule out temporal arteritis Postoperative diagnosis: Same Procedure: Right temporal artery biopsy Surgeon: Blanca Alvarez D.O. EBL: Less than 10 mL IV fluids: See anesthesia records Urine output: Not measured Drains: None Complications: None immediately apparent Condition: Stable to recovery Operative indication and findings: Patient is a 77-year-old female who recently began having increasing and worsening headaches. Through the evaluation and workup was recommended undergo temporal artery biopsy. Risks and benefits were discussed. She seemingly understood and was iwlling to proceed. Procedure in detail: The patient was taken to the operative suite and placed in supine position. The side of the face was prepped and draped in usual sterile fashion. A preprocedure timeout was performed, all parties are in agreement. The area of the greatest pulse was anesthetized at the temporal region. Incision was made and carried onto the subcuticular tissue using electrocautery. The artery was identified. It was dissected free proximally and distally. It was ligated with 3-0 silk ties. The 1.5 cm portion of the artery was excised and sent for pathology. The area was then irrigated. Hemostasis was achieved electrocautery. The deep dermal tissues were reapproximated with interrupted sutures of 3-0 Vicryl. The skin was reprepped with running 5-0 Monocryl in subcu cuticular fashion. Bacitracin ointment was placed. The patient was allowed to awaken and transferred to recovery in stable condition having tolerated the procedure well
[2023-04-07 15:16] LABS: Glucose,Whole Blood 150 mg/dL (70-110)
--- NOTE | 2023-04-07 15:45 | P.PN ---
Subjective Progress Note Date: 04/07/23 04/07/2023: Patient was seen for a follow-up. Patient continues to have frequent headaches despite being on high-dose steroids, prednisone 60 mg daily. I had told patient yesterday to keep a log of the headaches. She had 13 episodes of headaches in the last 24 hours. 9 of them lasted 5 minutes, 2 of them lasted 10 minutes, 1 lasted 15 minutes and one of them lasted 20 minutes. She describes headaches mostly around her eyes, almost like a frame of eyeglasses distribution. Only yesterday sometimes it was going to the left temporal region to the left ear. She describes it as sharp stabbing pain, very intense 10/10. Patient states she has previously tried gabapentin, but produced severe side effects. She took only 3 tablets and stopped taking it. She denies any excessive tearing or any symptoms of cluster headache. She is not waking up with a headache. The headache does not wake her up during sleeping. 04/06/2023: Patient was seen for a follow-up. Patient states she was started on steroids last night, and her headache has much improved. She had one episode last night at 10 PM. She received prednisone 60 mg after that. She slept well overnight. This morning she had a very brief headache, at present is 1/10. She feels over all her headache has much improved. Denies any side effect of prednisone. 04/05/2023: Patient was seen for a follow-up. Patient continues to have headaches, has it about 6 times since this morning, lasting for about 5 minutes. She rates her headache 8/10, pointing to above eyebrow bilaterally, on her cheek/zygomatic bone and sometimes extends to the jaw. She states yesterday she had about 20 times a headache. It is bilateral, therefore doubt trigeminal neuralgia. Patient states that it bothers her enough, that she feels like punching someone. No fever or chills. 04/04/2023: Patient was initially seen by Dr. Josesito Rendon. Please refer to his note for details. Patient has presented with a couple week history of new onset headaches. The headache was occurring about couple times a day, would come and go lasting for an hour sometimes half an hour. Patient states the headaches are becoming more frequent, and lasting longer. Patient denies any light or noise sensitivity although she does feel nauseous but no vomiting. Patient denies any neck stiffness or neck pain. Patient has history of neck surgery in 2015 or 2016. Patient at present compatible is of headaches 7/10, involving bifrontal, by maxillary region and not in the eyes. She believes it is coming more frequent. Patient could not tell how long the headache lasted today, but she thinks that it was off and on for around 8 hours, "maybe more", but she was not sure. Patient says that she does not have chronic headaches, is not a headache person. She denies any jaw claudication, any weight loss, fever or sweating. Patient states that this pain is going in the jaw and left ear occasionally. Patient is a 77-year-old female with new onset episodic headache for past 3-4 weeks, frontal temporal and maxillary sinus. ESR is elevated 74. Patient is scheduled for temporal artery biopsy. Objective - Vital Signs Vital signs: Vital Signs Temp 97.8 F 04/07/23 13:54 Pulse 81 04/07/23 13:54 Resp 18 04/07/23 13:54 BP 139/63 04/07/23 13:54 Pulse Ox 96 04/07/23 13:54 FiO2 21 04/02/23 08:47 Intake & Output 04/06/23 04/07/23 04/07/23 18:59 06:59 18:59 Intake Total 240 Balance 240 Intake: Oral 240 Other: Voiding Method Toilet # Voids 1 2 # Emeses 2 - Exam Patient is an elderly female, sitting in the recliner, and appears to be in no obvious distress. She does appear slightly flushed. Speech and language functions are normal. Patient is oriented 3. Pupils are equal, round and reactive to light, visual rosa are full on confrontation. Extraocular muscles are intact and no nystagmus. Facial sensation normal. No facial weakness, no dysarthria. Patient is hard of hearing bilaterally to hand rub. Muscle strength appears normal. Patient has moderate edema of bilateral lower extremities. Sensations are equal. - Labs CBC & Chem 7: 04/07/23 05:42 04/07/23 05:42 Labs: Abnormal Lab Results - Last 24 Hours (Table) 04/04/23 04/06/23 04/06/23 Range/Units 06:58 17:03 21:15 RBC (4.10-5.20) X 10*6/uL Hgb (12.0-15.0) d/dL Hct (37.2-46.3) % MCH (27.0-32.0) pg MCHC (32.0-37.0) d/dL RDW (11.5-14.5) % Plt Count (140-440) X 10*3/uL Lymphocytes # (0.90-5.00) X 10*3/uL Eosinophils # (0.04-0.35) X 10*3/uL Anisocytosis (manual) Microcytosis (manual) Elliptocytes Carbon Dioxide (21.6-31.8) mmol/L Anion Gap (4.00-12.00) mmol/L BUN (9.0-27.0) mg/dL Est GFR (CKD-EPI) (>=60) BUN/Creatinine Ratio (12.00-20.00) Ratio Glucose (70-110) mg/dL POC Glucose (mg/dL) 221 H 236 H (70-110) mg/dL C-Reactive Protein 1.60 H (0.00-0.80) mg/dL 04/07/23 04/07/23 04/07/23 Range/Units 05:42 05:42 06:18 RBC 3.01 L (4.10-5.20) X 10*6/uL Hgb 8.1 L (12.0-15.0) d/dL Hct 26.4 L (37.2-46.3) % MCH 26.9 L (27.0-32.0) pg MCHC 30.7 L (32.0-37.0) d/dL RDW 20.1 H (11.5-14.5) % Plt Count 125 L (140-440) X 10*3/uL Lymphocytes # 0.79 L (0.90-5.00) X 10*3/uL Eosinophils # 0.03 L (0.04-0.35) X 10*3/uL Anisocytosis (manual) 2+ A Microcytosis (manual) 2+ A Elliptocytes 2+ A Carbon Dioxide 19.5 L (21.6-31.8) mmol/L Anion Gap 12.50 H (4.00-12.00) mmol/L BUN 39.6 H (9.0-27.0) mg/dL Est GFR (CKD-EPI) 36 L (>=60) BUN/Creatinine Ratio 26.40 H (12.00-20.00) Ratio Glucose 116 H (70-110) mg/dL POC Glucose (mg/dL) 120 H (70-110) mg/dL C-Reactive Protein (0.00-0.80) mg/dL 04/07/23 Range/Units 11:43 RBC (4.10-5.20) X 10*6/uL Hgb (12.0-15.0) d/dL Hct (37.2-46.3) % MCH (27.0-32.0) pg MCHC (32.0-37.0) d/dL RDW (11.5-14.5) % Plt Count (140-440) X 10*3/uL Lymphocytes # (0.90-5.00) X 10*3/uL Eosinophils # (0.04-0.35) X 10*3/uL Anisocytosis (manual) Microcytosis (manual) Elliptocytes Carbon Dioxide (21.6-31.8) mmol/L Anion Gap (4.00-12.00) mmol/L BUN (9.0-27.0) mg/dL Est GFR (CKD-EPI) (>=60) BUN/Creatinine Ratio (12.00-20.00) Ratio Glucose (70-110) mg/dL POC Glucose (mg/dL) 127 H (70-110) mg/dL C-Reactive Protein (0.00-0.80) mg/dL Assessment and Plan Assessment: New onset intermittent periorbital headache bilaterally, off and on for last 3-4 weeks, unclear cause. The headaches are recurrent and is short lasting mostly 5 minutes, sometimes lasting a bit longer. In between the headache episodes, she is completely headache free. Patient does have elevated ESR, raising concern for temporal arteritis, but the headache did not respond well to high-dose steroids. Symptoms are quite suggestive of trigeminal neuralgia, but the symptoms are bilateral periorbitally. Denies any visual disturbance or pain with jaw or chewing. Positive orthostatic hypotension and that is likely giving her light-headedness Chronic tinnitus with severe hearing loss: Pending hearing aids. History of atrial fibrillation s/p ablation in 2019 and is on eliquis DM Diabetic neuropathy Plan: * In the last 24 hours, patient continues to have frequent headaches, occurred almost 13 times, lasting mostly 5-10 minutes in duration. The quality of headache is neuralgic, almost like trigeminal neuralgia, but the unusual feature is that it is bilateral involving periorbital region. The headaches have not significantly improved with prednisone. * Await temporal artery biopsy. Vascular surgery on board. * Hemoglobin A1c 6.4. Patient was informed that steroids can make her blood sugars worse. She would need to watch her blood sugars. * Empirically try Trileptal 150 mg twice a day for possible atypical trigeminal neuralgia. Possible side effects discussed. Patient informed to stop medication if she gets any rash. May increase dose as tolerated and as neede d. * MRI Brain and MRA neck: It is reported as no evidence of intracranial aneurysm or significant stenosis. 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 No evidence of significant stenosis at the carotid bifurcations. The carotid and vertebral arteries are patent. No evidence aneurysm. No evidence of intracranial mass or acute/subacute infarct. Nonspecific white matter changes, likely secondary to small vessel ischemic disease. * MRA head: No evidence of aneurysm or significant stenosis. Type III vascular loop on the right an type II on the left. * Rheumatoid factor <15, RPR negative, hepatitis panel negative. DALILA negative, HSV1/2 PCR and VZV PCR all negative, ANCA antibodies negative, HIV negative. Lyme titer negative. Her initial ESR was 74, repeat ESR also came back 74. CRP borderline 1.0, B12 1175, RBC folate 994 normal, TSH normal. * Repeat ESR in the morning. * Will defer the management of orthostatic vitals to the primary team. * Will defer the rest of medical management to primary team.
[2023-04-07 18:05] LABS: Glucose,Whole Blood 144 mg/dL (70-110)
[2023-04-07] MEDS: SODIUM BICARBONATE TAB 650 MG TAB PO SCH ×2 (18:23→20:31)
[2023-04-07] MEDS: methylPREDNISolone SOD SUCCI 125 MG/2 ML VIAL IV SCH ×3 (18:23→23:49)
[2023-04-07] MEDS: ATORVASTATIN 20 MG TAB PO SCH (20:31)
[2023-04-07] MEDS: CEPHALEXIN 500 MG CAP PO SCH (20:31)
[2023-04-07] MEDS: carvediloL 6.25 MG TAB PO SCH (20:32)
[2023-04-07 20:42] LABS: Glucose,Whole Blood 239 mg/dL (70-110)
[2023-04-08] MEDS: LACTATED RINGERS 1,000 ML IV SCH (05:19)
[2023-04-08] MEDS: carvediloL 6.25 MG TAB PO SCH ×2 (05:54→18:25)
[2023-04-08] MEDS: LEVOTHYROXINE 50 MCG TAB PO SCH (05:54)
[2023-04-08] MEDS: methylPREDNISolone SOD SUCCI 125 MG/2 ML VIAL IV SCH ×3 (05:54→18:25)
[2023-04-08] MEDS: ACETAMINOPHEN TAB 325 MG TAB PO PRN ×2 (05:55→20:24)
[2023-04-08 06:05] LABS: Glucose,Whole Blood 146 mg/dL (70-110)
[2023-04-08] MEDS: INSULIN ASPART (NovoLOG) 100 UNIT/ML VIAL SQ SCH ×4 (06:05→21:21)
[2023-04-08 08:03] VITALS: RESP 16
[2023-04-08] MEDS: SODIUM BICARBONATE TAB 650 MG TAB PO SCH ×2 (09:11→20:24)
[2023-04-08] MEDS: DAPAGLIFLOZIN PROPANEDIOL 10 MG TABLET PO SCH (09:11)
[2023-04-08] MEDS: PANTOPRAZOLE 40 MG TABLET PO SCH (09:12)
[2023-04-08] MEDS: SENNOSIDES 8.6 MG TAB PO SCH ×2 (09:12→20:24)
[2023-04-08] MEDS: CEPHALEXIN 500 MG CAP PO SCH ×2 (09:12→20:24)
[2023-04-08] MEDS: BUMETANIDE 1 MG TAB PO SCH (09:12)
[2023-04-08] MEDS: LORATADINE 10 MG TAB PO SCH (09:13)
[2023-04-08] MEDS: OXcarbazepine 150 MG TAB PO SCH ×2 (09:13→20:24)
[2023-04-08] MEDS: TRIAMCINOLONE 0.1% CREAM 80 GM TUBE TOPICAL SCH ×2 (09:14→20:25)
[2023-04-08] MEDS: NYSTATIN 100,000UNIT/GM CREAM 30 GM TUBE TOPICAL SCH ×2 (09:14→20:25)
[2023-04-08] MEDS: FLUTICASONE 50MCG/SPRAY NASAL 16GM EA NOSTRIL SCH (09:14)
[2023-04-08 09:16] LABS: ALT 16 U/L (8-44); AST 25 U/L (13-35); Albumin 3.8 d/dL (3.8-4.9); Albumin/Globulin Ratio 1.65 Ratio (1.60-3.17); Alkaline Phosphatase 67 U/L (41-126); Blood Urea Nitrogen 45.6 mg/dL (9.0-27.0); Calcium 9.3 mg/dL (8.7-10.3); Carbon Dioxide 23.7 mmol/L (21.6-31.8); Chloride 104 mmol/L (96-109); Globulin 2.3 d/dL (1.6-3.3); Glucose 129 mg/dL (70-110); Potassium 5.1 mmol/L (3.5-5.5); Sodium 139 mmol/L (135-145); Total Bilirubin <0.2 mg/dL (0.3-1.2); Total Protein 6.1 d/dL (6.2-8.2)
[2023-04-08 09:27] LABS: Basophils # (A) 0.01 X 10*3/uL (0.00-0.10); Basophils % (A) 0.1 %; Elliptocytes 2+; Eosinophils # (A) 0 X 10*3/uL (0.04-0.35); Eosinophils % (A) 0 %; HCT 28.5 % (37.2-46.3); HGB 8.4 d/dL (12.0-15.0); Lymphocytes # (A) 0.78 X 10*3/uL (0.90-5.00); Lymphocytes % (A) 9.2 %; MCH 25.8 pg (27.0-32.0); MCHC 29.5 d/dL (32.0-37.0); MCV 87.4 FL (80.0-97.0); Mean Platelet Volume 10.3 FL (9.5-12.2); Monocytes # (A) 0.18 X 10*3/uL (0.20-1.00); Monocytes % (A) 2.1 %; NRBC Per 100 WBC 0 X 10*3/uL (0.00-0.01); Neutrophils # (A) 7.41 X 10*3/uL (1.80-7.70); Neutrophils % (A) 87.4 %; Platelet Count 248 X 10*3/uL (140-440); RBC 3.26 X 10*6/uL (4.10-5.20); RDW 20.2 % (11.5-14.5); WBC 8.48 X 10*3/uL (4.50-10.00)
[2023-04-08 09:43] LABS: Erythrocyte Sedimentation Rate 76 mm/Hr (0-30)
[2023-04-08 11:06] VITALS: BMI 35.9
--- NOTE | 2023-04-08 11:42 | P.PN ---
Subjective Patient is seen in follow-up for acute kidney injury on chronic kidney disease. Renal function stable. Good urine output. Hemodynamically stable. No vomiting or diarrhea. No headaches today. Vital signs are stable. General: No acute distress. HEENT: Head exam is unremarkable. LUNGS: No audible rhonchi or wheezes. HEART: Rate and Rhythm are regular. ABDOMEN: Nontender, obese. EXTREMITITES: 1+ edema. Lower extremities wrapped. Objective - Vital Signs Vital signs: Vital Signs Temp 97.7 F 04/08/23 08:00 Pulse 73 04/08/23 08:00 Resp 16 04/08/23 08:00 BP 111/65 04/08/23 08:00 Pulse Ox 99 04/08/23 08:00 FiO2 6 04/07/23 15:01 Intake & Output 04/07/23 04/08/23 04/08/23 18:59 06:59 18:59 Intake Total 250 Output Total 150 Balance 100 Weight 83.461 kg Intake: IV 250 Output: Urine 150 Other: Voiding Method Toilet # Voids 1 2 # Emeses 2 - Labs CBC & Chem 7: 04/08/23 05:27 04/08/23 05:27 Labs: Abnormal Lab Results - Last 24 Hours (Table) 04/07/23 04/07/23 04/07/23 Range/Units 11:43 15:14 17:24 RBC (4.10-5.20) X 10*6/uL Hgb (12.0-15.0) d/dL Hct (37.2-46.3) % MCH (27.0-32.0) pg MCHC (32.0-37.0) d/dL RDW (11.5-14.5) % Lymphocytes # (0.90-5.00) X 10*3/uL Monocytes # (0.20-1.00) X 10*3/uL Eosinophils # (0.04-0.35) X 10*3/uL Elliptocytes ESR (0-30) mm/Hr BUN (9.0-27.0) mg/dL Est GFR (CKD-EPI) (>=60) BUN/Creatinine Ratio (12.00-20.00) Ratio Glucose (70-110) mg/dL POC Glucose (mg/dL) 127 H 150 H 144 H (70-110) mg/dL Total Bilirubin (0.3-1.2) mg/dL Total Protein (6.2-8.2) d/dL 04/07/23 04/08/23 04/08/23 Range/Units 20:41 05:27 05:27 RBC 3.26 L (4.10-5.20) X 10*6/uL Hgb 8.4 L (12.0-15.0) d/dL Hct 28.5 L (37.2-46.3) % MCH 25.8 L (27.0-32.0) pg MCHC 29.5 L (32.0-37.0) d/dL RDW 20.2 H (11.5-14.5) % Lymphocytes # 0.78 L (0.90-5.00) X 10*3/uL Monocytes # 0.18 L (0.20-1.00) X 10*3/uL Eosinophils # 0 L (0.04-0.35) X 10*3/uL Elliptocytes 2+ A ESR 76 H (0-30) mm/Hr BUN 45.6 H (9.0-27.0) mg/dL Est GFR (CKD-EPI) 36 L (>=60) BUN/Creatinine Ratio 30.40 H (12.00-20.00) Ratio Glucose 129 H (70-110) mg/dL POC Glucose (mg/dL) 239 H (70-110) mg/dL Total Bilirubin <0.2 L (0.3-1.2) mg/dL Total Protein 6.1 L (6.2-8.2) d/dL 04/08/23 Range/Units 06:04 RBC (4.10-5.20) X 10*6/uL Hgb (12.0-15.0) d/dL Hct (37.2-46.3) % MCH (27.0-32.0) pg MCHC (32.0-37.0) d/dL RDW (11.5-14.5) % Lymphocytes # (0.90-5.00) X 10*3/uL Monocytes # (0.20-1.00) X 10*3/uL Eosinophils # (0.04-0.35) X 10*3/uL Elliptocytes ESR (0-30) mm/Hr BUN (9.0-27.0) mg/dL Est GFR (CKD-EPI) (>=60) BUN/Creatinine Ratio (12.00-20.00) Ratio Glucose (70-110) mg/dL POC Glucose (mg/dL) 146 H (70-110) mg/dL Total Bilirubin (0.3-1.2) mg/dL Total Protein (6.2-8.2) d/dL Assessment and Plan Plan: Assessment: 1. Acute kidney injury secondary to vasomotor nephropathy from diuresis and slgt2i. Creatinine peaked at 2.0 this admission - stable at 1.5 today. UA benign. 2. Chronic kidney disease stage IIIB with baseline creatinine near 1.5 secondary to nephrosclerosis. 3. Hypervolemic hyponatremia improved with diuresis. 4. Lower extremity cellulitis on antibiotics. 5. Acute on chronic systolic CHF with ejection fraction of 35-40%. 6. Diabetes mellitus. 7. Hypertension with chronic kidney disease. Controlled. 8. Anemia of chronic kidney disease. Iron deficiency noted - status post IV iron. On Aranesp. 9. Episodic headaches. Being followed by neurology. Temporal artery biopsy done 04/07/2023. 10. Lower extremity edema. Improved with diuresis. 11. Metabolic acidosis secondary to chronic kidney disease. On oral bicarbonate. Better. Plan: Maintain Bumex. Low-salt diet and 1500 mL fluid restriction. Avoid nephrotoxins. Continue to monitor renal function and urine output. Follow-up plasma metanephrines.
[2023-04-08 12:18] LABS: Reticulocyte % 3.1 % (0.5-2.0)
[2023-04-08 12:39] LABS: Glucose,Whole Blood 135 mg/dL (70-110)
--- NOTE | 2023-04-08 14:59 | P.PN ---
Subjective Progress Note Date: 04/08/23 Principal diagnosis: Headache Patient seen and examined today as a follow-up. Yesterday patient underwent right temporal artery biopsy. Patient states headache is actually resolving. She denies any visual changes and no other focal deficits. Objective - Vital Signs Vital signs: Vital Signs Temp 97.7 F 04/08/23 08:00 Pulse 73 04/08/23 08:00 Resp 16 04/08/23 08:00 BP 111/65 04/08/23 08:00 Pulse Ox 99 04/08/23 08:00 FiO2 6 04/07/23 15:01 Intake & Output 04/07/23 04/08/23 04/08/23 18:59 06:59 18:59 Intake Total 250 Output Total 150 Balance 100 Intake: IV 250 Output: Urine 150 Other: Voiding Method Toilet # Voids 1 2 # Emeses 2 - Exam General appearance: The patient is alert, oriented, appears in no acute distress. HET: Head is normocephalic and atraumatic. Pupils are equal and reactive. Right voodoo incision well approximated. Neck: Supple. Abdomen: Soft, nondistended. Extremities: Normal skin color and turgor. Neurological: No focal deficits. Strength and sensation are grossly intact. - Labs CBC & Chem 7: 04/08/23 05:27 04/08/23 05:27 Labs: Abnormal Lab Results - Last 24 Hours (Table) 04/07/23 04/07/23 04/07/23 Range/Units 05:42 05:42 11:43 RBC 3.01 L (4.10-5.20) X 10*6/uL Hgb 8.1 L (12.0-15.0) d/dL Hct 26.4 L (37.2-46.3) % MCH 26.9 L (27.0-32.0) pg MCHC 30.7 L (32.0-37.0) d/dL RDW 20.1 H (11.5-14.5) % Plt Count 125 L (140-440) X 10*3/uL Lymphocytes # 0.79 L (0.90-5.00) X 10*3/uL Monocytes # (0.20-1.00) X 10*3/uL Eosinophils # 0.03 L (0.04-0.35) X 10*3/uL Anisocytosis (manual) 2+ A Microcytosis (manual) 2+ A Elliptocytes 2+ A ESR (0-30) mm/Hr Carbon Dioxide 19.5 L (21.6-31.8) mmol/L Anion Gap 12.50 H (4.00-12.00) mmol/L BUN 39.6 H (9.0-27.0) mg/dL Est GFR (CKD-EPI) 36 L (>=60) BUN/Creatinine Ratio 26.40 H (12.00-20.00) Ratio Glucose 116 H (70-110) mg/dL POC Glucose (mg/dL) 127 H (70-110) mg/dL Total Bilirubin (0.3-1.2) mg/dL Total Protein (6.2-8.2) d/dL 04/07/23 04/07/23 04/07/23 Range/Units 15:14 17:24 20:41 RBC (4.10-5.20) X 10*6/uL Hgb (12.0-15.0) d/dL Hct (37.2-46.3) % MCH (27.0-32.0) pg MCHC (32.0-37.0) d/dL RDW (11.5-14.5) % Plt Count (140-440) X 10*3/uL Lymphocytes # (0.90-5.00) X 10*3/uL Monocytes # (0.20-1.00) X 10*3/uL Eosinophils # (0.04-0.35) X 10*3/uL Anisocytosis (manual) Microcytosis (manual) Elliptocytes ESR (0-30) mm/Hr Carbon Dioxide (21.6-31.8) mmol/L Anion Gap (4.00-12.00) mmol/L BUN (9.0-27.0) mg/dL Est GFR (CKD-EPI) (>=60) BUN/Creatinine Ratio (12.00-20.00) Ratio Glucose (70-110) mg/dL POC Glucose (mg/dL) 150 H 144 H 239 H (70-110) mg/dL Total Bilirubin (0.3-1.2) mg/dL Total Protein (6.2-8.2) d/dL 0904/08/23 04/08/23 Range/Units 05:27 05:27 06:04 RBC 3.26 L (4.10-5.20) X 10*6/uL Hgb 8.4 L (12.0-15.0) d/dL Hct 28.5 L (37.2-46.3) % MCH 25.8 L (27.0-32.0) pg MCHC 29.5 L (32.0-37.0) d/dL RDW 20.2 H (11.5-14.5) % Plt Count (140-440) X 10*3/uL Lymphocytes # 0.78 L (0.90-5.00) X 10*3/uL Monocytes # 0.18 L (0.20-1.00) X 10*3/uL Eosinophils # 0 L (0.04-0.35) X 10*3/uL Anisocytosis (manual) Microcytosis (manual) Elliptocytes 2+ A ESR 76 H (0-30) mm/Hr Carbon Dioxide (21.6-31.8) mmol/L Anion Gap (4.00-12.00) mmol/L BUN 45.6 H (9.0-27.0) mg/dL Est GFR (CKD-EPI) 36 L (>=60) BUN/Creatinine Ratio 30.40 H (12.00-20.00) Ratio Glucose 129 H (70-110) mg/dL POC Glucose (mg/dL) 146 H (70-110) mg/dL Total Bilirubin <0.2 L (0.3-1.2) mg/dL Total Protein 6.1 L (6.2-8.2) d/dL Assessment and Plan Assessment: 1. Headache 2. Possible giant cell arteritis 3. Diabetes 4. History of atrial fibrillation 5. Chronic anemia Plan: Patient is status post temporal artery biopsy. Surgical incision healing well. Patient may shower starting tomorrow. No tub baths or soaking. Follow-up with PCP for biopsy results and treatment. Rest of medical treatment per primary medical team. Thank you for this consultation, we will sign off at this time. The impression and plan of care has been dictated as directed. Dr. Alvarez I performed a history and examination of this patient, discussed the same with the dictator. I agree with the dictator's note ,documented as a scribe. Any additional findings or plans will be noted.
--- NOTE | 2023-04-08 15:15 | P.CONS ---
History of Present Illness - Reason for Consult Consult date: 04/08/23 Iron deficiency anemia Requesting physician: Kaushik Jacinto - Chief Complaint Headache - History of Present Illness This is a pleasant 77-year-old female who presented to the emergency department several days ago with complaints of headache mostly in the right temporal regio n. She was noted to have elevated sed rate and CRP with concern for giant cell arteritis. Yesterday she underwent temporal artery biopsy. She has a past medical history of atrial cancer status post radiation and hysterectomy, atrial fibrillation, diabetes mellitus, chronic kidney disease, chronic anemia and hypertension. Patient was admitted for headache workup, acute kidney injury, lower extremity cellulitis and was noted to be anemic. Gastroenterology consulted for iron deficiency anemia. Patient denies any abdominal pain, no epigastric discomfort, acid reflux, nausea or vomiting. Patient denies any blood in her stool or black stool. Last colonoscopy she believes was 7-10 years ago. No previous upper endoscopy. Apparently patient had iron profile done on 04/03/2023 with low iron index of 20 and ferritin 52.3. Current labs WBC 8.4 hemoglobin 8.4 hematocrit 28 platelet count 248,000 sodium 139 potassium 5.1 BUN 45.6 creatinine 1.5 total bilirubin less than 0.2 AST 25 ALT 16 alkaline phosphatase 67. Patient is on eliquis however has been off of that for the last 3 days. Review of Systems REVIEW OF SYSTEMS: CARDIOPULMONARY: No chest pain or shortness of breath. Gastrointestinal: No abdominal pain or epigastric pain. No nausea or vomiting. No hematemesis, coffee-ground emesis. No rectal bleeding, or melena. GENITOURINARY: No dysuria or hematuria. MUSCULOSKELETAL: Reports normal range of motion. SKIN: No rashes. No jaundice. ENDOCRINE: No chills, fevers. No excessive weight gain or loss. No polydipsia or polyuria. PSYCHIATRIC: Unremarkable. NEUROLOGY: No change in mental status. Denies dizziness or visual changes. Patient has had headache for last 2 weeks now improving. ENT: Vision unremarkable. CONSTITUTIONAL: No recent weight loss. No fever, chills, night sweats. Past Medical History Past Medical History: Cancer, Diabetes Mellitus, Eye Disorder, Hypertension, Osteoarthritis (OA), Renal Disease Additional Past Medical History / Comment(s): hx cervical cancer(sx and radiation), hx GOUT,controlled, colitis, macular degeneration both eyes.SEE DR Earnest RANGEL'S HISTORY AND PHYSICAL FOR CARDIAC HISTORY, RENAL DISEASE-STAGE 3 History of Any Multi-Drug Resistant Organisms: None Reported Past Surgical History: Hysterectomy, Joint Replacement, Orthopedic Surgery Additional Past Surgical History / Comment(s): APPLE cataracts, rt knee arthroscopy, neck fusion at C4-C5, C5-C6, C6-C7 corpectomy, apple CARPAL TUNNEL, cardioversion ,colonoscopy ,bilateral tubal ligation, right hip replacement, rt hand cyst removed Past Anesthesia/Blood Transfusion Reactions: Previous Problems w/ Anesthesia, Postoperative Nausea & Vomiting (PONV) Additional Past Anesthesia/Blood Transfusion Reaction / Comm: "stopped breathing with procedure done by Dr Britton", hard time coming out, told she was "lightweight" Past Psychological History: No Psychological Hx Reported Smoking Status: Never smoker Past Alcohol Use History: None Reported Past Drug Use History: None Reported - Past Family History Brother(s) Family Medical History: Cancer Additional Family Medical History / Comment(s): Patient has a total of 5 brothers. one survivor of colon cancer, one is alive at age 67 with lymphoma. 3 brothers have no major medical problems. Father Family Medical History: Pulmonary Embolus Additional Family Medical History / Comment(s): Father in his 80s from coronary artery disease with history of pulmonary embolus. Mother Family Medical History: Hypertension Additional Family Medical History / Comment(s): Mother at age 93 from dementia with history of hypertension. Daughter(s) Family Medical History: No Reported History Additional Family Medical History / Comment(s): Patient has one daughter with no major medical problems. Son(s) Family Medical History: No Reported History Additional Family Medical History / Comment(s): Patient has 2 sons and one has history of atrial fibrillation and one has history of stent. Medications and Allergies Home Medications Medication Instructions Recorded Confirmed Type Dexlansoprazole [Dexilant] 60 mg PO DAILY 04/01/16 03/31/23 History Apixaban [Eliquis] 5 mg PO BID 10/12/16 03/31/23 History Atorvastatin [Lipitor] 20 mg PO HS 11/25/18 03/31/23 History Levothyroxine Sodium [Synthroid] 50 mcg PO DAILY 03/26/23 03/31/23 History Vit C/E/Zn/Coppr/Lutein/Zeaxan 1 cap PO BID 03/26/23 03/31/23 History [Preservision Areds 2 Softgel] allopurinoL [Zyloprim] 300 mg PO Q48H 03/26/23 03/31/23 History Bumetanide [BUMEX] 1 mg PO DAILY #30 tab 03/27/23 03/31/23 Rx Dapagliflozin Propanediol [Farxiga] 10 mg PO DAILY #30 tab 03/27/23 03/31/23 Rx NIFEdipine XL [Procardia XL] 30 mg PO DAILY #30 tab 03/27/23 03/31/23 Rx Allergies Allergy/AdvReac Type Severity Reaction Status Date / Time Iodinated Contrast Media Allergy Rash/Hives Verified 03/31/23 20:44 [Iodinated Contrast Media - IV Dye] Penicillins Allergy Rash/Hives Verified 03/31/23 20:44 Sulfa (Sulfonamide Allergy Rash/Hives Verified 03/31/23 20:44 Antibiotics) Physical Exam Vitals: Vital Signs Temp Pulse Pulse Resp BP BP Pulse Ox 04/08/23 08:00 97.7 F 73 16 111/65 99 04/08/23 02:16 98.5 F 66 15 141/67 94 L 04/07/23 19:10 97.4 F L 123 H 17 128/66 90 L 04/07/23 15:30 85 15 132/60 100 04/07/23 15:15 84 17 134/59 100 04/07/23 15:01 97.5 F L 83 16 122/57 16 L 04/07/23 15:00 98.4 F 89 20 110/56 97 04/07/23 13:54 97.8 F 81 18 139/63 96 FiO2 04/08/23 08:00 04/08/23 02:16 04/07/23 19:10 04/07/23 15:30 04/07/23 15:15 04/07/23 15:01 6 04/07/23 15:00 04/07/23 13:54 Intake and Output 04/07/23 04/08/23 04/08/23 22:59 06:59 14:59 Intake Total 100 Output Total 150 Balance -50 Intake: IV 100 Output: Urine 150 Other: Voiding Method Toilet # Voids 1 2 Weight 83.461 kg General appearance: The patient is alert, oriented, appears in no acute distress. HET: Head is normocephalic and atraumatic. Conjunctiva pink. Sclera anicteric. Neck: Supple without lymphadenopathy. Trachea midline. Heart: S1 S2. Regular rate and rhythm. Lungs: Clear to auscultation. Abdomen: Soft, nontender, nondistended with bowel sounds. No guarding or rigidity. Skin: No rashes. No jaundice. Extremities: Normal skin color and turgor. No pedal edema. Neurological: No focal deficits. Alert and oriented x3. Results CBC & Chem 7: 04/08/23 05:27 04/08/23 05:27 Labs: Abnormal Lab Results - Last 24 Hours (Table) 04/07/23 04/07/23 04/07/23 Range/Units 15:14 17:24 20:41 RBC (4.10-5.20) X 10*6/uL Hgb (12.0-15.0) d/dL Hct (37.2-46.3) % MCH (27.0-32.0) pg MCHC (32.0-37.0) d/dL RDW (11.5-14.5) % Lymphocytes # (0.90-5.00) X 10*3/uL Monocytes # (0.20-1.00) X 10*3/uL Eosinophils # (0.04-0.35) X 10*3/uL Elliptocytes ESR (0-30) mm/Hr Retic Count (0.5-2.0) % BUN (9.0-27.0) mg/dL Est GFR (CKD-EPI) (>=60) BUN/Creatinine Ratio (12.00-20.00) Ratio Glucose (70-110) mg/dL POC Glucose (mg/dL) 150 H 144 H 239 H (70-110) mg/dL Hemoglobin A1c (<=6.0) % Total Bilirubin (0.3-1.2) mg/dL Total Protein (6.2-8.2) d/dL 04/08/23 04/08/23 04/08/23 Range/Units 05:27 05:27 05:27 RBC 3.26 L (4.10-5.20) X 10*6/uL Hgb 8.4 L (12.0-15.0) d/dL Hct 28.5 L (37.2-46.3) % MCH 25.8 L (27.0-32.0) pg MCHC 29.5 L (32.0-37.0) d/dL RDW 20.2 H (11.5-14.5) % Lymphocytes # 0.78 L (0.90-5.00) X 10*3/uL Monocytes # 0.18 L (0.20-1.00) X 10*3/uL Eosinophils # 0 L (0.04-0.35) X 10*3/uL Elliptocytes 2+ A ESR 76 H (0-30) mm/Hr Retic Count (0.5-2.0) % BUN 45.6 H (9.0-27.0) mg/dL Est GFR (CKD-EPI) 36 L (>=60) BUN/Creatinine Ratio 30.40 H (12.00-20.00) Ratio Glucose 129 H (70-110) mg/dL POC Glucose (mg/dL) (70-110) mg/dL Hemoglobin A1c 6.3 H (<=6.0) % Total Bilirubin <0.2 L (0.3-1.2) mg/dL Total Protein 6.1 L (6.2-8.2) d/dL 04/08/23 04/08/23 04/08/23 Range/Units 06:04 11:47 12:37 RBC (4.10-5.20) X 10*6/uL Hgb (12.0-15.0) d/dL Hct (37.2-46.3) % MCH (27.0-32.0) pg MCHC (32.0-37.0) d/dL RDW (11.5-14.5) % Lymphocytes # (0.90-5.00) X 10*3/uL Monocytes # (0.20-1.00) X 10*3/uL Eosinophils # (0.04-0.35) X 10*3/uL Elliptocytes ESR (0-30) mm/Hr Retic Count 3.1 H (0.5-2.0) % BUN (9.0-27.0) mg/dL Est GFR (CKD-EPI) (>=60) BUN/Creatinine Ratio (12.00-20.00) Ratio Glucose (70-110) mg/dL POC Glucose (mg/dL) 146 H 135 H (70-110) mg/dL Hemoglobin A1c (<=6.0) % Total Bilirubin (0.3-1.2) mg/dL Total Protein (6.2-8.2) d/dL Assessment and Plan (1) Iron deficiency anemia Narrative/Plan: 77-year-old female presenting for headache that has been ongoing for 2 weeks. Patient was noted to be anemic while in hospital. States she's been anemic since 2019 following her cardiac surgery. She does have a history of atrial fibrillation and is on Eliquis. Last taken 3 days ago was stopped for her recent temporal artery biopsy. Patient was noted to have iron deficiency anemia last iron indices was 20 and ferritin 52.3. Hemoglobin 8.4 and presents with a microcytic anemia. Patient denies any signs or symptoms of GI bleed however wit h being on anticoagulation need to consider possible GI source of iron deficiency anemia. Recommend proceeding with upper and lower endoscopy as her last colonoscopy was 7-10 years ago and no prior upper endoscopy. We'll plan for prep this evening and early in the morning. Continue to hold Eliquis. Current Visit: Yes Status: Acute Code(s): D50.9 - IRON DEFICIENCY ANEMIA, UNSPECIFIED SNOMED Code(s): 46455059 (2) Acute kidney injury Current Visit: Yes Status: Acute Code(s): N17.9 - ACUTE KIDNEY FAILURE, UNSPECIFIED SNOMED Code(s): 34069441 (3) Headache Current Visit: Yes Status: Acute Code(s): R51.9 - HEADACHE, UNSPECIFIED SNOMED Code(s): 27657185 (4) A-fib Current Visit: No Status: Acute Code(s): I48.91 - UNSPECIFIED ATRIAL FIBRILLATION SNOMED Code(s): 26798989 (5) Chronic kidney disease Current Visit: Yes Status: Acute Code(s): N18.9 - CHRONIC KIDNEY DISEASE, UNSPECIFIED SNOMED Code(s): 686979749 Plan: 1. Continue symptomatic and supportive care 2. Continue to hold eliquis 3. Clear liquid diet, nothing by mouth after midnight 4. Start bowel prep this evening give half this evening and start other half at 5 AM but then by 10 AM 5. Plan for upper and lower endoscopy tomorrow Thank you for this consultation, further recommendations following endoscopy. Dr. Earnest Snell I agree with the dictator's note, documented as a scribe by Kaci Loera.
--- NOTE | 2023-04-08 15:27 | P.PN ---
Subjective Progress Note Date: 04/08/23 77-year-old female who follows with Dr. Berg outpatient. Patient has a history of diabetes mellitus, hypothyroidism, Hypertension, cervical cancer with surgery and radiation, chronic kidney disease stage III, paroxysmal atrial fibrillation with prior cardiac ablation followed by Dr. Britton. Patient reports to the hospital with complaints of 3 to 4 week history oheadache and dizziness. Headache is described as sharp behind the eyes and intermittent she has increased dizziness during episodes. She has also had tinnitus going on and muffled hearing. Has seen ENT outpatient and needs hearing aids bilaterally. Patient denies any history of migraine, no vision changes, no vertigo, no chest pain, no shortness of breath, no palpitations. No focal weakness. Patient has no prior history of stroke. She is also noting an elevation in her blood pressure during these episodes. She fell on Wednesday due to "lightheadedness" did not lose consciousness or hit her head. She states she got up from sitting and felt faint while walking and went to the floor. She was recently evaluated at [facility] and underwent more of a cardiac work up. She was also discharged from this hospital 1 week ago, she was treated for symptomatic bradycardia was taken off her betablocker and transitioned from lasix to bumex. EKG on admission shows sinus rhythm with occasional supraventricular premature complexes, rate of 90. Brain CT on admission shows no acute intracranial abnormality. Initial blood work shows a creatinine of 1.51, sodium level 125 potassium elevated at 5.2 and hemoglobin of 9.9. Blood pressure has been controlled this admission with a pressure of 120/66 on admission. Patient is maintained on eliquis 5 mg twice a day. Has peripheral edema with weeping and bullae that have opened up. Dressings to the lower extremity are saturated with serous drainage and she remains with pitting edema. Patient is admitted to the hospital under medicine with a consult placed to neurology. 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 No evidence aneurysm. No evidence of intracranial mass or acute/subacute infarct. Nonspecific white matter changes, likely secondary to small vessel ischemic disease. Neurology on board; Rule out other infection process leading to elevated ESR. Pending DALILA, HSV1/2 PCR, ANCA, HIV, VZV, Lyme testing, Hepatitis panel and syphilis EIA. Consulted vascular surgery team for temporal artery biopsy. Consider lumbar puncture down the line. Patient wants to hold off steroid use for now 04/04/2023 Patient is seen sitting up in a bedside chair; continues to report headache at 7/10 We will signs are reviewed and remained stable Nephrology following for acute renal injury and recommending to continue Bumex at a dose of 0.5 mg daily; creatinine is improved to 1.6 this morning; low-salt and fluid restricted diet is in place - Nephrology adding IV iron supplement Neurology following for persistent headache; patient is scheduled for temporal artery biopsy on Wednesday04/05/2023 Patient is seen and evaluated in follow-up today on full medical consultations following. Patient is continued on antibiotics with infectious disease following along with neurology and vascular surgery. Patient continues to have headaches and anticoagulation is on hold for tentatively scheduled temporal artery biopsy with vascular on Wednesday. Patient being started on oral prednisone after clearance of infectious disease. Patient is afebrile with no reports of chest pain or shortness of breath. Patient denies nausea or vomiting and is tolerating diet. Daughter at the bedside with questions and concerns were answered to the best of our ability., Reports intermittent headache multiple times throughout the day 04/06/2023 Patient is seen in follow-up today continues to be sitting in the chair with multiple medical consultations following. Anticoagulation remains on hold as patient is scheduled with vascular surgery to undergo temporal artery biopsy on 04/07/2023. Patient continues to report headache and overall generalized weakness. She reports improvement in headache since starting oral steroids. Patient is scheduled to be nothing by mouth at midnight and will have biopsy done and will discuss further with vascular surgery about resuming anticoa gulant. Patient is afebrile with no reported chest pain or shortness of breath noted. Patient reports the tolerating diet with no reported nausea or vomiting 04/08/2023 Patient is seen in follow-up with multiple medical consultations following. Patient reports her headache has improved and feels the steroids are helping. Patient with hematology following has consulted GI for input and recommendations on anemia. GI planning on starting bowel prep with upper and lower EGD/colonoscopy scheduled for tomorrow. Anticoagulation remains on hold and we'll continue to hold until after EGD/colonoscopy. Vascular surgery has signed off and is status post temporal artery biopsy on the right which is pending and will follow-up outpatient. Patient continues with weakness with plans on going to [facility] and has been accepted. Will discuss with consultations about discharge planning possibly tomorrow after awaiting report for EGD/colonoscopy. Review of systems: Constitutional: No reports of fatigue, fever, or chills, reporting headache improved from yesterday Cardiovascular: No reports of chest pain or palpitations Respiratory: No reports of shortness of breath or cough GI: No reports of nausea, vomiting, or diarrhea : No reports of dysuria or retention Neurovascular: reports of generalized weakness All medications have been reviewed Physical exam: GENERAL: The patient is alert and oriented x3, obese. Well developed, well nourished. HEENT: Pupils are round and equally reacting to light. EOMI. No scleral icterus. No conjunctival pallor. Normocephalic, atraumatic. No pharyngeal erythema. No thyromegaly. CARDIOVASCULAR: S1 and S2 present. No murmurs, rubs, or gallops. PULMONARY: Breath sounds diminished bilaterally with no wheezing or crackles. ABDOMEN: Soft, nontender, nondistended, normoactive bowel sounds. No palpable organomegaly. MUSCULOSKELETAL: No joint swelling or deformity. EXTREMITIES: No cyanosis, clubbing, Bilateral pedal and lower extremity edema +2 with Maurilio wraps noted bilaterally NEUROLOGICAL: Gross neurological examination did not reveal any focal deficits. Generalized weakness. SKIN: Inside of left browne has bullae that has opened up. Right leg has is weeping. Assessment: Headache, new onset under investigation, rule out giant cell arteritis, status post trigeminal artery biopsy Dizziness/lightheadedness with fall on Wednesday likely due to orthostatic hypotension Peripheral edema and weeping ulcerations likely from the edema. Hyponatremia Recent admission for symptomatic bradycardia patient was taken off betablocker. History of atrial fibrillation with prior cardiac ablation anticoagulated with eliquis which is currently on hold Chronic tinnitus and hearing loss seeing ENT outpatient Hypothyroidism Anemia , most likely chronic with hematology following undergoing further workup and GI has been consulted to undergo EGD/colonoscopy on 04/09/2023 Hx hypertension Diabetes Mellitus type 2 Chronic kidney disease stage 3 Hx cervical cancer with surgery and radiation GI prophylaxis DVT prophylaxis, oral anticoagulant currently on hold for EGD/colonoscopy Full Code Plan: Multiple medical consultations including cardiology, infectious disease, vascular surgery, neurology following undergoing workup with plans for temporal artery biopsy with vascular surgery on 04/07/2023 Oral anticoagulant on hold and will discuss with vascular surgery about resuming post biopsy. Patient has been cleared by vascular surgery to follow-up outpatient for biopsy results. Hematology following and has consulted GI for this anemia and will start bowel prep and undergo EGD/colonoscopy tomorrow. Continue to hold anticoagulation until endoscopic reports and further discussion with GI Will order repeat labs continue 60 mg of oral prednisone daily and will discuss further with neurology about tapering on discharge Check orthostatics Qshift Continue Woundcare for the lower extremity edema can continue with abd pad, kerlex and maurilio wrap for compression pending further recommendations. Patient is continued on IV cefazolin with infectious disease following PT/OT evaluated the patient and will likely be going to [facility] for continued strength and mobility Will await and discuss with consultations about discharge planning. Awaiting EGD/colonoscopy Due to multiple complex medical issues, prognosis is guarded Possible discharge in the next 24-48 hours The impression and plan of care has been dictated by Lisset Walters, Nurse Practitioner as directed. Dr. Hayes MD I have performed a history and examination and MDM of this patient, discussed the same with the dictator, and agree with the dictator's assessment and plan as written ,documented as a scribe. Based on total visit time, I have performed more than 50% of the visit. Objective - Vital Signs Vital signs: Vital Signs Temp 97.7 F 04/08/23 08:00 Pulse 73 04/08/23 08:00 Resp 16 04/08/23 08:00 BP 111/65 04/08/23 08:00 Pulse Ox 99 04/08/23 08:00 FiO2 6 04/07/23 15:01 Intake & Output 04/07/23 04/08/23 04/08/23 18:59 06:59 18:59 Intake Total 250 Output Total 150 Balance 100 Weight 83.461 kg Intake: IV 250 Output: Urine 150 Other: Voiding Method Toilet # Voids 1 2 # Emeses 2 - Labs CBC & Chem 7: 04/08/23 05:27 04/08/23 05:27 Labs: Abnormal Lab Results - Last 24 Hours (Table) 04/07/23 04/07/23 04/07/23 Range/Units 15:14 17:24 20:41 RBC (4.10-5.20) X 10*6/uL Hgb (12.0-15.0) d/dL Hct (37.2-46.3) % MCH (27.0-32.0) pg MCHC (32.0-37.0) d/dL RDW (11.5-14.5) % Lymphocytes # (0.90-5.00) X 10*3/uL Monocytes # (0.20-1.00) X 10*3/uL Eosinophils # (0.04-0.35) X 10*3/uL Elliptocytes ESR (0-30) mm/Hr Retic Count (0.5-2.0) % BUN (9.0-27.0) mg/dL Est GFR (CKD-EPI) (>=60) BUN/Creatinine Ratio (12.00-20.00) Ratio Glucose (70-110) mg/dL POC Glucose (mg/dL) 150 H 144 H 239 H (70-110) mg/dL Total Bilirubin (0.3-1.2) mg/dL Total Protein (6.2-8.2) d/dL 04/08/23 04/08/23 04/08/23 Range/Units 05:27 05:27 06:04 RBC 3.26 L (4.10-5.20) X 10*6/uL Hgb 8.4 L (12.0-15.0) d/dL Hct 28.5 L (37.2-46.3) % MCH 25.8 L (27.0-32.0) pg MCHC 29.5 L (32.0-37.0) d/dL RDW 20.2 H (11.5-14.5) % Lymphocytes # 0.78 L (0.90-5.00) X 10*3/uL Monocytes # 0.18 L (0.20-1.00) X 10*3/uL Eosinophils # 0 L (0.04-0.35) X 10*3/uL Elliptocytes 2+ A ESR 76 H (0-30) mm/Hr Retic Count (0.5-2.0) % BUN 45.6 H (9.0-27.0) mg/dL Est GFR (CKD-EPI) 36 L (>=60) BUN/Creatinine Ratio 30.40 H (12.00-20.00) Ratio Glucose 129 H (70-110) mg/dL POC Glucose (mg/dL) 146 H (70-110) mg/dL Total Bilirubin <0.2 L (0.3-1.2) mg/dL Total Protein 6.1 L (6.2-8.2) d/dL 04/08/23 Range/Units 11:47 RBC (4.10-5.20) X 10*6/uL Hgb (12.0-15.0) d/dL Hct (37.2-46.3) % MCH (27.0-32.0) pg MCHC (32.0-37.0) d/dL RDW (11.5-14.5) % Lymphocytes # (0.90-5.00) X 10*3/uL Monocytes # (0.20-1.00) X 10*3/uL Eosinophils # (0.04-0.35) X 10*3/uL Elliptocytes ESR (0-30) mm/Hr Retic Count 3.1 H (0.5-2.0) % BUN (9.0-27.0) mg/dL Est GFR (CKD-EPI) (>=60) BUN/Creatinine Ratio (12.00-20.00) Ratio Glucose (70-110) mg/dL POC Glucose (mg/dL) (70-110) mg/dL Total Bilirubin (0.3-1.2) mg/dL Total Protein (6.2-8.2) d/dL
--- NOTE | 2023-04-08 16:58 | P.CONS ---
History of Present Illness - Reason for Consult Consult date: 04/08/23 anemia Requesting physician: Neil Koo - Chief Complaint headache - History of Present Illness Patient is a 77-year-old female with significant history of atrial fibrillation anticoagulated with eliquis and CKD. Patient presented to the emergency room for severe headache. Patient reports she has been experiencing intermittent frontal headache over the last 2-3 weeks which has been worsening. Patient reports prior to admission headaches became severe causing her to present for further evaluation. Patient also reports intermittent dizziness area patient denies slurred speech, facial droop, unilateral weakness, visual disturbances. Denies fever and chills. Patient states that after open heart surgery in 2019 she did have to receive blood transfusions at that time and has experienced anemia since with hemoglobin typically running in the 10 range. she states her last colonoscopy was greater than 5 years ago. She has never had EGD. She denies blood in stool and melena. Iron studies on 04/03/23 revealed iron 20, iron saturation 5.8%, ferritin 52.3. Folate and B12 normal. Patient received 4 doses of parenteral iron. CBC revealed hemoglobin 8.4, platelets 240,000. MRI/MRA brain and neck revealed no evidence of intracranial aneurysm or significant stenosis. Findings compatible with superficial siderosis with Blooming artifact with gyriform pattern along the cerebellar and cerebral hemispheres. No evidence of significant stenosis of the carotid bifurcations. Carotid and vertebral arteries patent. No evidence of intracranial mass or acute/subacute infarct. Neurology and vascular surgery following. S/P right temporal artery biopsy. Review of Systems 10 point ROS is negative except as stated in the HPI Past Medical History Past Medical History: Cancer, Diabetes Mellitus, Eye Disorder, Hypertension, Osteoarthritis (OA), Renal Disease Additional Past Medical History / Comment(s): hx cervical cancer(sx and radiation), hx GOUT,controlled, colitis, macular degeneration both eyes.SEE DR BRITTON'S HISTORY AND PHYSICAL FOR CARDIAC HISTORY, RENAL DISEASE-STAGE 3 History of Any Multi-Drug Resistant Organisms: None Reported Past Surgical History: Hysterectomy, Joint Replacement, Orthopedic Surgery Additional Past Surgical History / Comment(s): APPLE cataracts, rt knee arth roscopy, neck fusion at C4-C5, C5-C6, C6-C7 corpectomy, apple CARPAL TUNNEL, cardioversion ,colonoscopy ,bilateral tubal ligation, right hip replacement, rt hand cyst removed Past Anesthesia/Blood Transfusion Reactions: Previous Problems w/ Anesthesia, Postoperative Nausea & Vomiting (PONV) Additional Past Anesthesia/Blood Transfusion Reaction / Comm: "stopped breathing with procedure done by Dr Britton", hard time coming out, told she was "lightwe ight" Past Psychological History: No Psychological Hx Reported Smoking Status: Never smoker Past Alcohol Use History: None Reported Past Drug Use History: None Reported - Past Family History Brother(s) Family Medical History: Cancer Additional Family Medical History / Comment(s): Patient has a total of 5 brothers. one survivor of colon cancer, one is alive at age 67 with lymphoma. 3 brothers have no major medical problems. Father Family Medical History: Pulmonary Embolus Additional Family Medical History / Comment(s): Father in his 80s from coronary artery disease with history of pulmonary embolus. Mother Family Medical History: Hypertension Additional Family Medical History / Comment(s): Mother at age 93 from dementia with history of hypertension. Daughter(s) Family Medical History: No Reported History Additional Family Medical History / Comment(s): Patient has one daughter with no major medical problems. Son(s) Family Medical History: No Reported History Additional Family Medical History / Comment(s): Patient has 2 sons and one has history of atrial fibrillation and one has history of stent. Medications and Allergies Home Medications Medication Instructions Recorded Confirmed Type Dexlansoprazole [Dexilant] 60 mg PO DAILY 04/01/16 03/31/23 History Apixaban [Eliquis] 5 mg PO BID 10/12/16 03/31/23 History Atorvastatin [Lipitor] 20 mg PO HS 11/25/18 03/31/23 History Levothyroxine Sodium [Synthroid] 50 mcg PO DAILY 03/26/23 03/31/23 History Vit C/E/Zn/Coppr/Lutein/Zeaxan 1 cap PO BID 03/26/23 03/31/23 History [Preservision Areds 2 Softgel] allopurinoL [Zyloprim] 300 mg PO Q48H 03/26/23 03/31/23 History Bumetanide [BUMEX] 1 mg PO DAILY #30 tab 03/27/23 03/31/23 Rx Dapagliflozin Propanediol [Farxiga] 10 mg PO DAILY #30 tab 08/26/23 08/30/23 Rx NIFEdipine XL [Procardia XL] 30 mg PO DAILY #30 tab 03/27/23 03/31/23 Rx Allergies Allergy/AdvReac Type Severity Reaction Status Date / Time Iodinated Contrast Media Allergy Rash/Hives Verified 03/31/23 20:44 [Iodinated Contrast Media - IV Dye] Penicillins Allergy Rash/Hives Verified 03/31/23 20:44 Sulfa (Sulfonamide Allergy Rash/Hives Verified 03/31/23 20:44 Antibiotics) Physical Exam Vitals: Vital Signs Temp Pulse Resp BP Pulse Ox 04/08/23 13:56 97.9 F 80 16 127/74 98 04/08/23 08:00 97.7 F 73 16 111/65 99 04/08/23 02:16 98.5 F 66 15 141/67 94 L 04/07/23 19:10 97.4 F L 123 H 17 128/66 90 L Intake and Output 04/08/23 04/08/23 04/08/23 06:59 14:59 22:59 Other: # Voids 2 Weight 83.461 kg - Constitutional General appearance: average body habitus, no acute distress - EENT Eyes: anicteric sclerae, EOMI ENT: hearing grossly normal - Respiratory Respiratory: bilateral: CTA - Cardiovascular Rhythm: irregularly irregular Heart sounds: normal: S1, S2 Abnormal Heart Sounds: no systolic murmur, no diastolic murmur, no rub, no S3 Gallop, no S4 Gallop, no click, no other leg Peripheral Edema: bilateral: 2+ - Gastrointestinal General gastrointestinal: no distended, soft, no tenderness - Integumentary Integumentary: no cyanotic, no jaundiced - Neurologic grossly intact - Musculoskeletal Musculoskeletal: strength equal bilaterally - Psychiatric Psychiatric: A&O x's 3, appropriate affect, intact judgment & insight Results CBC & Chem 7: 04/08/23 05:27 04/08/23 05:27 Labs: Abnormal Lab Results - Last 24 Hours (Table) 04/07/23 04/07/23 04/08/23 Range/Units 17:24 20:41 05:27 RBC (4.10-5.20) X 10*6/uL Hgb (12.0-15.0) d/dL Hct (37.2-46.3) % MCH (27.0-32.0) pg MCHC (32.0-37.0) d/dL RDW (11.5-14.5) % Lymphocytes # (0.90-5.00) X 10*3/uL Monocytes # (0.20-1.00) X 10*3/uL Eosinophils # (0.04-0.35) X 10*3/uL Elliptocytes ESR (0-30) mm/Hr Retic Count (0.5-2.0) % BUN (9.0-27.0) mg/dL Est GFR (CKD-EPI) (>=60) BUN/Creatinine Ratio (12.00-20.00) Ratio Glucose (70-110) mg/dL POC Glucose (mg/dL) 144 H 239 H (70-110) mg/dL Hemoglobin A1c 6.3 H (<=6.0) % Total Bilirubin (0.3-1.2) mg/dL Total Protein (6.2-8.2) d/dL 04/08/23 04/08/23 04/08/23 Range/Units 05:27 05:27 06:04 RBC 3.26 L (4.10-5.20) X 10*6/uL Hgb 8.4 L (12.0-15.0) d/dL Hct 28.5 L (37.2-46.3) % MCH 25.8 L (27.0-32.0) pg MCHC 29.5 L (32.0-37.0) d/dL RDW 20.2 H (11.5-14.5) % Lymphocytes # 0.78 L (0.90-5.00) X 10*3/uL Monocytes # 0.18 L (0.20-1.00) X 10*3/uL Eosinophils # 0 L (0.04-0.35) X 10*3/uL Elliptocytes 2+ A ESR 76 H (0-30) mm/Hr Retic Count (0.5-2.0) % BUN 45.6 H (9.0-27.0) mg/dL Est GFR (CKD-EPI) 36 L (>=60) BUN/Creatinine Ratio 30.40 H (12.00-20.00) Ratio Glucose 129 H (70-110) mg/dL POC Glucose (mg/dL) 146 H (70-110) mg/dL Hemoglobin A1c (<=6.0) % Total Bilirubin <0.2 L (0.3-1.2) mg/dL Total Protein 6.1 L (6.2-8.2) d/dL 04/08/23 04/08/23 Range/Units 11:47 12:37 RBC (4.10-5.20) X 10*6/uL Hgb (12.0-15.0) d/dL Hct (37.2-46.3) % MCH (27.0-32.0) pg MCHC (32.0-37.0) d/dL RDW (11.5-14.5) % Lymphocytes # (0.90-5.00) X 10*3/uL Monocytes # (0.20-1.00) X 10*3/uL Eosinophils # (0.04-0.35) X 10*3/uL Elliptocytes ESR (0-30) mm/Hr Retic Count 3.1 H (0.5-2.0) % BUN (9.0-27.0) mg/dL Est GFR (CKD-EPI) (>=60) BUN/Creatinine Ratio (12.00-20.00) Ratio Glucose (70-110) mg/dL POC Glucose (mg/dL) 135 H (70-110) mg/dL Hemoglobin A1c (<=6.0) % Total Bilirubin (0.3-1.2) mg/dL Total Protein (6.2-8.2) d/dL Comments: MRI/MRA brain and neck reviewed Assessment and Plan (1) Headache Current Visit: Yes Status: Acute Priority: High Code(s): R51.9 - HEADACHE, UNSPECIFIED SNOMED Code(s): 83489171 (2) Iron deficiency anemia Current Visit: Yes Status: Acute Priority: High Code(s): D50.9 - IRON DEFICIENCY ANEMIA, UNSPECIFIED SNOMED Code(s): 26282997 Plan: MCKENNA: -Hemoglobin this admission has been in 8 range. Hgb 8.4 today. -Iron studies on 04/03/23 revealed iron 20, iron saturation 5.8%, ferritin 52.3. Folate and B12 normal. Patient received 4 doses of parenteral iron. -Patient states that after open heart surgery in 2019 she did have to receive blood transfusions at that time and has experienced anemia since with hemoglobin typically running in the 10 range. She states her last colonoscopy was greater than 5 years ago. She has never had EGD. She denies blood in stool and melena. She is anticoagulated with eliquis for a-fib. Eliquis has been held since admission -Will consult GI for endoscopic evaluation -Paraproteinemia and hemolysis workup ordered -Anemia likely multifactorial related to underlying known CKD, superimposed by anemia of inflammation and possible GI bleed -Will continue to monitor. Please transfuse for hemoglobin less than 7 or if symptomatic. Headache: -MRI/MRA brain and neck revealed no evidence of intracranial aneurysm or significant stenosis. Findings compatible with superficial siderosis with Blooming artifact with gyriform pattern along the cerebellar and cerebral hemispheres. No evidence of significant stenosis of the carotid bifurcations. Carotid and vertebral arteries patent. No evidence of intracranial mass or acute/subacute infarct. -S/P right temporal artery biopsy on 04/06, biopsy pending -Neurology and vascular surgery following
[2023-04-08 17:37] LABS: Glucose,Whole Blood 152 mg/dL (70-110)
[2023-04-08] MEDS ORDERED: PEG 3350 (236 GM/BTL) + LYTES 4,000 ML BOTTLE PO ONE (18:00)
--- NOTE | 2023-04-08 18:21 | P.PN ---
Subjective Progress Note Date: 04/08/23 04/08/2023: Patient was seen for a follow-up. Patient states she is feeling much better. The pain is almost gone. She calls it a 1/10. The pain was not bad enough that was worth charting. She denies any side effects of medications. 04/07/2023: Patient was seen for a follow-up. Patient continues to have frequent headaches despite being on high-dose steroids, prednisone 60 mg daily. I had told patient yesterday to keep a log of the headaches. She had 13 episodes of headaches in the last 24 hours. 9 of them lasted 5 minutes, 2 of them lasted 10 minutes, 1 lasted 15 minutes and one of them lasted 20 minutes. She describes headaches mostly around her eyes, almost like a frame of eyeglasses distribution. Only yesterday sometimes it was going to the left temporal region to the left ear. She describes it as sharp stabbing pain, very intense 10/10. Patient states she has previously tried gabapentin, but produced severe side effects. She took only 3 tablets and stopped taking it. She denies any excessive tearing or any symptoms of cluster headache. She is not waking up with a headache. The headache does not wake her up during sleeping. 04/06/2023: Patient was seen for a follow-up. Patient states she was started on steroids last night, and her headache has much improved. She had one episode last night at 10 PM. She received prednisone 60 mg after that. She slept well overnight. This morning she had a very brief headache, at present is 1/10. She feels over all her headache has much improved. Denies any side effect of prednisone. 04/05/2023: Patient was seen for a follow-up. Patient continues to have headaches, has it about 6 times since this morning, lasting for about 5 minutes. She rates her headache 8/10, pointing to above eyebrow bilaterally, on her cheek/zygomatic bone and sometimes extends to the jaw. She states yesterday she had about 20 times a headache. It is bilateral, therefore doubt trigeminal neuralgia. Patient states that it bothers her enough, that she feels like punching someone. No fever or chills. 04/04/2023: Patient was initially seen by Dr. Josesito Rendon. Please refer to his note for details. Patient has presented with a couple week history of new onset headaches. The headache was occurring about couple times a day, would come and go lasting for an hour sometimes half an hour. Patient states the headaches are becoming more frequent, and lasting longer. Patient denies any light or noise sensitivity although she does feel nauseous but no vomiting. Patient denies any neck stiffness or neck pain. Patient has history of neck surgery in 2015 or 2016. Patient at present compatible is of headaches 7/10, involving bifrontal, by maxillary region and not in the eyes. She believes it is coming more frequent. Patient could not tell how long the headache lasted today, but she thinks that it was off and on for around 8 hours, "maybe more", but she was not sure. Patient says that she does not have chronic headaches, is not a headache person. She denies any jaw claudication, any weight loss, fever or sweating. Patient states that this pain is going in the jaw and left ear occasionally. Patient is a 77-year-old female with new onset episodic headache for past 3-4 weeks, frontal temporal and maxillary sinus. ESR is elevated 74. Patient is scheduled for temporal artery biopsy. Objective - Vital Signs Vital signs: Vital Signs Temp 97.9 F 04/08/23 13:56 Pulse 80 04/08/23 13:56 Resp 16 04/08/23 13:56 BP 127/74 04/08/23 13:56 Pulse Ox 98 04/08/23 13:56 FiO2 6 04/07/23 15:01 Intake & Output 04/07/23 04/08/23 04/08/23 18:59 06:59 18:59 Intake Total 250 Output Total 150 Balance 100 Weight 83.461 kg Intake: IV 250 Output: Urine 150 Other: Voiding Method Toilet # Voids 1 2 1 # Emeses 2 - Exam Patient is an elderly female, sitting in the recliner, and appears to be in no obvious distress. She does appear slightly flushed. Speech and language functions are normal. Patient is oriented 3. Pupils are equal, round and reactive to light, visual rosa are full on confrontation. Extraocular muscles are intact and no nystagmus. Facial sensation normal. No facial weakness, no dysarthria. Patient is hard of hearing bilaterally to hand rub. Muscle strength appears normal. Patient has moderate edema of bilateral lower extremities. Sensations are equal. - Labs CBC & Chem 7: 04/08/23 05:27 04/08/23 05:27 Labs: Abnormal Lab Results - Last 24 Hours (Table) 04/07/23 04/08/23 04/08/23 Range/Units 20:41 05:27 05:27 RBC 3.26 L (4.10-5.20) X 10*6/uL Hgb 8.4 L (12.0-15.0) d/dL Hct 28.5 L (37.2-46.3) % MCH 25.8 L (27.0-32.0) pg MCHC 29.5 L (32.0-37.0) d/dL RDW 20.2 H (11.5-14.5) % Lymphocytes # 0.78 L (0.90-5.00) X 10*3/uL Monocytes # 0.18 L (0.20-1.00) X 10*3/uL Eosinophils # 0 L (0.04-0.35) X 10*3/uL Elliptocytes 2+ A ESR 76 H (0-30) mm/Hr Retic Count (0.5-2.0) % Haptoglobin (31.2-198.0) mg/dL BUN (9.0-27.0) mg/dL Est GFR (CKD-EPI) (>=60) BUN/Creatinine Ratio (12.00-20.00) Ratio Glucose (70-110) mg/dL POC Glucose (mg/dL) 239 H (70-110) mg/dL Hemoglobin A1c 6.3 H (<=6.0) % Total Bilirubin (0.3-1.2) mg/dL Total Protein (6.2-8.2) d/dL 04/08/23 04/08/23 04/08/23 Range/Units 05:27 06:04 11:47 RBC (4.10-5.20) X 10*6/uL Hgb (12.0-15.0) d/dL Hct (37.2-46.3) % MCH (27.0-32.0) pg MCHC (32.0-37.0) d/dL RDW (11.5-14.5) % Lymphocytes # (0.90-5.00) X 10*3/uL Monocytes # (0.20-1.00) X 10*3/uL Eosinophils # (0.04-0.35) X 10*3/uL Elliptocytes ESR (0-30) mm/Hr Retic Count 3.1 H (0.5-2.0) % Haptoglobin (31.2-198.0) mg/dL BUN 45.6 H (9.0-27.0) mg/dL Est GFR (CKD-EPI) 36 L (>=60) BUN/Creatinine Ratio 30.40 H (12.00-20.00) Ratio Glucose 129 H (70-110) mg/dL POC Glucose (mg/dL) 146 H (70-110) mg/dL Hemoglobin A1c (<=6.0) % Total Bilirubin <0.2 L (0.3-1.2) mg/dL Total Protein 6.1 L (6.2-8.2) d/dL 04/08/23 04/08/23 04/08/23 Range/Units 11:47 12:37 17:32 RBC (4.10-5.20) X 10*6/uL Hgb (12.0-15.0) d/dL Hct (37.2-46.3) % MCH (27.0-32.0) pg MCHC (32.0-37.0) d/dL RDW (11.5-14.5) % Lymphocytes # (0.90-5.00) X 10*3/uL Monocytes # (0.20-1.00) X 10*3/uL Eosinophils # (0.04-0.35) X 10*3/uL Elliptocytes ESR (0-30) mm/Hr Retic Count (0.5-2.0) % Haptoglobin 287.0 H (31.2-198.0) mg/dL BUN (9.0-27.0) mg/dL Est GFR (CKD-EPI) (>=60) BUN/Creatinine Ratio (12.00-20.00) Ratio Glucose (70-110) mg/dL POC Glucose (mg/dL) 135 H 152 H (70-110) mg/dL Hemoglobin A1c (<=6.0) % Total Bilirubin (0.3-1.2) mg/dL Total Protein (6.2-8.2) d/dL Assessment and Plan Assessment: Probable trigeminal neuralgia versus temporal arteritis. New onset intermittent periorbital headache bilaterally, off and on for last 3-4 weeks, unclear cause. The headaches are recurrent and is short lasting mostly 5 minutes, sometimes lasting a bit longer. In between the headache episodes, she is completely headache free. Patient does have elevated ESR, raising concern for temporal arteritis, but the headache did not respond well to high-dose steroids. Symptoms are quite suggestive of trigeminal neuralgia, but the symptoms are bilateral periorbitally. Denies any visual disturbance or pain with jaw or chewing. Positive orthostatic hypotension and that is likely giving her light-headedness Chronic tinnitus with severe hearing loss: Pending hearing aids. History of atrial fibrillation s/p ablation in 2019 and is on eliquis DM Diabetic neuropathy Plan: * Patient's headache has almost resolved. Suspect improvement from Trileptal 150 mg twice a day. This will be continued. * Temporal artery biopsy completed, results pending. If the results come back negative, will discontinue steroids. Dr. Koo has switched from prednisone 60 mg to Solu-Medrol 60 mg every 6 hours. * Hemoglobin A1c 6.4. Patient was informed that steroids can make her blood sugars worse. She would need to watch her blood sugars. * Empirically try Trileptal 150 mg twice a day for possible atypical trigeminal neuralgia. Possible side effects discussed. Patient informed to stop medication if she gets any rash. May increase dose as tolerated and as needed. * MRI Brain and MRA neck: It is reported as no evidence of intracranial aneurysm or significant stenosis. 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 No evidence of significant stenosis at the carotid bifurcations. The carotid and vertebral arteries are patent. No evidence aneurysm. No evidence of intracranial mass or acute/subacute infarct. Nonspecific white matter changes, likely secondary to small vessel ischemic disease. * MRA head: No evidence of aneurysm or significant stenosis. Type III vascular loop on the right an type II on the left. * Rheumatoid factor <15, RPR negative, hepatitis panel negative. DALILA negative, HSV1/2 PCR and VZV PCR all negative, ANCA antibodies negative, HIV negative. Lyme titer negative. Her initial ESR was 74, repeat ESR also came back 74. CRP borderline 1.0, B12 1175, RBC folate 994 normal, TSH normal. * Repeat ESR this morning is further up 76. The ESR did not improve to predn isone, or even to Solu-Medrol. Suggest rheumatology consultation. * Patient has been seen by GI and hematology. Patient undergoing EGD and coloscopy in the morning. * Patient has atrial fibrillation, on Eliquis, currently on hold for a temporal artery biopsy performed yesterday, and EGD and colonoscopy in the morning. Consider bridging with heparin. Informed patient's nurse to discuss with abdias pedersen. * Will defer the management of orthostatic vitals to the primary team. * Will defer the rest of medical management to primary team.
[2023-04-08] MEDS: ATORVASTATIN 20 MG TAB PO SCH (20:25)
[2023-04-08 21:18] LABS: Glucose,Whole Blood 148 mg/dL (70-110)
[2023-04-09] MEDS: methylPREDNISolone SOD SUCCI 125 MG/2 ML VIAL IV SCH ×3 (00:16→13:16)
[2023-04-09] MEDS: carvediloL 6.25 MG TAB PO SCH (06:20)
[2023-04-09] MEDS: LEVOTHYROXINE 50 MCG TAB PO SCH (06:20)
[2023-04-09] MEDS: LACTATED RINGERS 1,000 ML IV SCH (06:23)
[2023-04-09 06:28] LABS: Glucose,Whole Blood 129 mg/dL (70-110)
[2023-04-09] MEDS: INSULIN ASPART (NovoLOG) 100 UNIT/ML VIAL SQ SCH ×4 (07:03→20:28)
[2023-04-09 08:46] LABS: Basophils # (A) 0.01 X 10*3/uL (0.00-0.10); Basophils % (A) 0.1 %; Eosinophils # (A) 0 X 10*3/uL (0.04-0.35); Eosinophils % (A) 0 %; HCT 28.3 % (37.2-46.3); HGB 8.7 d/dL (12.0-15.0); Lymphocytes # (A) 0.69 X 10*3/uL (0.90-5.00); Lymphocytes % (A) 9.5 %; MCH 26.6 pg (27.0-32.0); MCHC 30.7 d/dL (32.0-37.0); MCV 86.5 FL (80.0-97.0); Mean Platelet Volume 9.9 FL (9.5-12.2); Monocytes # (A) 0.27 X 10*3/uL (0.20-1.00); Monocytes % (A) 3.7 %; NRBC Per 100 WBC 0 X 10*3/uL (0.00-0.01); Neutrophils # (A) 6.19 X 10*3/uL (1.80-7.70); Neutrophils % (A) 85.7 %; Platelet Count 245 X 10*3/uL (140-440); RBC 3.27 X 10*6/uL (4.10-5.20); RDW 20.3 % (11.5-14.5); WBC 7.23 X 10*3/uL (4.50-10.00)
[2023-04-09] MEDS: SENNOSIDES 8.6 MG TAB PO SCH ×2 (09:12→20:28)
[2023-04-09] MEDS: DAPAGLIFLOZIN PROPANEDIOL 10 MG TABLET PO SCH (09:12)
[2023-04-09 09:22] LABS: Blood Urea Nitrogen 50.7 mg/dL (9.0-27.0); Calcium 8.9 mg/dL (8.7-10.3); Chloride 102 mmol/L (96-109); Glucose 134 mg/dL (70-110); Magnesium 2.4 mg/dL (1.5-2.4); Potassium 4.6 mmol/L (3.5-5.5); Sodium 139 mmol/L (135-145)
[2023-04-09 09:55] LABS: Albumin 3.8 d/dL (3.8-4.9)
[2023-04-09 10:36] LABS: Free Kappa Lt Chain Qnt, Serum 2.48 mg/dL (0.33-1.94); Free Lambda Lt Chain Qnt, Seru 1.38 mg/dL (0.57-2.63)
[2023-04-09] MEDS: BUMETANIDE 1 MG TAB PO SCH (11:08)
[2023-04-09] MEDS: CEPHALEXIN 500 MG CAP PO SCH ×2 (11:08→20:28)
[2023-04-09] MEDS: PANTOPRAZOLE 40 MG TABLET PO SCH (11:09)
[2023-04-09] MEDS: SODIUM BICARBONATE TAB 650 MG TAB PO SCH ×2 (11:09→20:28)
[2023-04-09] MEDS: TRIAMCINOLONE 0.1% CREAM 80 GM TUBE TOPICAL SCH ×2 (11:09→20:29)
[2023-04-09] MEDS: LORATADINE 10 MG TAB PO SCH (11:09)
[2023-04-09] MEDS: OXcarbazepine 150 MG TAB PO SCH ×2 (11:09→20:28)
[2023-04-09] MEDS: NYSTATIN 100,000UNIT/GM CREAM 30 GM TUBE TOPICAL SCH ×2 (11:09→20:29)
[2023-04-09] MEDS: FLUTICASONE 50MCG/SPRAY NASAL 16GM EA NOSTRIL SCH (11:10)
--- NOTE | 2023-04-09 11:37 | P.PN ---
Subjective Patient is seen in follow-up for acute kidney injury on chronic kidney disease. Renal function better. Good urine output. Hemodynamically stable. No vomiting or diarrhea. No headaches. Scheduled for colonoscopy today. Vital signs are stable. General: No acute distress. HEENT: Head exam is unremarkable. LUNGS: No audible rhonchi or wheezes. HEART: Rate and Rhythm are regular. ABDOMEN: Nontender, obese. EXTREMITITES: 1+ edema. Lower extremities wrapped. Objective - Vital Signs Vital signs: Vital Signs Temp 97.7 F 04/09/23 07:54 Pulse 77 04/09/23 07:54 Resp 16 04/09/23 07:54 BP 174/69 04/09/23 07:54 Pulse Ox 96 04/09/23 07:54 FiO2 6 04/07/23 15:01 Intake & Output 04/08/23 04/09/23 04/09/23 18:59 06:59 18:59 Weight 83.461 kg Other: Voiding Method Toilet # Voids 1 4 # Bowel Movements 3 - Labs CBC & Chem 7: 04/09/23 04:52 04/09/23 04:52 Labs: Abnormal Lab Results - Last 24 Hours (Table) 04/08/23 04/08/23 04/08/23 Range/Units 05:27 11:47 11:47 RBC (4.10-5.20) X 10*6/uL Hgb (12.0-15.0) d/dL Hct (37.2-46.3) % MCH (27.0-32.0) pg MCHC (32.0-37.0) d/dL RDW (11.5-14.5) % Lymphocytes # (0.90-5.00) X 10*3/uL Eosinophils # (0.04-0.35) X 10*3/uL Retic Count 3.1 H (0.5-2.0) % Haptoglobin 287.0 H (31.2-198.0) mg/dL BUN (9.0-27.0) mg/dL Est GFR (CKD-EPI) (>=60) BUN/Creatinine Ratio (12.00-20.00) Ratio Glucose (70-110) mg/dL POC Glucose (mg/dL) (70-110) mg/dL Hemoglobin A1c 6.3 H (<=6.0) % Total Protein (PEP) 6.0 L (6.2-8.2) d/dL Free Orosi LC, Quant 2.48 H (0.33-1.94) mg/dL 04/08/23 04/08/23 04/08/23 Range/Units 12:37 17:32 21:17 RBC (4.10-5.20) X 10*6/uL Hgb (12.0-15.0) d/dL Hct (37.2-46.3) % MCH (27.0-32.0) pg MCHC (32.0-37.0) d/dL RDW (11.5-14.5) % Lymphocytes # (0.90-5.00) X 10*3/uL Eosinophils # (0.04-0.35) X 10*3/uL Retic Count (0.5-2.0) % Haptoglobin (31.2-198.0) mg/dL BUN (9.0-27.0) mg/dL Est GFR (CKD-EPI) (>=60) BUN/Creatinine Ratio (12.00-20.00) Ratio Glucose (70-110) mg/dL POC Glucose (mg/dL) 135 H 152 H 148 H (70-110) mg/dL Hemoglobin A1c (<=6.0) % Total Protein (PEP) (6.2-8.2) d/dL Free Orosi LC, Quant (0.33-1.94) mg/dL 04/09/23 04/09/23 04/09/23 Range/Units 04:52 04:52 06:27 RBC 3.27 L (4.10-5.20) X 10*6/uL Hgb 8.7 L (12.0-15.0) d/dL Hct 28.3 L (37.2-46.3) % MCH 26.6 L (27.0-32.0) pg MCHC 30.7 L (32.0-37.0) d/dL RDW 20.3 H (11.5-14.5) % Lymphocytes # 0.69 L (0.90-5.00) X 10*3/uL Eosinophils # 0 L (0.04-0.35) X 10*3/uL Retic Count (0.5-2.0) % Haptoglobin (31.2-198.0) mg/dL BUN 50.7 H (9.0-27.0) mg/dL Est GFR (CKD-EPI) 42 L (>=60) BUN/Creatinine Ratio 39.00 H (12.00-20.00) Ratio Glucose 134 H (70-110) mg/dL POC Glucose (mg/dL) 129 H (70-110) mg/dL Hemoglobin A1c (<=6.0) % Total Protein (PEP) (6.2-8.2) d/dL Free Orosi LC, Quant (0.33-1.94) mg/dL Assessment and Plan Plan: Assessment: 1. Acute kidney injury secondary to vasomotor nephropathy from diuresis and slgt2i. Creatinine peaked at 2.0 this admission - 1.3 today. UA benign. 2. Chronic kidney disease stage IIIB with baseline creatinine near 1.5 secondary to nephrosclerosis. 3. Hypervolemic hyponatremia improved with diuresis. 4. Lower extremity cellulitis on antibiotics. 5. Acute on chronic systolic CHF with ejection fraction of 35-40%. 6. Diabetes mellitus. 7. Hypertension with chronic kidney disease. Exacerbated by steroids. 8. Anemia of chronic kidney disease. Iron deficiency noted - status post IV iron. On Aranesp. Hematology following. 9. Episodic headaches. Being followed by neurology and vascular surgery. Temporal artery biopsy done 04/07/2023. No intracranial aneurysm or significant stenosis noted on MRI. No acute or subacute infarcts noted. 10. Lower extremity edema. Improved with diuresis. 11. Metabolic acidosis secondary to chronic kidney disease. On oral bicarbonate. Better. Plan: Maintain Bumex. Low-salt diet and 1500 mL fluid restriction. Avoid nephrotoxins. Continue to monitor renal function and urine output. Follow-up plasma metanephrines. Increase dose of Coreg. Add when necessary hydralazine.
[2023-04-09 12:42] LABS: Glucose,Whole Blood 108 mg/dL (70-110)
--- NOTE | 2023-04-09 14:29 | P.PN ---
Subjective Progress Note Date: 04/09/23 77-year-old female who follows with Dr. Berg outpatient. Patient has a history of diabetes mellitus, hypothyroidism, Hypertension, cervical cancer with surgery and radiation, chronic kidney disease stage III, paroxysmal atrial fibrillation with prior cardiac ablation followed by Dr. Britton. Patient reports to the hospital with complaints of 3 to 4 week history oheadache and dizziness. Headache is described as sharp behind the eyes and intermittent she has increased dizziness during episodes. She has also had tinnitus going on and muffled hearing. Has seen ENT outpatient and needs hearing aids bilaterally. Patient denies any history of migraine, no vision changes, no vertigo, no chest pain, no shortness of breath, no palpitations. No focal weakness. Patient has no prior history of stroke. She is also noting an elevation in her blood pressure during these episodes. She fell on Wednesday due to "lightheadedness" did not lose consciousness or hit her head. She states she got up from sitting and felt faint while walking and went to the floor. She was recently evaluated at [facility] and underwent more of a cardiac work up. She was also discharged from this hospital 1 week ago, she was treated for symptomatic bradycardia was taken off her betablocker and transitioned from lasix to bumex. EKG on admission shows sinus rhythm with occasional supraventricular premature complexes, rate of 90. Brain CT on admission shows no acute intracranial abnormality. Initial blood work shows a creatinine of 1.51, sodium level 125 potassium elevated at 5.2 and hemoglobin of 9.9. Blood pressure has been controlled this admission with a pressure of 120/66 on admission. Patient is maintained on eliquis 5 mg twice a day. Has peripheral edema with weeping and bullae that have opened up. Dressings to the lower extremity are saturated with serous drainage and she remains with pitting edema. Patient is admitted to the hospital under medicine with a consult placed to neurology. 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 No evidence aneurysm. No evidence of intracranial mass or acute/subacute infarct. Nonspecific white matter changes, likely secondary to small vessel ischemic disease. Neurology on board; Rule out other infection process leading to elevated ESR. Pending DALILA, HSV1/2 PCR, ANCA, HIV, VZV, Lyme testing, Hepatitis panel and syphilis EIA. Consulted vascular surgery team for temporal artery biopsy. Consider lumbar puncture down the line. Patient wants to hold off steroid use for now 04/04/2023 Patient is seen sitting up in a bedside chair; continues to report headache at 7/10 We will signs are reviewed and remained stable Nephrology following for acute renal injury and recommending to continue Bumex at a dose of 0.5 mg daily; creatinine is improved to 1.6 this morning; low-salt and fluid restricted diet is in place - Nephrology adding IV iron supplement Neurology following for persistent headache; patient is scheduled for temporal artery biopsy on Wednesday04/05/2023 Patient is seen and evaluated in follow-up today on full medical consultations following. Patient is continued on antibiotics with infectious disease following along with neurology and vascular surgery. Patient continues to have headaches and anticoagulation is on hold for tentatively scheduled temporal artery biopsy with vascular on Wednesday. Patient being started on oral prednisone after clearance of infectious disease. Patient is afebrile with no reports of chest pain or shortness of breath. Patient denies nausea or vomiting and is tolerating diet. Daughter at the bedside with questions and concerns were answered to the best of our ability., Reports intermittent headache multiple times throughout the day 04/06/2023 Patient is seen in follow-up today continues to be sitting in the chair with multiple medical consultations following. Anticoagulation remains on hold as patient is scheduled with vascular surgery to undergo temporal artery biopsy on 04/07/2023. Patient continues to report headache and overall generalized weakness. She reports improvement in headache since starting oral steroids. Patient is scheduled to be nothing by mouth at midnight and will have biopsy done and will discuss further with vascular surgery about resuming anticoa gulant. Patient is afebrile with no reported chest pain or shortness of breath noted. Patient reports the tolerating diet with no reported nausea or vomiting 04/08/2023 Patient is seen in follow-up with multiple medical consultations following. Patient reports her headache has improved and feels the steroids are helping. Patient with hematology following has consulted GI for input and recommendations on anemia. GI planning on starting bowel prep with upper and lower EGD/colonoscopy scheduled for tomorrow. Anticoagulation remains on hold and we'll continue to hold until after EGD/colonoscopy. Vascular surgery has signed off and is status post temporal artery biopsy on the right which is pending and will follow-up outpatient. Patient continues with weakness with plans on going to [facility] and has been accepted. Will discuss with consultations about discharge planning possibly tomorrow after awaiting report for EGD/colonoscopy. 04/09/2023 Patient is seen in follow-up this morning underwent the Invenergy bowel prep and is scheduled to undergo EGD with colonoscopy today with Dr. Snell. Patient is currently nothing by mouth and awaiting for sometime this afternoon. Hemoglobin is stable at 8.7 today with no active bleeding noted. Patient maintained on steroids and reports her headache has resolved with no further residual. Kidney functions improving and creatinine is 1.3 and nephrology is following. Blood sugars being controlled on sliding scale currently. Blood pressure slightly elevated and choroid being adjusted. Patient with continued weakness will be going to [facility] once cleared by consultations. Awaiting endoscopy report at this time. Review of systems: Constitutional: No reports of fatigue, fever, or chills, reporting headache is resolved Cardiovascular: No reports of chest pain or palpitations Respiratory: No reports of shortness of breath or cough GI: No reports of nausea, vomiting, or diarrhea : No reports of dysuria or retention Neurovascular: reports of generalized weakness All medications have been reviewed Physical exam: GENERAL: The patient is alert and oriented x3, obese. Well developed, well nourished. HEENT: Pupils are round and equally reacting to light. EOMI. No scleral icterus. No conjunctival pallor. Normocephalic, atraumatic. No pharyngeal erythema. No thyromegaly. CARDIOVASCULAR: S1 and S2 present. No murmurs, rubs, or gallops. PULMONARY: Breath sounds diminished bilaterally with no wheezing or crackles. ABDOMEN: Soft, nontender, nondistended, normoactive bowel sounds. No palpable organomegaly. MUSCULOSKELETAL: No joint swelling or deformity. EXTREMITIES: No cyanosis, clubbing, Bilateral pedal and lower extremity edema +2 with Maurilio wraps noted bilaterally NEUROLOGICAL: Gross neurological examination did not reveal any focal deficits. Generalized weakness. SKIN: Inside of left browne has bullae that has opened up. Right leg has is weeping. Assessment: Headache, new onset , rule out giant cell arteritis, status post trigeminal artery biopsy Dizziness/lightheadedness with fall on Wednesday likely due to orthostatic hypotension Peripheral edema and weeping ulcerations likely from the edema. Hyponatremia, improved Recent admission for symptomatic bradycardia patient was taken off betablocker. History of atrial fibrillation with prior cardiac ablation anticoagulated with eliquis which is currently on hold Chronic tinnitus and hearing loss, seeing ENT outpatient Hypothyroidism Anemia , most likely chronic with hematology following undergoing further workup and GI has been consulted to undergo EGD/colonoscopy on 04/09/2023 Hx hypertension Diabetes Mellitus type 2 Chronic kidney disease stage 3 Hx cervical cancer with surgery and radiation GI prophylaxis DVT prophylaxis, oral anticoagulant currently on hold for EGD/colonoscopy Full Code Plan: Multiple medical consultations including cardiology, infectious disease, vascular surgery, neurology following and patient is status post temporal artery biopsy with vascular surgery on 04/07/2023, biopsy pending Oral anticoagulant on hold and will discuss with vascular surgery about resuming post biopsy. Patient has been cleared by vascular surgery to follow-up outpatient for biopsy results. Hematology following as well as GI and patient is scheduled to undergo EGD/colonoscopy today. Continue to hold anticoagulation until endoscopic reports and further discussion with GI blood pressures are elevated and choroid being adjusted and kidney function showing improvement with a creatinine of 1.3 with nephrology following continue 60 mg of oral prednisone daily and will continue slow prednisone taper of 60 mg for 1 week then 50 mg for 1 week then 40 mg for 1 week then then 30 mg for 1 week 20 mg for 1 week, then 10 mg for 1 week Check orthostatics Qshift Continue Woundcare for the lower extremity edema can continue with abd pad, kerlex and maurilio wrap for compression pending further recommendations. Infectious disease following an patient is maintained being monitored closely off IV antibiotics PT/OT evaluated the patient and will likely be going to [facility] for continued strength and mobility Will await and discuss with consultations about discharge planning. Awaiting EGD/colonoscopy report at this time Due to multiple complex medical issues, prognosis is guarded Possible discharge in the next 24 hours if [facility] can accommodate The impression and plan of care has been dictated by Lisset Walters, Nurse Practitioner as directed. Dr. Hayes MD I have performed a history and examination and MDM of this patient, discussed the same with the dictator, and agree with the dictator's assessment and plan as written ,documented as a scribe. Based on total visit time, I have performed more than 50% of the visit. Objective - Vital Signs Vital signs: Vital Signs Temp 97.7 F 04/09/23 07:54 Pulse 77 04/09/23 07:54 Resp 16 04/09/23 07:54 BP 174/69 04/09/23 07:54 Pulse Ox 96 04/09/23 07:54 FiO2 6 04/07/23 15:01 Intake & Output 04/08/23 04/09/23 04/09/23 18:59 06:59 18:59 Weight 83.461 kg Other: Voiding Method Toilet # Voids 1 4 # Bowel Movements 3 - Labs CBC & Chem 7: 04/09/23 04:52 04/09/23 04:52 Labs: Abnormal Lab Results - Last 24 Hours (Table) 04/08/23 04/08/23 04/08/23 Range/Units 11:47 17:32 21:17 RBC (4.10-5.20) X 10*6/uL Hgb (12.0-15.0) d/dL Hct (37.2-46.3) % MCH (27.0-32.0) pg MCHC (32.0-37.0) d/dL RDW (11.5-14.5) % Lymphocytes # (0.90-5.00) X 10*3/uL Eosinophils # (0.04-0.35) X 10*3/uL Haptoglobin 287.0 H (31.2-198.0) mg/dL BUN (9.0-27.0) mg/dL Est GFR (CKD-EPI) (>=60) BUN/Creatinine Ratio (12.00-20.00) Ratio Glucose (70-110) mg/dL POC Glucose (mg/dL) 152 H 148 H (70-110) mg/dL Total Protein (PEP) 6.0 L (6.2-8.2) d/dL Free [place] LC, Quant 2.48 H (0.33-1.94) mg/dL 04/09/23 04/09/23 04/09/23 Range/Units 04:52 04:52 06:27 RBC 3.27 L (4.10-5.20) X 10*6/uL Hgb 8.7 L (12.0-15.0) d/dL Hct 28.3 L (37.2-46.3) % MCH 26.6 L (27.0-32.0) pg MCHC 30.7 L (32.0-37.0) d/dL RDW 20.3 H (11.5-14.5) % Lymphocytes # 0.69 L (0.90-5.00) X 10*3/uL Eosinophils # 0 L (0.04-0.35) X 10*3/uL Haptoglobin (31.2-198.0) mg/dL BUN 50.7 H (9.0-27.0) mg/dL Est GFR (CKD-EPI) 42 L (>=60) BUN/Creatinine Ratio 39.00 H (12.00-20.00) Ratio Glucose 134 H (70-110) mg/dL POC Glucose (mg/dL) 129 H (70-110) mg/dL Total Protein (PEP) (6.2-8.2) d/dL Free [place] LC, Quant (0.33-1.94) mg/dL
[2023-04-09] MEDS ORDERED: PROPOFOL 10 MG/ML 20 ML VIAL IV ONE (15:18)
[2023-04-09] MEDS ORDERED: LIDOCAINE 2% INJ 20 MG/ML (2 ML VIAL) ONE (15:18)
[2023-04-09] MEDS ORDERED: IV FLUID CONTINUATION 1,000 ML IV ONE (15:21)
--- NOTE | 2023-04-09 15:47 | P.PN ---
Subjective Progress Note Date: 04/09/23 Principal diagnosis: anemia, headache At today's visit patient is reporting improvement in headache. Hemoglobin stable at 8.7. Plan for upper and lower endoscopic evaluation today. Objective - Vital Signs Vital signs: Vital Signs Temp 97.7 F 04/09/23 07:54 Pulse 77 04/09/23 07:54 Resp 16 04/09/23 07:54 BP 174/69 04/09/23 07:54 Pulse Ox 96 04/09/23 07:54 FiO2 6 04/07/23 15:01 Intake & Output 04/08/23 04/09/23 04/09/23 18:59 06:59 18:59 Weight 83.461 kg Other: Voiding Method Toilet # Voids 1 4 # Bowel Movements 3 - Constitutional General appearance: Present: average body habitus, no acute distress - EENT Eyes: Present: anicteric sclerae, EOMI ENT: Present: hearing grossly normal - Respiratory Details: breathing even and unlabored - Cardiovascular Details: skin warm and dry - Integumentary Integumentary: Absent: cyanotic, jaundiced - Neurologic Neurologic Comment(s): grossly intact - Musculoskeletal Musculoskeletal: Present: strength equal bilaterally - Psychiatric Psychiatric: Present: A&O x's 3, appropriate affect, intact judgment & insight - Labs CBC & Chem 7: 04/09/23 04:52 04/09/23 04:52 Labs: Abnormal Lab Results - Last 24 Hours (Table) 04/08/23 04/08/23 04/08/23 Range/Units 11:47 17:32 21:17 RBC (4.10-5.20) X 10*6/uL Hgb (12.0-15.0) d/dL Hct (37.2-46.3) % MCH (27.0-32.0) pg MCHC (32.0-37.0) d/dL RDW (11.5-14.5) % Lymphocytes # (0.90-5.00) X 10*3/uL Eosinophils # (0.04-0.35) X 10*3/uL Haptoglobin 287.0 H (31.2-198.0) mg/dL BUN (9.0-27.0) mg/dL Est GFR (CKD-EPI) (>=60) BUN/Creatinine Ratio (12.00-20.00) Ratio Glucose (70-110) mg/dL POC Glucose (mg/dL) 152 H 148 H (70-110) mg/dL Total Protein (PEP) 6.0 L (6.2-8.2) d/dL Free [place] LC, Quant 2.48 H (0.33-1.94) mg/dL 04/09/23 04/09/23 04/09/23 Range/Units 04:52 04:52 06:27 RBC 3.27 L (4.10-5.20) X 10*6/uL Hgb 8.7 L (12.0-15.0) d/dL Hct 28.3 L (37.2-46.3) % MCH 26.6 L (27.0-32.0) pg MCHC 30.7 L (32.0-37.0) d/dL RDW 20.3 H (11.5-14.5) % Lymphocytes # 0.69 L (0.90-5.00) X 10*3/uL Eosinophils # 0 L (0.04-0.35) X 10*3/uL Haptoglobin (31.2-198.0) mg/dL BUN 50.7 H (9.0-27.0) mg/dL Est GFR (CKD-EPI) 42 L (>=60) BUN/Creatinine Ratio 39.00 H (12.00-20.00) Ratio Glucose 134 H (70-110) mg/dL POC Glucose (mg/dL) 129 H (70-110) mg/dL Total Protein (PEP) (6.2-8.2) d/dL Free [place] LC, Quant (0.33-1.94) mg/dL Assessment and Plan (1) Headache Current Visit: Yes Status: Acute Priority: High Code(s): R51.9 - HEADACHE, UNSPECIFIED SNOMED Code(s): 36866431 (2) Iron deficiency anemia Current Visit: Yes Status: Acute Priority: High Code(s): D50.9 - IRON DEFICIENCY ANEMIA, UNSPECIFIED SNOMED Code(s): 46255884 Plan: MCKENNA: -Hemoglobin this admission has been in 8 range. Hgb stable, 8.7 today. -Iron studies on 04/03/23 revealed iron 20, iron saturation 5.8%, ferritin 52.3. Folate and B12 normal. Patient received 4 doses of parenteral iron. -Patient states that after open heart surgery in 2019 she did have to receive blood transfusions at that time and has experienced anemia since with hemoglobin typically running in the 10 range. She states her last colonoscopy was greater than 5 years ago. She has never had EGD. She denies blood in stool and melena. She is anticoagulated with eliquis for a-fib. Eliquis has been held since admission -GI consulted, plan for endoscopic evaluation today -Paraproteinemia work up ordered. K/L ratio mildly elevated at 1.79, will f/u outpt for observation. SPEP and immunofixation pending. Hemolysis workup negative. -Anemia likely multifactorial related to underlying known CKD, superimposed by anemia of inflammation and possible GI bleed -Will continue to monitor. Please transfuse for hemoglobin less than 7 or if sy mptomatic. Headache: -MRI/MRA brain and neck revealed no evidence of intracranial aneurysm or signi ficant stenosis. Findings compatible with superficial siderosis with Blooming artifact with gyriform pattern along the cerebellar and cerebral hemispheres. No evidence of significant stenosis of the carotid bifurcations. Carotid and vertebral arteries patent. No evidence of intracranial mass or acute/subacute infarct. -S/P right temporal artery biopsy on 04/06, biopsy pending -Continues on steroids. Reports improvement in symptoms -Neurology and vascular surgery following
--- NOTE | 2023-04-09 15:50 | P.PCN ---
Date of Procedure: 04/09/23 Procedure(s) Performed: Brief history: Patient is a pleasant 77-year-old pleasant white female scheduled for an upper endoscopy as well as colonoscopy as a part of evaluation of iron deficiency anemia. Procedure I deficiency anemia. performed: Esophagogastroduodenoscopy biopsy ColonoscopyWith snare polypectomy Preoperative diagnosis: iron deficiency anemia Anesthesia: [facility] [place] Procedure: After informed consent was obtained from the patient was brought into the endoscopy unit and IV sedation was administered by anesthesia under continuous monitoring. Initially upper endoscopy was done. The Olympus GF 160 video endoscope was inserted inserted into the mouth and esophagus intubated without any difficulty and was gradually advanced into the stomach and duodenum and carefully examined. The bulb and second part of the duodenum appeared normal. The scope was then withdrawn into the stomach adequately insufflated with air and upon careful examination the antrumhad mild gastritis and biopsies were done from this area. Mucosa of the body, cardia and fundus appeared normal. The scope was then withdrawn into the esophagus. The GE junction was located at 38 cm to the incisors. It appeared regular with no erythema erosions or ulcerations. there were 2 tongues of Clement's appearing mucosa just proximal to the GE junction extending by 2-3 mm which was biopsied. Rest of the esophagus appeared normal. Patient tolerated the procedure well. At this time the patient continued to remain sedation. Initial digital rectal examination was normal. Olympus CF 160 video colonoscope was then inserted into the rectum and gradually advanced to the cecum without any difficulty. Careful examination was performed as the scope was gradually being withdrawn. The prep was excellent. The cecum appeared normal. In the ascending colon there was a 5 mm polyp removed by snare or snare polyp rectum he. In the transverse colon there was a 6 mm polyp removed by cold snare polyp rectum he. Rest of the, ascending colon, transverse colon, descending colon, sigmoid colon and rectum a ppeared normal. scattered diverticulosis seen. Retroflexion was performed in the rectum and no lesions were noted. Patient tolerated the procedure well. Impression: 1. Upper endoscopy revealed mild antral gastritis and short segment Clement's esophagus. 2. Colonoscopy revealed 5 mm ascending colon polyp status post polypectomy and a 6 mm transverse colon polyp status post polypectomy and scattered diverticulosis. Recommendations: Findings of this examination were discussed with the patient .she was advised to follow with the biopsy results. If the biopsy results adenoma she can have a repeat colonoscopy in 5 years. Continue with iron supplements and monitor CBC periodically an outpatient basis
[2023-04-09 17:39] LABS: Glucose,Whole Blood 117 mg/dL (70-110)
--- NOTE | 2023-04-09 18:06 | P.PN ---
Subjective Progress Note Date: 04/09/23 04/09/2023: Patient was seen for a follow-up. Patient's family members were also present today. Patient denies any headache. She is doing much better. 04/08/2023: Patient was seen for a follow-up. Patient states she is feeling much better. The pain is almost gone. She calls it a 1/10. The pain was not bad enough that was worth charting. She denies any side effects of medications. 04/07/2023: Patient was seen for a follow-up. Patient continues to have frequent headaches despite being on high-dose steroids, prednisone 60 mg daily. I had told patient yesterday to keep a log of the headaches. She had 13 episodes of headaches in the last 24 hours. 9 of them lasted 5 minutes, 2 of them lasted 10 minutes, 1 lasted 15 minutes and one of them lasted 20 minutes. She describes headaches mostly around her eyes, almost like a frame of eyeglas ses distribution. Only yesterday sometimes it was going to the left temporal region to the left ear. She describes it as sharp stabbing pain, very intense 10/10. Patient states she has previously tried gabapentin, but produced severe side effects. She took only 3 tablets and stopped taking it. She denies any excessive tearing or any symptoms of cluster headache. She is not waking up with a headache. The headache does not wake her up during sleeping. 04/06/2023: Patient was seen for a follow-up. Patient states she was started on steroids last night, and her headache has much improved. She had one episode last night at 10 PM. She received prednisone 60 mg after that. She slept well overnight. This morning she had a very brief headache, at present is 1/10. She feels over all her headache has much improved. Denies any side effect of prednisone. 04/05/2023: Patient was seen for a follow-up. Patient continues to have headaches, has it about 6 times since this morning, lasting for about 5 minutes. She rates her headache 8/10, pointing to above eyebrow bilaterally, on her cheek/zygomatic bone and sometimes extends to the jaw. She states yesterday she had about 20 times a headache. It is bilateral, therefore doubt trigeminal neuralgia. Patient states that it bothers her enough, that she feels like punching someone. No fever or chills. 04/04/2023: Patient was initially seen by Dr. Josesito Rendon. Please refer to his note for details. Patient has presented with a couple week history of new onset headaches. The headache was occurring about couple times a day, would come and go lasting for an hour sometimes half an hour. Patient states the headaches are becoming more frequent, and lasting longer. Patient denies any light or noise sensitivity although she does feel nauseous but no vomiting. Patient denies any neck stiffness or neck pain. Patient has history of neck surgery in 2015 or 2016. Patient at present compatible is of headaches 7/10, involving bifrontal, by maxillary region and not in the eyes. She believes it is coming more frequent. Patient could not tell how long the headache lasted today, but she thinks that it was off and on for around 8 hours, "maybe more", but she was not sure. Patient says that she does not have chronic headaches, is not a headache person. She denies any jaw claudication, any weight loss, fever or sweating. Patient states that this pain is going in the jaw and left ear occasionally. Patient is a 77-year-old female with new onset episodic headache for past 3-4 weeks, frontal temporal and maxillary sinus. ESR is elevated 74. Patient is scheduled for temporal artery biopsy. Objective - Vital Signs Vital signs: Vital Signs Temp 97.5 F L 04/09/23 14:00 Pulse 71 04/09/23 14:00 Resp 16 04/09/23 14:00 BP 155/83 04/09/23 14:00 Pulse Ox 98 04/09/23 14:00 FiO2 6 04/07/23 15:01 Intake & Output 04/08/23 04/09/23 04/09/23 18:59 06:59 18:59 Intake Total 100 Balance 100 Weight 83.461 kg Intake: IV 100 Other: Voiding Method Toilet # Voids 1 4 # Bowel Movements 3 - Exam Patient is an elderly female, sitting in the recliner, and appears to be in no obvious distress. She does appear slightly flushed. Speech and language functions are normal. Patient is oriented 3. Pupils are equal, round and reactive to light, visual rosa are full on confrontation. Extraocular muscles are intact and no nystagmus. Facial sensation normal. No facial weakness, no dysarthria. Patient is hard of hearing bilaterally to hand rub. Muscle strength appears normal in the arms distally and proximally. In the lower limbs, her ankle dorsiflexion are 5/5, knee extension 5/5, hip flexion 2/4+. Patient's lower extremities are in Maurilio wrap. - Labs CBC & Chem 7: 04/09/23 04:52 04/09/23 04:52 Labs: Abnormal Lab Results - Last 24 Hours (Table) 04/08/23 04/08/23 04/09/23 Range/Units 11:47 21:17 04:52 RBC 3.27 L (4.10-5.20) X 10*6/uL Hgb 8.7 L (12.0-15.0) d/dL Hct 28.3 L (37.2-46.3) % MCH 26.6 L (27.0-32.0) pg MCHC 30.7 L (32.0-37.0) d/dL RDW 20.3 H (11.5-14.5) % Lymphocytes # 0.69 L (0.90-5.00) X 10*3/uL Eosinophils # 0 L (0.04-0.35) X 10*3/uL Haptoglobin 287.0 H (31.2-198.0) mg/dL BUN (9.0-27.0) mg/dL Est GFR (CKD-EPI) (>=60) BUN/Creatinine Ratio (12.00-20.00) Ratio Glucose (70-110) mg/dL POC Glucose (mg/dL) 148 H (70-110) mg/dL Total Protein (PEP) 6.0 L (6.2-8.2) d/dL Free [place] LC, Quant 2.48 H (0.33-1.94) mg/dL 04/09/23 04/09/23 04/09/23 Range/Units 04:52 06:27 17:33 RBC (4.10-5.20) X 10*6/uL Hgb (12.0-15.0) d/dL Hct (37.2-46.3) % MCH (27.0-32.0) pg MCHC (32.0-37.0) d/dL RDW (11.5-14.5) % Lymphocytes # (0.90-5.00) X 10*3/uL Eosinophils # (0.04-0.35) X 10*3/uL Haptoglobin (31.2-198.0) mg/dL BUN 50.7 H (9.0-27.0) mg/dL Est GFR (CKD-EPI) 42 L (>=60) BUN/Creatinine Ratio 39.00 H (12.00-20.00) Ratio Glucose 134 H (70-110) mg/dL POC Glucose (mg/dL) 129 H 117 H (70-110) mg/dL Total Protein (PEP) (6.2-8.2) d/dL Free [place] LC, Quant (0.33-1.94) mg/dL Assessment and Plan Assessment: Probable trigeminal neuralgia. Temporal arteritis very unlikely based upon the presentation, and negative temporal artery biopsy. Patient essentially responded completely to Trileptal, not to high-dose prednisone 60 mg daily which she has been receiving for 2 days prior. New onset intermittent periorbital headache bilaterally, off and on for last 3-4 weeks, unclear cause. The headaches are recurrent and is short lasting mostly 5 minutes, sometimes lasting a bit longer. In between the headache episodes, she is completely headache free. Patient does have elevated ESR, raising concern for temporal arteritis, but the headache did not respond well to high-dose steroids. Symptoms are quite suggestive of trigeminal neuralgia, but the symptoms are bilateral periorbitally. Denies any visual disturbance or pain with jaw or chewing. Positive orthostatic hypotension and that is likely giving her light-headedness Chronic tinnitus with severe hearing loss. History of atrial fibrillation s/p ablation in 2019 and is on eliquis DM Diabetic neuropathy Plan: * Patient's headache has almost resolved. Suspect improvement from Trileptal 150 mg twice a day. This will be continued. The dose may be increased if needed in the future. * Temporal artery biopsy completed, results negative for arteritis. We will discontinue steroids. Continue Trileptal. * Hemoglobin A1c 6.4. Patient was informed that steroids can make her blood sugars worse. She would need to watch her blood sugars. * MRI Brain and MRA neck: It is reported as no evidence of intracranial aneurysm or significant stenosis. 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 No evidence of significant stenosis at the carotid bifurcations. The carotid and vertebral arteries are patent. No evidence aneurysm. No evidence of intracranial mass or acute/subacute infarct. Nonspecific white matter changes, likely secondary to small vessel ischemic disease. * MRA head: No evidence of aneurysm or significant stenosis. Type III vascular loop on the right an type II on the left. Uncertain if these vascular groups are related to possible trigeminal neuralgia. However recommend medical management. * Rheumatoid factor <15, RPR negative, hepatitis panel negative. DALILA negative, HSV1/2 PCR and VZV PCR all negative, ANCA antibodies negative, HIV negative. Lyme titer negative. Her initial ESR was 74, repeat ESR also came back 74. CRP borderline 1.0, B12 1175, RBC folate 994 normal, TSH normal. * Repeat ESR 04/08/2023 was further up 76. The ESR did not improve to prednisone, or even to Solu-Medrol. Suggest rheumatology consultation. Repeat ESR in the morning. * Patient has been seen by GI and hematology. Patient undergoing EGD and coloscopy in the morning. * Patient has atrial fibrillation, on Eliquis, currently on hold for a temporal artery biopsy performed yesterday, and EGD and colonoscopy in the morning. Consider bridging with heparin. Informed patient's nurse to discuss with primary. * Will defer the management of orthostatic vitals to the primary team. * Will defer the rest of medical management to primary team. * Neurologically clear for discharge, recommend follow-up with neurologist outpatient. Dr. Calhoun will be available for any neurological concerns over the weekend. Dr. Josesito Rendon starting from Wednesday.
[2023-04-09] MEDS: ACETAMINOPHEN TAB 325 MG TAB PO PRN (18:18)
[2023-04-09] MEDS: carvediloL 12.5 MG TAB PO SCH (18:19)
[2023-04-09 20:14] LABS: Metanephrine, Free <25 pg/mL (< OR = 57); Normetanephrine, Free 112 pg/mL (< OR = 148); Total, Free (MN + NMN) 112 pg/mL (< OR = 205)
[2023-04-09 20:18] LABS: Glucose,Whole Blood 216 mg/dL (70-110)
[2023-04-09] MEDS: ATORVASTATIN 20 MG TAB PO SCH (20:28)
[2023-04-09] MEDS: APIXABAN 5 MG TAB PO SCH (20:28)
[2023-04-10] MEDS: ACETAMINOPHEN TAB 325 MG TAB PO PRN (00:51)
--- NOTE | 2023-04-10 05:20 | P.DS ---
Providers Date of admission: 04/01/23 10:44 Expected date of discharge: 04/09/23 Attending physician: Neil Koo Consults: 03/31/23 19:33 Consult Physician Routine Consulting Provider: Josesito Rendon Consult Reason/Comments: headache/vertigo Do you want consulting provider notified?: Yes 04/02/23 14:25 Consult Physician Urgent Consulting Provider: Pati Rios Consult Reason/Comments: richie Do you want consulting provider notified?: Yes 04/02/23 14:33 Consult Physician Routine Consulting Provider: Laxmi Guillaume Consult Reason/Comments: elevated esr, uti? Do you want consulting provider notified?: Yes 04/07/23 12:34 Consult Physician Routine Consulting Provider: Ishmael Leal Consult Reason/Comments: anemia, headcahe Do you want consulting provider notified?: Yes 04/08/23 11:39 Consult Physician Routine Consulting Provider: Harini Snell Consult Reason/Comments: MCKENNA,on eliquis, eval to r/o GI bleed Do you want consulting provider notified?: Yes Primary care physician: [facility] Course: Final diagnosis Headache, new onset , rule out giant cell arteritis, status post trigeminal artery biopsy Dizziness/lightheadedness with fall on Wednesday likely due to orthostatic hypotension Peripheral edema and weeping ulcerations likely from the edema. Hyponatremia, improved Recent admission for symptomatic bradycardia patient was taken off betablocker. History of atrial fibrillation with prior cardiac ablation anticoagulated with eliquis which is currently on hold Chronic tinnitus and hearing loss, seeing ENT outpatient Hypothyroidism Anemia , chronic with iron deficiency anemia Mild antral gastritis with short segment Clement's esophagus, scattered diverticulosis with multiple colon polyps noted on EGD/colonoscopy 04/09/2023 Hx hypertension Diabetes Mellitus type 2 Chronic kidney disease stage 3 Hx cervical cancer with surgery and radiation Obesity with a BMI of 35.9 GI prophylaxis DVT prophylaxis, oral anticoagulant currently on hold for anemia Full Code Discharge disposition Patient is being discharged in a stable condition with guarded prognosis to [facility]. Patient will follow-up with Dr. Berg in the outpatient setting upon discharge. Patient is to continue with iron supplements daily along with Protonix and outpatient follow-up with GI for biopsy results as scheduled. Patient also to follow-up with hematology, nephrology, cardiology outpatient. Recommend repeat labs of CBC, cMP, magnesium in the next 2-3 days. Total time taken is greater than 35 minutes. Hospital course This is a 77-year-old female who was recently admitted with headache along with dizziness and lightheadedness and falls with generalized weakness being closely monitored. Multiple medical consultations including nephrology, neurology, infectious disease, hematology, GI following. Patient underwent EGD colonoscopy showing mild antral gastritis along with short segments of the Clement's esophagus and scattered diverticulosis with no diverticulitis. Patient also underwent colonoscopy with multiple polyps noted and biopsies were obtained. Patient to follow-up with GI outpatient and continue with iron supplementation and will continue on Protonix twice daily. Hemoglobin is stable above 8 and recommend follow-up labs in the next few days. Patient also underwent temporal artery biopsy and will follow-up outpatient for test results and continue on a prednisone taper starting at 60 mg daily for 1 week and titrating down until finished. Patient was on eliquis although was being held due to anemia and would recommend following up with repeat CBC in the next 2-3 days and then resuming anticoagulant. Patient also to follow up with neurology outpatient. Patient also had some chronic lower extremity wounds with concerns of cellulitis with infectious disease following and patient was maintained on cefazolin will continue oral Keflex to complete the course. Patient has been cleared by consultations. Please refer to other consultation notes for further HPI. Currently no reports of chest pain, shortness of breath, or palpitations. Patient is afebrile. No reports of nausea or vomiting and patient is tolerating diet. Patient will be going to [facility] on the [address] today. Her prognosis given patient's significant comorbidities. Physical exam: Gen: This is a 77-year-old female who is awake, alert and oriented, well- developed, well-nourished, obese HEENT: Head is atraumatic, normocephalic. Pupils equal, round. Sclerae is anicteric. NECK: Supple. No JVD. No lymphadenopathy. No thyromegaly. LUNGS: Clear to auscultation. No wheezes or rhonchi. No intercostal retractions. HEART: S1, S2 are muffled, currently rate controlled ABDOMEN: Soft. Obese Bowel sounds are present. No masses. No tenderness. EXTREMITIES: No pedal edema. No calf tenderness. Mild generalized edema noted on lower extremities bilaterally NEUROLOGICAL: Patient is awake, alert and oriented x3. Cranial nerves 2 through 12 are grossly intact. Diffusely weak Please refer to medication reconciliation sheet for a list of medications. The impression and plan of care has been dictated by Lisset Walters, Nurse Practitioner as directed. Dr. Hayes MD I have performed a history and examination and MDM of this patient, discussed the same with the dictator, and agree with the dictator's assessment and plan as written ,documented as a scribe. Based on total visit time, I have performed more than 50% of the visit. Patient Condition at Discharge: Fair Plan - Discharge Summary New Discharge Prescriptions: New Loratadine [Claritin] 5 mg PO DAILY tab Triamcinolone 0.1% Cream [Kenalog 0.1% Cream] 1 applic TOPICAL BID each INSULIN ASPART (NovoLOG) [NovoLOG (formulary)] 0 unit SQ ACHS each predniSONE 60 mg PO DAILY #147 tab Sennosides [Senokot] 8.6 mg PO BID tab Sodium Bicarbonate Tab 650 mg PO BID tab OXcarbazepine [Trileptal] 150 mg PO BID tab Acetaminophen Tab [Tylenol] 650 mg PO Q4H PRN tab PRN Reason: Headache Pantoprazole Sodium [Protonix] 40 mg PO BID #60 tab Ferrous Sulfate [Iron (65 MG Elemental)] 325 mg PO DAILY #30 tab Darbepoetin Bill [Aranesp] 40 mcg SQ Q7D each Bumetanide [BUMEX] 0.5 mg PO DAILY tab carvediloL [Coreg*] 12.5 mg PO BID-W/MEALS tab Fluticasone Nasal [place] [Flonase Nasal [place]] 2 spray EA NOSTRIL DAILY ml Cephalexin [Keflex] 500 mg PO Q12HR 10 Days #20 cap Nystatin 100,000Unit/gm Cream [Mycostatin Cream] 1 applic TOPICAL BID each Continue Atorvastatin [Lipitor] 20 mg PO HS Dapagliflozin Propanediol [Farxiga] 10 mg PO DAILY #30 tab Levothyroxine Sodium [Synthroid] 50 mcg PO DAILY Discontinued Dexlansoprazole [Dexilant] 60 mg PO DAILY Apixaban [Eliquis] 5 mg PO BID allopurinoL [Zyloprim] 300 mg PO Q48H Bumetanide [BUMEX] 1 mg PO DAILY #30 tab Vit C/E/Zn/Coppr/Lutein/Zeaxan [Preservision Areds 2 Softgel] 1 cap PO BID NIFEdipine XL [Procardia XL] 30 mg PO DAILY #30 tab Discharge Medication List Atorvastatin [Lipitor] 20 mg PO HS 11/25/18 [History] Levothyroxine Sodium [Synthroid] 50 mcg PO DAILY 03/26/23 [History] Dapagliflozin Propanediol [Farxiga] 10 mg PO DAILY #30 tab 03/27/23 [Rx] Acetaminophen Tab [Tylenol] 650 mg PO Q4H PRN tab 04/09/23 [Rx] Bumetanide [BUMEX] 0.5 mg PO DAILY tab 04/09/23 [Rx] Cephalexin [Keflex] 500 mg PO Q12HR 10 Days #20 cap 04/09/23 [Rx] Darbepoetin Bill [Aranesp] 40 mcg SQ Q7D each 04/09/23 [Rx] Fluticasone Nasal [place] [Flonase Nasal [place]] 2 spray EA NOSTRIL DAILY ml 04/09/23 [Rx] INSULIN ASPART (NovoLOG) [NovoLOG (formulary)] 0 unit SQ ACHS each 04/09/23 [Rx] Loratadine [Claritin] 5 mg PO DAILY tab 04/09/23 [Rx] Nystatin 100,000Unit/gm Cream [Mycostatin Cream] 1 applic TOPICAL BID each 04/09/23 [Rx] OXcarbazepine [Trileptal] 150 mg PO BID tab 04/09/23 [Rx] Pantoprazole Sodium [Protonix] 40 mg PO BID #60 tab 04/09/23 [Rx] Sennosides [Senokot] 8.6 mg PO BID tab 04/09/23 [Rx] Sodium Bicarbonate Tab 650 mg PO BID tab 04/09/23 [Rx] Triamcinolone 0.1% Cream [Kenalog 0.1% Cream] 1 applic TOPICAL BID each 04/09/23 [Rx] carvediloL [Coreg*] 12.5 mg PO BID-W/MEALS tab 04/09/23 [Rx] predniSONE 60 mg PO DAILY #147 tab 04/09/23 [Rx] Ferrous Sulfate [Iron (65 MG Elemental)] 325 mg PO DAILY #30 tab 04/10/23 [Rx] Follow up Appointment(s)/Referral(s): Roman Berg MD [Primary Care Provider] - 1-2 days Blanca Alvarez DO [STAFF PHYSICIAN] - 1 Week Raysa Ngo MD [Medical Doctor] - 1 Week Handy Perera DO [STAFF PHYSICIAN] - 1 Week Yeimy Martini MD [STAFF PHYSICIAN] - 1 Week Ambulatory/Diagnostic Orders: Complete Blood Count w/diff [LAB.AMB] Time Frame: 3 Days, Location: None Selected Activity/Diet/Wound Care/Special Instructions: Patient is going to [facility] on the [address] Activity as tolerated Continue with consistent carb diet and fluid restrictions of 1500 mouth daily Follow-up nephrology outpatient Follow-up hematology outpatient Follow-up GI outpatient for biopsy results Follow-up neurology outpatient continue prednisone taper Continue with wound care to the lower extremities by applying Aquasol silver to open areas on bilateral lower legs and then wrapping with Maurilio wraps from ankle to below the knee Elevate lower extremities while at rest Repeat CBC, CMP, magnesium in 2-3 days Continue sliding scale with Accu-Cheks before meals and at bedtime NovoLog sliding scale 0-150 equals 0 units 151-200 equals 2 units 201-250 equals 4 units 251-300 equals 6 units 301-350 equals 8 units 351-400 equals 10 units Please notify provider if blood sugar is 400 or above Continue to hold eliquis until repeat cbc in 2-3 days follow up with pcp on discharge Discharge Disposition: TRANSFER TO SNF/ECF
[2023-04-10] MEDS: INSULIN ASPART (NovoLOG) 100 UNIT/ML VIAL SQ SCH (06:10)
[2023-04-10 06:11] LABS: Glucose,Whole Blood 84 mg/dL (70-110)
[2023-04-10] MEDS: LACTATED RINGERS 1,000 ML IV SCH (06:11)
[2023-04-10] MEDS: LEVOTHYROXINE 50 MCG TAB PO SCH (06:13)
[2023-04-10 08:28] VITALS: BP 153/61; PULSE 64; TEMP 98.2
[2023-04-10] MEDS: DAPAGLIFLOZIN PROPANEDIOL 10 MG TABLET PO SCH (08:29)
[2023-04-10] MEDS: carvediloL 12.5 MG TAB PO SCH (08:29)
[2023-04-10] MEDS: SODIUM BICARBONATE TAB 650 MG TAB PO SCH (08:29)
[2023-04-10] MEDS: NYSTATIN 100,000UNIT/GM CREAM 30 GM TUBE TOPICAL SCH (08:29)
[2023-04-10] MEDS: TRIAMCINOLONE 0.1% CREAM 80 GM TUBE TOPICAL SCH (08:29)
[2023-04-10] MEDS: CEPHALEXIN 500 MG CAP PO SCH (08:29)
[2023-04-10] MEDS: PANTOPRAZOLE 40 MG TABLET PO SCH (08:29)
[2023-04-10] MEDS: BUMETANIDE 1 MG TAB PO SCH (08:29)
[2023-04-10] MEDS: OXcarbazepine 150 MG TAB PO SCH (08:29)
[2023-04-10] MEDS: FLUTICASONE 50MCG/SPRAY NASAL 16GM EA NOSTRIL SCH (08:29)
[2023-04-10] MEDS: SENNOSIDES 8.6 MG TAB PO SCH (08:29)
[2023-04-10] MEDS: LORATADINE 10 MG TAB PO SCH (08:29)
[2023-04-10] MEDS: APIXABAN 5 MG TAB PO SCH (08:29)
[2023-04-10 11:46] LABS: Glucose,Whole Blood 137 mg/dL (70-110)
== END 2023-04-10 12:05 | DRG 40 ==
LOC: EC 15:00 → 6NMEDSUR 19:20 → OBSVTOIN 04-01 10:44 → 6NMEDSUR 04-08 04:13
PROVIDERS: ADMIT Hospitalist; ATTEND Hospitalist
PROC: 0DB48ZX Excision of Esophagogastric Junction, Via Natural or Artificial Opening Endoscopic, Diagnostic (ICD-10-PCS; principal; 2023-04-01)
PROC: 03BS3ZX Excision of Right Temporal Artery, Percutaneous Approach, Diagnostic (ICD-10-PCS; principal; 2023-04-01)
PROC: 0DBL8ZX Excision of Transverse Colon, Via Natural or Artificial Opening Endoscopic, Diagnostic (ICD-10-PCS; principal; 2023-04-01)
PROC: 0DBK8ZX Excision of Ascending Colon, Via Natural or Artificial Opening Endoscopic, Diagnostic (ICD-10-PCS; principal; 2023-04-01)
PROC: 0DB78ZX Excision of Stomach, Pylorus, Via Natural or Artificial Opening Endoscopic, Diagnostic (ICD-10-PCS; principal; 2023-04-01)
PROC: 0DB98ZX Excision of Duodenum, Via Natural or Artificial Opening Endoscopic, Diagnostic (ICD-10-PCS; principal; 2023-04-01)
DX: G50.0 Trigeminal neuralgia (principal); I50.23 Acute on chronic systolic (congestive) heart failure; N17.0 Acute kidney failure with tubular necrosis; I13.0 Hypertensive heart and chronic kidney disease with heart failure and stage 1 through stage 4 chronic kidney disease, or unspecified chronic kidney disease; E87.20 Acidosis, unspecified; E87.1 Hypo-osmolality and hyponatremia; L03.115 Cellulitis of right lower limb; L03.116 Cellulitis of left lower limb; L97.829 Non-pressure chronic ulcer of other part of left lower leg with unspecified severity; L97.819 Non-pressure chronic ulcer of other part of right lower leg with unspecified severity; D63.1 Anemia in chronic kidney disease; I83.018 Varicose veins of right lower extremity with ulcer other part of lower leg; I83.028 Varicose veins of left lower extremity with ulcer other part of lower leg; E11.22 Type 2 diabetes mellitus with diabetic chronic kidney disease; E11.51 Type 2 diabetes mellitus with diabetic peripheral angiopathy without gangrene; E11.40 Type 2 diabetes mellitus with diabetic neuropathy, unspecified; N18.32 Chronic kidney disease, stage 3b; I48.0 Paroxysmal atrial fibrillation; G93.89 Other specified disorders of brain; I95.1 Orthostatic hypotension; D50.9 Iron deficiency anemia, unspecified; E87.5 Hyperkalemia; I25.5 Ischemic cardiomyopathy; E03.9 Hypothyroidism, unspecified; I25.10 Atherosclerotic heart disease of native coronary artery without angina pectoris; K29.70 Gastritis, unspecified, without bleeding; K63.5 Polyp of colon; K22.70 Barrett's esophagus without dysplasia; K57.30 Diverticulosis of large intestine without perforation or abscess without bleeding; E66.9 Obesity, unspecified; Z68.35 Body mass index [BMI] 35.0-35.9, adult; I49.1 Atrial premature depolarization; H93.13 Tinnitus, bilateral; M77.9 Enthesopathy, unspecified; H35.30 Unspecified macular degeneration; M10.9 Gout, unspecified; M19.90 Unspecified osteoarthritis, unspecified site; T38.0X5A Adverse effect of glucocorticoids and synthetic analogues, initial encounter; H91.90 Unspecified hearing loss, unspecified ear; Z79.01 Long term (current) use of anticoagulants; Z79.84 Long term (current) use of oral hypoglycemic drugs; Z79.890 Hormone replacement therapy; Z79.899 Other long term (current) drug therapy; Z85.41 Personal history of malignant neoplasm of cervix uteri; Z87.891 Personal history of nicotine dependence; Z92.3 Personal history of irradiation; Z95.2 Presence of prosthetic heart valve; Z96.641 Presence of right artificial hip joint; Z98.1 Arthrodesis status; Z95.5 Presence of coronary angioplasty implant and graft; W19.XXXA Unspecified fall, initial encounter; Z88.0 Allergy status to penicillin; Z88.2 Allergy status to sulfonamides; Z91.041 Radiographic dye allergy status
CPT/HCPCS: 36415; 43239; 45385; 70450; 70544; 70549; 70553; 71046; 80048; 80053; 80074; 81003; 82607; 82728; 82747; 83010; 83036; 83540; 83550; 83605; 83615; 83735; 83835; 83880; 83883; 84165; 84443; 84484; 85025; 85045; 85652; 86038; 86140; 86235; 86255; 86334; 86431; 86618; 86780; 87390; 87529; 87798; 88305; 93005; 94760; 99285